=== PATIENT | female | born 1960 | race African-American/Black ===

== ENCOUNTER 2016-05-24 14:59 | Inpatient (IN) | payer MEDICARE, MEDICAID ==
[~2016-05-24] VITALS: Ht 172.7 cm; Wt 119.4 kg
[~2016-05-24 14:59] MED LIST: ALBU18HF2 IH; EZET10TA; INTE44DI SQ; TRIA1CAP6 PO; [UNRECOGNIZED DRUG - CODE] TOP
[2016-05-24] MEDS ORDERED: ACETAMINOPHEN 325MG TABLET PO STA (15:53)
[2016-05-24] MEDS ORDERED: ONDANSETRON HCL 4MG/2ML VIAL IV STA (15:53)
[2016-05-24] MEDS ORDERED: MORPHINE SULFATE 4 MG/ML CPJ (NOT FOR IM USE) IV STA (15:53)
[2016-05-24] MEDS ORDERED: PIPERACILLIN/TAZ 3.375G PREMIX 50 ML IV ONE (16:00)
[2016-05-24] MEDS ORDERED: SODIUM CHLORIDE 0.9% 1000ML BAG (SEPSIS BOLUS) IV ONE (16:00)
[2016-05-24] MEDS ORDERED: VANCOMYCIN 1 G PREMIX 200 ML IV ONE (16:00)
[2016-05-24 16:56] LABS: CLARITY URINE CLOUDY (CLEAR); COLOR URINE DARK YELLOW (YELLOW); GLUCOSE URINE TRACE (NEGATIVE); KETONES URINE TRACE (NEGATIVE); LEUKOCYTE ESTERASE URINE 1+ (NEGATIVE); NITRITE URINE NEGATIVE (NEGATIVE); OCCULT BLOOD URINE NEGATIVE (NEGATIVE); PROTEIN URINE TRACE (NEGATIVE); SPECIFIC GRAVITY URINE 1.022 (1.005-1.030)
[2016-05-24 17:12] LABS: BACTERIA URINE 2+; RBC URINE 0-2 /hpf (0-2); SQUAMOUS EPITHELIAL CELL URINE 1+ /lpf (RARE/1+)
[2016-05-24 17:32] LABS: CHLORIDE 101 mEq/L (98-107)
[2016-05-24 17:33] LABS: HEMATOCRIT. 41.5 % (36.0-48.0); HEMOGLOBIN. 13.5 g/dL (12.0-16.0); MEAN CORPUSCULAR HEMOGLOBIN 31.7 pg (28.0-32.0); MEAN CORPUSCULAR HGB CONC 32.5 g/dL (31.0-37.0); MEAN CORPUSCULAR VOLUME 97.3 fL (81.0-99.0); MEAN PLATELET VOLUME 7.9 fl (7.4-10.4); PLATELET 226 x1000/uL (130-400); RED BLOOD CELL COUNT 4.26 mill/uL (4.2-5.4); RED CELL DISTRIBUTION WIDTH 14.6 % (11.6-14.6); WHITE BLOOD COUNT 17.8 x1000/uL (4.5-11.0)
[2016-05-24 17:35] LABS: INR 1.1; PROTHROMBIN TIME 11.3 sec
[2016-05-24 17:37] LABS: ALBUMIN 3.5 g/dL (3.4-5.0); ANION GAP 18; CALCIUM 8.5 mg/dL (8.5-10.1); CARBON DIOXIDE 27 mEq/L (21-32); INDEX HEMOLYSI 1 (1-3); INDEX ICTERIC 1 (1-4); INDEX LIPEMIC 1 (1-3); UREA NITROGEN BLOOD 13 mg/dL (7-21)
[2016-05-24 17:40] LABS: DIFFERENTIAL COMMENT 1
[2016-05-24 17:42] LABS: ALANINE AMINOTRANSFERASE 50 IU/L (13-61); eGFR 40 mL/min (>60)
[2016-05-24 17:44] LABS: NT PRO B-TYPE NATRIURETIC PEP 383 pg/mL (5-125); TROPONIN I 0.02 ng/mL (0.00-0.04)
[2016-05-24 17:51] LABS: LACTIC ACID 6.4 mmol/L (0.4-2.0)
[2016-05-24 18:07] LABS: PLATELET ESTIMATE NORMAL
[2016-05-24] MEDS ORDERED: PIPERACILLIN/TAZ 3.375G PREMIX 50 ML IV SCH (18:15)
[2016-05-24] MEDS ORDERED: SODIUM CHLORIDE 0.9% 1,000 ML IV SCH (20:33)
[2016-05-24 21:00] VITALS: BP 123/68
[2016-05-24] MEDS: HYDROMORPHONE HCL/PF 2MG/ML CPJ IV PRN (21:35)
[2016-05-24] MEDS: GABAPENTIN 300MG CAPSULE PO SCH (21:36)
[2016-05-24] MEDS: AMITRIPTYLINE 50MG TABLET PO SCH (21:38)
[2016-05-24 22:00] VITALS: BP 111/67
[2016-05-24] MEDS ORDERED: AMITRIPTYLINE 50MG TABLET PO NR (22:00)
[2016-05-25] VITALS (21 sets, daily range): BP systolic 96–152; BP diastolic 43–92
[2016-05-25] MEDS: ACETAMINOPHEN 325MG TABLET PO PRN (00:06)
[2016-05-25] MEDS: PIPERACILLIN/TAZ 3.375G PREMIX 50 ML IV SCH ×4 (00:06→21:36)
[2016-05-25] MEDS ORDERED: DEXTROSE 50% WATER 50ML SYRINGE IV PRN (01:45)
[2016-05-25] MEDS ORDERED: BENAZEPRIL 20MG TABLET PO SCH (01:45)
[2016-05-25] MEDS ORDERED: BACLOFEN 10MG TABLET PO PRN (01:45)
[2016-05-25] MEDS ORDERED: ARMO250T4 PO (02:39)
[2016-05-25] MEDS ORDERED: TRIA1CAP6 PO (02:39)
[2016-05-25] MEDS ORDERED: OMEP20TA80 PO (02:39)
[2016-05-25] MEDS ORDERED: METO-293 PO (02:39)
[2016-05-25] MEDS ORDERED: FENT1PAT4 TD (02:39)
[2016-05-25] MEDS ORDERED: CHOL20004 PO (02:39)
[2016-05-25] MEDS ORDERED: LORA1TAB PO (02:39)
[2016-05-25] MEDS ORDERED: FAMO20TA8 PO (02:39)
[2016-05-25] MEDS ORDERED: HYDR2TAB34 PO (02:39)
[2016-05-25] MEDS ORDERED: DOCU-150 PO (02:39)
[2016-05-25] MEDS ORDERED: PRED5TAB48 PO (02:39)
[2016-05-25] MEDS ORDERED: GABA600T PO (02:39)
[2016-05-25] MEDS ORDERED: LOPE2TAB26 PO (02:39)
[2016-05-25] MEDS ORDERED: BENA20TA3 PO (02:39)
[2016-05-25] MEDS ORDERED: HYDR-519 PO (02:39)
[2016-05-25] MEDS ORDERED: AMIT25TA9 PO (02:39)
[2016-05-25] MEDS ORDERED: INSU3INS6 SUBCUT (02:39)
[2016-05-25] MEDS ORDERED: DONE10TA43 PO (02:39)
[2016-05-25] MEDS ORDERED: OCD MT (02:39)
[2016-05-25] MEDS ORDERED: ASPI-1035 PO (02:39)
[2016-05-25] MEDS ORDERED: BACL20TA PO (02:39)
[2016-05-25] MEDS: HYDROMORPHONE HCL/PF 2MG/ML CPJ IV PRN (05:13)
[2016-05-25] MEDS: ALBUTEROL (0.083%) 2.5MG/3ML NEB HHN PRN (05:23)
[2016-05-25 06:41] LABS: HEMATOCRIT. 37.5 % (36.0-48.0); HEMOGLOBIN. 12.4 g/dL (12.0-16.0); MEAN CORPUSCULAR HEMOGLOBIN 31.4 pg (28.0-32.0); MEAN CORPUSCULAR HGB CONC 33.1 g/dL (31.0-37.0); MEAN CORPUSCULAR VOLUME 94.9 fL (81.0-99.0); PLATELET 258 x1000/uL (130-400); RED BLOOD CELL COUNT 3.96 mill/uL (4.2-5.4); RED CELL DISTRIBUTION WIDTH 14.4 % (11.6-14.6); WHITE BLOOD COUNT 21.6 x1000/uL (4.5-11.0)
[2016-05-25] MEDS: GABAPENTIN 300MG CAPSULE PO SCH ×3 (06:44→21:38)
[2016-05-25] MEDS: OMEPRAZOLE 20MG CAPSULE EXTENDED RELEASE PO SCH (06:44)
[2016-05-25 07:01] LABS: DIFFERENTIAL COMMENT 1
[2016-05-25 07:17] LABS: CHLORIDE 107 mEq/L (98-107); INDEX HEMOLYSI 1 (1-3); INDEX ICTERIC 1 (1-4); INDEX LIPEMIC 1 (1-3)
[2016-05-25 07:25] LABS: ANION GAP 12; CALCIUM 7.9 mg/dL (8.5-10.1); CARBON DIOXIDE 26 mEq/L (21-32); UREA NITROGEN BLOOD 11 mg/dL (7-21); eGFR > 60 mL/min (>60)
[2016-05-25] MEDS: ERGOCALCIFEROL 50000UNITS CAPSULE PO SCH (08:16)
[2016-05-25] MEDS: BLOOD SUGAR DIAGNOSTIC STRIP TEST SCH ×4 (08:16→21:45)
[2016-05-25] MEDS: BENAZEPRIL 20MG TABLET PO SCH (08:16)
[2016-05-25] MEDS: FAMOTIDINE 20MG TABLET PO SCH ×2 (08:19→21:38)
[2016-05-25] MEDS: ASPIRIN 81MG TABLET PO SCH (08:19)
[2016-05-25] MEDS: METOCLOPRAMIDE HCL 10MG/2ML VIAL IV SCH ×2 (08:19→21:45)
[2016-05-25] MEDS: SODIUM CHLORIDE 0.9% 1,000 ML IV SCH ×3 (08:27→21:34)
[2016-05-25] MEDS: INSULIN LISPRO 100 UNITS/ML SUBCUT SCH ×4 (08:41→21:58)
[2016-05-25] MEDS ORDERED: TRIAMTERENE/HYDROCHLOROTHIAZIDE 37.5/25MG CAPSULE PO SCH ×2 (09:00)
[2016-05-25] MEDS ORDERED: ENOXAPARIN 40MG/0.4ML SYR SUBCUT SCH (09:00)
[2016-05-25] MEDS ORDERED: ALBUMIN HUMAN 25GM/500ML (5%) IV NR (11:00)
[2016-05-25 13:44] LABS: PLATELET ESTIMATE NORMAL
[2016-05-25] MEDS ORDERED: VANCOMYCIN 1250MG in DEXTROSE 5% WATER 250ML IV SCH (17:00)
[2016-05-25] MEDS: LORAZEPAM 1MG TABLET PO PRN (17:58)
[2016-05-25] MEDS: HYDROCODONE/ACETAMINOPHEN 10/325MG TABLET PO PRN (17:59)
[2016-05-25] MEDS: ENOXAPARIN 30MG/0.3ML SYR SUBCUT SCH (21:36)
[2016-05-25] MEDS: AMITRIPTYLINE 50MG TABLET PO SCH (21:38)
[2016-05-26] VITALS (16 sets, daily range): BP systolic 105–148; BP diastolic 65–96
[2016-05-26] MEDS: SODIUM CHLORIDE 0.9% 1,000 ML IV SCH (04:31)
[2016-05-26] MEDS: PIPERACILLIN/TAZ 3.375G PREMIX 50 ML IV SCH ×4 (04:31→20:43)
[2016-05-26] MEDS: ACETAMINOPHEN 325MG TABLET PO PRN (04:44)
[2016-05-26] MEDS: GABAPENTIN 300MG CAPSULE PO SCH ×3 (05:34→21:41)
[2016-05-26] MEDS: HYDROCODONE/ACETAMINOPHEN 10/325MG TABLET PO PRN ×3 (05:42→20:45)
[2016-05-26 06:39] LABS: HEMATOCRIT. 34.7 % (36.0-48.0); HEMOGLOBIN. 11.5 g/dL (12.0-16.0); MEAN CORPUSCULAR HEMOGLOBIN 31.3 pg (28.0-32.0); MEAN CORPUSCULAR HGB CONC 33.3 g/dL (31.0-37.0); MEAN PLATELET VOLUME 7.7 fl (7.4-10.4); PLATELET 215 x1000/uL (130-400); RED BLOOD CELL COUNT 3.69 mill/uL (4.2-5.4); RED CELL DISTRIBUTION WIDTH 14.2 % (11.6-14.6); WHITE BLOOD COUNT 15.8 x1000/uL (4.5-11.0)
[2016-05-26 07:11] LABS: DIFFERENTIAL COMMENT 1
[2016-05-26] MEDS: BLOOD SUGAR DIAGNOSTIC STRIP TEST SCH ×4 (07:30→20:54)
[2016-05-26 07:51] LABS: ANION GAP 11; CALCIUM 8.5 mg/dL (8.5-10.1); CARBON DIOXIDE 28 mEq/L (21-32); CHLORIDE 104 mEq/L (98-107); INDEX HEMOLYSI 1 (1-3); INDEX ICTERIC 1 (1-4); INDEX LIPEMIC 1 (1-3); MAGNESIUM 1.7 mg/dL (1.8-2.4); PHOSPHORUS 2.2 mg/dL (2.5-4.9); UREA NITROGEN BLOOD 5 mg/dL (7-21); eGFR > 60 mL/min (>60)
[2016-05-26] MEDS: INSULIN LISPRO 100 UNITS/ML SUBCUT SCH ×4 (08:00→21:44)
[2016-05-26] MEDS ORDERED: POTASSIUM CHLORIDE 20MEQ TABLET SR PO NR (08:15)
[2016-05-26] MEDS: METOCLOPRAMIDE HCL 10MG/2ML VIAL IV SCH ×2 (08:56→20:43)
[2016-05-26] MEDS: FAMOTIDINE 20MG TABLET PO SCH ×2 (08:56→20:44)
[2016-05-26] MEDS: ASPIRIN 81MG TABLET PO SCH (08:56)
[2016-05-26] MEDS: ERGOCALCIFEROL 50000UNITS CAPSULE PO SCH (08:56)
[2016-05-26] MEDS: OMEPRAZOLE 20MG CAPSULE EXTENDED RELEASE PO SCH (08:56)
[2016-05-26] MEDS: BENAZEPRIL 20MG TABLET PO SCH (08:57)
[2016-05-26] MEDS: ENOXAPARIN 30MG/0.3ML SYR SUBCUT SCH ×2 (08:57→20:45)
[2016-05-26] MEDS ORDERED: DIATR MEGLU/DIATRIZOATE SOLN 30ML PO SCH (10:15)
[2016-05-26 10:35] LABS: BG BASE EXCESS 0.8 mmol/L (-2.0-2.0); BG CARBOXYHEMOGLOBIN 1.1 % (0.5-1.5); BG DEOXYHEMOGLOBIN 11.9 % (0.0-5.0); BG HCO3 ACT 26.3 mmol/L (22.0-26.0); BG METHEMOGLOBIN 0.3 % (0.0-1.5); BG OXYGEN SATURATION 87.9 % (92.0-98.5); BG OXYHEMOGLOBIN 86.7 % (94.0-97.0); BG PCO2 45.3 mmHg (35.0-45.0); BG PH 7.381 (7.350-7.450); BG PO2 52.1 mmHg (75.0-100.0); BG SAMPLE SITE LEFT RADIAL; BG TOTAL HEMOGLOBIN 12.2 g/dL (12.0-18.0); BG VENT MODE ROOM AIR
[2016-05-26 11:02] LABS: PLATELET ESTIMATE NORMAL
[2016-05-26] MEDS ORDERED: POTASSIUM-SODIUM PHOSPHATE POWDER PACKET PO NR (11:15)
[2016-05-26] MEDS ORDERED: MAGNESIUM 2 G PREMIX 50 ML IV NR (12:30)
[2016-05-26] MEDS: ONDANSETRON HCL 4MG/2ML VIAL IV PRN ×2 (15:47→20:58)
[2016-05-26] MEDS: HYDROMORPHONE HCL/PF 2MG/ML CPJ IV PRN (15:53)
[2016-05-26] MEDS: VANCOMYCIN 1250MG in DEXTROSE 5% WATER 250ML IV SCH (17:05)
[2016-05-26] MEDS ORDERED: BACITRACIN ZINC 15GM TUBE TOP PRN (18:00)
[2016-05-26] MEDS: AMITRIPTYLINE 50MG TABLET PO SCH (20:44)
[2016-05-26] MEDS: BACITRACIN ZINC 15GM TUBE TOP SCH (21:42)
[2016-05-27] VITALS (13 sets, daily range): BP systolic 128–167; BP diastolic 71–97
[2016-05-27] MEDS: VANCOMYCIN 1250MG in DEXTROSE 5% WATER 250ML IV SCH ×2 (00:55→08:43)
[2016-05-27] MEDS ORDERED: GUAIFENESIN-DM 200MG-20MG/10ML UDC PO PRN (01:15)
[2016-05-27] MEDS: PIPERACILLIN/TAZ 3.375G PREMIX 50 ML IV SCH ×4 (02:42→21:09)
[2016-05-27] MEDS: GABAPENTIN 300MG CAPSULE PO SCH ×3 (05:59→21:09)
[2016-05-27] MEDS: SODIUM CHLORIDE 0.9% 1,000 ML IV SCH (06:01)
[2016-05-27] MEDS: ONDANSETRON HCL 4MG/2ML VIAL IV PRN (06:01)
[2016-05-27] MEDS: HYDROMORPHONE HCL/PF 2MG/ML CPJ IV PRN ×2 (06:01→19:49)
[2016-05-27 06:30] LABS: HEMATOCRIT. 35.2 % (36.0-48.0); HEMOGLOBIN. 11.6 g/dL (12.0-16.0); MEAN CORPUSCULAR HEMOGLOBIN 31.5 pg (28.0-32.0); MEAN CORPUSCULAR HGB CONC 33.1 g/dL (31.0-37.0); MEAN CORPUSCULAR VOLUME 95.3 fL (81.0-99.0); PLATELET 212 x1000/uL (130-400); RED BLOOD CELL COUNT 3.69 mill/uL (4.2-5.4); RED CELL DISTRIBUTION WIDTH 14.1 % (11.6-14.6); WHITE BLOOD COUNT 13.6 x1000/uL (4.5-11.0)
[2016-05-27] MEDS: IPRATROPIUM/ALBUTEROL 0.5-3(2.5)MG/3ML NEB HHN PRN ×3 (06:58→13:48)
[2016-05-27] MEDS: BLOOD SUGAR DIAGNOSTIC STRIP TEST SCH ×4 (07:16→21:12)
[2016-05-27 07:22] LABS: ANION GAP 14; CALCIUM 8.4 mg/dL (8.5-10.1); CARBON DIOXIDE 27 mEq/L (21-32); CHLORIDE 102 mEq/L (98-107); DIFFERENTIAL COMMENT 1; INDEX HEMOLYSI 1 (1-3); INDEX ICTERIC 1 (1-4); INDEX LIPEMIC 1 (1-3); PHOSPHORUS 1.9 mg/dL (2.5-4.9); eGFR > 60 mL/min (>60)
[2016-05-27 07:24] LABS: UREA NITROGEN BLOOD 4 mg/dL (7-21)
[2016-05-27] MEDS: INSULIN LISPRO 100 UNITS/ML SUBCUT SCH ×4 (08:41→21:20)
[2016-05-27] MEDS: ENOXAPARIN 30MG/0.3ML SYR SUBCUT SCH ×2 (08:42→21:10)
[2016-05-27] MEDS: METOCLOPRAMIDE HCL 10MG/2ML VIAL IV SCH ×2 (08:42→21:09)
[2016-05-27] MEDS: BACITRACIN ZINC 15GM TUBE TOP SCH (08:42)
[2016-05-27] MEDS: BENAZEPRIL 20MG TABLET PO SCH (08:43)
[2016-05-27] MEDS: FAMOTIDINE 20MG TABLET PO SCH ×2 (08:43→21:09)
[2016-05-27] MEDS: ERGOCALCIFEROL 50000UNITS CAPSULE PO SCH (08:43)
[2016-05-27] MEDS: ASPIRIN 81MG TABLET PO SCH (08:43)
[2016-05-27] MEDS: OMEPRAZOLE 20MG CAPSULE EXTENDED RELEASE PO SCH (08:59)
[2016-05-27] MEDS ORDERED: POTASSIUM PHOS,M-BASIC-D-BASIC 15 MMOL in DEXT 5% WATER 245 ML IV NR (09:00)
[2016-05-27 09:46] LABS: T3 FREE 1.45 pg/ml (2.18-3.98); T4 FREE 0.91 ng/dL (0.76-1.46); THYROID STIMULATING HORMONE 0.36 uIU/mL (0.36-3.74)
[2016-05-27 09:51] LABS: INDEX HEMOLYSI 2 (1-3)
[2016-05-27 10:21] LABS: VITAMIN B12 SERUM > 2000 pg/mL (211-911)
[2016-05-27 10:23] LABS: BG BASE EXCESS -1.2 mmol/L (-2.0-2.0); BG CARBOXYHEMOGLOBIN 1.2 % (0.5-1.5); BG DEOXYHEMOGLOBIN 16.6 % (0.0-5.0); BG FRACTION INSPIRED OXYGEN 21; BG HCO3 ACT 23.7 mmol/L (22.0-26.0); BG METHEMOGLOBIN 0.3 % (0.0-1.5); BG OXYGEN SATURATION 83.1 % (92.0-98.5); BG OXYHEMOGLOBIN 81.9 % (94.0-97.0); BG PCO2 40.3 mmHg (35.0-45.0); BG PH 7.387 (7.350-7.450); BG PO2 46.5 mmHg (75.0-100.0); BG SAMPLE SITE RIGHT RADIAL; BG TOTAL HEMOGLOBIN 12.9 g/dL (12.0-18.0); BG VENT MODE ROOM AIR
[2016-05-27 11:17] LABS: AMMONIA 30 uMol/L (<32)
[2016-05-27 11:25] LABS: PLATELET ESTIMATE NORMAL
[2016-05-27] MEDS: HYDROCODONE/ACETAMINOPHEN 10/325MG TABLET PO PRN (14:30)
[2016-05-27] MEDS: ALBUTEROL (0.083%) 2.5MG/3ML NEB HHN PRN (20:45)
[2016-05-27] MEDS: AMITRIPTYLINE 50MG TABLET PO SCH (21:09)
[2016-05-28] VITALS (12 sets, daily range): BP systolic 125–165; BP diastolic 77–95
[2016-05-28] MEDS: ALBUTEROL (0.083%) 2.5MG/3ML NEB HHN PRN ×3 (02:14→21:20)
[2016-05-28] MEDS: PIPERACILLIN/TAZ 3.375G PREMIX 50 ML IV SCH ×4 (02:27→21:10)
[2016-05-28] MEDS: HYDROMORPHONE HCL/PF 2MG/ML CPJ IV PRN ×4 (02:47→22:17)
[2016-05-28] MEDS: GABAPENTIN 300MG CAPSULE PO SCH ×3 (05:30→21:14)
[2016-05-28 05:56] LABS: PARTIAL THROMBOPLASTIN TIME 31.4 sec (24.0-34.0); PROTHROMBIN TIME 10.8 sec
[2016-05-28 06:31] LABS: BASOPHILS % 0.7 % (0.0-2.0); DIFFERENTIAL COMMENT 0; EOSINOPHILS % 2.2 % (0.0-5.0); HEMOGLOBIN. 10.8 g/dL (12.0-16.0); LYMPHOCYTES % 8.1 % (20.0-50.0); MEAN CORPUSCULAR HEMOGLOBIN 31.2 pg (28.0-32.0); MEAN CORPUSCULAR HGB CONC 33.6 g/dL (31.0-37.0); MEAN CORPUSCULAR VOLUME 92.8 fL (81.0-99.0); MONOCYTES % 10.3 % (2.0-8.0); NEUTROPHILS % 78.7 % (40.0-76.0); PLATELET 257 x1000/uL (130-400); RED BLOOD CELL COUNT 3.45 mill/uL (4.2-5.4); WHITE BLOOD COUNT 8.7 x1000/uL (4.5-11.0)
[2016-05-28 06:35] LABS: ANION GAP 16; CALCIUM 8.8 mg/dL (8.5-10.1); CARBON DIOXIDE 26 mEq/L (21-32); CHLORIDE 101 mEq/L (98-107); INDEX HEMOLYSI 1 (1-3); INDEX ICTERIC 1 (1-4); INDEX LIPEMIC 1 (1-3); MAGNESIUM 1.7 mg/dL (1.8-2.4); PHOSPHORUS 2.6 mg/dL (2.5-4.9); eGFR > 60 mL/min (>60)
[2016-05-28 06:46] LABS: UREA NITROGEN BLOOD 3 mg/dL (7-21)
[2016-05-28] MEDS: BLOOD SUGAR DIAGNOSTIC STRIP TEST SCH ×4 (07:30→21:00)
[2016-05-28] MEDS: INSULIN LISPRO 100 UNITS/ML SUBCUT SCH ×4 (09:00→21:00)
[2016-05-28] MEDS: FAMOTIDINE 20MG TABLET PO SCH ×2 (09:03→21:14)
[2016-05-28] MEDS: ERGOCALCIFEROL 50000UNITS CAPSULE PO SCH (09:03)
[2016-05-28] MEDS: METOCLOPRAMIDE HCL 10MG/2ML VIAL IV SCH ×2 (09:10→22:15)
[2016-05-28] MEDS: ASPIRIN 81MG TABLET PO SCH (09:10)
[2016-05-28] MEDS: ENOXAPARIN 30MG/0.3ML SYR SUBCUT SCH ×2 (09:11→21:11)
[2016-05-28] MEDS: BENAZEPRIL 20MG TABLET PO SCH (09:11)
[2016-05-28] MEDS: BACITRACIN ZINC 15GM TUBE TOP SCH (09:12)
[2016-05-28] MEDS ORDERED: POTASSIUM CHLORIDE 10MEQ TABLET SR PO NR (09:45)
[2016-05-28] MEDS ORDERED: MAGNESIUM 2 G PREMIX 50 ML IV NR (11:30)
[2016-05-28] MEDS: LORAZEPAM 1MG TABLET PO PRN (13:34)
[2016-05-28] MEDS: IPRATROPIUM/ALBUTEROL 0.5-3(2.5)MG/3ML NEB HHN PRN (13:37)
[2016-05-28] MEDS: ONDANSETRON HCL 4MG/2ML VIAL IV PRN (13:38)
[2016-05-28] MEDS: AMITRIPTYLINE 50MG TABLET PO SCH (21:14)
[2016-05-29] VITALS (11 sets, daily range): BP systolic 116–158; BP diastolic 67–95
[2016-05-29] MEDS: PIPERACILLIN/TAZ 3.375G PREMIX 50 ML IV SCH ×4 (03:10→22:37)
[2016-05-29] MEDS: GABAPENTIN 300MG CAPSULE PO SCH ×3 (05:14→22:30)
[2016-05-29] MEDS: HYDROMORPHONE HCL/PF 2MG/ML CPJ IV PRN ×3 (05:14→22:37)
[2016-05-29] MEDS: ONDANSETRON HCL 4MG/2ML VIAL IV PRN ×2 (05:19→15:40)
[2016-05-29 06:23] LABS: BASOPHILS % 0.3 % (0.0-2.0); EOSINOPHILS % 2.7 % (0.0-5.0); HEMATOCRIT. 31.9 % (36.0-48.0); HEMOGLOBIN. 10.9 g/dL (12.0-16.0); MEAN CORPUSCULAR HEMOGLOBIN 31.8 pg (28.0-32.0); MEAN CORPUSCULAR HGB CONC 34.2 g/dL (31.0-37.0); MEAN CORPUSCULAR VOLUME 92.9 fL (81.0-99.0); MEAN PLATELET VOLUME 7.8 fl (7.4-10.4); MONOCYTES % 10.8 % (2.0-8.0); NEUTROPHILS % 77.2 % (40.0-76.0); PLATELET 262 x1000/uL (130-400); RED BLOOD CELL COUNT 3.43 mill/uL (4.2-5.4); RED CELL DISTRIBUTION WIDTH 14.2 % (11.6-14.6); WHITE BLOOD COUNT 9.6 x1000/uL (4.5-11.0)
[2016-05-29 06:46] LABS: CHLORIDE 99 mEq/L (98-107); INDEX HEMOLYSI 1 (1-3); INDEX ICTERIC 1 (1-4); INDEX LIPEMIC 1 (1-3)
[2016-05-29 06:56] LABS: ANION GAP 15; CALCIUM 8.6 mg/dL (8.5-10.1); CARBON DIOXIDE 29 mEq/L (21-32); MAGNESIUM 1.8 mg/dL (1.8-2.4); PHOSPHORUS 2.5 mg/dL (2.5-4.9); eGFR > 60 mL/min (>60)
[2016-05-29 07:01] LABS: UREA NITROGEN BLOOD 2 mg/dL (7-21)
[2016-05-29] MEDS: BLOOD SUGAR DIAGNOSTIC STRIP TEST SCH ×4 (07:49→21:00)
[2016-05-29] MEDS: INSULIN LISPRO 100 UNITS/ML SUBCUT SCH ×4 (08:08→21:00)
[2016-05-29] MEDS: METOCLOPRAMIDE HCL 10MG/2ML VIAL IV SCH ×2 (08:09→22:30)
[2016-05-29] MEDS: ENOXAPARIN 30MG/0.3ML SYR SUBCUT SCH ×2 (08:09→22:31)
[2016-05-29] MEDS: ERGOCALCIFEROL 50000UNITS CAPSULE PO SCH (08:10)
[2016-05-29] MEDS: BENAZEPRIL 20MG TABLET PO SCH (08:10)
[2016-05-29] MEDS: FAMOTIDINE 20MG TABLET PO SCH ×2 (08:10→22:30)
[2016-05-29] MEDS: ASPIRIN 81MG TABLET PO SCH (08:10)
[2016-05-29] MEDS: BACITRACIN ZINC 15GM TUBE TOP SCH (08:11)
[2016-05-29] MEDS ORDERED: POTASSIUM CHLORIDE 20MEQ TABLET SR PO SCH (09:45)
[2016-05-29] MEDS: HYDROCODONE/ACETAMINOPHEN 10/325MG TABLET PO PRN (15:41)
[2016-05-29] MEDS: GUAIFENESIN 600MG ER TABLET PO SCH (22:30)
[2016-05-29] MEDS: AMITRIPTYLINE 50MG TABLET PO SCH (22:30)
[2016-05-29] MEDS: IPRATROPIUM/ALBUTEROL 0.5-3(2.5)MG/3ML NEB HHN SCH (23:57)
[2016-05-30] VITALS (12 sets, daily range): BP systolic 135–156; BP diastolic 73–89
[2016-05-30] MEDS: PIPERACILLIN/TAZ 3.375G PREMIX 50 ML IV SCH ×3 (02:42→16:09)
[2016-05-30] MEDS: IPRATROPIUM/ALBUTEROL 0.5-3(2.5)MG/3ML NEB HHN SCH ×4 (04:30→17:16)
[2016-05-30] MEDS: GABAPENTIN 300MG CAPSULE PO SCH ×2 (06:16→14:30)
[2016-05-30] MEDS: HYDROMORPHONE HCL/PF 2MG/ML CPJ IV PRN (06:49)
[2016-05-30] MEDS: BLOOD SUGAR DIAGNOSTIC STRIP TEST SCH ×3 (07:30→17:09)
[2016-05-30 07:52] LABS: BASOPHILS % 1.2 % (0.0-2.0); DIFFERENTIAL COMMENT 0; EOSINOPHILS % 2.6 % (0.0-5.0); HEMATOCRIT. 32.9 % (36.0-48.0); LYMPHOCYTES % 9.5 % (20.0-50.0); MEAN CORPUSCULAR HEMOGLOBIN 31.3 pg (28.0-32.0); MEAN CORPUSCULAR HGB CONC 33.4 g/dL (31.0-37.0); MEAN CORPUSCULAR VOLUME 93.8 fL (81.0-99.0); MEAN PLATELET VOLUME 7.6 fl (7.4-10.4); MONOCYTES % 7.8 % (2.0-8.0); NEUTROPHILS % 78.9 % (40.0-76.0); PLATELET 295 x1000/uL (130-400); RED BLOOD CELL COUNT 3.51 mill/uL (4.2-5.4); RED CELL DISTRIBUTION WIDTH 14.2 % (11.6-14.6); WHITE BLOOD COUNT 9.8 x1000/uL (4.5-11.0)
[2016-05-30] MEDS: INSULIN LISPRO 100 UNITS/ML SUBCUT SCH ×3 (08:00→17:09)
[2016-05-30 08:11] LABS: ANION GAP 9; CALCIUM 8.7 mg/dL (8.5-10.1); CARBON DIOXIDE 32 mEq/L (21-32); CHLORIDE 101 mEq/L (98-107); INDEX HEMOLYSI 1 (1-3); INDEX ICTERIC 1 (1-4); INDEX LIPEMIC 1 (1-3); eGFR > 60 mL/min (>60)
[2016-05-30 08:13] LABS: UREA NITROGEN BLOOD 3 mg/dL (7-21)
[2016-05-30 08:37] LABS: BG BASE EXCESS 0.7 mmol/L (-2.0-2.0); BG CARBOXYHEMOGLOBIN 1.4 % (0.5-1.5); BG DEOXYHEMOGLOBIN 4.8 % (0.0-5.0); BG FRACTION INSPIRED OXYGEN 36; BG HCO3 ACT 25.7 mmol/L (22.0-26.0); BG METHEMOGLOBIN 0.3 % (0.0-1.5); BG OXYGEN SATURATION 95.1 % (92.0-98.5); BG OXYHEMOGLOBIN 93.5 % (94.0-97.0); BG PCO2 42.8 mmHg (35.0-45.0); BG PH 7.397 (7.350-7.450); BG PO2 79.1 mmHg (75.0-100.0); BG SAMPLE SITE RIGHT RADIAL; BG TOTAL HEMOGLOBIN 11.8 g/dL (12.0-18.0); BG VENT MODE NASAL CANNULA
[2016-05-30] MEDS: BACITRACIN ZINC 15GM TUBE TOP SCH (09:00)
[2016-05-30] MEDS ORDERED: POTASSIUM CHLORIDE 20 MEQ/PACKET PO NR (09:38)
[2016-05-30] MEDS: HYDROCODONE/ACETAMINOPHEN 10/325MG TABLET PO PRN ×2 (09:42→17:07)
[2016-05-30] MEDS: METOCLOPRAMIDE HCL 10MG/2ML VIAL IV SCH (09:43)
[2016-05-30] MEDS: ASPIRIN 81MG TABLET PO SCH (09:44)
[2016-05-30] MEDS: FAMOTIDINE 20MG TABLET PO SCH (09:44)
[2016-05-30] MEDS: ERGOCALCIFEROL 50000UNITS CAPSULE PO SCH (09:44)
[2016-05-30] MEDS: BENAZEPRIL 20MG TABLET PO SCH (09:44)
[2016-05-30] MEDS: GUAIFENESIN 600MG ER TABLET PO SCH (09:44)
[2016-05-30] MEDS: ENOXAPARIN 30MG/0.3ML SYR SUBCUT SCH (09:45)
[2016-05-30] MEDS ORDERED: AMITRIPTYLINE 50MG TABLET PO SCH (21:00)
== END 2016-05-30 18:20 | DRG 871 ==
LOC: ER 15:00 → 5EST 18:11
PROVIDERS: ADMIT Internal Medicine Nephrology; ATTEND Internal Medicine Nephrology
PROC: 02HV33Z Insertion of Infusion Device into Superior Vena Cava, Percutaneous Approach (ICD-10-PCS; principal; 2016-05-28)
PROC: B5181ZA Fluoroscopy of Superior Vena Cava using Low Osmolar Contrast, Guidance (ICD-10-PCS; 2016-05-28)
DX: A41.9 Sepsis, unspecified organism (principal); J18.9 Pneumonia, unspecified organism; G92 Toxic encephalopathy; J96.91 Respiratory failure, unspecified with hypoxia; N39.0 Urinary tract infection, site not specified; Z68.41 Body mass index [BMI] 40.0-44.9, adult; J44.0 Chronic obstructive pulmonary disease with (acute) lower respiratory infection; N17.9 Acute kidney failure, unspecified; E11.9 Type 2 diabetes mellitus without complications; E78.00 Pure hypercholesterolemia, unspecified; E78.5 Hyperlipidemia, unspecified; E87.6 Hypokalemia; I11.9 Hypertensive heart disease without heart failure; J45.909 Unspecified asthma, uncomplicated; M79.7 Fibromyalgia; D64.9 Anemia, unspecified; E11.42 Type 2 diabetes mellitus with diabetic polyneuropathy; E11.622 Type 2 diabetes mellitus with other skin ulcer; E66.01 Morbid (severe) obesity due to excess calories; E83.39 Other disorders of phosphorus metabolism; E86.0 Dehydration; F41.9 Anxiety disorder, unspecified; G35 Multiple sclerosis; G43.909 Migraine, unspecified, not intractable, without status migrainosus; G47.33 Obstructive sleep apnea (adult) (pediatric); G89.4 Chronic pain syndrome; K76.0 Fatty (change of) liver, not elsewhere classified; L98.419 Non-pressure chronic ulcer of buttock with unspecified severity; M19.90 Unspecified osteoarthritis, unspecified site; Z90.10 Acquired absence of unspecified breast and nipple; Z98.890 Other specified postprocedural states; Z79.82 Long term (current) use of aspirin; Z79.899 Other long term (current) drug therapy; Z98.891 History of uterine scar from previous surgery; Z86.73 Personal history of transient ischemic attack (TIA), and cerebral infarction without residual deficits; Z82.49 Family history of ischemic heart disease and other diseases of the circulatory system
CPT/HCPCS: 36415; 36569; 36600; 51702; 70551; 71010; 71250; 73110; 73521; 73560; 74176; 76937; 77001; 78580; 80048; 80053; 80061; 80202; 81001; 82140; 82375; 82607; 82746; 82805; 82962; 83036; 83605; 83735; 83880; 84100; 84439; 84443; 84481; 84484; 85025; 85610; 85730; 87040; 87070; 87086; 93005; 93306; 93970; 94640; 94664; 96361; 96365; 96367; 96375; 97162; 97167; 97530; 97535; 99291; A6261; C1725; J1170; J1650; J1815; J2270; J2405; J2543; J2765; J3370; J3475; J3490; J7030; J7050; J7060; J7611; J7620; P9041; Q9963

== ENCOUNTER 2016-05-30 18:25 | Inpatient (IN) | payer MEDICARE, MEDICAID ==
[~2016-05-30] VITALS: Ht 172.7 cm; Wt 119.7 kg
[~2016-05-30 18:25] MED LIST changes: +AMIT25TA9 PO; +ARMO250T4 PO; +ASPI-1035 PO; +BACL20TA PO; +BENA20TA3 PO; +CHOL20004 PO; +DOCU-150 PO; +DONE10TA43 PO; +FAMO20TA8 PO; +FENT1PAT4 TD; +GABA600T PO; +HYDR-519 PO; +HYDR2TAB34 PO; +INSU3INS6 SUBCUT; +LOPE2TAB26 PO; +LORA1TAB PO; +METO-293 PO; +OCD MT; +OMEP20TA80 PO; +PRED5TAB48 PO
[2016-05-30] MEDS ORDERED: BACLOFEN 10MG TABLET PO PRN (19:45)
[2016-05-30] MEDS ORDERED: ACETAMINOPHEN 325MG TABLET PO PRN (19:45)
[2016-05-30] MEDS ORDERED: BACITRACIN ZINC 15GM TUBE TOP PRN (19:45)
[2016-05-30] MEDS ORDERED: DEXTROSE 50% WATER 50ML SYRINGE IV PRN (19:45)
[2016-05-30] MEDS ORDERED: IPRATROPIUM/ALBUTEROL 0.5-3(2.5)MG/3ML NEB HHN PRN (19:45)
[2016-05-30 20:00] VITALS: BP 138/78
[2016-05-30] MEDS: METOCLOPRAMIDE HCL 10MG/2ML VIAL IV SCH (21:00)
[2016-05-30] MEDS: INSULIN LISPRO 100 UNITS/ML SUBCUT SCH (21:00)
[2016-05-30] MEDS: BLOOD SUGAR DIAGNOSTIC STRIP TEST SCH (21:00)
[2016-05-30] MEDS: IPRATROPIUM/ALBUTEROL 0.5-3(2.5)MG/3ML NEB HHN SCH ×2 (22:40→23:08)
[2016-05-30] MEDS: GABAPENTIN 300MG CAPSULE PO SCH (22:48)
[2016-05-30] MEDS: HYDROCODONE/ACETAMINOPHEN 10/325MG TABLET PO PRN (22:49)
[2016-05-30] MEDS: GUAIFENESIN 600MG ER TABLET PO SCH (22:50)
[2016-05-30] MEDS: AMITRIPTYLINE 50MG TABLET PO SCH (22:50)
[2016-05-30] MEDS: FAMOTIDINE 20MG TABLET PO SCH (22:50)
[2016-05-30] MEDS: ENOXAPARIN 30MG/0.3ML SYR SUBCUT SCH (22:51)
[2016-05-31] MEDS: PIPERACILLIN/TAZ 3.375G PREMIX 50 ML IV SCH ×4 (00:40→17:22)
[2016-05-31] MEDS: GABAPENTIN 300MG CAPSULE PO SCH ×3 (06:09→22:39)
[2016-05-31] MEDS: BLOOD SUGAR DIAGNOSTIC STRIP TEST SCH ×4 (06:14→21:00)
[2016-05-31] MEDS: INSULIN LISPRO 100 UNITS/ML SUBCUT SCH ×4 (06:14→21:00)
[2016-05-31 06:31] LABS: BASOPHILS % 0.7 % (0.0-2.0); EOSINOPHILS % 2.9 % (0.0-5.0); HEMATOCRIT. 31.7 % (36.0-48.0); HEMOGLOBIN. 10.7 g/dL (12.0-16.0); LYMPHOCYTES % 11.9 % (20.0-50.0); MEAN CORPUSCULAR HEMOGLOBIN 31.2 pg (28.0-32.0); MEAN CORPUSCULAR HGB CONC 33.6 g/dL (31.0-37.0); MEAN CORPUSCULAR VOLUME 92.8 fL (81.0-99.0); MEAN PLATELET VOLUME 7.4 fl (7.4-10.4); MONOCYTES % 10.3 % (2.0-8.0); NEUTROPHILS % 74.2 % (40.0-76.0); PLATELET 328 x1000/uL (130-400); RED BLOOD CELL COUNT 3.42 mill/uL (4.2-5.4); RED CELL DISTRIBUTION WIDTH 14.4 % (11.6-14.6); WHITE BLOOD COUNT 7.3 x1000/uL (4.5-11.0)
[2016-05-31] MEDS: IPRATROPIUM/ALBUTEROL 0.5-3(2.5)MG/3ML NEB HHN SCH ×4 (07:16→21:28)
[2016-05-31 07:46] LABS: CHLORIDE 103 mEq/L (98-107); INDEX HEMOLYSI 1 (1-3); INDEX ICTERIC 1 (1-4); INDEX LIPEMIC 1 (1-3)
[2016-05-31 07:56] LABS: ALANINE AMINOTRANSFERASE 30 IU/L (13-61); ALBUMIN 2.6 g/dL (3.4-5.0); ANION GAP 13; CALCIUM 8.5 mg/dL (8.5-10.1); CARBON DIOXIDE 29 mEq/L (21-32); eGFR > 60 mL/min (>60)
[2016-05-31 07:59] LABS: UREA NITROGEN BLOOD 3 mg/dL (7-21)
[2016-05-31 08:00] VITALS: BP 134/83
[2016-05-31 08:18] LABS: PREALBUMIN 9.2 mg/dL (20.0-40.0)
[2016-05-31] MEDS: FAMOTIDINE 20MG TABLET PO SCH ×2 (08:30→22:39)
[2016-05-31] MEDS: GUAIFENESIN 600MG ER TABLET PO SCH ×2 (08:31→22:39)
[2016-05-31] MEDS: METOCLOPRAMIDE HCL 10MG/2ML VIAL IV SCH ×2 (08:31→21:00)
[2016-05-31] MEDS: ASPIRIN 81MG TABLET PO SCH (08:31)
[2016-05-31] MEDS: BENAZEPRIL 20MG TABLET PO SCH (08:31)
[2016-05-31] MEDS: ENOXAPARIN 30MG/0.3ML SYR SUBCUT SCH ×2 (08:32→22:39)
[2016-05-31] MEDS: BACITRACIN ZINC 15GM TUBE TOP SCH (08:33)
[2016-05-31] MEDS: HYDROCODONE/ACETAMINOPHEN 10/325MG TABLET PO PRN ×2 (08:37→14:54)
[2016-05-31] MEDS ORDERED: DONEPEZIL HCL 5MG TABLET PO SCH (10:45)
[2016-05-31] MEDS ORDERED: POTASSIUM CHLORIDE 20MEQ TABLET SR PO NR (11:30)
[2016-05-31] MEDS: ERGOCALCIFEROL 50000UNITS CAPSULE PO SCH (17:21)
[2016-05-31 20:00] VITALS: BP 137/86
[2016-05-31] MEDS: AMITRIPTYLINE 50MG TABLET PO SCH (22:41)
[2016-06-01] MEDS: PIPERACILLIN/TAZ 3.375G PREMIX 50 ML IV SCH ×2 (00:16→17:10)
[2016-06-01] MEDS: IPRATROPIUM/ALBUTEROL 0.5-3(2.5)MG/3ML NEB HHN SCH ×6 (00:48→22:03)
[2016-06-01] MEDS: HYDROCODONE/ACETAMINOPHEN 10/325MG TABLET PO PRN ×4 (01:11→21:39)
[2016-06-01] MEDS: GABAPENTIN 300MG CAPSULE PO SCH ×3 (05:58→21:37)
[2016-06-01] MEDS: INSULIN LISPRO 100 UNITS/ML SUBCUT SCH ×4 (06:07→21:00)
[2016-06-01] MEDS: BLOOD SUGAR DIAGNOSTIC STRIP TEST SCH ×4 (06:07→21:40)
[2016-06-01 07:59] VITALS: BP 118/80
[2016-06-01] MEDS: METOCLOPRAMIDE HCL 10MG/2ML VIAL IV SCH ×2 (08:04→21:00)
[2016-06-01] MEDS: ARMODAFINIL 250 MG PO SCH (08:04)
[2016-06-01] MEDS: FAMOTIDINE 20MG TABLET PO SCH ×2 (08:05→21:37)
[2016-06-01] MEDS: ENOXAPARIN 30MG/0.3ML SYR SUBCUT SCH ×2 (08:05→21:43)
[2016-06-01] MEDS: PREDNISONE 10MG TABLET PO SCH (08:05)
[2016-06-01] MEDS: GUAIFENESIN 600MG ER TABLET PO SCH ×2 (08:06→21:37)
[2016-06-01] MEDS: BACITRACIN ZINC 15GM TUBE TOP SCH (08:06)
[2016-06-01] MEDS: BENAZEPRIL 20MG TABLET PO SCH (08:06)
[2016-06-01] MEDS: ASPIRIN 81MG TABLET PO SCH (08:06)
[2016-06-01] MEDS ORDERED: DONEPEZIL HCL 5MG TABLET PO SCH (09:00)
[2016-06-01 11:49] LABS: HEMATOCRIT. 35.4 % (36.0-48.0); MEAN CORPUSCULAR HEMOGLOBIN 31.9 pg (28.0-32.0); MEAN CORPUSCULAR HGB CONC 33.9 g/dL (31.0-37.0); MEAN CORPUSCULAR VOLUME 94.2 fL (81.0-99.0); MEAN PLATELET VOLUME 8.1 fl (7.4-10.4); PLATELET 291 x1000/uL (130-400); RED BLOOD CELL COUNT 3.76 mill/uL (4.2-5.4); RED CELL DISTRIBUTION WIDTH 14.4 % (11.6-14.6); WHITE BLOOD COUNT 13.3 x1000/uL (4.5-11.0)
[2016-06-01 11:50] LABS: DIFFERENTIAL COMMENT 1
[2016-06-01 12:15] LABS: ANION GAP 14; CALCIUM 8.9 mg/dL (8.5-10.1); CARBON DIOXIDE 28 mEq/L (21-32); CHLORIDE 102 mEq/L (98-107); INDEX HEMOLYSI 1 (1-3); INDEX ICTERIC 1 (1-4); INDEX LIPEMIC 1 (1-3); eGFR > 60 mL/min (>60)
[2016-06-01 12:16] LABS: MAGNESIUM 1.6 mg/dL (1.8-2.4); PHOSPHORUS 2.7 mg/dL (2.5-4.9)
[2016-06-01 12:38] LABS: UREA NITROGEN BLOOD 3 mg/dL (7-21)
[2016-06-01] MEDS: ONDANSETRON HCL 4MG/2ML VIAL IV PRN (12:59)
[2016-06-01 13:02] LABS: PLATELET ESTIMATE NORMAL
[2016-06-01] MEDS ORDERED: DOCUSATE SODIUM 250MG CAPSULE PO SCH (17:00)
[2016-06-01] MEDS: DOCUSATE SODIUM 250MG CAPSULE PO SCH (17:06)
[2016-06-01] MEDS: GUAIFENESIN-DM 200MG-20MG/10ML UDC PO PRN (17:06)
[2016-06-01 20:00] VITALS: BP 118/83
[2016-06-01] MEDS: AMITRIPTYLINE 50MG TABLET PO SCH (21:37)
[2016-06-01] MEDS: ARICEPT 23 MG PO SCH (21:42)
[2016-06-02] MEDS: IPRATROPIUM/ALBUTEROL 0.5-3(2.5)MG/3ML NEB HHN SCH ×6 (00:04→21:12)
[2016-06-02] MEDS: PIPERACILLIN/TAZ 3.375G PREMIX 50 ML IV SCH ×5 (00:27→23:31)
[2016-06-02] MEDS: GUAIFENESIN-DM 200MG-20MG/10ML UDC PO PRN ×4 (00:27→21:30)
[2016-06-02] MEDS: GABAPENTIN 300MG CAPSULE PO SCH ×4 (06:12→21:21)
[2016-06-02] MEDS: BLOOD SUGAR DIAGNOSTIC STRIP TEST SCH ×4 (06:12→20:57)
[2016-06-02 06:25] LABS: INDEX HEMOLYSI 1 (1-3)
[2016-06-02 06:29] LABS: ANION GAP 15; CALCIUM 8.4 mg/dL (8.5-10.1); CARBON DIOXIDE 26 mEq/L (21-32); CHLORIDE 104 mEq/L (98-107); INDEX HEMOLYSI 1 (1-3); INDEX ICTERIC 1 (1-4); INDEX LIPEMIC 1 (1-3); IRON 50 ug/dL (50-175); LDL CHOLESTEROL 75 mg/dL (5-100); MAGNESIUM 1.6 mg/dL (1.8-2.4); PHOSPHORUS 4.6 mg/dL (2.5-4.9); TRIGLYCERIDE 235 mg/dL (0-150); eGFR > 60 mL/min (>60)
[2016-06-02 06:30] LABS: HEMATOCRIT. 32.1 % (36.0-48.0); HEMOGLOBIN. 10.8 g/dL (12.0-16.0); MEAN CORPUSCULAR HEMOGLOBIN 31.7 pg (28.0-32.0); MEAN CORPUSCULAR HGB CONC 33.7 g/dL (31.0-37.0); MEAN CORPUSCULAR VOLUME 93.9 fL (81.0-99.0); RED BLOOD CELL COUNT 3.42 mill/uL (4.2-5.4); RED CELL DISTRIBUTION WIDTH 14.4 % (11.6-14.6)
[2016-06-02 06:39] LABS: HDL CHOLESTEROL 26 mg/dL (40-59); THYROID STIMULATING HORMONE 0.64 uIU/mL (0.36-3.74); TOTAL IRON BINDING CAPACITY 153 ug/dL (250-450)
[2016-06-02 06:59] LABS: UREA NITROGEN BLOOD 3 mg/dL (7-21)
[2016-06-02 07:26] LABS: DIFFERENTIAL COMMENT 1
[2016-06-02 07:39] LABS: FOLIC ACID (FOLATE) SERUM > 20.00 ng/mL (>5.38); VITAMIN B12 SERUM > 2000 pg/mL (211-911)
[2016-06-02] MEDS: HYDROCODONE/ACETAMINOPHEN 10/325MG TABLET PO PRN ×3 (07:39→21:29)
[2016-06-02 08:00] VITALS: BP 105/63
[2016-06-02] MEDS ORDERED: POTASSIUM CHLORIDE 20MEQ TABLET SR PO SCH (08:30)
[2016-06-02] MEDS: METOCLOPRAMIDE HCL 10MG/2ML VIAL IV SCH ×2 (09:00→21:00)
[2016-06-02] MEDS: INSULIN LISPRO 100 UNITS/ML SUBCUT SCH ×4 (09:00→20:57)
[2016-06-02] MEDS: BENAZEPRIL 20MG TABLET PO SCH (09:00)
[2016-06-02] MEDS: PREDNISONE 10MG TABLET PO SCH (09:31)
[2016-06-02] MEDS: GUAIFENESIN 600MG ER TABLET PO SCH ×3 (09:31→21:21)
[2016-06-02] MEDS: ASPIRIN 81MG TABLET PO SCH (09:31)
[2016-06-02] MEDS: BACITRACIN ZINC 15GM TUBE TOP SCH (09:32)
[2016-06-02] MEDS: FAMOTIDINE 20MG TABLET PO SCH ×3 (09:32→21:21)
[2016-06-02] MEDS: DOCUSATE SODIUM 250MG CAPSULE PO SCH ×2 (09:32→16:27)
[2016-06-02] MEDS: ARMODAFINIL 250 MG PO SCH (09:33)
[2016-06-02] MEDS: ENOXAPARIN 30MG/0.3ML SYR SUBCUT SCH ×2 (09:34→21:07)
[2016-06-02] MEDS ORDERED: MAGNESIUM 2 G PREMIX 50 ML IV SCH (10:00)
[2016-06-02 11:14] LABS: FERRITIN 151 ng/mL (10-291)
[2016-06-02 11:48] LABS: PLATELET ESTIMATE NORMAL
[2016-06-02 11:49] LABS: MEAN PLATELET VOLUME 8.2 fl (7.4-10.4); PLATELET 338 x1000/uL (130-400)
[2016-06-02] MEDS ORDERED: THROAT LOZENGES-BENZOCAINE/MENTH/CETYLPYRD CL LOZENGES MM PRN (17:00)
[2016-06-02 17:40] LABS: CLARITY URINE CLEAR (CLEAR); COLOR URINE YELLOW (YELLOW); GLUCOSE URINE NEGATIVE (NEGATIVE); KETONES URINE NEGATIVE (NEGATIVE); LEUKOCYTE ESTERASE URINE NEGATIVE (NEGATIVE); NITRITE URINE NEGATIVE (NEGATIVE); OCCULT BLOOD URINE NEGATIVE (NEGATIVE); PH URINE 6.5 (4.5-8.0); PROTEIN URINE NEGATIVE (NEGATIVE); SPECIFIC GRAVITY URINE 1.007 (1.005-1.030)
[2016-06-02 17:42] LABS: BACTERIA URINE NONE SEEN; CALCIUM PHOSPHATE CRYSTALS UR NONE SEEN /lpf; RBC URINE 0-2 /hpf (0-2); SQUAMOUS EPITHELIAL CELL URINE 2+ /lpf (RARE/1+); WAXY CASTS URINE NONE SEEN /lpf; WBC URINE NONE SEEN /hpf (0-2); YEAST URINE NONE SEEN
[2016-06-02 20:00] VITALS: BP 138/81
[2016-06-02] MEDS: ARICEPT 23 MG PO SCH ×2 (21:00→21:07)
[2016-06-02] MEDS: AMITRIPTYLINE 50MG TABLET PO SCH ×2 (21:07→21:21)
[2016-06-03] MEDS: PIPERACILLIN/TAZ 3.375G PREMIX 50 ML IV SCH ×4 (05:26→23:08)
[2016-06-03] MEDS: GABAPENTIN 300MG CAPSULE PO SCH ×3 (05:26→21:20)
[2016-06-03 06:02] LABS: BASOPHILS % 0.7 % (0.0-2.0); EOSINOPHILS % 2.7 % (0.0-5.0); HEMATOCRIT. 32.5 % (36.0-48.0); HEMOGLOBIN. 10.8 g/dL (12.0-16.0); MEAN CORPUSCULAR HEMOGLOBIN 31.2 pg (28.0-32.0); MEAN CORPUSCULAR HGB CONC 33.3 g/dL (31.0-37.0); MEAN CORPUSCULAR VOLUME 93.7 fL (81.0-99.0); MEAN PLATELET VOLUME 6.9 fl (7.4-10.4); MONOCYTES % 9.7 % (2.0-8.0); NEUTROPHILS % 68.9 % (40.0-76.0); PLATELET 422 x1000/uL (130-400); RED BLOOD CELL COUNT 3.47 mill/uL (4.2-5.4); RED CELL DISTRIBUTION WIDTH 14.7 % (11.6-14.6); WHITE BLOOD COUNT 7.7 x1000/uL (4.5-11.0)
[2016-06-03] MEDS: BLOOD SUGAR DIAGNOSTIC STRIP TEST SCH ×4 (06:36→21:24)
[2016-06-03 06:50] LABS: ANION GAP 15; CALCIUM 8.8 mg/dL (8.5-10.1); CARBON DIOXIDE 27 mEq/L (21-32); CHLORIDE 106 mEq/L (98-107); INDEX HEMOLYSI 1 (1-3); INDEX ICTERIC 1 (1-4); INDEX LIPEMIC 1 (1-3); eGFR > 60 mL/min (>60)
[2016-06-03 07:07] LABS: UREA NITROGEN BLOOD 3 mg/dL (7-21)
[2016-06-03] MEDS: INSULIN LISPRO 100 UNITS/ML SUBCUT SCH ×4 (07:21→21:00)
[2016-06-03] MEDS: IPRATROPIUM/ALBUTEROL 0.5-3(2.5)MG/3ML NEB HHN SCH ×4 (07:32→16:49)
[2016-06-03 08:00] VITALS: BP 126/72
[2016-06-03] MEDS: HYDROCODONE/ACETAMINOPHEN 10/325MG TABLET PO PRN ×2 (08:00→14:40)
[2016-06-03] MEDS: ENOXAPARIN 30MG/0.3ML SYR SUBCUT SCH ×2 (08:01→21:21)
[2016-06-03] MEDS: PREDNISONE 10MG TABLET PO SCH (08:01)
[2016-06-03] MEDS: DOCUSATE SODIUM 250MG CAPSULE PO SCH ×2 (08:01→16:16)
[2016-06-03] MEDS: GUAIFENESIN 600MG ER TABLET PO SCH ×2 (08:02→21:20)
[2016-06-03] MEDS: ASPIRIN 81MG TABLET PO SCH (08:02)
[2016-06-03] MEDS: FAMOTIDINE 20MG TABLET PO SCH ×2 (08:02→21:27)
[2016-06-03] MEDS: BENAZEPRIL 20MG TABLET PO SCH (08:02)
[2016-06-03] MEDS: REBIF XX SCH (08:03)
[2016-06-03] MEDS: ARMODAFINIL 250 MG PO SCH (08:03)
[2016-06-03] MEDS: BACITRACIN ZINC 15GM TUBE TOP SCH (08:03)
[2016-06-03] MEDS: METOCLOPRAMIDE HCL 10MG/2ML VIAL IV SCH ×2 (08:04→21:00)
[2016-06-03] MEDS: ONDANSETRON HCL 4MG/2ML VIAL IV PRN (08:39)
[2016-06-03] MEDS ORDERED: SODIUM CHLORIDE 0.45% 1,000 ML IV SCH (09:00)
[2016-06-03] MEDS ORDERED: POTASSIUM CHLORIDE 20 MEQ/PACKET PO NR (09:06)
[2016-06-03] MEDS: GUAIFENESIN/CODEINE 100-10MG/5ML UDC PO PRN ×3 (09:38→21:48)
[2016-06-03] MEDS: ALBUTEROL (0.083%) 2.5MG/3ML NEB HHN PRN (19:56)
[2016-06-03 20:00] VITALS: BP 117/70
[2016-06-03] MEDS: AMITRIPTYLINE 50MG TABLET PO SCH (21:20)
[2016-06-03] MEDS: ARICEPT 23 MG PO SCH (21:22)
[2016-06-04] MEDS: GABAPENTIN 300MG CAPSULE PO SCH ×3 (05:39→20:27)
[2016-06-04] MEDS: PIPERACILLIN/TAZ 3.375G PREMIX 50 ML IV SCH ×4 (05:39→23:36)
[2016-06-04] MEDS: BLOOD SUGAR DIAGNOSTIC STRIP TEST SCH ×4 (06:28→20:40)
[2016-06-04] MEDS: INSULIN LISPRO 100 UNITS/ML SUBCUT SCH ×4 (06:29→20:39)
[2016-06-04 08:00] VITALS: BP 114/71
[2016-06-04] MEDS: PREDNISONE 20MG TABLET PO SCH (08:37)
[2016-06-04] MEDS: HYDROCODONE/ACETAMINOPHEN 10/325MG TABLET PO PRN ×2 (08:40→15:21)
[2016-06-04] MEDS: GUAIFENESIN 600MG ER TABLET PO SCH ×2 (08:40→20:28)
[2016-06-04] MEDS: ASPIRIN 81MG TABLET PO SCH (08:40)
[2016-06-04] MEDS: DOCUSATE SODIUM 250MG CAPSULE PO SCH ×2 (08:40→17:05)
[2016-06-04] MEDS: ARMODAFINIL 250 MG PO SCH (08:41)
[2016-06-04] MEDS: FLUTICASONE/VILANTEROL 200-25 BLST.W.DEV ORI SCH (08:41)
[2016-06-04] MEDS: FAMOTIDINE 20MG TABLET PO SCH ×2 (08:41→20:27)
[2016-06-04] MEDS: UMECLIDINIUM BROMIDE 1 INH BLST.W.DEV IH SCH (08:42)
[2016-06-04] MEDS: BACITRACIN ZINC 15GM TUBE TOP SCH (08:43)
[2016-06-04] MEDS: METOCLOPRAMIDE HCL 10MG/2ML VIAL IV SCH ×2 (08:43→20:39)
[2016-06-04] MEDS: ENOXAPARIN 30MG/0.3ML SYR SUBCUT SCH ×2 (08:43→20:29)
[2016-06-04] MEDS: BENAZEPRIL 20MG TABLET PO SCH (08:58)
[2016-06-04] MEDS ORDERED: BENZONATATE 100MG CAPSULE PO PRN (10:00)
[2016-06-04] MEDS: GUAIFENESIN/CODEINE 100-10MG/5ML UDC PO PRN ×3 (10:09→23:37)
[2016-06-04] MEDS: ALBUTEROL (0.083%) 2.5MG/3ML NEB HHN PRN (12:47)
[2016-06-04 15:15] VITALS: BP 140/93
[2016-06-04 20:00] VITALS: BP 126/80
[2016-06-04] MEDS: AMITRIPTYLINE 50MG TABLET PO SCH (20:27)
[2016-06-04] MEDS: ARICEPT 23 MG PO SCH (20:28)
[2016-06-05] MEDS: PIPERACILLIN/TAZ 3.375G PREMIX 50 ML IV SCH ×3 (05:53→17:13)
[2016-06-05] MEDS: GABAPENTIN 300MG CAPSULE PO SCH ×3 (05:54→21:23)
[2016-06-05] MEDS: BLOOD SUGAR DIAGNOSTIC STRIP TEST SCH ×4 (05:58→21:00)
[2016-06-05] MEDS: HYDROCODONE/ACETAMINOPHEN 10/325MG TABLET PO PRN ×3 (06:46→21:26)
[2016-06-05 06:55] LABS: BASOPHILS % 0.8 % (0.0-2.0); EOSINOPHILS % 2.1 % (0.0-5.0); HEMATOCRIT. 34.6 % (36.0-48.0); HEMOGLOBIN. 11.4 g/dL (12.0-16.0); MEAN CORPUSCULAR HEMOGLOBIN 31.2 pg (28.0-32.0); MEAN CORPUSCULAR HGB CONC 32.8 g/dL (31.0-37.0); MEAN PLATELET VOLUME 7.4 fl (7.4-10.4); MONOCYTES % 11.4 % (2.0-8.0); NEUTROPHILS % 61.7 % (40.0-76.0); PLATELET 453 x1000/uL (130-400); RED BLOOD CELL COUNT 3.64 mill/uL (4.2-5.4); RED CELL DISTRIBUTION WIDTH 14.9 % (11.6-14.6); WHITE BLOOD COUNT 6.6 x1000/uL (4.5-11.0)
[2016-06-05 07:19] LABS: ALANINE AMINOTRANSFERASE 38 IU/L (13-61); ALBUMIN 2.9 g/dL (3.4-5.0); ANION GAP 12; CALCIUM 8.7 mg/dL (8.5-10.1); CARBON DIOXIDE 28 mEq/L (21-32); CHLORIDE 107 mEq/L (98-107); INDEX HEMOLYSI 1 (1-3); INDEX ICTERIC 1 (1-4); INDEX LIPEMIC 1 (1-3); MAGNESIUM 1.9 mg/dL (1.8-2.4); PHOSPHORUS 4.2 mg/dL (2.5-4.9); eGFR > 60 mL/min (>60)
[2016-06-05 07:23] LABS: UREA NITROGEN BLOOD 4 mg/dL (7-21)
[2016-06-05 08:03] VITALS: BP 157/90
[2016-06-05] MEDS: GUAIFENESIN 600MG ER TABLET PO SCH ×2 (08:18→21:21)
[2016-06-05] MEDS: BENAZEPRIL 20MG TABLET PO SCH (08:18)
[2016-06-05] MEDS: DOCUSATE SODIUM 250MG CAPSULE PO SCH ×2 (08:18→17:13)
[2016-06-05] MEDS: ENOXAPARIN 30MG/0.3ML SYR SUBCUT SCH ×2 (08:18→21:20)
[2016-06-05] MEDS: ASPIRIN 81MG TABLET PO SCH (08:18)
[2016-06-05] MEDS: UMECLIDINIUM BROMIDE 1 INH BLST.W.DEV IH SCH (08:19)
[2016-06-05] MEDS: BACITRACIN ZINC 15GM TUBE TOP SCH (08:19)
[2016-06-05] MEDS: FLUTICASONE/VILANTEROL 200-25 BLST.W.DEV ORI SCH (08:19)
[2016-06-05] MEDS: ARMODAFINIL 250 MG PO SCH (08:21)
[2016-06-05] MEDS: INSULIN LISPRO 100 UNITS/ML SUBCUT SCH ×4 (08:26→21:00)
[2016-06-05] MEDS: FAMOTIDINE 20MG TABLET PO SCH ×2 (08:26→21:22)
[2016-06-05] MEDS: PREDNISONE 20MG TABLET PO SCH (08:26)
[2016-06-05] MEDS: METOCLOPRAMIDE HCL 10MG/2ML VIAL IV SCH ×2 (08:27→21:26)
[2016-06-05] MEDS ORDERED: POTASSIUM CHLORIDE 20MEQ TABLET SR PO NR (09:00)
[2016-06-05 09:11] LABS: 25-HYDROXY VITAMIN D3 4.9 ng/mL (.)
[2016-06-05] MEDS: REBIF XX SCH (10:25)
[2016-06-05] MEDS: GUAIFENESIN/CODEINE 100-10MG/5ML UDC PO PRN ×2 (14:33→21:20)
[2016-06-05] MEDS: BENZONATATE 100MG CAPSULE PO SCH ×2 (16:08→21:38)
[2016-06-05] MEDS: ALBUTEROL (0.083%) 2.5MG/3ML NEB HHN SCH ×2 (18:35→20:58)
[2016-06-05 20:19] VITALS: BP 129/77
[2016-06-05] MEDS ORDERED: POLYETHYLENE GLYCOL 3350 (17GM) 1 DOSE PACK PO SCH (21:00)
[2016-06-05] MEDS: AMITRIPTYLINE 50MG TABLET PO SCH (21:20)
[2016-06-05] MEDS: ARICEPT 23 MG PO SCH (21:36)
[2016-06-06] MEDS: PIPERACILLIN/TAZ 3.375G PREMIX 50 ML IV SCH ×5 (00:03→23:15)
[2016-06-06 06:31] LABS: EOSINOPHILS % 2.1 % (0.0-5.0); HEMATOCRIT. 33.8 % (36.0-48.0); HEMOGLOBIN. 11.2 g/dL (12.0-16.0); LYMPHOCYTES % 26.1 % (20.0-50.0); MEAN CORPUSCULAR HEMOGLOBIN 31.5 pg (28.0-32.0); MEAN CORPUSCULAR HGB CONC 33.1 g/dL (31.0-37.0); MEAN CORPUSCULAR VOLUME 95.1 fL (81.0-99.0); MEAN PLATELET VOLUME 7.4 fl (7.4-10.4); MONOCYTES % 12.5 % (2.0-8.0); NEUTROPHILS % 58.3 % (40.0-76.0); PLATELET 359 x1000/uL (130-400); RED BLOOD CELL COUNT 3.56 mill/uL (4.2-5.4); RED CELL DISTRIBUTION WIDTH 14.3 % (11.6-14.6); WHITE BLOOD COUNT 5.8 x1000/uL (4.5-11.0)
[2016-06-06] MEDS: BLOOD SUGAR DIAGNOSTIC STRIP TEST SCH ×4 (06:58→21:13)
[2016-06-06] MEDS: BENZONATATE 100MG CAPSULE PO SCH ×3 (06:58→21:51)
[2016-06-06] MEDS: GABAPENTIN 300MG CAPSULE PO SCH ×3 (06:58→21:51)
[2016-06-06 07:05] LABS: ANION GAP 11; CALCIUM 8.8 mg/dL (8.5-10.1); CARBON DIOXIDE 28 mEq/L (21-32); CHLORIDE 108 mEq/L (98-107); INDEX HEMOLYSI 1 (1-3); INDEX ICTERIC 1 (1-4); INDEX LIPEMIC 1 (1-3); UREA NITROGEN BLOOD 5 mg/dL (7-21); eGFR > 60 mL/min (>60)
[2016-06-06] MEDS: HYDROCODONE/ACETAMINOPHEN 10/325MG TABLET PO PRN ×3 (07:07→21:52)
[2016-06-06] MEDS: INSULIN LISPRO 100 UNITS/ML SUBCUT SCH ×4 (07:08→21:00)
[2016-06-06] MEDS: ALBUTEROL (0.083%) 2.5MG/3ML NEB HHN SCH ×4 (07:33→21:09)
[2016-06-06] MEDS ORDERED: POTASSIUM CHLORIDE 20MEQ TABLET SR PO NR (07:45)
[2016-06-06 07:55] VITALS: BP 155/91
[2016-06-06] MEDS: GUAIFENESIN 600MG ER TABLET PO SCH ×2 (08:27→20:55)
[2016-06-06] MEDS: PREDNISONE 20MG TABLET PO SCH (08:28)
[2016-06-06] MEDS: BENAZEPRIL 20MG TABLET PO SCH (08:28)
[2016-06-06] MEDS: FAMOTIDINE 20MG TABLET PO SCH ×2 (08:28→20:56)
[2016-06-06] MEDS: ASPIRIN 81MG TABLET PO SCH (08:28)
[2016-06-06] MEDS: ARMODAFINIL 250 MG PO SCH (08:29)
[2016-06-06] MEDS: ENOXAPARIN 30MG/0.3ML SYR SUBCUT SCH ×2 (08:29→20:57)
[2016-06-06] MEDS: BACITRACIN ZINC 15GM TUBE TOP SCH (08:30)
[2016-06-06] MEDS: FLUTICASONE/VILANTEROL 200-25 BLST.W.DEV ORI SCH (08:30)
[2016-06-06 08:31] LABS: PHOSPHORUS 4.6 mg/dL (2.5-4.9)
[2016-06-06] MEDS: METOCLOPRAMIDE HCL 10MG/2ML VIAL IV SCH ×2 (08:31→20:57)
[2016-06-06] MEDS: UMECLIDINIUM BROMIDE 1 INH BLST.W.DEV IH SCH (08:31)
[2016-06-06 20:00] VITALS: BP 134/81
[2016-06-06] MEDS: ARICEPT 23 MG PO SCH (20:55)
[2016-06-06] MEDS: AMITRIPTYLINE 50MG TABLET PO SCH (20:56)
[2016-06-06] MEDS ORDERED: TRULICITY 1.5 MG/0.5 ML SUBCUT SCH (21:00)
[2016-06-06] MEDS: GUAIFENESIN/CODEINE 100-10MG/5ML UDC PO PRN (21:51)
[2016-06-07] MEDS: PIPERACILLIN/TAZ 3.375G PREMIX 50 ML IV SCH ×4 (05:30→23:23)
[2016-06-07] MEDS: BENZONATATE 100MG CAPSULE PO SCH ×3 (05:30→22:10)
[2016-06-07] MEDS: GABAPENTIN 300MG CAPSULE PO SCH ×3 (05:30→22:10)
[2016-06-07] MEDS: BLOOD SUGAR DIAGNOSTIC STRIP TEST SCH ×4 (06:31→21:00)
[2016-06-07 06:35] LABS: BASOPHILS % 0.9 % (0.0-2.0); HEMATOCRIT. 34.2 % (36.0-48.0); HEMOGLOBIN. 11.2 g/dL (12.0-16.0); LYMPHOCYTES % 30.9 % (20.0-50.0); MEAN CORPUSCULAR HEMOGLOBIN 30.5 pg (28.0-32.0); MEAN CORPUSCULAR HGB CONC 32.8 g/dL (31.0-37.0); MEAN PLATELET VOLUME 7.4 fl (7.4-10.4); MONOCYTES % 12.1 % (2.0-8.0); NEUTROPHILS % 54.1 % (40.0-76.0); PLATELET 461 x1000/uL (130-400); RED BLOOD CELL COUNT 3.67 mill/uL (4.2-5.4); RED CELL DISTRIBUTION WIDTH 14.4 % (11.6-14.6); WHITE BLOOD COUNT 5.4 x1000/uL (4.5-11.0)
[2016-06-07] MEDS: INSULIN LISPRO 100 UNITS/ML SUBCUT SCH ×4 (07:14→22:12)
[2016-06-07 07:23] LABS: ANION GAP 13; CALCIUM 8.6 mg/dL (8.5-10.1); CARBON DIOXIDE 25 mEq/L (21-32); CHLORIDE 108 mEq/L (98-107); INDEX HEMOLYSI 1 (1-3); INDEX ICTERIC 1 (1-4); INDEX LIPEMIC 1 (1-3); PHOSPHORUS 4.1 mg/dL (2.5-4.9); UREA NITROGEN BLOOD 7 mg/dL (7-21); eGFR > 60 mL/min (>60)
[2016-06-07] MEDS ORDERED: POTASSIUM CHLORIDE 20MEQ TABLET SR PO NR (07:36)
[2016-06-07] MEDS: ALBUTEROL (0.083%) 2.5MG/3ML NEB HHN SCH ×4 (07:45→21:07)
[2016-06-07 08:00] VITALS: BP 132/77
[2016-06-07] MEDS ORDERED: LOPERAMIDE HCL 2MG CAPSULE PO PRN (08:15)
[2016-06-07] MEDS: METOCLOPRAMIDE HCL 10MG/2ML VIAL IV SCH ×2 (09:00→21:00)
[2016-06-07] MEDS: GUAIFENESIN 600MG ER TABLET PO SCH ×2 (09:34→22:10)
[2016-06-07] MEDS: BENAZEPRIL 20MG TABLET PO SCH (09:35)
[2016-06-07] MEDS: PREDNISONE 20MG TABLET PO SCH (09:35)
[2016-06-07] MEDS: ERGOCALCIFEROL 50000UNITS CAPSULE PO SCH (09:35)
[2016-06-07] MEDS: FAMOTIDINE 20MG TABLET PO SCH ×2 (09:35→22:10)
[2016-06-07] MEDS: ASPIRIN 81MG TABLET PO SCH (09:36)
[2016-06-07] MEDS: BACITRACIN ZINC 15GM TUBE TOP SCH (09:36)
[2016-06-07] MEDS: ENOXAPARIN 30MG/0.3ML SYR SUBCUT SCH ×2 (09:36→22:11)
[2016-06-07] MEDS: ARMODAFINIL 250 MG PO SCH (09:37)
[2016-06-07] MEDS: UMECLIDINIUM BROMIDE 1 INH BLST.W.DEV IH SCH (09:37)
[2016-06-07] MEDS: FLUTICASONE/VILANTEROL 200-25 BLST.W.DEV ORI SCH (09:37)
[2016-06-07] MEDS: HYDROCODONE/ACETAMINOPHEN 10/325MG TABLET PO PRN ×3 (10:02→23:23)
[2016-06-07] MEDS: LOPERAMIDE HCL 2MG CAPSULE PO PRN (12:11)
[2016-06-07] MEDS: REBIF XX SCH (12:11)
[2016-06-07] MEDS: GUAIFENESIN/CODEINE 100-10MG/5ML UDC PO PRN (13:41)
[2016-06-07 20:00] VITALS: BP 128/79
[2016-06-07] MEDS: AMITRIPTYLINE 50MG TABLET PO SCH (22:10)
[2016-06-07] MEDS: ARICEPT 23 MG PO SCH (22:13)
[2016-06-08] MEDS: GUAIFENESIN/CODEINE 100-10MG/5ML UDC PO PRN ×2 (00:09→23:50)
[2016-06-08] MEDS: BENZONATATE 100MG CAPSULE PO SCH ×3 (05:57→21:45)
[2016-06-08] MEDS: PIPERACILLIN/TAZ 3.375G PREMIX 50 ML IV SCH ×3 (05:57→17:05)
[2016-06-08] MEDS: GABAPENTIN 300MG CAPSULE PO SCH ×3 (05:57→21:45)
[2016-06-08] MEDS: BLOOD SUGAR DIAGNOSTIC STRIP TEST SCH ×4 (06:05→21:51)
[2016-06-08] MEDS: INSULIN LISPRO 100 UNITS/ML SUBCUT SCH ×4 (06:05→21:47)
[2016-06-08] MEDS: HYDROCODONE/ACETAMINOPHEN 10/325MG TABLET PO PRN ×3 (06:48→23:29)
[2016-06-08] MEDS: ALBUTEROL (0.083%) 2.5MG/3ML NEB HHN SCH ×4 (07:43→21:31)
[2016-06-08 08:00] VITALS: BP 129/76
[2016-06-08] MEDS: METOCLOPRAMIDE HCL 10MG/2ML VIAL IV SCH ×2 (09:00→21:00)
[2016-06-08] MEDS: ASPIRIN 81MG TABLET PO SCH (09:02)
[2016-06-08] MEDS: FAMOTIDINE 20MG TABLET PO SCH ×2 (09:02→21:45)
[2016-06-08] MEDS: GUAIFENESIN 600MG ER TABLET PO SCH ×2 (09:02→21:44)
[2016-06-08] MEDS: ENOXAPARIN 30MG/0.3ML SYR SUBCUT SCH ×2 (09:03→21:44)
[2016-06-08] MEDS: BENAZEPRIL 20MG TABLET PO SCH (09:03)
[2016-06-08] MEDS: PREDNISONE 20MG TABLET PO SCH (09:03)
[2016-06-08] MEDS: ARMODAFINIL 250 MG PO SCH (09:04)
[2016-06-08] MEDS: BACITRACIN ZINC 15GM TUBE TOP SCH (09:04)
[2016-06-08] MEDS: UMECLIDINIUM BROMIDE 1 INH BLST.W.DEV IH SCH (09:04)
[2016-06-08] MEDS: FLUTICASONE/VILANTEROL 200-25 BLST.W.DEV ORI SCH (09:04)
[2016-06-08] MEDS: LOPERAMIDE HCL 2MG CAPSULE PO PRN ×2 (12:40→22:37)
[2016-06-08 15:47] LABS: ANION GAP 12; CALCIUM 8.8 mg/dL (8.5-10.1); CARBON DIOXIDE 26 mEq/L (21-32); CHLORIDE 106 mEq/L (98-107); INDEX HEMOLYSI 1 (1-3); INDEX ICTERIC 1 (1-4); INDEX LIPEMIC 1 (1-3); UREA NITROGEN BLOOD 6 mg/dL (7-21); eGFR > 60 mL/min (>60)
[2016-06-08 20:00] VITALS: BP 130/78
[2016-06-08] MEDS: AMITRIPTYLINE 50MG TABLET PO SCH (21:45)
[2016-06-08] MEDS: ARICEPT 23 MG PO SCH (21:46)
[2016-06-09] MEDS: HYDROCODONE/ACETAMINOPHEN 10/325MG TABLET PO PRN (05:38)
[2016-06-09] MEDS: FLUTICASONE/VILANTEROL 200-25 BLST.W.DEV ORI SCH ×2 (06:30→09:01)
[2016-06-09] MEDS: GABAPENTIN 300MG CAPSULE PO SCH (06:33)
[2016-06-09] MEDS: BENZONATATE 100MG CAPSULE PO SCH (06:34)
[2016-06-09] MEDS: BLOOD SUGAR DIAGNOSTIC STRIP TEST SCH ×2 (06:39→11:15)
[2016-06-09] MEDS: ALBUTEROL (0.083%) 2.5MG/3ML NEB HHN SCH (07:24)
[2016-06-09 08:00] VITALS: BP 137/76
[2016-06-09] MEDS: METOCLOPRAMIDE HCL 10MG/2ML VIAL IV SCH (09:00)
[2016-06-09] MEDS: INSULIN LISPRO 100 UNITS/ML SUBCUT SCH ×2 (09:00→13:03)
[2016-06-09] MEDS: GUAIFENESIN 600MG ER TABLET PO SCH (09:00)
[2016-06-09] MEDS: ASPIRIN 81MG TABLET PO SCH (09:00)
[2016-06-09] MEDS: PREDNISONE 20MG TABLET PO SCH (09:01)
[2016-06-09] MEDS: BENAZEPRIL 20MG TABLET PO SCH (09:01)
[2016-06-09] MEDS: FAMOTIDINE 20MG TABLET PO SCH (09:01)
[2016-06-09] MEDS: UMECLIDINIUM BROMIDE 1 INH BLST.W.DEV IH SCH (09:01)
[2016-06-09] MEDS: BACITRACIN ZINC 15GM TUBE TOP SCH (09:02)
[2016-06-09] MEDS: ENOXAPARIN 30MG/0.3ML SYR SUBCUT SCH (09:02)
[2016-06-09] MEDS: ARMODAFINIL 250 MG PO SCH (09:02)
[2016-06-09 12:18] VITALS: BP 128/75
== END 2016-06-09 14:45 | disposition home health service (06) | DRG 58 ==
PROVIDERS: ADMIT Physical Medicine & Rehabilitation Spinal Cord Injury Medicine; ATTEND Internal Medicine Nephrology
DX: G35 Multiple sclerosis (principal); G92 Toxic encephalopathy; A41.9 Sepsis, unspecified organism; J18.9 Pneumonia, unspecified organism; J96.91 Respiratory failure, unspecified with hypoxia; J44.0 Chronic obstructive pulmonary disease with (acute) lower respiratory infection; N39.0 Urinary tract infection, site not specified; N17.9 Acute kidney failure, unspecified; Z68.41 Body mass index [BMI] 40.0-44.9, adult; D64.9 Anemia, unspecified; E11.42 Type 2 diabetes mellitus with diabetic polyneuropathy; E66.01 Morbid (severe) obesity due to excess calories; E78.00 Pure hypercholesterolemia, unspecified; E83.39 Other disorders of phosphorus metabolism; F41.9 Anxiety disorder, unspecified; G31.84 Mild cognitive impairment of uncertain or unknown etiology; G89.4 Chronic pain syndrome; M79.7 Fibromyalgia; K76.0 Fatty (change of) liver, not elsewhere classified; L98.419 Non-pressure chronic ulcer of buttock with unspecified severity; G43.909 Migraine, unspecified, not intractable, without status migrainosus; E78.5 Hyperlipidemia, unspecified; N18.9 Chronic kidney disease, unspecified; I12.9 Hypertensive chronic kidney disease with stage 1 through stage 4 chronic kidney disease, or unspecified chronic kidney disease; E11.22 Type 2 diabetes mellitus with diabetic chronic kidney disease; D63.8 Anemia in other chronic diseases classified elsewhere; E87.6 Hypokalemia; F06.31 Mood disorder due to known physiological condition with depressive features; E11.622 Type 2 diabetes mellitus with other skin ulcer; J45.909 Unspecified asthma, uncomplicated; R20.0 Anesthesia of skin; Z86.73 Personal history of transient ischemic attack (TIA), and cerebral infarction without residual deficits; Z79.52 Long term (current) use of systemic steroids; Z80.1 Family history of malignant neoplasm of trachea, bronchus and lung; Z82.49 Family history of ischemic heart disease and other diseases of the circulatory system; Z91.81 History of falling
CPT/HCPCS: 36415; 71010; 80048; 80053; 80061; 81001; 82306; 82607; 82728; 82746; 82962; 83036; 83540; 83550; 83735; 84100; 84134; 84443; 84630; 85025; 92523; 93970; 94640; 97110; 97112; 97116; 97163; 97166; 97530; 97532; 97535; 97542; A6261; J1650; J1815; J2405; J2543; J2765; J3475; J7040; J7050; J7512; J7611; J7620

== ENCOUNTER 2016-11-09 14:16 | Inpatient (IN) | payer MEDICARE, MEDICAID ==
[~2016-11-09] VITALS: Ht 172.7 cm; Wt 108.9 kg
[~2016-11-09 14:16] MED LIST changes: +ARMO250T2 PO; -ARMO250T4 PO; -ASPI-1035 PO; +ASPI-1159 PO; -EZET10TA; -HYDR2TAB34 PO; +HYDR2TAB4 PO; +OMEP20TA2 PO; -OMEP20TA80 PO; +ZET10
[2016-11-09] MEDS ORDERED: METHYLPREDNISOLONE SOD SUCC 125 MG/2 ML VIAL IV STA (15:05)
[2016-11-09] MEDS ORDERED: ONDANSETRON HCL 4MG/2ML VIAL IV STA (15:05)
[2016-11-09] MEDS ORDERED: MORPHINE SULFATE 4 MG/ML CPJ (NOT FOR IM USE) IV STA (15:05)
[2016-11-09] MEDS ORDERED: LEVOFLOXACIN 750MG PREMIX 150 ML IV ONE (15:15)
[2016-11-09] MEDS ORDERED: IPRATROPIUM/ALBUTEROL 0.5-3(2.5)MG/3ML NEB HHN ONE (15:15)
[2016-11-09 15:43] LABS: BASOPHILS % 0.7 % (0.0-2.0); EOSINOPHILS % 1.5 % (0.0-5.0); HEMATOCRIT. 42.6 % (36.0-48.0); HEMOGLOBIN. 14.4 g/dL (12.0-16.0); LYMPHOCYTES % 16.2 % (20.0-50.0); MEAN CORPUSCULAR HEMOGLOBIN 30.9 pg (28.0-32.0); MEAN CORPUSCULAR VOLUME 91.3 fL (81.0-99.0); MEAN PLATELET VOLUME 7.7 fl (7.4-10.4); MONOCYTES % 10.1 % (2.0-8.0); NEUTROPHILS % 71.5 % (40.0-76.0); PLATELET 308 x1000/uL (130-400); RED BLOOD CELL COUNT 4.67 mill/uL (4.2-5.4); RED CELL DISTRIBUTION WIDTH 15.4 % (11.6-14.6)
[2016-11-09 15:49] LABS: PARTIAL THROMBOPLASTIN TIME 24.7 sec (23.4-31.0); PROTHROMBIN TIME 10.1 sec (9.4-11.6)
[2016-11-09 15:54] LABS: CARBON DIOXIDE 29 mEq/L (21-32); CHLORIDE 105 mEq/L (98-107)
[2016-11-09 15:58] LABS: CREATINE KINASE 89 IU/L (26-192); TROPONIN I < 0.02 ng/mL (0.00-0.04)
[2016-11-09 16:45] LABS: BG BASE EXCESS -0.1 mmol/L (-2.0-2.0); BG CARBOXYHEMOGLOBIN 1.2 % (0.5-1.5); BG DEOXYHEMOGLOBIN 3.6 % (0.0-5.0); BG FRACTION INSPIRED OXYGEN 32; BG HCO3 ACT 25.7 mmol/L (22.0-26.0); BG METHEMOGLOBIN 0.1 % (0.0-1.5); BG OXYGEN SATURATION 96.4 % (92.0-98.5); BG OXYHEMOGLOBIN 95.1 % (94.0-97.0); BG PCO2 46.2 mmHg (35.0-45.0); BG PH 7.363 (7.350-7.450); BG PO2 93.4 mmHg (75.0-100.0); BG SAMPLE SITE RIGHT RADIAL; BG TOTAL HEMOGLOBIN 14.4 g/dL (12.0-18.0); BG VENT MODE NASAL CANNULA
[2016-11-09] MEDS ORDERED: ACETAMINOPHEN 325MG TABLET PO PRN (20:00)
[2016-11-09] MEDS ORDERED: ONDANSETRON HCL 4MG/2ML VIAL IV PRN (20:00)
[2016-11-09] MEDS ORDERED: CLONIDINE 0.1MG TABLET PO PRN (20:00)
[2016-11-09] MEDS ORDERED: MORPHINE SULFATE 4 MG/ML CPJ (NOT FOR IM USE) IV PRN (20:00)
[2016-11-09 23:50] VITALS: BP 149/91
[2016-11-09] MEDS: HYDROMORPHONE HCL/PF 2MG/ML CPJ IV PRN (23:52)
[2016-11-10] VITALS (7 sets, daily range): BP systolic 115–149; BP diastolic 68–91
[2016-11-10] MEDS: METHYLPREDNISOLONE SOD SUCC 125 MG/2 ML VIAL IV SCH ×4 (00:25→21:17)
[2016-11-10] MEDS: IPRATROPIUM/ALBUTEROL 0.5-3(2.5)MG/3ML NEB INH SCH ×4 (00:41→20:44)
[2016-11-10] MEDS ORDERED: DEXTROSE 50% WATER 50ML SYRINGE IV PRN (01:00)
[2016-11-10] MEDS: HYDROMORPHONE HCL/PF 2MG/ML CPJ IV PRN ×5 (04:13→21:37)
[2016-11-10] MEDS: BLOOD SUGAR DIAGNOSTIC STRIP TEST SCH ×4 (05:55→20:27)
[2016-11-10 06:07] LABS: HEMATOCRIT. 40.4 % (36.0-48.0); HEMOGLOBIN. 13.6 g/dL (12.0-16.0); MEAN CORPUSCULAR VOLUME 92.2 fL (81.0-99.0); PLATELET 320 x1000/uL (130-400); RED BLOOD CELL COUNT 4.38 mill/uL (4.2-5.4); RED CELL DISTRIBUTION WIDTH 15.2 % (11.6-14.6)
[2016-11-10] MEDS: INSULIN LISPRO 100 UNITS/ML SUBCUT SCH ×4 (06:35→21:19)
[2016-11-10 06:45] LABS: CARBON DIOXIDE 23 mEq/L (21-32); CHLORIDE 99 mEq/L (98-107); HDL CHOLESTEROL 49 mg/dL (40-59); LDL CHOLESTEROL 93 mg/dL (5-100); TROPONIN I < 0.02 ng/mL (0.00-0.04)
[2016-11-10] MEDS ORDERED: ENOXAPARIN 40MG/0.4ML SYR SUBCUT SCH (09:00)
[2016-11-10 09:44] LABS: BG BASE EXCESS -0.5 mmol/L (-2.0-2.0); BG CARBOXYHEMOGLOBIN 1.1 % (0.5-1.5); BG DEOXYHEMOGLOBIN 6.9 % (0.0-5.0); BG FRACTION INSPIRED OXYGEN 21; BG HCO3 ACT 24.2 mmol/L (22.0-26.0); BG METHEMOGLOBIN 0.1 % (0.0-1.5); BG OXYHEMOGLOBIN 91.9 % (94.0-97.0); BG PCO2 40.1 mmHg (35.0-45.0); BG PH 7.398 (7.350-7.450); BG PO2 69.8 mmHg (75.0-100.0); BG SAMPLE SITE RIGHT RADIAL; BG TOTAL HEMOGLOBIN 14.3 g/dL (12.0-18.0); BG VENT MODE ROOM AIR
[2016-11-10 10:30] LABS: PLATELET ESTIMATE NORMAL
[2016-11-10] MEDS ORDERED: ALBUTEROL 6.7GM HFA INHALER INH SCH (11:15)
[2016-11-10] MEDS: FAMOTIDINE 20MG TABLET PO SCH (12:00)
[2016-11-10] MEDS ORDERED: BENAZEPRIL 20MG TABLET PO SCH (14:30)
[2016-11-10] MEDS: HYDROCODONE/ACETAMINOPHEN 10/325MG TABLET PO PRN (16:08)
[2016-11-10] MEDS: BENAZEPRIL 20MG TABLET PO SCH (16:31)
[2016-11-10] MEDS: DOCUSATE SODIUM 100MG CAPSULE PO SCH (17:00)
[2016-11-10] MEDS ORDERED: GABAPENTIN 1200 MG PO SCH (17:00)
[2016-11-10] MEDS: GABAPENTIN 400MG CAPSULE PO SCH ×2 (17:09→21:16)
[2016-11-10] MEDS: LORAZEPAM 2MG/ML CPJ IV PRN (17:10)
[2016-11-10] MEDS ORDERED: DONEPEZIL HCL 10MG TABLET PO SCH ×2 (21:00)
[2016-11-10] MEDS ORDERED: AMITRIPTYLINE 50MG TABLET PO SCH (21:00)
[2016-11-10] MEDS: AMITRIPTYLINE 50MG TABLET PO SCH (21:16)
[2016-11-10] MEDS: ASPIRIN 81MG EC TABLET PO SCH (21:16)
[2016-11-10] MEDS: BACLOFEN 20MG TABLET PO SCH (21:16)
[2016-11-10] MEDS: ENOXAPARIN 30MG/0.3ML SYR SUBCUT SCH (21:17)
[2016-11-11] VITALS: BP 98/62
[2016-11-11] MEDS: IPRATROPIUM/ALBUTEROL 0.5-3(2.5)MG/3ML NEB INH SCH ×3 (02:10→12:30)
[2016-11-11 04:00] VITALS: BP 111/84
[2016-11-11 06:47] LABS: HEMATOCRIT. 40.2 % (36.0-48.0); HEMOGLOBIN. 13.3 g/dL (12.0-16.0); MEAN CORPUSCULAR HEMOGLOBIN 30.4 pg (28.0-32.0); MEAN CORPUSCULAR VOLUME 91.5 fL (81.0-99.0); MEAN PLATELET VOLUME 8.1 fl (7.4-10.4); PLATELET 327 x1000/uL (130-400); RED BLOOD CELL COUNT 4.39 mill/uL (4.2-5.4); RED CELL DISTRIBUTION WIDTH 15.2 % (11.6-14.6)
[2016-11-11] MEDS: BLOOD SUGAR DIAGNOSTIC STRIP TEST SCH ×4 (06:49→21:40)
[2016-11-11] MEDS: METHYLPREDNISOLONE SOD SUCC 125 MG/2 ML VIAL IV SCH ×2 (06:53→15:11)
[2016-11-11] MEDS: INSULIN LISPRO 100 UNITS/ML SUBCUT SCH ×4 (06:54→21:40)
[2016-11-11] MEDS: HYDROMORPHONE HCL/PF 2MG/ML CPJ IV PRN ×2 (07:07→18:10)
[2016-11-11 07:10] LABS: CARBON DIOXIDE 28 mEq/L (21-32); CHLORIDE 99 mEq/L (98-107)
[2016-11-11 08:00] VITALS: BP 109/56
[2016-11-11] MEDS ORDERED: LIDOCAINE HCL 1% 20ML VIAL (Pyxis) INJ ONE (08:07)
[2016-11-11] MEDS ORDERED: SODIUM BICARBONATE 4% (2.4MEQ) 5ML VIAL IV ONE (08:07)
[2016-11-11] MEDS ORDERED: INSULIN DETEMIR UD 100 UNITS/ML SYR SUBCUT SCH ×2 (10:00→22:00)
[2016-11-11] MEDS ORDERED: GADOBENATE DIMEGLUMINE 529 MG/ML 10ML IV ONE (11:42)
[2016-11-11 12:00] VITALS: BP 118/60
[2016-11-11] MEDS: GABAPENTIN 400MG CAPSULE PO SCH ×3 (12:39→20:25)
[2016-11-11] MEDS: BENAZEPRIL 20MG TABLET PO SCH (12:41)
[2016-11-11] MEDS: ENOXAPARIN 30MG/0.3ML SYR SUBCUT SCH ×2 (12:41→20:26)
[2016-11-11] MEDS: DOCUSATE SODIUM 100MG CAPSULE PO SCH ×2 (12:42→18:08)
[2016-11-11] MEDS: FAMOTIDINE 20MG TABLET PO SCH (12:42)
[2016-11-11] MEDS: HYDROCODONE/ACETAMINOPHEN 10/325MG TABLET PO PRN ×2 (13:06→20:27)
[2016-11-11 13:25] LABS: PLATELET ESTIMATE NORMAL
[2016-11-11 16:00] VITALS: BP 113/63
[2016-11-11 20:00] VITALS: BP 138/84
[2016-11-11] MEDS: AZITHROMYCIN 500 MG TABLET PO SCH (20:24)
[2016-11-11] MEDS: GUAIFENESIN 600MG ER TABLET PO SCH (20:25)
[2016-11-11] MEDS: AMITRIPTYLINE 50MG TABLET PO SCH (20:25)
[2016-11-11] MEDS: ASPIRIN 81MG EC TABLET PO SCH (20:25)
[2016-11-11] MEDS: PREDNISONE 20MG TABLET PO SCH (20:25)
[2016-11-11] MEDS: BACLOFEN 20MG TABLET PO SCH (20:25)
[2016-11-11] MEDS ORDERED: DONEPEZIL HCL 10MG TABLET PO SCH (21:00)
[2016-11-12] VITALS: BP 114/68
[2016-11-12] MEDS: HYDROMORPHONE HCL/PF 2MG/ML CPJ IV PRN ×4 (01:16→20:58)
[2016-11-12 04:00] VITALS: BP 147/85
[2016-11-12] MEDS: BLOOD SUGAR DIAGNOSTIC STRIP TEST SCH ×4 (06:31→20:58)
[2016-11-12] MEDS: INSULIN LISPRO 100 UNITS/ML SUBCUT SCH ×4 (06:37→21:16)
[2016-11-12 06:50] LABS: HEMATOCRIT. 39.3 % (36.0-48.0); MEAN CORPUSCULAR HEMOGLOBIN 30.7 pg (28.0-32.0); MEAN CORPUSCULAR VOLUME 92.6 fL (81.0-99.0); MEAN PLATELET VOLUME 8.1 fl (7.4-10.4); PLATELET 312 x1000/uL (130-400); RED BLOOD CELL COUNT 4.24 mill/uL (4.2-5.4); RED CELL DISTRIBUTION WIDTH 15.3 % (11.6-14.6)
[2016-11-12 07:36] LABS: CHLORIDE 101 mEq/L (98-107)
[2016-11-12 07:54] LABS: CARBON DIOXIDE 27 mEq/L (21-32)
[2016-11-12 08:00] VITALS: BP 182/93
[2016-11-12] MEDS ORDERED: METHYLPREDNISOLONE SOD SUCC 125 MG/2 ML VIAL IV SCH (09:00)
[2016-11-12] MEDS: FLUTICASONE/VILANTEROL 200-25 BLST.W.DEV ORI SCH (09:22)
[2016-11-12] MEDS: UMECLIDINIUM BROMIDE 1 INH BLST.W.DEV IH SCH (09:22)
[2016-11-12] MEDS: ALBUTEROL (0.083%) 2.5MG/3ML NEB HHN PRN ×3 (09:23→20:53)
[2016-11-12] MEDS: DOCUSATE SODIUM 100MG CAPSULE PO SCH ×2 (09:56→18:00)
[2016-11-12] MEDS: GABAPENTIN 400MG CAPSULE PO SCH ×3 (09:57→20:57)
[2016-11-12] MEDS: GUAIFENESIN 600MG ER TABLET PO SCH ×2 (09:57→20:57)
[2016-11-12] MEDS: ENOXAPARIN 30MG/0.3ML SYR SUBCUT SCH ×2 (09:57→20:58)
[2016-11-12] MEDS: AZITHROMYCIN 500 MG TABLET PO SCH (09:57)
[2016-11-12] MEDS: FAMOTIDINE 20MG TABLET PO SCH (09:57)
[2016-11-12] MEDS: PREDNISONE 20MG TABLET PO SCH (09:57)
[2016-11-12] MEDS: BENAZEPRIL 20MG TABLET PO SCH (09:58)
[2016-11-12] MEDS ORDERED: INSULIN DETEMIR UD 100 UNITS/ML SYR SUBCUT SCH (10:00)
[2016-11-12 12:00] VITALS: BP 116/76
[2016-11-12 16:00] VITALS: BP 120/65
[2016-11-12 16:37] LABS: PLATELET ESTIMATE NORMAL
[2016-11-12 20:00] VITALS: BP 137/80
[2016-11-12] MEDS: ASPIRIN 81MG EC TABLET PO SCH (20:56)
[2016-11-12] MEDS: BACLOFEN 20MG TABLET PO SCH (20:57)
[2016-11-12] MEDS: DONEPEZIL 23 MG PO SCH (20:57)
[2016-11-12] MEDS: AMITRIPTYLINE 50MG TABLET PO SCH (20:57)
[2016-11-12] MEDS ORDERED: DONEPEZIL HCL 10MG TABLET PO SCH (21:00)
[2016-11-13] VITALS: BP 124/61
[2016-11-13 04:00] VITALS: BP 140/81
[2016-11-13] MEDS: HYDROMORPHONE HCL/PF 2MG/ML CPJ IV PRN ×4 (04:27→21:58)
[2016-11-13] MEDS: BLOOD SUGAR DIAGNOSTIC STRIP TEST SCH ×4 (06:44→21:49)
[2016-11-13] MEDS: INSULIN LISPRO 100 UNITS/ML SUBCUT SCH ×4 (06:46→21:59)
[2016-11-13 07:26] LABS: CARBON DIOXIDE 29 mEq/L (21-32); CHLORIDE 104 mEq/L (98-107)
[2016-11-13 07:39] VITALS: BP 130/64
[2016-11-13 07:48] LABS: BASOPHILS % 0.2 % (0.0-2.0); EOSINOPHILS % 0.7 % (0.0-5.0); HEMATOCRIT. 35.9 % (36.0-48.0); HEMOGLOBIN. 12.2 g/dL (12.0-16.0); LYMPHOCYTES % 13.7 % (20.0-50.0); MEAN CORPUSCULAR HEMOGLOBIN 31.2 pg (28.0-32.0); MEAN CORPUSCULAR VOLUME 92.1 fL (81.0-99.0); MEAN PLATELET VOLUME 8.4 fl (7.4-10.4); MONOCYTES % 7.9 % (2.0-8.0); NEUTROPHILS % 77.5 % (40.0-76.0); PLATELET 264 x1000/uL (130-400); RED CELL DISTRIBUTION WIDTH 14.9 % (11.6-14.6)
[2016-11-13] MEDS ORDERED: REBIF SUBCUT SCH (09:00)
[2016-11-13] MEDS ORDERED: CALCIUM CARBONATE/VITAMIN D3 500MG TABLET PO SCH (09:00)
[2016-11-13] MEDS: ALBUTEROL (0.083%) 2.5MG/3ML NEB HHN PRN ×2 (09:14→21:04)
[2016-11-13] MEDS: FLUTICASONE/VILANTEROL 200-25 BLST.W.DEV ORI SCH ×2 (09:46→09:58)
[2016-11-13] MEDS: UMECLIDINIUM BROMIDE 1 INH BLST.W.DEV IH SCH ×2 (09:47→09:59)
[2016-11-13] MEDS: GABAPENTIN 400MG CAPSULE PO SCH ×3 (09:50→21:57)
[2016-11-13] MEDS: DOCUSATE SODIUM 100MG CAPSULE PO SCH ×2 (09:50→17:34)
[2016-11-13] MEDS: PREDNISONE 20MG TABLET PO SCH (09:50)
[2016-11-13] MEDS: FAMOTIDINE 20MG TABLET PO SCH (09:50)
[2016-11-13] MEDS: GUAIFENESIN 600MG ER TABLET PO SCH ×2 (09:50→21:41)
[2016-11-13] MEDS: ENOXAPARIN 30MG/0.3ML SYR SUBCUT SCH ×2 (09:51→21:44)
[2016-11-13] MEDS: BENAZEPRIL 20MG TABLET PO SCH (09:51)
[2016-11-13] MEDS: INSULIN DETEMIR UD 100 UNITS/ML SYR SUBCUT SCH (09:56)
[2016-11-13] MEDS ORDERED: AZITHROMYCIN 500 MG in DEXT 5% WATER 250 ML IV SCH (11:00)
[2016-11-13 12:00] VITALS: BP 116/65
[2016-11-13 16:02] VITALS: BP 115/55
[2016-11-13] MEDS ORDERED: LOPERAMIDE HCL 2MG CAPSULE PO PRN (18:45)
[2016-11-13 20:00] VITALS: BP 148/83
[2016-11-13] MEDS: ASPIRIN 81MG EC TABLET PO SCH (21:41)
[2016-11-13] MEDS: DONEPEZIL 23 MG PO SCH (21:42)
[2016-11-13] MEDS: AMITRIPTYLINE 50MG TABLET PO SCH (21:42)
[2016-11-13] MEDS: BACLOFEN 20MG TABLET PO SCH (21:42)
[2016-11-14] VITALS: BP 113/89
[2016-11-14] MEDS: HYDROMORPHONE HCL/PF 2MG/ML CPJ IV PRN ×2 (02:42→08:34)
[2016-11-14] MEDS: LORAZEPAM 2MG/ML CPJ IV PRN (02:42)
[2016-11-14 04:00] VITALS: BP 121/70
[2016-11-14] MEDS: BLOOD SUGAR DIAGNOSTIC STRIP TEST SCH ×2 (06:38→11:53)
[2016-11-14] MEDS ORDERED: INSULIN LISPRO (LOW DOSE) 100 UNITS/ML SUBCUT SCH (06:45)
[2016-11-14] MEDS ORDERED: INSULIN LISPRO 100 UNITS/ML SUBCUT SCH ×2 (06:45)
[2016-11-14 07:01] LABS: BASOPHILS % 0.2 % (0.0-2.0); EOSINOPHILS % 1.9 % (0.0-5.0); HEMATOCRIT. 37.9 % (36.0-48.0); HEMOGLOBIN. 12.7 g/dL (12.0-16.0); LYMPHOCYTES % 17.8 % (20.0-50.0); MEAN CORPUSCULAR HEMOGLOBIN 31.1 pg (28.0-32.0); MEAN CORPUSCULAR VOLUME 92.5 fL (81.0-99.0); MONOCYTES % 9.1 % (2.0-8.0); PLATELET 268 x1000/uL (130-400); RED BLOOD CELL COUNT 4.09 mill/uL (4.2-5.4); RED CELL DISTRIBUTION WIDTH 14.9 % (11.6-14.6)
[2016-11-14 08:02] VITALS: BP 139/68
[2016-11-14 08:31] LABS: CARBON DIOXIDE 30 mEq/L (21-32); CHLORIDE 103 mEq/L (98-107); T4 FREE 0.79 ng/dL (0.76-1.46)
[2016-11-14] MEDS: DOCUSATE SODIUM 100MG CAPSULE PO SCH (08:33)
[2016-11-14] MEDS: FAMOTIDINE 20MG TABLET PO SCH (08:33)
[2016-11-14] MEDS: ENOXAPARIN 30MG/0.3ML SYR SUBCUT SCH (08:33)
[2016-11-14] MEDS: PREDNISONE 20MG TABLET PO SCH (08:33)
[2016-11-14] MEDS: BENAZEPRIL 20MG TABLET PO SCH (08:33)
[2016-11-14] MEDS: GUAIFENESIN 600MG ER TABLET PO SCH (08:33)
[2016-11-14] MEDS: GABAPENTIN 400MG CAPSULE PO SCH (08:34)
[2016-11-14] MEDS: UMECLIDINIUM BROMIDE 1 INH BLST.W.DEV IH SCH (08:38)
[2016-11-14] MEDS: FLUTICASONE/VILANTEROL 200-25 BLST.W.DEV ORI SCH (08:38)
[2016-11-14] MEDS ORDERED: POTASSIUM CHLORIDE 20MEQ TABLET SR PO NR (09:45)
[2016-11-14] MEDS: INSULIN DETEMIR UD 100 UNITS/ML SYR SUBCUT SCH (10:25)
[2016-11-14] MEDS: ALBUTEROL (0.083%) 2.5MG/3ML NEB HHN PRN (10:58)
[2016-11-14 11:20] VITALS: BP 111/69
[2016-11-14 11:54] VITALS: BP 111/63
[2016-11-15 08:21] LABS: FOLICLE STIMULATING HORMONE 34.3 mIU/mL (.); LUTEINIZING HORMONE 11.6 mIU/mL (.); PROLACTIN 17.9 ng/mL (4.8-23.3)
== END 2016-11-14 12:10 | disposition home or self-care (01) | DRG 205 ==
LOC: ER 14:23 → 5WST 19:50 → EDBEDREQ 19:53 → ENRESERV 19:56
PROVIDERS: ADMIT Internal Medicine Nephrology; ATTEND Internal Medicine Nephrology
PROC: 02HV33Z Insertion of Infusion Device into Superior Vena Cava, Percutaneous Approach (ICD-10-PCS; principal; 2016-11-11)
PROC: B5181ZA Fluoroscopy of Superior Vena Cava using Low Osmolar Contrast, Guidance (ICD-10-PCS; 2016-11-11)
DX: M94.0 Chondrocostal junction syndrome [Tietze] (principal); J96.20 Acute and chronic respiratory failure, unspecified whether with hypoxia or hypercapnia; I11.9 Hypertensive heart disease without heart failure; R65.10 Systemic inflammatory response syndrome (SIRS) of non-infectious origin without acute organ dysfunction; I47.1 Supraventricular tachycardia; E11.65 Type 2 diabetes mellitus with hyperglycemia; D63.8 Anemia in other chronic diseases classified elsewhere; I25.10 Atherosclerotic heart disease of native coronary artery without angina pectoris; G35 Multiple sclerosis; J44.9 Chronic obstructive pulmonary disease, unspecified; E78.00 Pure hypercholesterolemia, unspecified; R41.3 Other amnesia; E03.9 Hypothyroidism, unspecified; K57.90 Diverticulosis of intestine, part unspecified, without perforation or abscess without bleeding; E66.9 Obesity, unspecified; E78.5 Hyperlipidemia, unspecified; G43.909 Migraine, unspecified, not intractable, without status migrainosus; I45.81 Long QT syndrome; K76.0 Fatty (change of) liver, not elsewhere classified; M79.7 Fibromyalgia; N63 Unspecified lump in breast; Z79.4 Long term (current) use of insulin; Z79.899 Other long term (current) drug therapy; Z80.1 Family history of malignant neoplasm of trachea, bronchus and lung; Z80.42 Family history of malignant neoplasm of prostate; Z82.49 Family history of ischemic heart disease and other diseases of the circulatory system; Z83.3 Family history of diabetes mellitus; Z85.3 Personal history of malignant neoplasm of breast; Z87.01 Personal history of pneumonia (recurrent); Z87.440 Personal history of urinary (tract) infections; Z79.82 Long term (current) use of aspirin; Z86.73 Personal history of transient ischemic attack (TIA), and cerebral infarction without residual deficits; Z87.891 Personal history of nicotine dependence; Z90.10 Acquired absence of unspecified breast and nipple; Z68.36 Body mass index [BMI] 36.0-36.9, adult; Z98.891 History of uterine scar from previous surgery
CPT/HCPCS: 36415; 36569; 36600; 70553; 71010; 76604; 76937; 77001; 78582; 80048; 80053; 80061; 82375; 82550; 82805; 82962; 83001; 83002; 83036; 83520; 83605; 83690; 83735; 83880; 84146; 84439; 84443; 84481; 84484; 85025; 85610; 85730; 87040; 93005; 93306; 93970; 94003; 94640; 94664; 96365; 96366; 96375; 97110; 97116; 97162; 97166; 97530; 99285; A9558; A9577; C1725; J0456; J1170; J1650; J1815; J1956; J2060; J2270; J2405; J2930; J3490; J7040; J7060; J7512; J7611; J7620

== ENCOUNTER 2016-12-02 13:50 | Inpatient (IN) | payer MEDICARE, MEDICAID ==
[~2016-12-02] VITALS: Ht 172.7 cm; Wt 106.6 kg
[~2016-12-02 13:50] MED LIST changes: -METO-293 PO; -ZET10
[2016-12-02] MEDS ORDERED: ASPIRIN 81MG TABLET PO STA (16:24)
[2016-12-02 16:56] LABS: HEMATOCRIT. 41.7 % (36.0-48.0); HEMOGLOBIN. 14.1 g/dL (12.0-16.0); MEAN CORPUSCULAR HEMOGLOBIN 30.6 pg (28.0-32.0); MEAN CORPUSCULAR VOLUME 90.9 fL (81.0-99.0); MEAN PLATELET VOLUME 7.6 fl (7.4-10.4); PLATELET 288 x1000/uL (130-400); RED BLOOD CELL COUNT 4.59 mill/uL (4.2-5.4); RED CELL DISTRIBUTION WIDTH 15.3 % (11.6-14.6)
[2016-12-02] MEDS: NITROGLYCERIN 0.4MG TABLET SL SL PRN ×3 (17:01→17:37)
[2016-12-02 17:02] LABS: PARTIAL THROMBOPLASTIN TIME 23.4 sec (23.4-31.0); PROTHROMBIN TIME 10.2 sec (9.4-11.6)
[2016-12-02 17:11] LABS: CARBON DIOXIDE 26 mEq/L (21-32); CHLORIDE 98 mEq/L (98-107)
[2016-12-02 17:13] LABS: TROPONIN I < 0.02 ng/mL (0.00-0.04)
[2016-12-02 17:27] LABS: PLATELET ESTIMATE NORMAL
[2016-12-02] MEDS ORDERED: ONDANSETRON HCL 4MG/2ML VIAL IV ONE (20:45)
[2016-12-02 22:40] VITALS: BP 151/94
[2016-12-02] MEDS ORDERED: LORAZEPAM 0.5MG TABLET PO PRN (23:30)
[2016-12-02] MEDS ORDERED: DOCUSATE SODIUM 100MG CAPSULE PO PRN (23:30)
[2016-12-02] MEDS ORDERED: IPRATROPIUM/ALBUTEROL 0.5-3(2.5)MG/3ML NEB INH PRN (23:30)
[2016-12-02] MEDS ORDERED: CLONIDINE 0.1MG TABLET PO PRN (23:30)
[2016-12-02] MEDS ORDERED: NA PHOS,M-B/NA PHOS,DI-BA ENEMA 118ML PR PRN (23:30)
[2016-12-02] MEDS ORDERED: DIPHENHYDRAMINE 50MG/ML VIAL IV PRN (23:30)
[2016-12-02] MEDS ORDERED: ACETAMINOPHEN 325MG TABLET PO PRN (23:30)
[2016-12-02] MEDS ORDERED: DEXTROSE 50% WATER 50ML SYRINGE IV PRN (23:45)
[2016-12-03] VITALS (7 sets, daily range): BP systolic 109–144; BP diastolic 73–88
[2016-12-03] MEDS ORDERED: IPRATROPIUM/ALBUTEROL 0.5-3(2.5)MG/3ML NEB HHN SCH
[2016-12-03] MEDS: ENOXAPARIN 30MG/0.3ML SYR SUBCUT SCH ×3 (00:01→20:49)
[2016-12-03] MEDS ORDERED: HYDROMORPHONE HCL 2MG TABLET PO PRN (00:18)
[2016-12-03] MEDS: GUAIFENESIN 200MG/10ML SUGAR FREE UDC PO PRN ×3 (00:44→16:25)
[2016-12-03] MEDS: INSULIN LISPRO 100 UNITS/ML SUBCUT SCH ×5 (00:45→20:55)
[2016-12-03] MEDS: LORAZEPAM 1MG TABLET PO PRN (00:57)
[2016-12-03] MEDS: BLOOD SUGAR DIAGNOSTIC STRIP TEST SCH ×4 (06:28→20:43)
[2016-12-03] MEDS: OMEPRAZOLE 20MG CAPSULE EXTENDED RELEASE PO SCH (06:37)
[2016-12-03] MEDS ORDERED: PREDNISONE 25 MG PO SCH (09:00)
[2016-12-03] MEDS ORDERED: MEDICATION NOT ON FORMULARY EA (Omeprazole 20 MG) PO SCH (09:00)
[2016-12-03] MEDS ORDERED: TRIAMTERENE/HYDROCHLOROTHIAZIDE 37.5/25MG CAPSULE PO SCH (09:00)
[2016-12-03] MEDS ORDERED: PREDNISONE 10MG TABLET PO SCH (09:00)
[2016-12-03] MEDS ORDERED: GABAPENTIN 1200 MG PO SCH (09:00)
[2016-12-03] MEDS ORDERED: HYDROCODONE/ACETAMINOPHEN 10/325MG TABLET PO SCH (09:00)
[2016-12-03] MEDS: METHYLPREDNISOLONE SOD SUCC 40 MG/ML VIAL IV SCH ×3 (10:42→22:00)
[2016-12-03] MEDS: BENAZEPRIL 20MG TABLET PO SCH (10:43)
[2016-12-03] MEDS: DOCUSATE SODIUM 100MG CAPSULE PO SCH ×2 (10:43→16:25)
[2016-12-03] MEDS: ASPIRIN 81MG EC TABLET PO SCH (10:43)
[2016-12-03] MEDS: GABAPENTIN 400MG CAPSULE PO SCH ×3 (10:43→17:07)
[2016-12-03] MEDS: HYDROCODONE/ACETAMINOPHEN 10/325MG TABLET PO SCH ×2 (10:44→17:08)
[2016-12-03] MEDS: BACLOFEN 20MG TABLET PO SCH ×2 (10:46→16:25)
[2016-12-03] MEDS: AZITHROMYCIN 500 MG TABLET PO SCH (11:24)
[2016-12-03] MEDS: ONDANSETRON HCL 4MG/2ML VIAL IV PRN (11:24)
[2016-12-03] MEDS: AMLODIPINE 5MG TABLET PO SCH (11:24)
[2016-12-03] MEDS ORDERED: NON FORMULARY PATIENT HOME MED EA XX SCH (13:15)
[2016-12-03] MEDS: NUVIGIL 250 MG PO SCH (16:25)
[2016-12-03] MEDS ORDERED: AMITRIPTYLINE 50MG TABLET PO SCH (17:00)
[2016-12-03] MEDS: HYDROMORPHONE HCL/PF 2MG/ML CPJ IV PRN (17:10)
[2016-12-03] MEDS: AMITRIPTYLINE 50MG TABLET PO SCH (20:48)
[2016-12-03] MEDS: ARICEPT 23 MG PO SCH (20:48)
[2016-12-03] MEDS ORDERED: NON FORMULARY PATIENT HOME MED EA PO SCH (21:00)
[2016-12-03] MEDS ORDERED: DONEPEZIL HCL 10MG TABLET PO SCH (21:00)
[2016-12-03] MEDS: INSULIN DETEMIR UD 100 UNITS/ML SYR SUBCUT SCH (22:06)
[2016-12-03] MEDS ORDERED: ALBUTEROL (0.083%) 2.5MG/3ML NEB HHN PRN (22:45)
[2016-12-04] MEDS: LORAZEPAM 1MG TABLET PO PRN (00:07)
[2016-12-04] MEDS: HYDROMORPHONE HCL/PF 2MG/ML CPJ IV PRN ×3 (00:07→15:32)
[2016-12-04 04:30] VITALS: BP 123/66
[2016-12-04] MEDS: BLOOD SUGAR DIAGNOSTIC STRIP TEST SCH ×4 (06:35→21:21)
[2016-12-04] MEDS: OMEPRAZOLE 20MG CAPSULE EXTENDED RELEASE PO SCH (06:43)
[2016-12-04] MEDS: METHYLPREDNISOLONE SOD SUCC 40 MG/ML VIAL IV SCH ×3 (06:43→21:47)
[2016-12-04] MEDS: INSULIN LISPRO 100 UNITS/ML SUBCUT SCH ×4 (06:45→21:47)
[2016-12-04 07:22] LABS: BASOPHILS % 1.1 % (0.0-2.0); HEMATOCRIT. 42.2 % (36.0-48.0); HEMOGLOBIN. 13.8 g/dL (12.0-16.0); MEAN CORPUSCULAR HEMOGLOBIN 30.3 pg (28.0-32.0); MEAN CORPUSCULAR VOLUME 92.6 fL (81.0-99.0); MEAN PLATELET VOLUME 7.7 fl (7.4-10.4); NEUTROPHILS % 83.9 % (40.0-76.0); PLATELET 349 x1000/uL (130-400); RED BLOOD CELL COUNT 4.56 mill/uL (4.2-5.4); RED CELL DISTRIBUTION WIDTH 14.6 % (11.6-14.6)
[2016-12-04 08:00] VITALS: BP 131/74
[2016-12-04 08:30] LABS: CARBON DIOXIDE 26 mEq/L (21-32); CHLORIDE 98 mEq/L (98-107); TROPONIN I < 0.02 ng/mL (0.00-0.04)
[2016-12-04] MEDS: AZITHROMYCIN 500 MG TABLET PO SCH (08:37)
[2016-12-04] MEDS: BENAZEPRIL 20MG TABLET PO SCH (08:37)
[2016-12-04] MEDS: ENOXAPARIN 30MG/0.3ML SYR SUBCUT SCH ×2 (08:37→21:12)
[2016-12-04] MEDS: DOCUSATE SODIUM 100MG CAPSULE PO SCH ×2 (08:37→17:23)
[2016-12-04] MEDS: GABAPENTIN 400MG CAPSULE PO SCH ×3 (08:37→17:23)
[2016-12-04] MEDS: ONDANSETRON HCL 4MG/2ML VIAL IV PRN (08:38)
[2016-12-04] MEDS: ASPIRIN 81MG EC TABLET PO SCH (08:38)
[2016-12-04] MEDS: BACLOFEN 20MG TABLET PO SCH ×2 (08:38→17:24)
[2016-12-04] MEDS: NUVIGIL 250 MG PO SCH (08:38)
[2016-12-04] MEDS: AMLODIPINE 5MG TABLET PO SCH (08:38)
[2016-12-04] MEDS: IPRATROPIUM/ALBUTEROL 0.5-3(2.5)MG/3ML NEB HHN SCH ×4 (08:42→20:47)
[2016-12-04] MEDS ORDERED: REBIF SQ SCH (09:00)
[2016-12-04] MEDS ORDERED: NON FORMULARY PATIENT HOME MED EA XX SCH (09:00)
[2016-12-04 10:19] LABS: BG BASE EXCESS -2.4 mmol/L (-2.0-2.0); BG FRACTION INSPIRED OXYGEN 21; BG METHEMOGLOBIN 0.3 % (0.0-1.5); BG OXYGEN SATURATION 91.9 % (92.0-98.5); BG OXYHEMOGLOBIN 90.7 % (94.0-97.0); BG PCO2 47.9 mmHg (35.0-45.0); BG PH 7.318 (7.350-7.450); BG PO2 67.6 mmHg (75.0-100.0); BG SAMPLE SITE RIGHT RADIAL; BG TOTAL HEMOGLOBIN 13.7 g/dL (12.0-18.0); BG VENT MODE ROOM AIR
[2016-12-04 12:00] VITALS: BP 131/65
[2016-12-04] MEDS: HYDROCODONE/ACETAMINOPHEN 10/325MG TABLET PO PRN ×2 (13:01→21:12)
[2016-12-04 16:00] VITALS: BP 99/55
[2016-12-04 20:00] VITALS: BP 153/87
[2016-12-04] MEDS: ARICEPT 23 MG PO SCH (21:11)
[2016-12-04] MEDS: AMITRIPTYLINE 50MG TABLET PO SCH (21:11)
[2016-12-04] MEDS: INSULIN DETEMIR UD 100 UNITS/ML SYR SUBCUT SCH (21:47)
[2016-12-05] VITALS: BP 121/72
[2016-12-05] MEDS: IPRATROPIUM/ALBUTEROL 0.5-3(2.5)MG/3ML NEB HHN SCH ×4 (00:28→13:43)
[2016-12-05] MEDS: HYDROMORPHONE HCL/PF 2MG/ML CPJ IV PRN ×3 (01:38→14:25)
[2016-12-05 04:00] VITALS: BP 146/78
[2016-12-05] MEDS: METHYLPREDNISOLONE SOD SUCC 40 MG/ML VIAL IV SCH ×2 (06:03→13:13)
[2016-12-05] MEDS: BLOOD SUGAR DIAGNOSTIC STRIP TEST SCH ×2 (06:11→12:24)
[2016-12-05] MEDS: INSULIN LISPRO 100 UNITS/ML SUBCUT SCH ×2 (06:16→13:14)
[2016-12-05 07:10] LABS: HEMATOCRIT. 38.3 % (36.0-48.0); HEMOGLOBIN. 12.7 g/dL (12.0-16.0); MEAN CORPUSCULAR HEMOGLOBIN 30.3 pg (28.0-32.0); MEAN CORPUSCULAR VOLUME 91.4 fL (81.0-99.0); MEAN PLATELET VOLUME 8.5 fl (7.4-10.4); PLATELET 315 x1000/uL (130-400); RED BLOOD CELL COUNT 4.19 mill/uL (4.2-5.4); RED CELL DISTRIBUTION WIDTH 14.8 % (11.6-14.6)
[2016-12-05 08:00] VITALS: BP 128/75
[2016-12-05 08:07] LABS: CARBON DIOXIDE 26 mEq/L (21-32); CHLORIDE 98 mEq/L (98-107); TROPONIN I < 0.02 ng/mL (0.00-0.04)
[2016-12-05] MEDS: BACLOFEN 20MG TABLET PO SCH (08:13)
[2016-12-05] MEDS: BENAZEPRIL 20MG TABLET PO SCH (08:14)
[2016-12-05] MEDS: ENOXAPARIN 30MG/0.3ML SYR SUBCUT SCH (08:14)
[2016-12-05] MEDS: GABAPENTIN 400MG CAPSULE PO SCH ×2 (08:15→13:13)
[2016-12-05] MEDS: ASPIRIN 81MG EC TABLET PO SCH (08:15)
[2016-12-05] MEDS: DOCUSATE SODIUM 100MG CAPSULE PO SCH (08:15)
[2016-12-05] MEDS: AZITHROMYCIN 500 MG TABLET PO SCH (08:15)
[2016-12-05] MEDS: NUVIGIL 250 MG PO SCH (08:16)
[2016-12-05] MEDS: AMLODIPINE 5MG TABLET PO SCH (08:16)
[2016-12-05] MEDS ORDERED: FAMOTIDINE 20MG TABLET PO SCH (09:00)
[2016-12-05] MEDS ORDERED: TRULICITY 0.75 MG/0.5 ML SQ SCH (09:00)
[2016-12-05 10:11] LABS: PLATELET ESTIMATE NORMAL
[2016-12-05 12:00] VITALS: BP 144/75
[2016-12-05] MEDS ORDERED: INSULIN DETEMIR UD 100 UNITS/ML SYR SUBCUT SCH (13:00)
[2016-12-05 14:41] VITALS: BP 144/75
== END 2016-12-05 15:15 | DRG 206 ==
LOC: ER 13:50 → 8WST 16:26 → EDBEDREQ 18:49 → ENRESERV 19:00
PROVIDERS: ADMIT Internal Medicine Nephrology; ATTEND Internal Medicine Nephrology
PROC: 05H333Z Insertion of Infusion Device into Right Innominate Vein, Percutaneous Approach (ICD-10-PCS; principal; 2016-12-04)
PROC: B51M1ZA Fluoroscopy of Right Upper Extremity Veins using Low Osmolar Contrast, Guidance (ICD-10-PCS; 2016-12-04)
PROC: B54MZZA Ultrasonography of Right Upper Extremity Veins, Guidance (ICD-10-PCS; 2016-12-04)
DX: M94.0 Chondrocostal junction syndrome [Tietze] (principal); E11.42 Type 2 diabetes mellitus with diabetic polyneuropathy; J44.1 Chronic obstructive pulmonary disease with (acute) exacerbation; I11.9 Hypertensive heart disease without heart failure; E11.65 Type 2 diabetes mellitus with hyperglycemia; J45.901 Unspecified asthma with (acute) exacerbation; G35 Multiple sclerosis; G31.84 Mild cognitive impairment of uncertain or unknown etiology; E66.9 Obesity, unspecified; G43.909 Migraine, unspecified, not intractable, without status migrainosus; M79.7 Fibromyalgia; D64.9 Anemia, unspecified; D72.829 Elevated white blood cell count, unspecified; E78.00 Pure hypercholesterolemia, unspecified; E78.5 Hyperlipidemia, unspecified; F41.9 Anxiety disorder, unspecified; G89.4 Chronic pain syndrome; Z68.35 Body mass index [BMI] 35.0-35.9, adult; Z79.52 Long term (current) use of systemic steroids; Z79.899 Other long term (current) drug therapy; Z80.1 Family history of malignant neoplasm of trachea, bronchus and lung; Z86.73 Personal history of transient ischemic attack (TIA), and cerebral infarction without residual deficits; Z87.01 Personal history of pneumonia (recurrent); Z87.09 Personal history of other diseases of the respiratory system; Z91.19 Patient's noncompliance with other medical treatment and regimen; Z79.4 Long term (current) use of insulin; Z90.10 Acquired absence of unspecified breast and nipple; Z72.89 Other problems related to lifestyle
CPT/HCPCS: 36415; 36569; 36600; 70450; 71010; 71250; 76937; 77001; 78582; 80048; 80053; 82375; 82805; 82962; 83690; 83880; 84484; 85025; 85610; 85730; 87040; 93005; 93970; 94640; 96374; 97162; 97167; 97530; 99285; A9558; C1725; J1170; J1650; J1815; J2405; J2920; J7620

== ENCOUNTER 2016-12-05 15:15 | Inpatient (IN) | payer MEDICARE, MEDICAID ==
[~2016-12-05] VITALS: Ht 172.7 cm; Wt 106.6 kg
[2016-12-05 15:30] VITALS: BP 141/74
[2016-12-05 17:10] VITALS: BP 141/74
[2016-12-05] MEDS ORDERED: CLONIDINE 0.1MG TABLET PO PRN (17:15)
[2016-12-05] MEDS ORDERED: DIPHENHYDRAMINE 50MG/ML VIAL IV PRN (17:15)
[2016-12-05] MEDS ORDERED: GUAIFENESIN 200MG/10ML SUGAR FREE UDC PO PRN (17:15)
[2016-12-05] MEDS ORDERED: NA PHOS,M-B/NA PHOS,DI-BA ENEMA 118ML PR PRN (17:15)
[2016-12-05] MEDS ORDERED: ACETAMINOPHEN 325MG TABLET PO PRN (17:15)
[2016-12-05] MEDS ORDERED: LORAZEPAM 0.5MG TABLET PO PRN (17:15)
[2016-12-05] MEDS ORDERED: DOCUSATE SODIUM 100MG CAPSULE PO PRN (17:15)
[2016-12-05] MEDS ORDERED: DEXTROSE 50% WATER 50ML SYRINGE IV PRN (17:45)
[2016-12-05] MEDS ORDERED: NON FORMULARY PATIENT HOME MED EA XX SCH ×3 (17:45)
[2016-12-05] MEDS: DOCUSATE SODIUM 100MG CAPSULE PO SCH (17:50)
[2016-12-05] MEDS: HYDROCODONE/ACETAMINOPHEN 10/325MG TABLET PO PRN (17:51)
[2016-12-05] MEDS: BACLOFEN 20MG TABLET PO SCH (18:12)
[2016-12-05] MEDS: GABAPENTIN 400MG CAPSULE PO SCH (18:12)
[2016-12-05 20:00] VITALS: BP 133/70
[2016-12-05] MEDS ORDERED: IPRATROPIUM/ALBUTEROL 0.5-3(2.5)MG/3ML NEB HHN SCH (20:00)
[2016-12-05] MEDS: METHYLPREDNISOLONE SOD SUCC 40 MG/ML VIAL IV SCH (21:34)
[2016-12-05] MEDS: AMITRIPTYLINE 50MG TABLET PO SCH (21:35)
[2016-12-05] MEDS: FAMOTIDINE 20MG TABLET PO SCH (21:35)
[2016-12-05] MEDS: BLOOD SUGAR DIAGNOSTIC STRIP TEST SCH (21:36)
[2016-12-05] MEDS: ENOXAPARIN 30MG/0.3ML SYR SUBCUT SCH (21:36)
[2016-12-05] MEDS: ARICEPT 23 MG PO SCH (21:37)
[2016-12-05] MEDS: INSULIN LISPRO 100 UNITS/ML SUBCUT SCH (21:49)
[2016-12-05] MEDS: INSULIN DETEMIR UD 100 UNITS/ML SYR SUBCUT SCH (21:50)
[2016-12-05] MEDS: IPRATROPIUM/ALBUTEROL 0.5-3(2.5)MG/3ML NEB HHN SCH ×2 (22:25→23:35)
[2016-12-05] MEDS: HYDROMORPHONE HCL/PF 2MG/ML CPJ IV PRN (23:16)
[2016-12-05] MEDS: LORAZEPAM 1MG TABLET PO PRN (23:16)
[2016-12-06] MEDS: IPRATROPIUM/ALBUTEROL 0.5-3(2.5)MG/3ML NEB HHN SCH ×6 (04:30→23:37)
[2016-12-06] MEDS: METHYLPREDNISOLONE SOD SUCC 40 MG/ML VIAL IV SCH ×3 (06:10→21:58)
[2016-12-06] MEDS: HYDROMORPHONE HCL/PF 2MG/ML CPJ IV PRN ×2 (06:12→12:41)
[2016-12-06] MEDS: INSULIN LISPRO 100 UNITS/ML SUBCUT SCH ×4 (06:28→21:00)
[2016-12-06] MEDS: BLOOD SUGAR DIAGNOSTIC STRIP TEST SCH ×4 (06:29→21:58)
[2016-12-06 06:52] LABS: BASOPHILS % 0.4 % (0.0-2.0); HEMATOCRIT. 37.5 % (36.0-48.0); HEMOGLOBIN. 12.7 g/dL (12.0-16.0); LYMPHOCYTES % 8.7 % (20.0-50.0); MEAN CORPUSCULAR HEMOGLOBIN 30.8 pg (28.0-32.0); MEAN CORPUSCULAR VOLUME 91.2 fL (81.0-99.0); MEAN PLATELET VOLUME 7.7 fl (7.4-10.4); MONOCYTES % 5.6 % (2.0-8.0); NEUTROPHILS % 85.3 % (40.0-76.0); PLATELET 270 x1000/uL (130-400); RED BLOOD CELL COUNT 4.11 mill/uL (4.2-5.4); RED CELL DISTRIBUTION WIDTH 14.8 % (11.6-14.6)
[2016-12-06 07:15] LABS: CARBON DIOXIDE 29 mEq/L (21-32); CHLORIDE 99 mEq/L (98-107); PREALBUMIN 30.2 mg/dL (20.0-40.0)
[2016-12-06 08:00] VITALS: BP 155/89
[2016-12-06] MEDS ORDERED: AZITHROMYCIN 500 MG TABLET PO SCH (09:00)
[2016-12-06] MEDS ORDERED: AMLODIPINE 5MG TABLET PO SCH (09:00)
[2016-12-06] MEDS: DOCUSATE SODIUM 100MG CAPSULE PO SCH ×2 (09:35→16:35)
[2016-12-06] MEDS: GABAPENTIN 400MG CAPSULE PO SCH ×3 (09:36→16:36)
[2016-12-06] MEDS: FAMOTIDINE 20MG TABLET PO SCH ×2 (09:36→21:58)
[2016-12-06] MEDS: ASPIRIN 81MG TABLET PO SCH (09:36)
[2016-12-06] MEDS: BACLOFEN 20MG TABLET PO SCH ×2 (09:36→16:35)
[2016-12-06] MEDS: BENAZEPRIL 20MG TABLET PO SCH (09:36)
[2016-12-06] MEDS: NUVIGIL 250 MG PO SCH (09:37)
[2016-12-06] MEDS: REBIF SUBCUT SCH (09:37)
[2016-12-06] MEDS: ENOXAPARIN 30MG/0.3ML SYR SUBCUT SCH ×2 (09:38→21:55)
[2016-12-06] MEDS: INSULIN DETEMIR UD 100 UNITS/ML SYR SUBCUT SCH ×2 (09:48→21:53)
[2016-12-06] MEDS: HYDROCODONE/ACETAMINOPHEN 10/325MG TABLET PO PRN (17:29)
[2016-12-06 20:00] VITALS: BP 120/70
[2016-12-06] MEDS: AMLODIPINE 5MG TABLET PO SCH (21:00)
[2016-12-06] MEDS ORDERED: INSULIN LISPRO 100 UNITS/ML SUBCUT NR (21:00)
[2016-12-06] MEDS: ARICEPT 23 MG PO SCH (21:57)
[2016-12-06] MEDS: AMITRIPTYLINE 50MG TABLET PO SCH (21:58)
[2016-12-06 22:03] LABS: CLARITY URINE CLEAR (CLEAR); COLOR URINE YELLOW (YELLOW); GLUCOSE URINE 3+ (NEGATIVE); KETONES URINE NEGATIVE (NEGATIVE); LEUKOCYTE ESTERASE URINE NEGATIVE (NEGATIVE); NITRITE URINE NEGATIVE (NEGATIVE); OCCULT BLOOD URINE NEGATIVE (NEGATIVE); PROTEIN URINE NEGATIVE (NEGATIVE); SPECIFIC GRAVITY URINE 1.027 (1.005-1.030); UROBILINOGEN URINE 0.2 E.U./dL (0.2-1.0)
[2016-12-06] MEDS: LORAZEPAM 1MG TABLET PO PRN (22:36)
[2016-12-07] MEDS: HYDROMORPHONE HCL/PF 2MG/ML CPJ IV PRN ×4 (00:12→23:58)
[2016-12-07] MEDS: BLOOD SUGAR DIAGNOSTIC STRIP TEST SCH ×4 (06:55→21:53)
[2016-12-07] MEDS: INSULIN LISPRO 100 UNITS/ML SUBCUT SCH ×4 (07:03→21:00)
[2016-12-07 08:00] VITALS: BP 159/90
[2016-12-07] MEDS: GABAPENTIN 400MG CAPSULE PO SCH ×3 (08:34→17:40)
[2016-12-07] MEDS: DOCUSATE SODIUM 100MG CAPSULE PO SCH ×2 (08:35→17:40)
[2016-12-07] MEDS: PREDNISONE 20MG TABLET PO SCH (08:36)
[2016-12-07] MEDS: BACLOFEN 20MG TABLET PO SCH ×2 (08:36→17:41)
[2016-12-07] MEDS: BENAZEPRIL 20MG TABLET PO SCH (08:37)
[2016-12-07] MEDS: AMLODIPINE 5MG TABLET PO SCH ×2 (08:37→21:50)
[2016-12-07] MEDS: ASPIRIN 81MG TABLET PO SCH (08:37)
[2016-12-07] MEDS: FAMOTIDINE 20MG TABLET PO SCH ×2 (08:37→21:49)
[2016-12-07] MEDS: ENOXAPARIN 30MG/0.3ML SYR SUBCUT SCH ×2 (08:39→21:51)
[2016-12-07] MEDS: NUVIGIL 250 MG PO SCH (11:18)
[2016-12-07] MEDS: UMECLIDINIUM BROMIDE 1 INH BLST.W.DEV IH SCH (11:19)
[2016-12-07] MEDS: FLUTICASONE/VILANTEROL 200-25 BLST.W.DEV ORI SCH (11:20)
[2016-12-07] MEDS: INSULIN DETEMIR UD 100 UNITS/ML SYR SUBCUT SCH ×2 (11:22→22:13)
[2016-12-07] MEDS: HYDROCODONE/ACETAMINOPHEN 10/325MG TABLET PO PRN (11:32)
[2016-12-07] MEDS ORDERED: HYDROMORPHONE HCL/PF 2MG/ML CPJ SUBCUT PRN (12:06)
[2016-12-07] MEDS: ALBUTEROL (0.083%) 2.5MG/3ML NEB HHN PRN ×3 (12:40→20:08)
[2016-12-07 12:51] LABS: HEMOGLOBIN. 12.9 g/dL (12.0-16.0); MEAN CORPUSCULAR HEMOGLOBIN 30.8 pg (28.0-32.0); MEAN CORPUSCULAR VOLUME 90.8 fL (81.0-99.0); MEAN PLATELET VOLUME 7.8 fl (7.4-10.4); PLATELET 281 x1000/uL (130-400); RED BLOOD CELL COUNT 4.19 mill/uL (4.2-5.4); RED CELL DISTRIBUTION WIDTH 15.2 % (11.6-14.6)
[2016-12-07 13:26] LABS: CARBON DIOXIDE 28 mEq/L (21-32); CHLORIDE 101 mEq/L (98-107); FERRITIN 42 ng/mL (10-291); HDL CHOLESTEROL 58 mg/dL (40-59); LDL CHOLESTEROL 147 mg/dL (5-100); TOTAL IRON BINDING CAPACITY 297 ug/dL (250-450)
[2016-12-07 13:58] LABS: PLATELET ESTIMATE NORMAL
[2016-12-07 14:06] LABS: VITAMIN B12 SERUM > 2000.0 pg/mL (211-911)
[2016-12-07 20:00] VITALS: BP 143/77
[2016-12-07] MEDS: AMITRIPTYLINE 50MG TABLET PO SCH (21:49)
[2016-12-07] MEDS: ARICEPT 23 MG PO SCH (21:49)
[2016-12-07] MEDS: INSULIN LISPRO 100 UNITS/ML SUBCUT NR (21:53)
[2016-12-08] MEDS: ALBUTEROL (0.083%) 2.5MG/3ML NEB HHN PRN ×5 (00:08→22:48)
[2016-12-08] MEDS: BLOOD SUGAR DIAGNOSTIC STRIP TEST SCH ×4 (06:02→21:24)
[2016-12-08] MEDS: INSULIN LISPRO 100 UNITS/ML SUBCUT SCH ×4 (06:40→21:29)
[2016-12-08] MEDS: HYDROMORPHONE HCL/PF 2MG/ML CPJ IV PRN ×2 (06:55→18:55)
[2016-12-08 07:50] VITALS: BP 170/94
[2016-12-08] MEDS: FLUTICASONE/VILANTEROL 200-25 BLST.W.DEV ORI SCH (08:32)
[2016-12-08] MEDS: UMECLIDINIUM BROMIDE 1 INH BLST.W.DEV IH SCH (08:32)
[2016-12-08] MEDS: DOCUSATE SODIUM 100MG CAPSULE PO SCH ×2 (08:33→16:36)
[2016-12-08] MEDS: NUVIGIL 250 MG PO SCH (08:33)
[2016-12-08] MEDS: PREDNISONE 20MG TABLET PO SCH (08:33)
[2016-12-08] MEDS: BENAZEPRIL 20MG TABLET PO SCH (08:34)
[2016-12-08] MEDS: BACLOFEN 20MG TABLET PO SCH ×2 (08:34→16:36)
[2016-12-08] MEDS: ASPIRIN 81MG TABLET PO SCH (08:34)
[2016-12-08] MEDS: GABAPENTIN 400MG CAPSULE PO SCH ×3 (08:34→16:36)
[2016-12-08] MEDS: AMLODIPINE 5MG TABLET PO SCH ×2 (08:34→21:22)
[2016-12-08] MEDS: FAMOTIDINE 20MG TABLET PO SCH ×2 (08:34→21:22)
[2016-12-08] MEDS: ENOXAPARIN 30MG/0.3ML SYR SUBCUT SCH ×2 (08:35→21:23)
[2016-12-08 10:39] VITALS: BP 140/74
[2016-12-08] MEDS: INSULIN DETEMIR UD 100 UNITS/ML SYR SUBCUT SCH ×2 (10:56→21:30)
[2016-12-08] MEDS ORDERED: NYSTATIN 100,000 UNITS/ML 5ML UDC SSW SCH ×2 (12:00)
[2016-12-08] MEDS: FERROUS SULFATE 325MG TABLET PO SCH ×2 (12:32→16:36)
[2016-12-08] MEDS: NYSTATIN 100,000 UNITS/ML 5ML UDC SSW SCH ×3 (12:32→23:15)
[2016-12-08 12:45] VITALS: BP 147/74
[2016-12-08] MEDS: HYDROCODONE/ACETAMINOPHEN 10/325MG TABLET PO PRN (12:59)
[2016-12-08] MEDS: ONDANSETRON HCL 4MG/2ML VIAL IV PRN (17:19)
[2016-12-08 20:00] VITALS: BP 136/81
[2016-12-08] MEDS ORDERED: MAGNESIUM/ALUMINUM HYDROXIDE/SIMETHICONE 30ML UDC PO PRN (20:15)
[2016-12-08] MEDS: AMITRIPTYLINE 50MG TABLET PO SCH (21:22)
[2016-12-08] MEDS: ARICEPT 23 MG PO SCH (21:23)
[2016-12-08] MEDS: LORAZEPAM 1MG TABLET PO PRN (23:15)
[2016-12-09] MEDS: HYDROMORPHONE HCL/PF 2MG/ML CPJ IV PRN ×3 (03:29→21:39)
[2016-12-09] MEDS: BLOOD SUGAR DIAGNOSTIC STRIP TEST SCH ×4 (06:51→21:40)
[2016-12-09] MEDS: NYSTATIN 100,000 UNITS/ML 5ML UDC SSW SCH ×4 (06:51→23:46)
[2016-12-09] MEDS: INSULIN LISPRO 100 UNITS/ML SUBCUT SCH ×3 (06:55→17:57)
[2016-12-09 07:52] VITALS: BP 114/65
[2016-12-09 08:07] LABS: T4 FREE 0.66 ng/dL (0.76-1.46)
[2016-12-09] MEDS: ONDANSETRON HCL 4MG/2ML VIAL IV PRN (09:16)
[2016-12-09] MEDS: ENOXAPARIN 30MG/0.3ML SYR SUBCUT SCH ×2 (10:21→21:37)
[2016-12-09] MEDS: ASPIRIN 81MG TABLET PO SCH (10:22)
[2016-12-09] MEDS: FERROUS SULFATE 325MG TABLET PO SCH ×3 (10:23→17:45)
[2016-12-09] MEDS: DOCUSATE SODIUM 100MG CAPSULE PO SCH ×2 (10:23→17:45)
[2016-12-09] MEDS: BACLOFEN 20MG TABLET PO SCH ×2 (10:24→17:45)
[2016-12-09] MEDS: PREDNISONE 20MG TABLET PO SCH (10:24)
[2016-12-09] MEDS: GABAPENTIN 400MG CAPSULE PO SCH ×3 (10:25→17:44)
[2016-12-09] MEDS: FAMOTIDINE 20MG TABLET PO SCH ×2 (10:25→21:36)
[2016-12-09] MEDS: REBIF SUBCUT SCH (10:26)
[2016-12-09] MEDS: NUVIGIL 250 MG PO SCH (10:28)
[2016-12-09] MEDS: FLUTICASONE/VILANTEROL 200-25 BLST.W.DEV ORI SCH (10:31)
[2016-12-09] MEDS: UMECLIDINIUM BROMIDE 1 INH BLST.W.DEV IH SCH (10:32)
[2016-12-09] MEDS: BENAZEPRIL 20MG TABLET PO SCH (12:05)
[2016-12-09] MEDS: AMLODIPINE 5MG TABLET PO SCH ×2 (12:05→21:36)
[2016-12-09] MEDS: INSULIN DETEMIR UD 100 UNITS/ML SYR SUBCUT SCH ×2 (12:14→21:57)
[2016-12-09] MEDS: INSULIN LISPRO (LOW DOSE) 100 UNITS/ML SUBCUT SCH ×2 (12:26→18:01)
[2016-12-09] MEDS ORDERED: INSULIN LISPRO 100 UNITS/ML SUBCUT SCH (13:00)
[2016-12-09] MEDS: HYDROCODONE/ACETAMINOPHEN 10/325MG TABLET PO PRN (14:37)
[2016-12-09] MEDS: ALBUTEROL (0.083%) 2.5MG/3ML NEB HHN PRN ×3 (15:28→23:51)
[2016-12-09 19:00] VITALS: BP 136/79
[2016-12-09] MEDS: AMITRIPTYLINE 50MG TABLET PO SCH (21:35)
[2016-12-09] MEDS: ATORVASTATIN CALCIUM 10MG TABLET PO SCH (21:35)
[2016-12-09] MEDS: ARICEPT 23 MG PO SCH (21:36)
[2016-12-09] MEDS: INSULIN LISPRO 100 UNITS/ML SUBCUT NR (21:56)
[2016-12-10 03:02] VITALS: BP 129/70
[2016-12-10] MEDS: NYSTATIN 100,000 UNITS/ML 5ML UDC SSW SCH ×3 (05:23→17:51)
[2016-12-10] MEDS: HYDROMORPHONE HCL/PF 2MG/ML CPJ IV PRN ×3 (05:31→21:01)
[2016-12-10] MEDS: BLOOD SUGAR DIAGNOSTIC STRIP TEST SCH ×4 (06:24→20:58)
[2016-12-10] MEDS: INSULIN LISPRO (LOW DOSE) 100 UNITS/ML SUBCUT SCH ×3 (06:38→17:56)
[2016-12-10] MEDS: INSULIN LISPRO 100 UNITS/ML SUBCUT SCH ×3 (06:38→18:00)
[2016-12-10 06:48] LABS: EOSINOPHILS % 1.5 % (0.0-5.0); HEMATOCRIT. 36.5 % (36.0-48.0); HEMOGLOBIN. 12.3 g/dL (12.0-16.0); LYMPHOCYTES % 14.6 % (20.0-50.0); MEAN CORPUSCULAR HEMOGLOBIN 31.2 pg (28.0-32.0); MEAN CORPUSCULAR VOLUME 92.5 fL (81.0-99.0); MEAN PLATELET VOLUME 9.1 fl (7.4-10.4); MONOCYTES % 8.7 % (2.0-8.0); NEUTROPHILS % 74.4 % (40.0-76.0); PLATELET 147 x1000/uL (130-400); RED BLOOD CELL COUNT 3.94 mill/uL (4.2-5.4); RED CELL DISTRIBUTION WIDTH 14.7 % (11.6-14.6)
[2016-12-10 06:49] LABS: BASOPHILS % 0.8 % (0.0-2.0)
[2016-12-10 07:35] LABS: CARBON DIOXIDE 29 mEq/L (21-32); CHLORIDE 101 mEq/L (98-107); PHOSPHORUS 3.1 mg/dL (2.5-4.9); T4 FREE 0.62 ng/dL (0.76-1.46)
[2016-12-10 07:51] VITALS: BP 141/84
[2016-12-10] MEDS ORDERED: POTASSIUM CHLORIDE 20MEQ TABLET SR PO SCH (08:45)
[2016-12-10] MEDS: GABAPENTIN 400MG CAPSULE PO SCH ×3 (09:31→17:51)
[2016-12-10] MEDS: FERROUS SULFATE 325MG TABLET PO SCH ×3 (09:32→17:51)
[2016-12-10] MEDS: DOCUSATE SODIUM 100MG CAPSULE PO SCH ×2 (09:32→17:51)
[2016-12-10] MEDS: ENOXAPARIN 30MG/0.3ML SYR SUBCUT SCH ×2 (09:32→20:58)
[2016-12-10] MEDS: ASPIRIN 81MG TABLET PO SCH (09:32)
[2016-12-10] MEDS: PREDNISONE 20MG TABLET PO SCH (09:32)
[2016-12-10] MEDS: FAMOTIDINE 20MG TABLET PO SCH ×2 (09:32→20:55)
[2016-12-10] MEDS: AMLODIPINE 5MG TABLET PO SCH ×2 (09:33→20:55)
[2016-12-10] MEDS: BACLOFEN 20MG TABLET PO SCH ×2 (09:33→17:51)
[2016-12-10] MEDS: BENAZEPRIL 20MG TABLET PO SCH (09:33)
[2016-12-10] MEDS: FLUTICASONE/VILANTEROL 200-25 BLST.W.DEV ORI SCH (09:34)
[2016-12-10] MEDS: UMECLIDINIUM BROMIDE 1 INH BLST.W.DEV IH SCH (09:35)
[2016-12-10] MEDS: ONDANSETRON HCL 4MG/2ML VIAL IV PRN (09:57)
[2016-12-10] MEDS: NUVIGIL 250 MG PO SCH (09:57)
[2016-12-10] MEDS: HYDROCODONE/ACETAMINOPHEN 10/325MG TABLET PO PRN (09:58)
[2016-12-10] MEDS ORDERED: INSULIN DETEMIR UD 100 UNITS/ML SYR SUBCUT SCH ×2 (10:00→22:00)
[2016-12-10] MEDS: EZETIMIBE 10MG TABLET PO SCH (12:57)
[2016-12-10] MEDS ORDERED: INSULIN LISPRO 100 UNITS/ML SUBCUT SCH (17:15)
[2016-12-10] MEDS: ALBUTEROL (0.083%) 2.5MG/3ML NEB HHN PRN (19:50)
[2016-12-10 20:00] VITALS: BP 123/71
[2016-12-10] MEDS: ATORVASTATIN CALCIUM 10MG TABLET PO SCH (20:55)
[2016-12-10] MEDS: ARICEPT 23 MG PO SCH (20:55)
[2016-12-10] MEDS: INSULIN DETEMIR UD 100 UNITS/ML SYR SUBCUT SCH (21:21)
[2016-12-10] MEDS: AMITRIPTYLINE 50MG TABLET PO SCH (22:03)
[2016-12-11] MEDS: HYDROMORPHONE HCL/PF 2MG/ML CPJ IV PRN ×4 (03:06→23:16)
[2016-12-11] MEDS: INSULIN LISPRO 100 UNITS/ML SUBCUT SCH ×3 (07:09→18:13)
[2016-12-11] MEDS: NYSTATIN 100,000 UNITS/ML 5ML UDC SSW SCH ×5 (07:10→23:15)
[2016-12-11] MEDS: LEVOTHYROXINE SODIUM 25MCG TABLET PO SCH (07:10)
[2016-12-11] MEDS: INSULIN LISPRO (LOW DOSE) 100 UNITS/ML SUBCUT SCH ×3 (07:10→18:14)
[2016-12-11] MEDS: BLOOD SUGAR DIAGNOSTIC STRIP TEST SCH ×4 (07:10→21:02)
[2016-12-11 07:49] VITALS: BP 123/80
[2016-12-11] MEDS: UMECLIDINIUM BROMIDE 1 INH BLST.W.DEV IH SCH (08:48)
[2016-12-11] MEDS: FLUTICASONE/VILANTEROL 200-25 BLST.W.DEV ORI SCH (08:49)
[2016-12-11] MEDS: GABAPENTIN 400MG CAPSULE PO SCH ×3 (08:49→16:23)
[2016-12-11] MEDS: FERROUS SULFATE 325MG TABLET PO SCH ×3 (08:50→16:24)
[2016-12-11] MEDS: BENAZEPRIL 20MG TABLET PO SCH (08:50)
[2016-12-11] MEDS: BACLOFEN 20MG TABLET PO SCH ×2 (08:50→16:23)
[2016-12-11] MEDS: DOCUSATE SODIUM 100MG CAPSULE PO SCH ×2 (08:50→16:23)
[2016-12-11] MEDS: PREDNISONE 20MG TABLET PO SCH (08:51)
[2016-12-11] MEDS: FAMOTIDINE 20MG TABLET PO SCH ×2 (08:51→20:55)
[2016-12-11] MEDS: AMLODIPINE 5MG TABLET PO SCH ×2 (08:52→20:55)
[2016-12-11] MEDS: EZETIMIBE 10MG TABLET PO SCH (08:52)
[2016-12-11] MEDS: ASPIRIN 81MG TABLET PO SCH (08:52)
[2016-12-11] MEDS: ENOXAPARIN 30MG/0.3ML SYR SUBCUT SCH ×2 (08:53→20:56)
[2016-12-11] MEDS: REBIF SUBCUT SCH (08:54)
[2016-12-11] MEDS: NUVIGIL 250 MG PO SCH (10:38)
[2016-12-11] MEDS: INSULIN DETEMIR UD 100 UNITS/ML SYR SUBCUT SCH ×2 (10:42→21:17)
[2016-12-11 20:00] VITALS: BP 146/84
[2016-12-11] MEDS: AMITRIPTYLINE 50MG TABLET PO SCH (20:55)
[2016-12-11] MEDS: ATORVASTATIN CALCIUM 10MG TABLET PO SCH (20:55)
[2016-12-11] MEDS: ARICEPT 23 MG PO SCH (20:56)
[2016-12-12 05:51] VITALS: BP 140/83
[2016-12-12] MEDS: HYDROMORPHONE HCL/PF 2MG/ML CPJ IV PRN ×3 (05:57→22:09)
[2016-12-12] MEDS: LEVOTHYROXINE SODIUM 25MCG TABLET PO SCH (06:30)
[2016-12-12] MEDS: NYSTATIN 100,000 UNITS/ML 5ML UDC SSW SCH ×3 (06:30→17:39)
[2016-12-12] MEDS: BLOOD SUGAR DIAGNOSTIC STRIP TEST SCH ×4 (06:34→21:39)
[2016-12-12] MEDS: INSULIN LISPRO 100 UNITS/ML SUBCUT SCH ×3 (06:53→17:39)
[2016-12-12] MEDS: INSULIN LISPRO (LOW DOSE) 100 UNITS/ML SUBCUT SCH ×3 (06:54→17:40)
[2016-12-12] MEDS: ALBUTEROL (0.083%) 2.5MG/3ML NEB HHN PRN ×2 (07:21→16:53)
[2016-12-12 07:39] VITALS: BP 139/81
[2016-12-12] MEDS ORDERED: TRULICITY SUBCUT SCH (09:00)
[2016-12-12] MEDS: ASPIRIN 81MG TABLET PO SCH (10:23)
[2016-12-12] MEDS: AMLODIPINE 5MG TABLET PO SCH ×2 (10:23→21:40)
[2016-12-12] MEDS: FAMOTIDINE 20MG TABLET PO SCH ×2 (10:23→21:39)
[2016-12-12] MEDS: BACLOFEN 20MG TABLET PO SCH ×2 (10:23→17:38)
[2016-12-12] MEDS: DOCUSATE SODIUM 100MG CAPSULE PO SCH ×2 (10:23→17:38)
[2016-12-12] MEDS: BENAZEPRIL 20MG TABLET PO SCH (10:23)
[2016-12-12] MEDS: EZETIMIBE 10MG TABLET PO SCH (10:24)
[2016-12-12] MEDS: PREDNISONE 20MG TABLET PO SCH (10:24)
[2016-12-12] MEDS: FERROUS SULFATE 325MG TABLET PO SCH ×3 (10:24→17:38)
[2016-12-12] MEDS: GABAPENTIN 400MG CAPSULE PO SCH ×3 (10:24→17:38)
[2016-12-12] MEDS: ENOXAPARIN 30MG/0.3ML SYR SUBCUT SCH ×2 (10:24→21:41)
[2016-12-12] MEDS: UMECLIDINIUM BROMIDE 1 INH BLST.W.DEV IH SCH (10:25)
[2016-12-12] MEDS: FLUTICASONE/VILANTEROL 200-25 BLST.W.DEV ORI SCH (10:25)
[2016-12-12] MEDS: NUVIGIL 250 MG PO SCH (10:26)
[2016-12-12] MEDS: INSULIN DETEMIR UD 100 UNITS/ML SYR SUBCUT SCH ×2 (10:37→21:46)
[2016-12-12 12:35] VITALS: BP 133/77
[2016-12-12] MEDS ORDERED: HYDROCODONE/ACETAMINOPHEN 5/325MG TABLET PO PRN (14:45)
[2016-12-12 16:32] VITALS: BP 147/78
[2016-12-12] MEDS: HYDROCODONE/ACETAMINOPHEN 10/325MG TABLET PO PRN (17:43)
[2016-12-12] MEDS: LORAZEPAM 1MG TABLET PO PRN (19:51)
[2016-12-12 20:00] VITALS: BP 139/86
[2016-12-12] MEDS: ATORVASTATIN CALCIUM 10MG TABLET PO SCH (21:39)
[2016-12-12] MEDS: AMITRIPTYLINE 50MG TABLET PO SCH (21:39)
[2016-12-12] MEDS: ARICEPT 23 MG PO SCH (21:40)
[2016-12-13] MEDS: NYSTATIN 100,000 UNITS/ML 5ML UDC SSW SCH ×5 (00:08→18:14)
[2016-12-13] MEDS: BLOOD SUGAR DIAGNOSTIC STRIP TEST SCH ×4 (05:42→21:04)
[2016-12-13] MEDS: HYDROMORPHONE HCL/PF 2MG/ML CPJ IV PRN ×3 (05:43→21:06)
[2016-12-13] MEDS: LEVOTHYROXINE SODIUM 25MCG TABLET PO SCH (06:13)
[2016-12-13 07:49] VITALS: BP 129/82
[2016-12-13] MEDS: NUVIGIL 250 MG PO SCH (09:00)
[2016-12-13] MEDS: AMLODIPINE 5MG TABLET PO SCH ×2 (09:00→21:03)
[2016-12-13] MEDS: REBIF SUBCUT SCH (09:00)
[2016-12-13] MEDS: UMECLIDINIUM BROMIDE 1 INH BLST.W.DEV IH SCH (09:00)
[2016-12-13] MEDS: FERROUS SULFATE 325MG TABLET PO SCH ×3 (10:28→18:16)
[2016-12-13] MEDS: ASPIRIN 81MG TABLET PO SCH (10:28)
[2016-12-13] MEDS: FAMOTIDINE 20MG TABLET PO SCH ×2 (10:28→21:02)
[2016-12-13] MEDS: EZETIMIBE 10MG TABLET PO SCH (10:28)
[2016-12-13] MEDS: PREDNISONE 20MG TABLET PO SCH (10:29)
[2016-12-13] MEDS: BENAZEPRIL 20MG TABLET PO SCH (10:30)
[2016-12-13] MEDS: GABAPENTIN 400MG CAPSULE PO SCH ×3 (10:31→18:15)
[2016-12-13] MEDS: DOCUSATE SODIUM 100MG CAPSULE PO SCH ×2 (10:31→18:15)
[2016-12-13] MEDS: BACLOFEN 20MG TABLET PO SCH ×2 (10:31→18:15)
[2016-12-13] MEDS: ENOXAPARIN 30MG/0.3ML SYR SUBCUT SCH ×2 (10:33→21:05)
[2016-12-13] MEDS: FLUTICASONE/VILANTEROL 200-25 BLST.W.DEV ORI SCH (10:41)
[2016-12-13] MEDS: INSULIN LISPRO 100 UNITS/ML SUBCUT SCH ×3 (10:53→17:00)
[2016-12-13] MEDS: INSULIN LISPRO (LOW DOSE) 100 UNITS/ML SUBCUT SCH ×3 (10:56→17:00)
[2016-12-13] MEDS: INSULIN DETEMIR UD 100 UNITS/ML SYR SUBCUT SCH ×2 (10:57→21:40)
[2016-12-13] MEDS: HYDROCODONE/ACETAMINOPHEN 10/325MG TABLET PO PRN ×2 (10:59→18:18)
[2016-12-13] MEDS: ONDANSETRON 4MG ODT PO PRN (11:01)
[2016-12-13] MEDS: ONDANSETRON HCL 4MG/2ML VIAL IV PRN (13:28)
[2016-12-13 19:49] VITALS: BP 137/86
[2016-12-13] MEDS: ALBUTEROL (0.083%) 2.5MG/3ML NEB HHN PRN (20:46)
[2016-12-13] MEDS: ATORVASTATIN CALCIUM 10MG TABLET PO SCH (21:02)
[2016-12-13] MEDS: AMITRIPTYLINE 50MG TABLET PO SCH (21:02)
[2016-12-13] MEDS: ARICEPT 23 MG PO SCH (21:03)
[2016-12-14] MEDS: NYSTATIN 100,000 UNITS/ML 5ML UDC SSW SCH ×6 (01:16→23:39)
[2016-12-14] MEDS: HYDROCODONE/ACETAMINOPHEN 10/325MG TABLET PO PRN ×2 (01:17→18:22)
[2016-12-14] MEDS: HYDROMORPHONE HCL/PF 2MG/ML CPJ IV PRN ×3 (04:15→22:30)
[2016-12-14] MEDS: BLOOD SUGAR DIAGNOSTIC STRIP TEST SCH ×4 (06:33→21:19)
[2016-12-14] MEDS: LEVOTHYROXINE SODIUM 25MCG TABLET PO SCH (06:33)
[2016-12-14 06:49] LABS: BASOPHILS % 0.6 % (0.0-2.0); EOSINOPHILS % 0.7 % (0.0-5.0); HEMATOCRIT. 36.4 % (36.0-48.0); HEMOGLOBIN. 12.5 g/dL (12.0-16.0); LYMPHOCYTES % 14.1 % (20.0-50.0); MEAN CORPUSCULAR HEMOGLOBIN 31.6 pg (28.0-32.0); MEAN PLATELET VOLUME 7.8 fl (7.4-10.4); NEUTROPHILS % 74.6 % (40.0-76.0); PLATELET 198 x1000/uL (130-400); RED BLOOD CELL COUNT 3.95 mill/uL (4.2-5.4); RED CELL DISTRIBUTION WIDTH 14.8 % (11.6-14.6)
[2016-12-14 07:09] LABS: CARBON DIOXIDE 33 mEq/L (21-32); CHLORIDE 102 mEq/L (98-107)
[2016-12-14] MEDS: ALBUTEROL (0.083%) 2.5MG/3ML NEB HHN PRN ×3 (07:19→21:25)
[2016-12-14 08:00] VITALS: BP 116/71
[2016-12-14] MEDS: FLUTICASONE/VILANTEROL 200-25 BLST.W.DEV ORI SCH (08:48)
[2016-12-14] MEDS: UMECLIDINIUM BROMIDE 1 INH BLST.W.DEV IH SCH (08:48)
[2016-12-14] MEDS: GABAPENTIN 400MG CAPSULE PO SCH ×3 (08:49→17:29)
[2016-12-14] MEDS: ENOXAPARIN 30MG/0.3ML SYR SUBCUT SCH ×2 (08:49→21:18)
[2016-12-14] MEDS: PREDNISONE 20MG TABLET PO SCH (08:50)
[2016-12-14] MEDS: NUVIGIL 250 MG PO SCH (08:50)
[2016-12-14] MEDS: EZETIMIBE 10MG TABLET PO SCH (08:50)
[2016-12-14] MEDS: AMLODIPINE 5MG TABLET PO SCH ×2 (08:51→21:18)
[2016-12-14] MEDS: FERROUS SULFATE 325MG TABLET PO SCH ×3 (08:51→17:30)
[2016-12-14] MEDS: FAMOTIDINE 20MG TABLET PO SCH ×2 (08:51→21:18)
[2016-12-14] MEDS: BENAZEPRIL 20MG TABLET PO SCH (08:51)
[2016-12-14] MEDS: ASPIRIN 81MG TABLET PO SCH (08:51)
[2016-12-14] MEDS: BACLOFEN 20MG TABLET PO SCH ×2 (08:51→17:30)
[2016-12-14] MEDS: DOCUSATE SODIUM 100MG CAPSULE PO SCH ×2 (08:52→17:30)
[2016-12-14] MEDS: INSULIN LISPRO 100 UNITS/ML SUBCUT SCH ×3 (09:25→17:36)
[2016-12-14] MEDS: INSULIN LISPRO (LOW DOSE) 100 UNITS/ML SUBCUT SCH ×3 (09:26→17:35)
[2016-12-14] MEDS: INSULIN DETEMIR UD 100 UNITS/ML SYR SUBCUT SCH ×2 (11:08→21:36)
[2016-12-14] MEDS: ONDANSETRON 4MG ODT PO PRN (12:22)
[2016-12-14 13:10] VITALS: BP 138/76
[2016-12-14 20:00] VITALS: BP 119/72
[2016-12-14] MEDS: LORAZEPAM 1MG TABLET PO PRN (20:04)
[2016-12-14] MEDS: AMITRIPTYLINE 50MG TABLET PO SCH (21:17)
[2016-12-14] MEDS: ATORVASTATIN CALCIUM 10MG TABLET PO SCH (21:17)
[2016-12-14] MEDS: ARICEPT 23 MG PO SCH (21:18)
[2016-12-15] MEDS: NYSTATIN 100,000 UNITS/ML 5ML UDC SSW SCH ×4 (06:00→23:00)
[2016-12-15] MEDS: BLOOD SUGAR DIAGNOSTIC STRIP TEST SCH ×4 (06:36→21:00)
[2016-12-15] MEDS: LEVOTHYROXINE SODIUM 25MCG TABLET PO SCH (06:36)
[2016-12-15] MEDS: INSULIN LISPRO 100 UNITS/ML SUBCUT SCH ×3 (06:54→17:40)
[2016-12-15] MEDS: INSULIN LISPRO (LOW DOSE) 100 UNITS/ML SUBCUT SCH ×3 (06:55→17:39)
[2016-12-15 08:00] VITALS: BP 132/86
[2016-12-15] MEDS: UMECLIDINIUM BROMIDE 1 INH BLST.W.DEV IH SCH (09:03)
[2016-12-15] MEDS: FLUTICASONE/VILANTEROL 200-25 BLST.W.DEV ORI SCH (09:04)
[2016-12-15] MEDS: EZETIMIBE 10MG TABLET PO SCH (09:05)
[2016-12-15] MEDS: PREDNISONE 20MG TABLET PO SCH (09:06)
[2016-12-15] MEDS: ASPIRIN 81MG TABLET PO SCH (09:06)
[2016-12-15] MEDS: GABAPENTIN 400MG CAPSULE PO SCH ×3 (09:06→16:18)
[2016-12-15] MEDS: DOCUSATE SODIUM 100MG CAPSULE PO SCH ×2 (09:06→16:18)
[2016-12-15] MEDS: FERROUS SULFATE 325MG TABLET PO SCH ×3 (09:06→16:18)
[2016-12-15] MEDS: BENAZEPRIL 20MG TABLET PO SCH (09:06)
[2016-12-15] MEDS: FAMOTIDINE 20MG TABLET PO SCH ×2 (09:06→20:24)
[2016-12-15] MEDS: BACLOFEN 20MG TABLET PO SCH ×2 (09:07→16:18)
[2016-12-15] MEDS: ENOXAPARIN 30MG/0.3ML SYR SUBCUT SCH ×2 (09:07→20:24)
[2016-12-15] MEDS: NUVIGIL 250 MG PO SCH (09:07)
[2016-12-15] MEDS: AMLODIPINE 5MG TABLET PO SCH ×2 (09:07→20:25)
[2016-12-15] MEDS: HYDROMORPHONE HCL/PF 2MG/ML CPJ IV PRN ×3 (09:08→22:52)
[2016-12-15] MEDS: INSULIN DETEMIR UD 100 UNITS/ML SYR SUBCUT SCH ×2 (10:06→22:11)
[2016-12-15] MEDS: CLOTRIMAZOLE 1% CREAM 30GM TOP SCH ×2 (10:12→20:26)
[2016-12-15] MEDS: ONDANSETRON HCL 4MG/2ML VIAL IV PRN (10:12)
[2016-12-15] MEDS: HYDROCODONE/ACETAMINOPHEN 10/325MG TABLET PO PRN (13:36)
[2016-12-15] MEDS: ONDANSETRON 4MG ODT PO PRN (16:31)
[2016-12-15 20:00] VITALS: BP 110/74
[2016-12-15] MEDS: ATORVASTATIN CALCIUM 10MG TABLET PO SCH (20:24)
[2016-12-15] MEDS: AMITRIPTYLINE 50MG TABLET PO SCH (20:24)
[2016-12-15] MEDS: ARICEPT 23 MG PO SCH (20:25)
[2016-12-15] MEDS: LORAZEPAM 1MG TABLET PO PRN (20:25)
[2016-12-15] MEDS: ALBUTEROL (0.083%) 2.5MG/3ML NEB HHN PRN (20:43)
[2016-12-16] MEDS: HYDROMORPHONE HCL/PF 2MG/ML CPJ IV PRN ×3 (05:49→23:43)
[2016-12-16] MEDS: NYSTATIN 100,000 UNITS/ML 5ML UDC SSW SCH ×4 (06:36→23:48)
[2016-12-16] MEDS: BLOOD SUGAR DIAGNOSTIC STRIP TEST SCH ×4 (06:36→21:04)
[2016-12-16] MEDS: LEVOTHYROXINE SODIUM 25MCG TABLET PO SCH (06:36)
[2016-12-16] MEDS: INSULIN LISPRO 100 UNITS/ML SUBCUT SCH ×3 (06:48→16:57)
[2016-12-16] MEDS: INSULIN LISPRO (LOW DOSE) 100 UNITS/ML SUBCUT SCH ×3 (06:49→16:56)
[2016-12-16 07:00] VITALS: BP 137/84
[2016-12-16 07:21] LABS: HEMATOCRIT. 34.9 % (36.0-48.0); HEMOGLOBIN. 11.8 g/dL (12.0-16.0); MEAN CORPUSCULAR HEMOGLOBIN 31.5 pg (28.0-32.0); MEAN CORPUSCULAR VOLUME 93.5 fL (81.0-99.0); MEAN PLATELET VOLUME 7.6 fl (7.4-10.4); PLATELET 220 x1000/uL (130-400); RED BLOOD CELL COUNT 3.73 mill/uL (4.2-5.4); RED CELL DISTRIBUTION WIDTH 14.9 % (11.6-14.6)
[2016-12-16 07:39] LABS: CARBON DIOXIDE 31 mEq/L (21-32); CHLORIDE 104 mEq/L (98-107)
[2016-12-16] MEDS: ALBUTEROL (0.083%) 2.5MG/3ML NEB HHN PRN ×3 (07:54→21:12)
[2016-12-16] MEDS: INSULIN DETEMIR UD 100 UNITS/ML SYR SUBCUT SCH ×2 (09:48→21:13)
[2016-12-16] MEDS: UMECLIDINIUM BROMIDE 1 INH BLST.W.DEV IH SCH (09:50)
[2016-12-16] MEDS: CLOTRIMAZOLE 1% CREAM 30GM TOP SCH ×2 (09:51→21:05)
[2016-12-16] MEDS: FLUTICASONE/VILANTEROL 200-25 BLST.W.DEV ORI SCH (09:51)
[2016-12-16] MEDS: ENOXAPARIN 30MG/0.3ML SYR SUBCUT SCH ×2 (09:51→21:01)
[2016-12-16] MEDS: NUVIGIL 250 MG PO SCH (09:52)
[2016-12-16] MEDS: EZETIMIBE 10MG TABLET PO SCH (09:52)
[2016-12-16] MEDS: REBIF SUBCUT SCH (09:52)
[2016-12-16] MEDS: FERROUS SULFATE 325MG TABLET PO SCH ×3 (09:52→16:40)
[2016-12-16] MEDS: ASPIRIN 81MG TABLET PO SCH (09:53)
[2016-12-16] MEDS: GABAPENTIN 400MG CAPSULE PO SCH ×3 (09:53→16:50)
[2016-12-16] MEDS: DOCUSATE SODIUM 100MG CAPSULE PO SCH ×2 (09:53→16:40)
[2016-12-16] MEDS: BENAZEPRIL 20MG TABLET PO SCH (09:53)
[2016-12-16] MEDS: BACLOFEN 20MG TABLET PO SCH ×2 (09:53→16:40)
[2016-12-16] MEDS: PREDNISONE 20MG TABLET PO SCH (09:53)
[2016-12-16] MEDS: AMLODIPINE 5MG TABLET PO SCH ×2 (09:54→21:04)
[2016-12-16] MEDS: FAMOTIDINE 20MG TABLET PO SCH ×2 (09:54→21:04)
[2016-12-16] MEDS: HYDROCODONE/ACETAMINOPHEN 10/325MG TABLET PO PRN ×2 (10:53→21:03)
[2016-12-16 11:52] LABS: PLATELET ESTIMATE NORMAL
[2016-12-16] MEDS: ONDANSETRON HCL 4MG/2ML VIAL IV PRN (17:08)
[2016-12-16 19:00] VITALS: BP 156/88
[2016-12-16] MEDS ORDERED: MAGNESIUM HYDROXIDE 400MG/5ML 30ML UDC PO PRN (19:30)
[2016-12-16] MEDS: ATORVASTATIN CALCIUM 10MG TABLET PO SCH (21:04)
[2016-12-16] MEDS: AMITRIPTYLINE 50MG TABLET PO SCH (21:04)
[2016-12-16] MEDS: ARICEPT 23 MG PO SCH (21:05)
[2016-12-17] MEDS: BLOOD SUGAR DIAGNOSTIC STRIP TEST SCH ×5 (03:42→21:00)
[2016-12-17] MEDS: NYSTATIN 100,000 UNITS/ML 5ML UDC SSW SCH ×4 (05:43→23:10)
[2016-12-17] MEDS: LEVOTHYROXINE SODIUM 25MCG TABLET PO SCH (05:44)
[2016-12-17] MEDS: ONDANSETRON 4MG ODT PO PRN (06:25)
[2016-12-17] MEDS: HYDROMORPHONE HCL/PF 2MG/ML CPJ IV PRN ×3 (06:26→19:27)
[2016-12-17] MEDS: ALBUTEROL (0.083%) 2.5MG/3ML NEB HHN PRN ×2 (07:48→15:39)
[2016-12-17 08:00] VITALS: BP 141/79
[2016-12-17] MEDS: FERROUS SULFATE 325MG TABLET PO SCH ×4 (08:07→17:14)
[2016-12-17] MEDS: DOCUSATE SODIUM 100MG CAPSULE PO SCH ×2 (08:07→17:14)
[2016-12-17] MEDS: ASPIRIN 81MG TABLET PO SCH (08:07)
[2016-12-17] MEDS: EZETIMIBE 10MG TABLET PO SCH (08:08)
[2016-12-17] MEDS: BACLOFEN 20MG TABLET PO SCH ×2 (08:08→17:14)
[2016-12-17] MEDS: FAMOTIDINE 20MG TABLET PO SCH ×2 (08:08→22:02)
[2016-12-17] MEDS: BENAZEPRIL 20MG TABLET PO SCH (08:08)
[2016-12-17] MEDS: PREDNISONE 10MG TABLET PO SCH (08:09)
[2016-12-17] MEDS: GABAPENTIN 400MG CAPSULE PO SCH ×3 (08:10→17:13)
[2016-12-17] MEDS: AMLODIPINE 5MG TABLET PO SCH ×2 (08:10→22:02)
[2016-12-17] MEDS: INSULIN LISPRO 100 UNITS/ML SUBCUT SCH ×3 (08:13→18:09)
[2016-12-17] MEDS: INSULIN LISPRO (LOW DOSE) 100 UNITS/ML SUBCUT SCH ×3 (08:13→18:10)
[2016-12-17] MEDS: ENOXAPARIN 30MG/0.3ML SYR SUBCUT SCH ×2 (08:14→22:00)
[2016-12-17] MEDS: CLOTRIMAZOLE 1% CREAM 30GM TOP SCH ×2 (08:14→22:06)
[2016-12-17] MEDS ORDERED: LACTULOSE 20G/30ML UDC PO NR (09:15)
[2016-12-17] MEDS ORDERED: BISACODYL 10MG SUPP PR NR (09:15)
[2016-12-17] MEDS: NUVIGIL 250 MG PO SCH (09:29)
[2016-12-17] MEDS: UMECLIDINIUM BROMIDE 1 INH BLST.W.DEV IH SCH (09:29)
[2016-12-17] MEDS: FLUTICASONE/VILANTEROL 200-25 BLST.W.DEV ORI SCH (09:29)
[2016-12-17] MEDS: INSULIN DETEMIR UD 100 UNITS/ML SYR SUBCUT SCH ×2 (09:33→23:05)
[2016-12-17 20:00] VITALS: BP 122/72
[2016-12-17] MEDS: AMITRIPTYLINE 50MG TABLET PO SCH (22:01)
[2016-12-17] MEDS: ATORVASTATIN CALCIUM 10MG TABLET PO SCH (22:01)
[2016-12-17] MEDS: ARICEPT 23 MG PO SCH (22:03)
[2016-12-17] MEDS: LORAZEPAM 1MG TABLET PO PRN (22:12)
[2016-12-18] MEDS: HYDROMORPHONE HCL/PF 2MG/ML CPJ IV PRN ×2 (02:05→08:16)
[2016-12-18] MEDS: BLOOD SUGAR DIAGNOSTIC STRIP TEST SCH ×3 (03:02→11:15)
[2016-12-18] MEDS: NYSTATIN 100,000 UNITS/ML 5ML UDC SSW SCH ×2 (05:58→13:23)
[2016-12-18] MEDS: LEVOTHYROXINE SODIUM 25MCG TABLET PO SCH (05:58)
[2016-12-18 07:04] LABS: BASOPHILS % 0.6 % (0.0-2.0); EOSINOPHILS % 1.2 % (0.0-5.0); HEMATOCRIT. 34.2 % (36.0-48.0); HEMOGLOBIN. 11.3 g/dL (12.0-16.0); LYMPHOCYTES % 16.1 % (20.0-50.0); MEAN CORPUSCULAR VOLUME 94.1 fL (81.0-99.0); MEAN PLATELET VOLUME 7.8 fl (7.4-10.4); MONOCYTES % 6.6 % (2.0-8.0); NEUTROPHILS % 75.5 % (40.0-76.0); PLATELET 206 x1000/uL (130-400); RED BLOOD CELL COUNT 3.64 mill/uL (4.2-5.4); RED CELL DISTRIBUTION WIDTH 15.3 % (11.6-14.6)
[2016-12-18 07:23] LABS: CARBON DIOXIDE 31 mEq/L (21-32); CHLORIDE 103 mEq/L (98-107)
[2016-12-18 08:00] VITALS: BP 145/82
[2016-12-18] MEDS: GABAPENTIN 400MG CAPSULE PO SCH ×2 (08:11→12:43)
[2016-12-18] MEDS: BENAZEPRIL 20MG TABLET PO SCH (08:11)
[2016-12-18] MEDS: BACLOFEN 20MG TABLET PO SCH (08:12)
[2016-12-18] MEDS: EZETIMIBE 10MG TABLET PO SCH (08:12)
[2016-12-18] MEDS: DOCUSATE SODIUM 100MG CAPSULE PO SCH (08:12)
[2016-12-18] MEDS: PREDNISONE 10MG TABLET PO SCH (08:13)
[2016-12-18] MEDS: FERROUS SULFATE 325MG TABLET PO SCH ×3 (08:13→12:38)
[2016-12-18] MEDS: FAMOTIDINE 20MG TABLET PO SCH (08:13)
[2016-12-18] MEDS: ASPIRIN 81MG TABLET PO SCH (08:14)
[2016-12-18] MEDS: AMLODIPINE 5MG TABLET PO SCH (08:14)
[2016-12-18] MEDS: ENOXAPARIN 30MG/0.3ML SYR SUBCUT SCH (08:15)
[2016-12-18] MEDS: FLUTICASONE/VILANTEROL 200-25 BLST.W.DEV ORI SCH (08:15)
[2016-12-18] MEDS: INSULIN LISPRO 100 UNITS/ML SUBCUT SCH ×2 (08:29→12:46)
[2016-12-18] MEDS: INSULIN LISPRO (LOW DOSE) 100 UNITS/ML SUBCUT SCH ×2 (08:30→12:47)
[2016-12-18] MEDS: CLOTRIMAZOLE 1% CREAM 30GM TOP SCH (09:00)
[2016-12-18] MEDS: NUVIGIL 250 MG PO SCH (10:47)
[2016-12-18] MEDS: REBIF SUBCUT SCH (10:48)
[2016-12-18] MEDS: UMECLIDINIUM BROMIDE 1 INH BLST.W.DEV IH SCH (10:48)
[2016-12-18] MEDS: INSULIN DETEMIR UD 100 UNITS/ML SYR SUBCUT SCH (10:55)
[2016-12-18 12:57] VITALS: BP 145/82
== END 2016-12-18 14:00 | disposition home health service (06) | DRG 59 ==
PROVIDERS: ADMIT Physical Medicine & Rehabilitation Spinal Cord Injury Medicine; ATTEND Internal Medicine Nephrology
PROC: 0HBRXZZ Excision of Toe Nail, External Approach (ICD-10-PCS; principal; 2016-12-13)
PROC: 0HBRXZZ Excision of Toe Nail, External Approach (ICD-10-PCS; 2016-12-13)
PROC: 0HBRXZZ Excision of Toe Nail, External Approach (ICD-10-PCS; 2016-12-13)
PROC: 0HBRXZZ Excision of Toe Nail, External Approach (ICD-10-PCS; 2016-12-13)
PROC: 0HBRXZZ Excision of Toe Nail, External Approach (ICD-10-PCS; 2016-12-13)
PROC: 0HBRXZZ Excision of Toe Nail, External Approach (ICD-10-PCS; 2016-12-13)
PROC: 0HBRXZZ Excision of Toe Nail, External Approach (ICD-10-PCS; 2016-12-13)
PROC: 0HBRXZZ Excision of Toe Nail, External Approach (ICD-10-PCS; 2016-12-13)
PROC: 0HBRXZZ Excision of Toe Nail, External Approach (ICD-10-PCS; 2016-12-13)
PROC: 0HBRXZZ Excision of Toe Nail, External Approach (ICD-10-PCS; 2016-12-13)
DX: G35 Multiple sclerosis (principal); J44.1 Chronic obstructive pulmonary disease with (acute) exacerbation; B37.0 Candidal stomatitis; E11.42 Type 2 diabetes mellitus with diabetic polyneuropathy; E11.65 Type 2 diabetes mellitus with hyperglycemia; E66.01 Morbid (severe) obesity due to excess calories; J45.901 Unspecified asthma with (acute) exacerbation; I11.9 Hypertensive heart disease without heart failure; M79.7 Fibromyalgia; R29.6 Repeated falls; R07.89 Other chest pain; G31.84 Mild cognitive impairment of uncertain or unknown etiology; E78.5 Hyperlipidemia, unspecified; E78.00 Pure hypercholesterolemia, unspecified; R26.89 Other abnormalities of gait and mobility; E61.1 Iron deficiency; G43.909 Migraine, unspecified, not intractable, without status migrainosus; D72.829 Elevated white blood cell count, unspecified; D64.9 Anemia, unspecified; G89.4 Chronic pain syndrome; T38.0X5A Adverse effect of glucocorticoids and synthetic analogues, initial encounter; L60.3 Nail dystrophy; L60.0 Ingrowing nail; K76.0 Fatty (change of) liver, not elsewhere classified; F06.31 Mood disorder due to known physiological condition with depressive features; E78.1 Pure hyperglyceridemia; E03.9 Hypothyroidism, unspecified; B35.1 Tinea unguium; K57.90 Diverticulosis of intestine, part unspecified, without perforation or abscess without bleeding; E55.9 Vitamin D deficiency, unspecified; Z79.52 Long term (current) use of systemic steroids; Z87.01 Personal history of pneumonia (recurrent); Z86.73 Personal history of transient ischemic attack (TIA), and cerebral infarction without residual deficits; Z91.19 Patient's noncompliance with other medical treatment and regimen; Z79.899 Other long term (current) drug therapy; Z83.3 Family history of diabetes mellitus; Z82.49 Family history of ischemic heart disease and other diseases of the circulatory system; Z80.42 Family history of malignant neoplasm of prostate; Z80.1 Family history of malignant neoplasm of trachea, bronchus and lung; Z79.4 Long term (current) use of insulin; Z68.35 Body mass index [BMI] 35.0-35.9, adult
CPT/HCPCS: 36415; 80048; 80053; 80061; 81001; 82306; 82607; 82728; 82746; 82962; 83036; 83540; 83550; 83735; 84100; 84134; 84439; 84443; 84481; 84630; 85025; 87086; 92523; 92610; 93970; 94640; 97110; 97116; 97163; 97166; 97530; 97532; 97535; 97542; A6261; J1170; J1650; J1815; J2405; J2920; J7512; J7611; J7620; Q0162

== ENCOUNTER 2016-12-22 12:59 | Inpatient (IN) | payer MEDICARE, MEDICAID ==
[~2016-12-22] VITALS: Ht 172.7 cm; Wt 108.9 kg
[~2016-12-22 12:59] MED LIST changes: -CHOL20004 PO; -FENT1PAT4 TD; -HYDR2TAB4 PO; -INSU3INS6 SUBCUT; -LOPE2TAB26 PO; -OMEP20TA2 PO; -TRIA1CAP6 PO; -[UNRECOGNIZED DRUG - CODE] TOP
[2016-12-22] MEDS ORDERED: SODIUM CHLORIDE 0.9% 1,000 ML IV ONE (13:32)
[2016-12-22] MEDS ORDERED: ONDANSETRON HCL 4MG/2ML VIAL IV STA (13:32)
[2016-12-22] MEDS ORDERED: KETOROLAC 30MG/ML VIAL IV STA (13:32)
[2016-12-22] MEDS ORDERED: MINERAL OIL 30ML BOTTLE PO ONE (13:45)
[2016-12-22] MEDS ORDERED: LACTULOSE 20G/30ML UDC PO ONE (13:45)
[2016-12-22] MEDS ORDERED: SODIUM POLYSTYRENE SULFONATE 15 G/60 ML BOT PO ONE (13:45)
[2016-12-22] MEDS ORDERED: MAGNESIUM CITRATE 300ML SOLUTION PO ONE (13:45)
[2016-12-22 14:03] LABS: BASOPHILS % 1.1 % (0.0-2.0); EOSINOPHILS % 1.9 % (0.0-5.0); HEMATOCRIT. 44.5 % (36.0-48.0); HEMOGLOBIN. 15.1 g/dL (12.0-16.0); LYMPHOCYTES % 19.5 % (20.0-50.0); MEAN CORPUSCULAR HEMOGLOBIN 31.1 pg (28.0-32.0); MEAN CORPUSCULAR VOLUME 91.5 fL (81.0-99.0); MEAN PLATELET VOLUME 7.4 fl (7.4-10.4); MONOCYTES % 7.2 % (2.0-8.0); NEUTROPHILS % 70.3 % (40.0-76.0); PLATELET 272 x1000/uL (130-400); RED BLOOD CELL COUNT 4.87 mill/uL (4.2-5.4); RED CELL DISTRIBUTION WIDTH 15.9 % (11.6-14.6)
[2016-12-22 14:08] LABS: CHLORIDE 100 mEq/L (98-107)
[2016-12-22 14:13] LABS: CARBON DIOXIDE 29 mEq/L (21-32)
[2016-12-22] MEDS ORDERED: ONDANSETRON HCL 4MG/2ML VIAL IV ONE (15:45)
[2016-12-22 16:02] LABS: PROTHROMBIN TIME 10.6 sec (9.4-11.6)
[2016-12-22] MEDS ORDERED: SODIUM CHLORIDE 0.9% 1,000 ML IV SCH (17:29)
[2016-12-22] MEDS ORDERED: IBUPROFEN 600MG TABLET PO ONE (17:45)
[2016-12-22 20:00] VITALS: BP 147/87
[2016-12-22] MEDS ORDERED: LORAZEPAM 1MG TABLET PO PRN (22:30)
[2016-12-22] MEDS ORDERED: LACTULOSE 20G/30ML UDC PO PRN (22:30)
[2016-12-22] MEDS ORDERED: ACETAMINOPHEN 650MG/20.3ML UDC PO PRN (22:30)
[2016-12-22] MEDS ORDERED: DEXTROSE 50% WATER 50ML SYRINGE IV PRN (22:30)
[2016-12-22 23:20] VITALS: BP 138/94
[2016-12-22] MEDS: HYDROCODONE/ACETAMINOPHEN 10/325MG TABLET PO PRN (23:49)
[2016-12-23] VITALS: BP 147/87
[2016-12-23 04:00] VITALS: BP 140/89
[2016-12-23 07:01] LABS: HEMATOCRIT 41.5 % (36.0-48.0); HEMOGLOBIN 14.2 g/dL (12.0-16.0); MEAN CORPUSCULAR HEMOGLOBIN 31.5 pg (28.0-32.0); MEAN CORPUSCULAR VOLUME 91.9 fL (81.0-99.0); PLATELET 263 x1000/uL (130-400); RED BLOOD CELL COUNT 4.52 mill/uL (4.2-5.4); RED CELL DISTRIBUTION WIDTH 15.7 % (11.6-14.6)
[2016-12-23 07:15] LABS: CARBON DIOXIDE 32 mEq/L (21-32); CHLORIDE 101 mEq/L (98-107)
[2016-12-23] MEDS: BLOOD SUGAR DIAGNOSTIC STRIP TEST SCH ×4 (07:32→20:39)
[2016-12-23] MEDS: INSULIN LISPRO 100 UNITS/ML SUBCUT SCH ×4 (07:50→21:25)
[2016-12-23 08:00] VITALS: BP 139/81
[2016-12-23] MEDS ORDERED: ARMODAFINIL 250 MG PO SCH (09:00)
[2016-12-23] MEDS ORDERED: NA PHOS,M-B/NA PHOS,DI-BA ENEMA 118ML PR ONE (09:00)
[2016-12-23] MEDS ORDERED: GABAPENTIN 1200 MG PO SCH (09:00)
[2016-12-23] MEDS: CALCIUM CARBONATE/VITAMIN D3 500MG TABLET PO SCH (09:07)
[2016-12-23] MEDS: DOCUSATE SODIUM 100MG CAPSULE PO SCH ×2 (09:07→16:32)
[2016-12-23] MEDS: BENAZEPRIL 20MG TABLET PO SCH (09:08)
[2016-12-23] MEDS: ONDANSETRON HCL 4MG/2ML VIAL IV PRN ×3 (09:08→22:17)
[2016-12-23] MEDS: ASPIRIN 81MG EC TABLET PO SCH (09:09)
[2016-12-23] MEDS: GABAPENTIN 400MG CAPSULE PO SCH ×3 (09:09→16:31)
[2016-12-23] MEDS: HYDROCODONE/ACETAMINOPHEN 10/325MG TABLET PO PRN ×3 (09:10→23:17)
[2016-12-23] MEDS: FAMOTIDINE 20MG TABLET PO SCH (09:12)
[2016-12-23] MEDS ORDERED: BISACODYL 5MG TABLET PO SCH (09:45)
[2016-12-23] MEDS ORDERED: INFLUENZA VIRUS VACCINE 0.5ML SYR IM ONE (10:00)
[2016-12-23] MEDS: BACLOFEN 20MG TABLET PO SCH ×2 (10:07→16:30)
[2016-12-23] MEDS: PREDNISONE 10MG TABLET PO SCH (10:07)
[2016-12-23 12:00] VITALS: BP 132/75
[2016-12-23] MEDS: LACTULOSE 20G/30ML UDC PO SCH ×2 (13:27→21:19)
[2016-12-23] MEDS: INTERFERON BETA SQ SCH (13:29)
[2016-12-23] MEDS: ALBUMIN SQ SCH (13:29)
[2016-12-23] MEDS: [UNRECOGNIZED DRUG - OTHER] SQ SCH (13:29)
[2016-12-23 16:00] VITALS: BP 140/83
[2016-12-23] MEDS: AMITRIPTYLINE 50MG TABLET PO SCH (16:23)
[2016-12-23] MEDS ORDERED: SORBITOL 70% SOLN 30ML PO NR ×2 (16:45→20:00)
[2016-12-23] MEDS: SENNOSIDES/DOCUSATE SOD 8.6/50MG TABLET PO SCH (17:02)
[2016-12-23 20:00] VITALS: BP 123/80
[2016-12-23] MEDS ORDERED: DONEPEZIL HCL 10MG TABLET PO SCH (21:00)
[2016-12-24] VITALS: BP 113/76
[2016-12-24 04:00] VITALS: BP 123/67
[2016-12-24] MEDS ORDERED: SORBITOL 70% SOLN 30ML PO NR (06:00)
[2016-12-24] MEDS: LACTULOSE 20G/30ML UDC PO SCH ×3 (06:13→21:26)
[2016-12-24 06:14] LABS: BASOPHILS % 0.6 % (0.0-2.0); EOSINOPHILS % 1.8 % (0.0-5.0); HEMOGLOBIN. 13.3 g/dL (12.0-16.0); LYMPHOCYTES % 18.3 % (20.0-50.0); MEAN CORPUSCULAR HEMOGLOBIN 30.5 pg (28.0-32.0); MEAN CORPUSCULAR VOLUME 91.8 fL (81.0-99.0); MEAN PLATELET VOLUME 7.6 fl (7.4-10.4); MONOCYTES % 11.2 % (2.0-8.0); NEUTROPHILS % 68.1 % (40.0-76.0); PLATELET 257 x1000/uL (130-400); RED BLOOD CELL COUNT 4.35 mill/uL (4.2-5.4); RED CELL DISTRIBUTION WIDTH 15.5 % (11.6-14.6)
[2016-12-24] MEDS: BLOOD SUGAR DIAGNOSTIC STRIP TEST SCH ×3 (06:22→21:25)
[2016-12-24] MEDS: ONDANSETRON HCL 4MG/2ML VIAL IV PRN (06:27)
[2016-12-24] MEDS: HYDROCODONE/ACETAMINOPHEN 10/325MG TABLET PO PRN ×2 (06:28→21:23)
[2016-12-24 06:31] LABS: CARBON DIOXIDE 29 mEq/L (21-32); CHLORIDE 102 mEq/L (98-107)
[2016-12-24] MEDS: INSULIN LISPRO 100 UNITS/ML SUBCUT SCH ×4 (07:03→21:16)
[2016-12-24 08:00] VITALS: BP 120/80
[2016-12-24] MEDS: SENNOSIDES/DOCUSATE SOD 8.6/50MG TABLET PO SCH ×2 (09:00→17:00)
[2016-12-24] MEDS: DOCUSATE SODIUM 100MG CAPSULE PO SCH ×2 (09:00→17:00)
[2016-12-24] MEDS: CALCIUM CARBONATE/VITAMIN D3 500MG TABLET PO SCH (09:00)
[2016-12-24] MEDS ORDERED: POTASSIUM CHLORIDE 20MEQ TABLET SR PO SCH (11:00)
[2016-12-24] MEDS: FAMOTIDINE 20MG TABLET PO SCH (11:02)
[2016-12-24] MEDS: PREDNISONE 10MG TABLET PO SCH (11:04)
[2016-12-24] MEDS: BENAZEPRIL 20MG TABLET PO SCH (11:05)
[2016-12-24] MEDS: ASPIRIN 81MG EC TABLET PO SCH (11:05)
[2016-12-24] MEDS: BACLOFEN 20MG TABLET PO SCH ×2 (11:06→19:10)
[2016-12-24] MEDS: HYDROMORPHONE HCL/PF 2MG/ML CPJ IV PRN ×2 (11:19→18:26)
[2016-12-24 12:00] VITALS: BP 113/97
[2016-12-24] MEDS ORDERED: SIMETHICONE 80MG TABLET CHEW PO SCH (13:00)
[2016-12-24] MEDS: GABAPENTIN 400MG CAPSULE PO SCH ×3 (13:00→19:06)
[2016-12-24 13:41] LABS: INR 1.1; PARTIAL THROMBOPLASTIN TIME 24.5 sec (23.4-31.0)
[2016-12-24 16:00] VITALS: BP 140/72
[2016-12-24] MEDS: AMITRIPTYLINE 50MG TABLET PO SCH (19:08)
[2016-12-24 20:00] VITALS: BP 126/79
[2016-12-25] VITALS: BP 121/71
[2016-12-25 04:00] VITALS: BP 128/77
[2016-12-25] MEDS: LACTULOSE 20G/30ML UDC PO SCH ×3 (05:59→21:00)
[2016-12-25] MEDS: BLOOD SUGAR DIAGNOSTIC STRIP TEST SCH ×4 (06:50→20:44)
[2016-12-25] MEDS: INSULIN LISPRO 100 UNITS/ML SUBCUT SCH ×4 (07:50→20:58)
[2016-12-25 08:00] VITALS: BP 140/91
[2016-12-25] MEDS: DOCUSATE SODIUM 100MG CAPSULE PO SCH ×2 (08:08→16:27)
[2016-12-25] MEDS: SENNOSIDES/DOCUSATE SOD 8.6/50MG TABLET PO SCH ×2 (08:08→16:28)
[2016-12-25 08:22] LABS: BASOPHILS % 0.7 % (0.0-2.0); EOSINOPHILS % 3.3 % (0.0-5.0); HEMATOCRIT. 38.5 % (36.0-48.0); HEMOGLOBIN. 12.8 g/dL (12.0-16.0); LYMPHOCYTES % 25.9 % (20.0-50.0); MEAN CORPUSCULAR HEMOGLOBIN 30.7 pg (28.0-32.0); MEAN CORPUSCULAR VOLUME 92.7 fL (81.0-99.0); MEAN PLATELET VOLUME 7.4 fl (7.4-10.4); MONOCYTES % 11.3 % (2.0-8.0); NEUTROPHILS % 58.8 % (40.0-76.0); PLATELET 238 x1000/uL (130-400); RED BLOOD CELL COUNT 4.15 mill/uL (4.2-5.4); RED CELL DISTRIBUTION WIDTH 15.3 % (11.6-14.6)
[2016-12-25] MEDS ORDERED: LIDOCAINE HCL 1% 20ML VIAL (Pyxis) INJ ONE (08:38)
[2016-12-25] MEDS ORDERED: SODIUM BICARBONATE 4% (2.4MEQ) 5ML VIAL IV ONE (08:38)
[2016-12-25 08:51] LABS: CARBON DIOXIDE 29 mEq/L (21-32); CHLORIDE 105 mEq/L (98-107); PHOSPHORUS 4.3 mg/dL (2.5-4.9)
[2016-12-25] MEDS: ASPIRIN 81MG EC TABLET PO SCH (09:00)
[2016-12-25] MEDS: ALBUMIN SQ SCH ×2 (09:00→11:10)
[2016-12-25] MEDS: INTERFERON BETA SQ SCH ×2 (09:00→11:10)
[2016-12-25] MEDS: [UNRECOGNIZED DRUG - OTHER] SQ SCH ×2 (09:00→11:10)
[2016-12-25] MEDS: FAMOTIDINE 20MG TABLET PO SCH (09:46)
[2016-12-25] MEDS: CALCIUM CARBONATE/VITAMIN D3 500MG TABLET PO SCH (09:46)
[2016-12-25] MEDS: PREDNISONE 10MG TABLET PO SCH (09:46)
[2016-12-25] MEDS: GABAPENTIN 400MG CAPSULE PO SCH ×3 (09:47→16:27)
[2016-12-25] MEDS: BENAZEPRIL 20MG TABLET PO SCH (09:47)
[2016-12-25] MEDS: BACLOFEN 20MG TABLET PO SCH ×2 (09:47→16:27)
[2016-12-25] MEDS: HYDROMORPHONE HCL/PF 2MG/ML CPJ IV PRN (09:49)
[2016-12-25] MEDS: SIMETHICONE 80MG TABLET CHEW PO PRN ×2 (10:15→16:59)
[2016-12-25 12:00] VITALS: BP 128/85
[2016-12-25 16:00] VITALS: BP 110/63
[2016-12-25] MEDS: HYDROCODONE/ACETAMINOPHEN 10/325MG TABLET PO PRN (16:07)
[2016-12-25] MEDS: AMITRIPTYLINE 50MG TABLET PO SCH (16:59)
[2016-12-25 20:00] VITALS: BP 132/76
[2016-12-25] MEDS ORDERED: DONEPEZIL 23 MG TABLET PO SCH (21:00)
[2016-12-26] VITALS: BP 149/76
[2016-12-26] MEDS: HYDROMORPHONE HCL/PF 2MG/ML CPJ IV PRN (00:30)
[2016-12-26 04:00] VITALS: BP 125/65
[2016-12-26] MEDS: LACTULOSE 20G/30ML UDC PO SCH ×2 (06:00→13:43)
[2016-12-26] MEDS: BLOOD SUGAR DIAGNOSTIC STRIP TEST SCH ×2 (06:24→11:42)
[2016-12-26] MEDS: HYDROCODONE/ACETAMINOPHEN 10/325MG TABLET PO PRN (06:31)
[2016-12-26] MEDS: INSULIN LISPRO 100 UNITS/ML SUBCUT SCH ×2 (07:49→12:50)
[2016-12-26 08:00] VITALS: BP 137/80
[2016-12-26] MEDS: DOCUSATE SODIUM 100MG CAPSULE PO SCH (08:58)
[2016-12-26] MEDS: ASPIRIN 81MG EC TABLET PO SCH (08:58)
[2016-12-26] MEDS: BACLOFEN 20MG TABLET PO SCH (08:59)
[2016-12-26] MEDS: BENAZEPRIL 20MG TABLET PO SCH (09:00)
[2016-12-26] MEDS: CALCIUM CARBONATE/VITAMIN D3 500MG TABLET PO SCH (09:00)
[2016-12-26] MEDS: GABAPENTIN 400MG CAPSULE PO SCH ×2 (09:00→13:00)
[2016-12-26] MEDS: FAMOTIDINE 20MG TABLET PO SCH (09:00)
[2016-12-26] MEDS: PREDNISONE 10MG TABLET PO SCH (09:01)
[2016-12-26] MEDS: SENNOSIDES/DOCUSATE SOD 8.6/50MG TABLET PO SCH (09:02)
[2016-12-26] MEDS: SIMETHICONE 80MG TABLET CHEW PO PRN (09:56)
[2016-12-26] MEDS ORDERED: DOCUSATE SODIUM 250MG CAPSULE PO SCH (10:30)
[2016-12-26 12:00] VITALS: BP 154/84
[2016-12-26 13:06] VITALS: BP 154/84
== END 2016-12-26 13:53 | disposition home or self-care (01) | DRG 392 ==
LOC: ER 14:14 → 6EST 17:30 → ENRESERV 17:54
PROVIDERS: ADMIT Internal Medicine Nephrology; ATTEND Internal Medicine Nephrology
DX: K59.03 Drug induced constipation (principal); G35 Multiple sclerosis; K76.0 Fatty (change of) liver, not elsewhere classified; M79.7 Fibromyalgia; E10.9 Type 1 diabetes mellitus without complications; E66.9 Obesity, unspecified; G89.4 Chronic pain syndrome; I10 Essential (primary) hypertension; T40.2X5A Adverse effect of other opioids, initial encounter; J40 Bronchitis, not specified as acute or chronic; K57.30 Diverticulosis of large intestine without perforation or abscess without bleeding; Z79.4 Long term (current) use of insulin; Z80.0 Family history of malignant neoplasm of digestive organs; Z79.82 Long term (current) use of aspirin; Z79.899 Other long term (current) drug therapy; Y92.89 Other specified places as the place of occurrence of the external cause; Z68.36 Body mass index [BMI] 36.0-36.9, adult
CPT/HCPCS: 36415; 74000; 74176; 80048; 80053; 80076; 82962; 83690; 83735; 84100; 85025; 85027; 85610; 85730; 93005; 96374; 96375; 96376; 99285; C1893; J1170; J1815; J1885; J2405; J3490; J7030; J7512

== ENCOUNTER → 2017-02-14 | Outpatient (CLI) | payer MEDICARE, MEDICAID | END | disposition home or self-care (01) | LOC: MRI 09:23 | PROVIDERS: ATTEND Internal Medicine Nephrology | DX: M46.94 Unspecified inflammatory spondylopathy, thoracic region (principal); M48.04 Spinal stenosis, thoracic region | CPT/HCPCS: 72146 ==

== ENCOUNTER → 2017-07-30 | Outpatient (CLI) | payer MEDICARE, MEDICAID | END | disposition home or self-care (01) | LOC: MAMMO 09:57 | PROVIDERS: ATTEND Internal Medicine Nephrology | DX: N64.4 Mastodynia (principal) | CPT/HCPCS: 77066 ==

== ENCOUNTER → 2017-08-15 | Outpatient (CLI) | payer MEDICARE, MEDICAID | END | disposition home or self-care (01) | LOC: CT 12:51 | PROVIDERS: ATTEND Internal Medicine Nephrology | DX: K57.90 Diverticulosis of intestine, part unspecified, without perforation or abscess without bleeding (principal); R16.0 Hepatomegaly, not elsewhere classified; J44.9 Chronic obstructive pulmonary disease, unspecified | CPT/HCPCS: 74176 ==

== ENCOUNTER 2018-01-08 16:50 | Inpatient (IN) | payer MEDICARE, MEDICAID ==
[~2018-01-08] VITALS: Ht 172.7 cm; Wt 99.8 kg
[~2018-01-08 16:50] MED LIST changes: +BENA20TA10 PO; -BENA20TA3 PO; -DOCU-150 PO; +DOCU250C14 GT; +LEVO25TA2 PO; -OCD MT; +TRIA1TAB94 PO
[2018-01-08] MEDS ORDERED: DIPHENOXYLATE/ATROPINE 2.5/0.025MG TABLET PO PRN (17:45)
[2018-01-08] MEDS ORDERED: CLONIDINE 0.1MG TABLET PO PRN (17:45)
[2018-01-08] MEDS ORDERED: DEXTROSE 50% WATER 50ML SYRINGE IV PRN (17:45)
[2018-01-08] MEDS ORDERED: BISACODYL 10MG SUPP PR PRN (17:45)
[2018-01-08] MEDS ORDERED: ACETAMINOPHEN 325MG TABLET PO PRN (17:45)
[2018-01-08] MEDS ORDERED: LACTULOSE 20G/30ML UDC PO PRN (17:45)
[2018-01-08 18:16] VITALS: BP 121/69
[2018-01-08] MEDS: DOCUSATE SODIUM 250MG CAPSULE PO SCH (18:18)
[2018-01-08 20:00] VITALS: BP 166/91
[2018-01-08] MEDS: POLYETHYLENE GLYCOL 3350 (17GM) 1 DOSE PACK PO SCH (20:32)
[2018-01-08] MEDS: AMOXICILLIN 500 MG CAPSULE PO SCH (20:33)
[2018-01-08] MEDS: GABAPENTIN 400MG CAPSULE PO SCH (20:34)
[2018-01-08] MEDS: BACLOFEN 20MG TABLET PO SCH (20:34)
[2018-01-08] MEDS: FAMOTIDINE 20MG TABLET PO SCH (20:34)
[2018-01-08] MEDS: AMLODIPINE 2.5MG TABLET PO SCH (20:35)
[2018-01-08] MEDS: AMITRIPTYLINE 50MG TABLET PO SCH (20:36)
[2018-01-08] MEDS: HYDROMORPHONE HCL/PF 2MG/ML CPJ IV PRN (20:37)
[2018-01-08] MEDS: BLOOD SUGAR DIAGNOSTIC STRIP TEST SCH (21:01)
[2018-01-08] MEDS: INSULIN LISPRO 100 UNITS/ML SUBCUT SCH (21:08)
[2018-01-08] MEDS: ENOXAPARIN 30MG/0.3ML SYR SUBCUT SCH (21:45)
[2018-01-08] MEDS: IPRATROPIUM/ALBUTEROL 0.5-3(2.5)MG/3ML NEB HHN SCH (21:46)
[2018-01-09] MEDS: HYDROMORPHONE HCL/PF 2MG/ML CPJ IV PRN ×5 (01:16→21:41)
[2018-01-09] MEDS: IPRATROPIUM/ALBUTEROL 0.5-3(2.5)MG/3ML NEB HHN SCH ×3 (03:00→21:18)
[2018-01-09] MEDS: GABAPENTIN 400MG CAPSULE PO SCH ×3 (06:27→21:39)
[2018-01-09] MEDS: BACLOFEN 20MG TABLET PO SCH ×3 (06:27→21:39)
[2018-01-09] MEDS: AMOXICILLIN 500 MG CAPSULE PO SCH ×3 (06:27→21:39)
[2018-01-09] MEDS: NEOMY SULF/BACITRAC ZN/POLY OINT 28GM TOP SCH ×3 (06:34→21:55)
[2018-01-09] MEDS: BLOOD SUGAR DIAGNOSTIC STRIP TEST SCH ×4 (06:35→21:41)
[2018-01-09 08:00] VITALS: BP 149/89
[2018-01-09] MEDS: BENAZEPRIL 10MG TABLET PO SCH (08:20)
[2018-01-09] MEDS: DOCUSATE SODIUM 100MG CAPSULE PO PRN ×2 (08:20→17:35)
[2018-01-09] MEDS: FAMOTIDINE 20MG TABLET PO SCH ×2 (08:20→21:39)
[2018-01-09] MEDS: CALCIUM CARBONATE 1250MG TABLET (500MG ELEMENTAL CALCIUM) PO SCH (08:21)
[2018-01-09] MEDS: PREDNISONE 20MG TABLET PO SCH (08:21)
[2018-01-09] MEDS: DONEPEZIL HCL 10MG TABLET PO SCH (08:21)
[2018-01-09] MEDS: AMLODIPINE 2.5MG TABLET PO SCH ×2 (08:21→21:40)
[2018-01-09] MEDS: ENOXAPARIN 30MG/0.3ML SYR SUBCUT SCH ×2 (08:22→21:38)
[2018-01-09] MEDS: DOCUSATE SODIUM 250MG CAPSULE PO SCH ×2 (08:31→17:43)
[2018-01-09] MEDS: INSULIN LISPRO 100 UNITS/ML SUBCUT SCH ×4 (08:34→21:56)
[2018-01-09] MEDS: REBIF SUBCUT SCH (17:00)
[2018-01-09] MEDS: TERBINAFINE HCL 1% CREAM 30GM TOP SCH (17:43)
[2018-01-09 17:52] LABS: HEMATOCRIT. 39.4 % (36.0-48.0); MEAN CORPUSCULAR HEMOGLOBIN 31.1 pg (28.0-32.0); MEAN CORPUSCULAR VOLUME 94.2 fL (81.0-99.0); MEAN PLATELET VOLUME 7.7 fl (7.4-10.4); PLATELET 288 x1000/uL (130-400); RED BLOOD CELL COUNT 4.19 mill/uL (4.2-5.4); RED CELL DISTRIBUTION WIDTH 15.7 % (11.6-14.6)
[2018-01-09 17:55] LABS: CHLORIDE 101 mEq/L (98-107)
[2018-01-09 20:00] VITALS: BP 157/77
[2018-01-09 21:04] LABS: PLATELET ESTIMATE NORMAL
[2018-01-09] MEDS: AMITRIPTYLINE 50MG TABLET PO SCH (21:39)
[2018-01-09] MEDS: POLYETHYLENE GLYCOL 3350 (17GM) 1 DOSE PACK PO SCH (21:39)
[2018-01-09 23:40] LABS: CLARITY URINE CLEAR (CLEAR); COLOR URINE YELLOW (YELLOW); KETONES URINE NEGATIVE (NEGATIVE); LEUKOCYTE ESTERASE URINE TRACE (NEGATIVE); NITRITE URINE NEGATIVE (NEGATIVE); OCCULT BLOOD URINE NEGATIVE (NEGATIVE); PROTEIN URINE NEGATIVE (NEGATIVE); SPECIFIC GRAVITY URINE 1.014 (1.005-1.030); UROBILINOGEN URINE 0.2 E.U./dL (0.2-1.0)
[2018-01-10] MEDS: IPRATROPIUM/ALBUTEROL 0.5-3(2.5)MG/3ML NEB HHN SCH ×4 (03:05→21:04)
[2018-01-10] MEDS: AMOXICILLIN 500 MG CAPSULE PO SCH ×3 (06:14→21:06)
[2018-01-10] MEDS: BLOOD SUGAR DIAGNOSTIC STRIP TEST SCH ×4 (06:15→20:55)
[2018-01-10] MEDS: GABAPENTIN 400MG CAPSULE PO SCH ×3 (06:15→21:07)
[2018-01-10] MEDS: BACLOFEN 20MG TABLET PO SCH ×3 (06:15→21:07)
[2018-01-10] MEDS: HYDROMORPHONE HCL/PF 2MG/ML CPJ IV PRN ×4 (06:28→20:43)
[2018-01-10 07:00] LABS: BASOPHILS % 0.3 % (0.0-2.0); EOSINOPHILS % 1.9 % (0.0-5.0); HEMATOCRIT. 36.7 % (36.0-48.0); HEMOGLOBIN. 12.6 g/dL (12.0-16.0); LYMPHOCYTES % 11.7 % (20.0-50.0); MEAN CORPUSCULAR HEMOGLOBIN 31.7 pg (28.0-32.0); MEAN CORPUSCULAR VOLUME 92.2 fL (81.0-99.0); MEAN PLATELET VOLUME 7.7 fl (7.4-10.4); MONOCYTES % 7.6 % (2.0-8.0); NEUTROPHILS % 78.5 % (40.0-76.0); PLATELET 255 x1000/uL (130-400); RED BLOOD CELL COUNT 3.98 mill/uL (4.2-5.4); RED CELL DISTRIBUTION WIDTH 16.1 % (11.6-14.6)
[2018-01-10 07:09] LABS: CHLORIDE 103 mEq/L (98-107)
[2018-01-10 07:25] LABS: CREATINE KINASE 63 IU/L (26-192); PHOSPHORUS 3.6 mg/dL (2.5-4.9); TOTAL IRON BINDING CAPACITY 300 ug/dL (250-450)
[2018-01-10 07:49] LABS: FOLIC ACID (FOLATE) SERUM >20 ng/mL ng/mL (>5.38); VITAMIN B12 SERUM >2000 pg/mL pg/mL (211-911)
[2018-01-10 08:00] VITALS: BP 149/89
[2018-01-10] MEDS: DONEPEZIL HCL 10MG TABLET PO SCH (08:44)
[2018-01-10] MEDS: DOCUSATE SODIUM 250MG CAPSULE PO SCH ×2 (08:44→17:00)
[2018-01-10] MEDS: BENAZEPRIL 10MG TABLET PO SCH (08:45)
[2018-01-10] MEDS: AMLODIPINE 5MG TABLET PO SCH ×2 (08:46→20:52)
[2018-01-10] MEDS: CALCIUM CARBONATE 1250MG TABLET (500MG ELEMENTAL CALCIUM) PO SCH (08:47)
[2018-01-10] MEDS: PREDNISONE 20MG TABLET PO SCH (08:47)
[2018-01-10] MEDS: FAMOTIDINE 20MG TABLET PO SCH ×2 (08:47→20:53)
[2018-01-10] MEDS: ENOXAPARIN 30MG/0.3ML SYR SUBCUT SCH ×2 (08:48→20:53)
[2018-01-10] MEDS: HYDROCODONE/ACETAMINOPHEN 10/325MG TABLET PO PRN ×2 (08:50→23:07)
[2018-01-10] MEDS: NEOMY SULF/BACITRAC ZN/POLY OINT 28GM TOP SCH ×2 (09:00→20:53)
[2018-01-10] MEDS: INSULIN LISPRO 100 UNITS/ML SUBCUT SCH ×4 (09:00→21:18)
[2018-01-10] MEDS: TERBINAFINE HCL 1% CREAM 30GM TOP SCH (09:00)
[2018-01-10 10:18] LABS: FERRITIN 27 ng/mL (10-291)
[2018-01-10 20:00] VITALS: BP 141/80
[2018-01-10] MEDS: AMITRIPTYLINE 50MG TABLET PO SCH (20:52)
[2018-01-10] MEDS: POLYETHYLENE GLYCOL 3350 (17GM) 1 DOSE PACK PO SCH (20:52)
[2018-01-11] MEDS: LIDOCAINE HCL 4% CREAM 76GM TUBE TP PRN ×3 (00:05→21:52)
[2018-01-11] MEDS: IPRATROPIUM/ALBUTEROL 0.5-3(2.5)MG/3ML NEB HHN SCH ×4 (01:47→21:16)
[2018-01-11] MEDS: HYDROMORPHONE HCL/PF 2MG/ML CPJ IV PRN ×4 (05:42→20:33)
[2018-01-11] MEDS: AMOXICILLIN 500 MG CAPSULE PO SCH ×3 (05:48→21:29)
[2018-01-11] MEDS: BACLOFEN 20MG TABLET PO SCH ×3 (05:48→21:30)
[2018-01-11] MEDS: BLOOD SUGAR DIAGNOSTIC STRIP TEST SCH ×4 (05:49→21:19)
[2018-01-11] MEDS: GABAPENTIN 400MG CAPSULE PO SCH ×3 (05:49→21:30)
[2018-01-11 06:43] VITALS: BP 114/79
[2018-01-11] MEDS: INSULIN LISPRO 100 UNITS/ML SUBCUT SCH ×4 (06:48→19:03)
[2018-01-11 08:00] VITALS: BP 124/62
[2018-01-11] MEDS: AMLODIPINE 5MG TABLET PO SCH ×2 (08:53→21:36)
[2018-01-11] MEDS: CALCIUM CARBONATE 1250MG TABLET (500MG ELEMENTAL CALCIUM) PO SCH (08:53)
[2018-01-11] MEDS: DOCUSATE SODIUM 250MG CAPSULE PO SCH ×2 (08:53→17:32)
[2018-01-11] MEDS: ENOXAPARIN 30MG/0.3ML SYR SUBCUT SCH ×2 (08:53→21:31)
[2018-01-11] MEDS: BENAZEPRIL 10MG TABLET PO SCH (08:53)
[2018-01-11] MEDS: PREDNISONE 20MG TABLET PO SCH (08:54)
[2018-01-11] MEDS: DONEPEZIL HCL 10MG TABLET PO SCH (08:54)
[2018-01-11] MEDS: FAMOTIDINE 20MG TABLET PO SCH ×2 (08:54→21:30)
[2018-01-11] MEDS: NEOMY SULF/BACITRAC ZN/POLY OINT 28GM TOP SCH ×2 (08:56→21:30)
[2018-01-11] MEDS: TERBINAFINE HCL 1% CREAM 30GM TOP SCH (08:56)
[2018-01-11] MEDS: HYDROCODONE/ACETAMINOPHEN 10/325MG TABLET PO PRN (09:07)
[2018-01-11] MEDS ORDERED: LORAZEPAM 2MG/ML CPJ IV PRN (10:15)
[2018-01-11] MEDS: HYDROCODONE/ACETAMINOPHEN 5/325MG TABLET PO SCH ×2 (13:30→17:32)
[2018-01-11] MEDS: LEVOTHYROXINE SODIUM 25MCG TABLET PO SCH (19:02)
[2018-01-11 20:00] VITALS: BP 139/77
[2018-01-11] MEDS: INSULIN GLARGINE UD 100 UNITS/ML SYR SUBCUT SCH (21:29)
[2018-01-11] MEDS: AMITRIPTYLINE 50MG TABLET PO SCH (21:30)
[2018-01-11] MEDS: POLYETHYLENE GLYCOL 3350 (17GM) 1 DOSE PACK PO SCH (21:32)
[2018-01-12] MEDS: HYDROMORPHONE HCL/PF 2MG/ML CPJ IV PRN ×3 (01:21→10:44)
[2018-01-12] MEDS: AMOXICILLIN 500 MG CAPSULE PO SCH ×3 (06:18→21:31)
[2018-01-12] MEDS: LEVOTHYROXINE SODIUM 25MCG TABLET PO SCH (06:18)
[2018-01-12] MEDS: GABAPENTIN 400MG CAPSULE PO SCH ×3 (06:18→21:28)
[2018-01-12] MEDS: BACLOFEN 20MG TABLET PO SCH ×3 (06:18→21:28)
[2018-01-12] MEDS: BLOOD SUGAR DIAGNOSTIC STRIP TEST SCH ×4 (06:18→21:31)
[2018-01-12] MEDS: INSULIN LISPRO 100 UNITS/ML SUBCUT SCH ×6 (06:38→18:15)
[2018-01-12] MEDS: IPRATROPIUM/ALBUTEROL 0.5-3(2.5)MG/3ML NEB HHN SCH ×2 (07:29→20:55)
[2018-01-12 08:00] VITALS: BP 122/71
[2018-01-12] MEDS: CALCIUM CARBONATE 1250MG TABLET (500MG ELEMENTAL CALCIUM) PO SCH (09:13)
[2018-01-12] MEDS: DOCUSATE SODIUM 100MG CAPSULE PO PRN (09:13)
[2018-01-12] MEDS: DONEPEZIL HCL 10MG TABLET PO SCH (09:13)
[2018-01-12] MEDS: PREDNISONE 20MG TABLET PO SCH (09:13)
[2018-01-12] MEDS: HYDROCODONE/ACETAMINOPHEN 5/325MG TABLET PO SCH ×3 (09:15→18:17)
[2018-01-12] MEDS: AMLODIPINE 5MG TABLET PO SCH ×2 (09:16→21:48)
[2018-01-12] MEDS: FAMOTIDINE 20MG TABLET PO SCH ×2 (09:16→21:33)
[2018-01-12] MEDS: BENAZEPRIL 10MG TABLET PO SCH (09:17)
[2018-01-12] MEDS: ENOXAPARIN 30MG/0.3ML SYR SUBCUT SCH ×2 (09:17→21:32)
[2018-01-12] MEDS: NEOMY SULF/BACITRAC ZN/POLY OINT 28GM TOP SCH ×2 (09:19→21:32)
[2018-01-12] MEDS: TERBINAFINE HCL 1% CREAM 30GM TOP SCH (09:19)
[2018-01-12] MEDS: ONDANSETRON HCL 4MG/2ML INJ IV PRN ×2 (10:37→21:49)
[2018-01-12] MEDS: DOCUSATE SODIUM 250MG CAPSULE PO SCH ×2 (10:37→18:15)
[2018-01-12] MEDS: REBIF SUBCUT SCH (13:53)
[2018-01-12] MEDS: HYDROMORPHONE HCL/PF 2MG/ML CPJ SUBCUT PRN ×2 (16:19→20:28)
[2018-01-12 20:00] VITALS: BP 120/74
[2018-01-12 20:56] LABS: BASOPHILS % 0.5 % (0.0-2.0); EOSINOPHILS % 0.6 % (0.0-5.0); HEMATOCRIT. 42.4 % (36.0-48.0); HEMOGLOBIN. 13.8 g/dL (12.0-16.0); LYMPHOCYTES % 7.7 % (20.0-50.0); MEAN CORPUSCULAR HEMOGLOBIN 30.3 pg (28.0-32.0); MEAN CORPUSCULAR VOLUME 93.3 fL (81.0-99.0); MEAN PLATELET VOLUME 7.8 fl (7.4-10.4); MONOCYTES % 5.4 % (2.0-8.0); NEUTROPHILS % 85.8 % (40.0-76.0); PLATELET 206 x1000/uL (130-400); RED BLOOD CELL COUNT 4.54 mill/uL (4.2-5.4); RED CELL DISTRIBUTION WIDTH 15.7 % (11.6-14.6)
[2018-01-12 21:13] LABS: CHLORIDE 102 mEq/L (98-107)
[2018-01-12 21:20] LABS: HDL CHOLESTEROL 53 mg/dL (40-59); LDL CHOLESTEROL 260 mg/dL (5-100)
[2018-01-12] MEDS: POLYETHYLENE GLYCOL 3350 (17GM) 1 DOSE PACK PO SCH (21:27)
[2018-01-12] MEDS: AMITRIPTYLINE 50MG TABLET PO SCH (21:29)
[2018-01-12] MEDS: INSULIN GLARGINE UD 100 UNITS/ML SYR SUBCUT SCH (22:22)
[2018-01-13] MEDS: LIDOCAINE HCL 4% CREAM 76GM TUBE TP PRN ×2 (00:25→17:33)
[2018-01-13] MEDS: HYDROMORPHONE HCL/PF 2MG/ML CPJ SUBCUT PRN ×4 (00:37→20:30)
[2018-01-13] MEDS: IPRATROPIUM/ALBUTEROL 0.5-3(2.5)MG/3ML NEB HHN SCH ×4 (02:04→21:20)
[2018-01-13] MEDS: GABAPENTIN 400MG CAPSULE PO SCH ×3 (06:08→22:15)
[2018-01-13] MEDS: AMOXICILLIN 500 MG CAPSULE PO SCH ×3 (06:08→22:16)
[2018-01-13] MEDS: LEVOTHYROXINE SODIUM 25MCG TABLET PO SCH (06:08)
[2018-01-13] MEDS: BACLOFEN 20MG TABLET PO SCH ×3 (06:09→22:17)
[2018-01-13] MEDS: INSULIN LISPRO 100 UNITS/ML SUBCUT SCH ×6 (06:18→17:39)
[2018-01-13] MEDS: BLOOD SUGAR DIAGNOSTIC STRIP TEST SCH ×4 (06:19→21:00)
[2018-01-13 07:49] VITALS: BP 121/74
[2018-01-13] MEDS: HYDROCODONE/ACETAMINOPHEN 5/325MG TABLET PO SCH ×3 (09:20→17:09)
[2018-01-13] MEDS: AMLODIPINE 5MG TABLET PO SCH ×2 (09:26→22:17)
[2018-01-13] MEDS: CALCIUM CARBONATE 1250MG TABLET (500MG ELEMENTAL CALCIUM) PO SCH (09:27)
[2018-01-13] MEDS: BENAZEPRIL 10MG TABLET PO SCH (09:27)
[2018-01-13] MEDS: DONEPEZIL HCL 10MG TABLET PO SCH (09:27)
[2018-01-13] MEDS: FAMOTIDINE 20MG TABLET PO SCH ×2 (09:27→22:15)
[2018-01-13] MEDS: PREDNISONE 20MG TABLET PO SCH (09:28)
[2018-01-13] MEDS: ENOXAPARIN 30MG/0.3ML SYR SUBCUT SCH ×2 (09:28→22:27)
[2018-01-13] MEDS ORDERED: DIPHENOXYLATE/ATROPINE 2.5/0.025MG TABLET PO PRN (09:45)
[2018-01-13] MEDS: DOCUSATE SODIUM 250MG CAPSULE PO SCH ×2 (09:52→17:10)
[2018-01-13] MEDS: NEOMY SULF/BACITRAC ZN/POLY OINT 28GM TOP SCH ×2 (12:17→22:26)
[2018-01-13] MEDS: TERBINAFINE HCL 1% CREAM 30GM TOP SCH (12:19)
[2018-01-13] MEDS: EZETIMIBE 10MG TABLET PO SCH (12:57)
[2018-01-13 20:00] VITALS: BP 125/82
[2018-01-13] MEDS: POLYETHYLENE GLYCOL 3350 (17GM) 1 DOSE PACK PO SCH (21:00)
[2018-01-13] MEDS: AMITRIPTYLINE 50MG TABLET PO SCH (22:16)
[2018-01-13] MEDS: LORAZEPAM 2MG/ML CPJ IV PRN (22:20)
[2018-01-13] MEDS: INSULIN GLARGINE UD 100 UNITS/ML SYR SUBCUT SCH (22:38)
[2018-01-14] MEDS: HYDROMORPHONE HCL/PF 2MG/ML CPJ SUBCUT PRN ×5 (01:00→20:26)
[2018-01-14] MEDS: LIDOCAINE HCL 4% CREAM 76GM TUBE TP PRN ×2 (01:03→20:33)
[2018-01-14] MEDS: IPRATROPIUM/ALBUTEROL 0.5-3(2.5)MG/3ML NEB HHN SCH ×4 (02:00→21:42)
[2018-01-14] MEDS: BACLOFEN 20MG TABLET PO SCH ×3 (05:28→22:30)
[2018-01-14] MEDS: GABAPENTIN 400MG CAPSULE PO SCH ×3 (05:28→22:28)
[2018-01-14] MEDS: BLOOD SUGAR DIAGNOSTIC STRIP TEST SCH ×4 (06:30→21:00)
[2018-01-14] MEDS: INSULIN LISPRO 100 UNITS/ML SUBCUT SCH ×6 (07:00→17:53)
[2018-01-14 08:00] VITALS: BP 143/80
[2018-01-14] MEDS: LEVOTHYROXINE SODIUM 25MCG TABLET PO SCH (08:13)
[2018-01-14] MEDS: EZETIMIBE 10MG TABLET PO SCH (08:14)
[2018-01-14] MEDS: DOCUSATE SODIUM 100MG CAPSULE PO PRN (08:14)
[2018-01-14] MEDS: DONEPEZIL HCL 10MG TABLET PO SCH (08:14)
[2018-01-14] MEDS: PREDNISONE 20MG TABLET PO SCH (08:14)
[2018-01-14] MEDS: FAMOTIDINE 20MG TABLET PO SCH ×2 (08:14→22:29)
[2018-01-14] MEDS: CALCIUM CARBONATE 1250MG TABLET (500MG ELEMENTAL CALCIUM) PO SCH (08:14)
[2018-01-14] MEDS: ENOXAPARIN 30MG/0.3ML SYR SUBCUT SCH ×2 (08:15→22:26)
[2018-01-14] MEDS: AMLODIPINE 5MG TABLET PO SCH ×2 (08:15→22:29)
[2018-01-14] MEDS: BENAZEPRIL 10MG TABLET PO SCH (08:15)
[2018-01-14] MEDS: HYDROCODONE/ACETAMINOPHEN 5/325MG TABLET PO SCH ×4 (08:17→22:27)
[2018-01-14] MEDS: DOCUSATE SODIUM 250MG CAPSULE PO SCH ×2 (09:00→17:00)
[2018-01-14] MEDS: TERBINAFINE HCL 1% CREAM 30GM TOP SCH (11:00)
[2018-01-14] MEDS: NEOMY SULF/BACITRAC ZN/POLY OINT 28GM TOP SCH ×2 (11:00→22:30)
[2018-01-14] MEDS: REBIF SUBCUT SCH (13:36)
[2018-01-14 20:00] VITALS: BP 142/72
[2018-01-14] MEDS: POLYETHYLENE GLYCOL 3350 (17GM) 1 DOSE PACK PO SCH (21:00)
[2018-01-14] MEDS: AMITRIPTYLINE 50MG TABLET PO SCH (22:28)
[2018-01-14] MEDS: INSULIN GLARGINE UD 100 UNITS/ML SYR SUBCUT SCH (22:35)
[2018-01-14] MEDS: LORAZEPAM 2MG/ML CPJ IV PRN (23:44)
[2018-01-15] MEDS: HYDROMORPHONE HCL/PF 2MG/ML CPJ SUBCUT PRN ×4 (01:50→20:44)
[2018-01-15] MEDS ORDERED: LORAZEPAM 2MG/ML CPJ IV PRN (02:17)
[2018-01-15] MEDS ORDERED: DIPHENOXYLATE/ATROPINE 2.5/0.025MG TABLET PO PRN (02:17)
[2018-01-15] MEDS: IPRATROPIUM/ALBUTEROL 0.5-3(2.5)MG/3ML NEB HHN SCH ×3 (03:55→22:05)
[2018-01-15] MEDS: BLOOD SUGAR DIAGNOSTIC STRIP TEST SCH ×4 (06:30→21:52)
[2018-01-15] MEDS: INSULIN LISPRO 100 UNITS/ML SUBCUT SCH ×6 (07:00→17:16)
[2018-01-15] MEDS: BACLOFEN 20MG TABLET PO SCH ×3 (08:12→20:46)
[2018-01-15] MEDS: GABAPENTIN 400MG CAPSULE PO SCH ×3 (08:13→20:45)
[2018-01-15] MEDS: LEVOTHYROXINE SODIUM 25MCG TABLET PO SCH (08:13)
[2018-01-15 08:27] VITALS: BP 152/85
[2018-01-15] MEDS: HYDROCODONE/ACETAMINOPHEN 5/325MG TABLET PO SCH ×4 (08:57→21:52)
[2018-01-15] MEDS: PREDNISONE 20MG TABLET PO SCH (08:58)
[2018-01-15] MEDS: FAMOTIDINE 20MG TABLET PO SCH ×2 (08:58→20:46)
[2018-01-15] MEDS: EZETIMIBE 10MG TABLET PO SCH (08:58)
[2018-01-15] MEDS: ENOXAPARIN 30MG/0.3ML SYR SUBCUT SCH ×2 (08:58→20:44)
[2018-01-15] MEDS: DONEPEZIL HCL 10MG TABLET PO SCH (08:58)
[2018-01-15] MEDS: AMLODIPINE 5MG TABLET PO SCH ×2 (08:59→20:45)
[2018-01-15] MEDS: CALCIUM CARBONATE 1250MG TABLET (500MG ELEMENTAL CALCIUM) PO SCH (08:59)
[2018-01-15] MEDS: DOCUSATE SODIUM 100MG CAPSULE PO PRN (08:59)
[2018-01-15] MEDS: BENAZEPRIL 10MG TABLET PO SCH (08:59)
[2018-01-15] MEDS: DOCUSATE SODIUM 250MG CAPSULE PO SCH ×2 (09:00→17:21)
[2018-01-15] MEDS: TERBINAFINE HCL 1% CREAM 30GM TOP SCH (09:04)
[2018-01-15] MEDS: NEOMY SULF/BACITRAC ZN/POLY OINT 28GM TOP SCH ×2 (09:04→21:51)
[2018-01-15 20:00] VITALS: BP 129/79
[2018-01-15] MEDS: AMITRIPTYLINE 50MG TABLET PO SCH (20:45)
[2018-01-15] MEDS: POLYETHYLENE GLYCOL 3350 (17GM) 1 DOSE PACK PO SCH (20:53)
[2018-01-15] MEDS: INSULIN GLARGINE UD 100 UNITS/ML SYR SUBCUT SCH (21:59)
[2018-01-16 08:00] VITALS: BP 154/88
[2018-01-16] MEDS: DOCUSATE SODIUM 100MG CAPSULE PO PRN (08:06)
[2018-01-16] MEDS: CALCIUM CARBONATE 1250MG TABLET (500MG ELEMENTAL CALCIUM) PO SCH (08:07)
[2018-01-16] MEDS: PREDNISONE 20MG TABLET PO SCH (08:07)
[2018-01-16] MEDS: GABAPENTIN 400MG CAPSULE PO SCH ×3 (08:08→21:28)
[2018-01-16] MEDS: EZETIMIBE 10MG TABLET PO SCH (08:09)
[2018-01-16] MEDS: LEVOTHYROXINE SODIUM 25MCG TABLET PO SCH (08:09)
[2018-01-16] MEDS: BACLOFEN 20MG TABLET PO SCH ×3 (08:10→21:28)
[2018-01-16] MEDS: AMLODIPINE 5MG TABLET PO SCH ×2 (08:11→21:28)
[2018-01-16] MEDS: BENAZEPRIL 10MG TABLET PO SCH (08:11)
[2018-01-16] MEDS: FAMOTIDINE 20MG TABLET PO SCH ×2 (08:12→21:28)
[2018-01-16] MEDS: DONEPEZIL HCL 10MG TABLET PO SCH (08:12)
[2018-01-16] MEDS: ENOXAPARIN 30MG/0.3ML SYR SUBCUT SCH ×2 (08:14→21:26)
[2018-01-16] MEDS: NEOMY SULF/BACITRAC ZN/POLY OINT 28GM TOP SCH ×2 (08:15→21:42)
[2018-01-16] MEDS: TERBINAFINE HCL 1% CREAM 30GM TOP SCH (08:17)
[2018-01-16] MEDS: DOCUSATE SODIUM 250MG CAPSULE PO SCH ×2 (08:18→16:59)
[2018-01-16] MEDS: INSULIN LISPRO 100 UNITS/ML SUBCUT SCH ×6 (08:21→18:05)
[2018-01-16] MEDS: BLOOD SUGAR DIAGNOSTIC STRIP TEST SCH ×4 (08:21→21:29)
[2018-01-16] MEDS: HYDROMORPHONE HCL/PF 2MG/ML CPJ SUBCUT PRN ×2 (08:24→12:49)
[2018-01-16] MEDS: REBIF SUBCUT SCH (11:10)
[2018-01-16] MEDS: HYDROCODONE/ACETAMINOPHEN 5/325MG TABLET PO SCH ×2 (11:10→14:26)
[2018-01-16] MEDS ORDERED: HYDROMORPHONE HCL/PF 2MG/ML CPJ SUBCUT PRN (11:45)
[2018-01-16] MEDS: IPRATROPIUM/ALBUTEROL 0.5-3(2.5)MG/3ML NEB HHN SCH ×2 (15:45→20:48)
[2018-01-16] MEDS ORDERED: LORAZEPAM 2MG/ML CPJ IV PRN (16:30)
[2018-01-16] MEDS: HYDROCODONE/ACETAMINOPHEN 10/325MG TABLET PO SCH (17:00)
[2018-01-16] MEDS: HYDROMORPHONE HCL/PF 2MG/ML CPJ IV PRN ×2 (17:01→21:31)
[2018-01-16 20:00] VITALS: BP 141/75
[2018-01-16] MEDS: POLYETHYLENE GLYCOL 3350 (17GM) 1 DOSE PACK PO SCH (21:00)
[2018-01-16] MEDS: LIDOCAINE HCL 4% CREAM 76GM TUBE TP PRN (21:15)
[2018-01-16] MEDS: AMITRIPTYLINE 50MG TABLET PO SCH (21:28)
[2018-01-16] MEDS: INSULIN GLARGINE UD 100 UNITS/ML SYR SUBCUT SCH (21:40)
[2018-01-17] MEDS: IPRATROPIUM/ALBUTEROL 0.5-3(2.5)MG/3ML NEB HHN SCH ×4 (01:15→19:56)
[2018-01-17] MEDS: HYDROMORPHONE HCL/PF 2MG/ML CPJ IV PRN ×5 (01:33→19:44)
[2018-01-17] MEDS: BACLOFEN 20MG TABLET PO SCH ×3 (06:14→21:16)
[2018-01-17] MEDS: GABAPENTIN 400MG CAPSULE PO SCH ×3 (06:14→21:16)
[2018-01-17] MEDS: LEVOTHYROXINE SODIUM 25MCG TABLET PO SCH (06:14)
[2018-01-17] MEDS: BLOOD SUGAR DIAGNOSTIC STRIP TEST SCH ×4 (06:23→20:22)
[2018-01-17 06:49] LABS: CHLORIDE 100 mEq/L (98-107)
[2018-01-17 07:00] LABS: BASOPHILS % 0.6 % (0.0-2.0); EOSINOPHILS % 2.4 % (0.0-5.0); HEMATOCRIT. 37.3 % (36.0-48.0); HEMOGLOBIN. 12.6 g/dL (12.0-16.0); LYMPHOCYTES % 19.7 % (20.0-50.0); MEAN CORPUSCULAR HEMOGLOBIN 31.1 pg (28.0-32.0); MEAN CORPUSCULAR VOLUME 92.4 fL (81.0-99.0); MEAN PLATELET VOLUME 8.1 fl (7.4-10.4); MONOCYTES % 9.4 % (2.0-8.0); NEUTROPHILS % 67.9 % (40.0-76.0); PLATELET 239 x1000/uL (130-400); RED BLOOD CELL COUNT 4.04 mill/uL (4.2-5.4); RED CELL DISTRIBUTION WIDTH 15.3 % (11.6-14.6)
[2018-01-17] MEDS: INSULIN LISPRO 100 UNITS/ML SUBCUT SCH ×6 (07:00→17:20)
[2018-01-17 08:00] VITALS: BP 148/72
[2018-01-17] MEDS: EZETIMIBE 10MG TABLET PO SCH (08:50)
[2018-01-17] MEDS: DOCUSATE SODIUM 250MG CAPSULE PO SCH ×2 (08:50→17:27)
[2018-01-17] MEDS: PREDNISONE 20MG TABLET PO SCH (08:50)
[2018-01-17] MEDS: CALCIUM CARBONATE 1250MG TABLET (500MG ELEMENTAL CALCIUM) PO SCH (08:51)
[2018-01-17] MEDS: BENAZEPRIL 10MG TABLET PO SCH (08:51)
[2018-01-17] MEDS: AMLODIPINE 5MG TABLET PO SCH ×2 (08:52→20:22)
[2018-01-17] MEDS: DONEPEZIL HCL 10MG TABLET PO SCH (08:52)
[2018-01-17] MEDS: ENOXAPARIN 30MG/0.3ML SYR SUBCUT SCH ×2 (08:52→20:22)
[2018-01-17] MEDS: FAMOTIDINE 20MG TABLET PO SCH ×2 (08:52→20:22)
[2018-01-17] MEDS: HYDROCODONE/ACETAMINOPHEN 10/325MG TABLET PO SCH ×3 (08:54→17:35)
[2018-01-17] MEDS: LIDOCAINE HCL 4% CREAM 76GM TUBE TP PRN ×2 (09:01→22:02)
[2018-01-17] MEDS: NEOMY SULF/BACITRAC ZN/POLY OINT 28GM TOP SCH ×2 (09:03→20:22)
[2018-01-17] MEDS: TERBINAFINE HCL 1% CREAM 30GM TOP SCH (09:08)
[2018-01-17 20:00] VITALS: BP 143/76
[2018-01-17] MEDS: AMITRIPTYLINE 50MG TABLET PO SCH (20:21)
[2018-01-17] MEDS: POLYETHYLENE GLYCOL 3350 (17GM) 1 DOSE PACK PO SCH (20:21)
[2018-01-17] MEDS: INSULIN GLARGINE UD 100 UNITS/ML SYR SUBCUT SCH (22:01)
[2018-01-18] MEDS: IPRATROPIUM/ALBUTEROL 0.5-3(2.5)MG/3ML NEB HHN SCH ×3 (02:20→15:24)
[2018-01-18] MEDS: BLOOD SUGAR DIAGNOSTIC STRIP TEST SCH ×2 (06:30→11:49)
[2018-01-18] MEDS: INSULIN LISPRO 100 UNITS/ML SUBCUT SCH ×4 (07:00→13:15)
[2018-01-18 07:33] VITALS: BP 141/79
[2018-01-18] MEDS: GABAPENTIN 400MG CAPSULE PO SCH ×2 (08:13→13:32)
[2018-01-18] MEDS: DOCUSATE SODIUM 250MG CAPSULE PO SCH (08:14)
[2018-01-18] MEDS: PREDNISONE 20MG TABLET PO SCH (08:14)
[2018-01-18] MEDS: BENAZEPRIL 10MG TABLET PO SCH (08:14)
[2018-01-18] MEDS: CALCIUM CARBONATE 1250MG TABLET (500MG ELEMENTAL CALCIUM) PO SCH (08:14)
[2018-01-18] MEDS: EZETIMIBE 10MG TABLET PO SCH (08:16)
[2018-01-18] MEDS: LEVOTHYROXINE SODIUM 25MCG TABLET PO SCH (08:16)
[2018-01-18] MEDS: AMLODIPINE 5MG TABLET PO SCH (08:16)
[2018-01-18] MEDS: HYDROCODONE/ACETAMINOPHEN 10/325MG TABLET PO SCH ×2 (08:16→13:00)
[2018-01-18] MEDS: ENOXAPARIN 30MG/0.3ML SYR SUBCUT SCH (08:17)
[2018-01-18] MEDS: BACLOFEN 20MG TABLET PO SCH ×2 (08:21→13:32)
[2018-01-18] MEDS: FAMOTIDINE 20MG TABLET PO SCH (08:21)
[2018-01-18 08:37] VITALS: BP 171/98
[2018-01-18] MEDS: NEOMY SULF/BACITRAC ZN/POLY OINT 28GM TOP SCH (08:53)
[2018-01-18] MEDS: LIDOCAINE HCL 4% CREAM 76GM TUBE TP PRN (08:53)
[2018-01-18] MEDS: DONEPEZIL HCL 10MG TABLET PO SCH (08:54)
[2018-01-18] MEDS: TERBINAFINE HCL 1% CREAM 30GM TOP SCH (08:54)
[2018-01-18] MEDS: HYDROMORPHONE HCL/PF 2MG/ML CPJ IV PRN ×2 (10:39→14:40)
[2018-01-18 14:40] VITALS: BP 136/79
[2018-01-18 17:06] LABS: 25-HYDROXY VITAMIN D3 11 ng/mL (.)
== END 2018-01-18 16:17 | disposition home health service (06) | DRG 58 ==
PROVIDERS: ADMIT Physical Medicine & Rehabilitation Spinal Cord Injury Medicine; ATTEND Internal Medicine Nephrology
DX: G35 Multiple sclerosis (principal); G82.50 Quadriplegia, unspecified; N39.0 Urinary tract infection, site not specified; J98.11 Atelectasis; G89.4 Chronic pain syndrome; R53.81 Other malaise; E11.42 Type 2 diabetes mellitus with diabetic polyneuropathy; E78.00 Pure hypercholesterolemia, unspecified; G31.84 Mild cognitive impairment of uncertain or unknown etiology; M79.7 Fibromyalgia; Z60.2 Problems related to living alone; E03.9 Hypothyroidism, unspecified; E66.9 Obesity, unspecified; E11.65 Type 2 diabetes mellitus with hyperglycemia; E78.1 Pure hyperglyceridemia; E78.5 Hyperlipidemia, unspecified; R20.2 Paresthesia of skin; R26.9 Unspecified abnormalities of gait and mobility; R20.0 Anesthesia of skin; I11.9 Hypertensive heart disease without heart failure; F41.9 Anxiety disorder, unspecified; M62.838 Other muscle spasm; F06.31 Mood disorder due to known physiological condition with depressive features; I27.20 Pulmonary hypertension, unspecified; J44.9 Chronic obstructive pulmonary disease, unspecified; K57.90 Diverticulosis of intestine, part unspecified, without perforation or abscess without bleeding; K76.0 Fatty (change of) liver, not elsewhere classified; M47.814 Spondylosis without myelopathy or radiculopathy, thoracic region; M48.061 Spinal stenosis, lumbar region without neurogenic claudication; N63.10 Unspecified lump in the right breast, unspecified quadrant; Z80.0 Family history of malignant neoplasm of digestive organs; Z80.1 Family history of malignant neoplasm of trachea, bronchus and lung; Z82.49 Family history of ischemic heart disease and other diseases of the circulatory system; Z83.3 Family history of diabetes mellitus; Z79.890 Hormone replacement therapy; Z68.33 Body mass index [BMI] 33.0-33.9, adult; Z80.42 Family history of malignant neoplasm of prostate
CPT/HCPCS: 36415; 80048; 80061; 82306; 82550; 82607; 82728; 82746; 82962; 83036; 83540; 83550; 83735; 84100; 84134; 84439; 84443; 84630; 84681; 92523; 92610; 93970; 94640; 94660; 97110; 97112; 97116; 97163; 97530; 97535; A6261; G0515; J1170; J1650; J1815; J2060; J2405; J7512; J7620

== ENCOUNTER 2018-06-17 12:08 | Inpatient (IN) | payer MEDICARE, MEDICAID ==
[~2018-06-17] VITALS: Ht 172.7 cm; Wt 112.9 kg
[2018-06-17] MEDS ORDERED: ONDANSETRON HCL 4MG/2ML INJ IV STA (12:53)
[2018-06-17] MEDS ORDERED: MORPHINE SULFATE 4 MG/ML CPJ (NOT FOR IM USE) IV STA (12:53)
[2018-06-17] MEDS ORDERED: KETOROLAC 30MG/ML VIAL IV STA (12:53)
[2018-06-17] MEDS ORDERED: SODIUM CHLORIDE 0.9% 1,000 ML IV ONE ×2 (12:53→14:23)
[2018-06-17 13:26] LABS: HEMATOCRIT. 46.7 % (36.0-48.0); HEMOGLOBIN. 15.8 g/dL (12.0-16.0); MEAN CORPUSCULAR HEMOGLOBIN 30.9 pg (28.0-32.0); MEAN CORPUSCULAR VOLUME 91.5 fL (81.0-99.0); MEAN PLATELET VOLUME 7.6 fl (7.4-10.4); PLATELET 342 x1000/uL (130-400)
[2018-06-17 13:31] LABS: CHLORIDE 95 mEq/L (98-107)
[2018-06-17 13:34] LABS: PARTIAL THROMBOPLASTIN TIME 25.7 sec (23.4-31.0); PROTHROMBIN TIME 10.4 sec (9.6-11.0)
[2018-06-17 13:37] LABS: ETHANOL BLOOD < 10 mg/dL
[2018-06-17 13:41] LABS: PLATELET ESTIMATE NORMAL
[2018-06-17 13:44] LABS: CREATINE KINASE MB FRACTION 20.3 ng/mL (0.5-3.6)
[2018-06-17 14:06] LABS: CREATINE KINASE 5333 IU/L (26-192)
[2018-06-17] MEDS ORDERED: PIPERACILLIN/TAZ 3.375G PREMIX 50 ML IV ONE (14:30)
[2018-06-17] MEDS ORDERED: VANCOMYCIN 1 G PREMIX 200 ML IV SCH (14:30)
[2018-06-17] MEDS ORDERED: SODIUM CHLORIDE 0.45% 1,000 ML IV ONE (15:45)
[2018-06-17] MEDS ORDERED: AMLODIPINE 5MG TABLET PO NR (16:00)
[2018-06-17 17:56] LABS: CLARITY URINE CLOUDY (CLEAR); COLOR URINE YELLOW (YELLOW); KETONES URINE NEGATIVE (NEGATIVE); LEUKOCYTE ESTERASE URINE NEGATIVE (NEGATIVE); NITRITE URINE NEGATIVE (NEGATIVE); OCCULT BLOOD URINE 1+ (NEGATIVE); PROTEIN URINE NEGATIVE (NEGATIVE); UROBILINOGEN URINE 0.2 E.U./dL (0.2-1.0)
[2018-06-17 18:19] LABS: *AMPHETAMINES SCREEN URINE NEGATIVE (NEGATIVE); *BARBITURATES SCREEN URINE NEGATIVE (NEGATIVE); *BENZODIAZEPINES SCREEN URINE NEGATIVE (NEGATIVE); *COCAINE SCREEN URINE NEGATIVE (NEGATIVE)
[2018-06-17 18:20] LABS: METHADONE URINE SCREEN NEGATIVE (NEGATIVE); OPIATES URINE SCREEN PRESUMTIVE POSITIVE (NEGATIVE); PHENCYCLIDINE URINE SCREEN NEGATIVE (NEGATIVE)
[2018-06-17 18:21] LABS: CANNABINOID URINE SCREEN NEGATIVE (NEGATIVE)
[2018-06-17] MEDS ORDERED: SODIUM CHLORIDE 0.45% 1,000 ML IV SCH (20:11)
[2018-06-17] MEDS ORDERED: ACETAMINOPHEN 325MG TABLET PO PRN (20:15)
[2018-06-17] MEDS ORDERED: CLONIDINE 0.1MG TABLET PO PRN (20:15)
[2018-06-17] MEDS ORDERED: HYDROMORPHONE HCL/PF 2MG/ML CPJ IV PRN (20:15)
[2018-06-17 23:17] VITALS: BP 143/83
[2018-06-17 23:46] VITALS: BP 156/90
[2018-06-17] MEDS: HYDROMORPHONE HCL/PF 2MG/ML CPJ IV PRN (23:56)
[2018-06-18] VITALS (11 sets, daily range): BP systolic 95–160; BP diastolic 52–89
[2018-06-18] MEDS ORDERED: DEXTROSE 50% WATER 50ML SYRINGE IV PRN (01:15)
[2018-06-18] MEDS: PIPERACILLIN/TAZ 3.375G PREMIX 50 ML IV SCH ×4 (02:44→22:47)
[2018-06-18] MEDS ORDERED: VANCOMYCIN 1 G PREMIX 200 ML IV SCH ×2 (03:00→16:00)
[2018-06-18] MEDS: GABAPENTIN 300MG CAPSULE PO SCH ×3 (05:44→22:47)
[2018-06-18] MEDS: HYDROMORPHONE HCL/PF 2MG/ML CPJ IV PRN ×3 (05:47→15:13)
[2018-06-18] MEDS: BLOOD SUGAR DIAGNOSTIC STRIP TEST SCH ×4 (06:08→21:37)
[2018-06-18 06:45] LABS: BASOPHILS % 0.5 % (0.0-2.0); EOSINOPHILS % 0.8 % (0.0-5.0); HEMATOCRIT. 39.8 % (36.0-48.0); HEMOGLOBIN. 13.3 g/dL (12.0-16.0); LYMPHOCYTES % 10.1 % (20.0-50.0); MEAN CORPUSCULAR HEMOGLOBIN 30.4 pg (28.0-32.0); MEAN CORPUSCULAR VOLUME 90.8 fL (81.0-99.0); MEAN PLATELET VOLUME 7.7 fl (7.4-10.4); MONOCYTES % 6.4 % (2.0-8.0); NEUTROPHILS % 82.2 % (40.0-76.0); PLATELET 307 x1000/uL (130-400); RED BLOOD CELL COUNT 4.38 mill/uL (4.2-5.4); RED CELL DISTRIBUTION WIDTH 15.1 % (11.6-14.6)
[2018-06-18 06:58] LABS: CHLORIDE 101 mEq/L (98-107)
[2018-06-18 07:16] LABS: HDL CHOLESTEROL 51 mg/dL (40-59)
[2018-06-18] MEDS: INSULIN LISPRO 100 UNITS/ML SUBCUT SCH ×4 (07:20→22:08)
[2018-06-18 07:27] LABS: LDL CHOLESTEROL 310 mg/dL (5-100)
[2018-06-18 08:20] LABS: CREATINE KINASE 3893 IU/L (26-192)
[2018-06-18] MEDS: ONDANSETRON HCL 4MG/2ML INJ IV PRN ×2 (08:34→16:02)
[2018-06-18] MEDS: BACLOFEN 20MG TABLET PO SCH ×2 (08:48→17:02)
[2018-06-18] MEDS: ENOXAPARIN 30MG/0.3ML SYR SUBCUT SCH ×2 (08:48→22:08)
[2018-06-18] MEDS: LISINOPRIL 40MG TABLET PO SCH (08:49)
[2018-06-18] MEDS: IPRATROPIUM/ALBUTEROL 0.5-3(2.5)MG/3ML NEB INH SCH ×3 (09:00→20:44)
[2018-06-18] MEDS: DONEPEZIL HCL 10MG TABLET PO SCH (11:25)
[2018-06-18] MEDS: LEVOTHYROXINE SODIUM 25MCG TABLET PO SCH (11:25)
[2018-06-18] MEDS: CARBAMAZEPINE 200MG TABLET PO SCH ×3 (11:25→22:47)
[2018-06-18] MEDS: AMLODIPINE 5MG TABLET PO SCH (11:25)
[2018-06-18] MEDS: PREDNISONE 10MG TABLET PO SCH (11:26)
[2018-06-18] MEDS: INSULIN GLARGINE UD 100 UNITS/ML SYR SUBCUT SCH ×2 (12:04→22:46)
[2018-06-18] MEDS: SODIUM CHLORIDE 0.45% 1,000 ML IV SCH (14:59)
[2018-06-18] MEDS ORDERED: VANCOMYCIN 750 MG PREMIX 150 ML IV SCH (15:00)
[2018-06-18] MEDS ORDERED: AMITRIPTYLINE 50MG TABLET PO SCH (21:00)
[2018-06-18] MEDS ORDERED: ATORVASTATIN CALCIUM 10MG TABLET PO SCH (21:00)
[2018-06-19] VITALS (11 sets, daily range): BP systolic 93–142; BP diastolic 57–83
[2018-06-19] MEDS: HYDROMORPHONE HCL/PF 2MG/ML CPJ IV PRN ×3 (00:06→13:26)
[2018-06-19] MEDS: SODIUM CHLORIDE 0.45% 1,000 ML IV SCH (00:16)
[2018-06-19] MEDS: PIPERACILLIN/TAZ 3.375G PREMIX 50 ML IV SCH ×2 (04:19→10:25)
[2018-06-19] MEDS: LEVOTHYROXINE SODIUM 25MCG TABLET PO SCH (05:55)
[2018-06-19] MEDS: GABAPENTIN 300MG CAPSULE PO SCH ×2 (05:55→13:08)
[2018-06-19] MEDS: CARBAMAZEPINE 200MG TABLET PO SCH ×2 (05:55→13:07)
[2018-06-19] MEDS: BLOOD SUGAR DIAGNOSTIC STRIP TEST SCH ×3 (06:50→16:43)
[2018-06-19 07:17] LABS: BASOPHILS % 0.3 % (0.0-2.0); EOSINOPHILS % 1.3 % (0.0-5.0); HEMOGLOBIN. 12.7 g/dL (12.0-16.0); LYMPHOCYTES % 10.6 % (20.0-50.0); MEAN CORPUSCULAR HEMOGLOBIN 30.9 pg (28.0-32.0); MEAN PLATELET VOLUME 7.4 fl (7.4-10.4); MONOCYTES % 8.5 % (2.0-8.0); NEUTROPHILS % 79.3 % (40.0-76.0); PLATELET 296 x1000/uL (130-400); RED BLOOD CELL COUNT 4.13 mill/uL (4.2-5.4); RED CELL DISTRIBUTION WIDTH 14.4 % (11.6-14.6)
[2018-06-19] MEDS: IPRATROPIUM/ALBUTEROL 0.5-3(2.5)MG/3ML NEB INH SCH ×2 (07:24)
[2018-06-19 07:41] LABS: CHLORIDE 101 mEq/L (98-107)
[2018-06-19 08:06] LABS: CREATINE KINASE 2013 IU/L (26-192)
[2018-06-19] MEDS: PREDNISONE 10MG TABLET PO SCH (08:32)
[2018-06-19] MEDS: DONEPEZIL HCL 10MG TABLET PO SCH (08:32)
[2018-06-19] MEDS: BACLOFEN 20MG TABLET PO SCH ×2 (08:32→16:49)
[2018-06-19] MEDS: INSULIN LISPRO 100 UNITS/ML SUBCUT SCH ×3 (08:32→16:49)
[2018-06-19] MEDS: ENOXAPARIN 30MG/0.3ML SYR SUBCUT SCH (08:32)
[2018-06-19] MEDS: AMLODIPINE 5MG TABLET PO SCH (08:33)
[2018-06-19] MEDS: LISINOPRIL 40MG TABLET PO SCH (08:33)
[2018-06-19] MEDS ORDERED: AMLODIPINE 5MG TABLET PO SCH (09:00)
[2018-06-19] MEDS ORDERED: LISINOPRIL 10MG TABLET PO SCH (09:00)
[2018-06-19] MEDS: INSULIN GLARGINE UD 100 UNITS/ML SYR SUBCUT SCH (11:10)
[2018-06-19] MEDS ORDERED: DOCUSATE SODIUM 100MG CAPSULE PO SCH (17:00)
[2018-06-19] MEDS ORDERED: ATORVASTATIN CALCIUM 10MG TABLET PO SCH (21:00)
[2018-06-20] MEDS ORDERED: CARB200T PO (04:35)
== END 2018-06-19 10:50 | DRG 871 ==
LOC: ER 12:08 → 3WST 14:25 → EDBEDREQ 14:38 → EDBEDREQSVC 14:38 → ENRESERV 20:44
PROVIDERS: ADMIT Internal Medicine Nephrology; ATTEND Internal Medicine Nephrology
PROC: 02HV33Z Insertion of Infusion Device into Superior Vena Cava, Percutaneous Approach (ICD-10-PCS; principal; 2018-06-18)
PROC: B5181ZA Fluoroscopy of Superior Vena Cava using Low Osmolar Contrast, Guidance (ICD-10-PCS; 2018-06-18)
PROC: B548ZZA Ultrasonography of Superior Vena Cava, Guidance (ICD-10-PCS; 2018-06-18)
DX: A41.9 Sepsis, unspecified organism (principal); G82.50 Quadriplegia, unspecified; N39.0 Urinary tract infection, site not specified; M62.82 Rhabdomyolysis; E87.2 Acidosis; G93.40 Encephalopathy, unspecified; E87.1 Hypo-osmolality and hyponatremia; G35 Multiple sclerosis; M79.7 Fibromyalgia; F32.9 Major depressive disorder, single episode, unspecified; E78.5 Hyperlipidemia, unspecified; M21.331 Wrist drop, right wrist; E11.42 Type 2 diabetes mellitus with diabetic polyneuropathy; E03.9 Hypothyroidism, unspecified; E11.65 Type 2 diabetes mellitus with hyperglycemia; E66.9 Obesity, unspecified; E78.00 Pure hypercholesterolemia, unspecified; E78.1 Pure hyperglyceridemia; G90.8 Other disorders of autonomic nervous system; E86.0 Dehydration; G89.4 Chronic pain syndrome; I10 Essential (primary) hypertension; I25.10 Atherosclerotic heart disease of native coronary artery without angina pectoris; J32.0 Chronic maxillary sinusitis; J44.9 Chronic obstructive pulmonary disease, unspecified; K76.0 Fatty (change of) liver, not elsewhere classified; M48.061 Spinal stenosis, lumbar region without neurogenic claudication; F41.9 Anxiety disorder, unspecified; N63.10 Unspecified lump in the right breast, unspecified quadrant; W18.39XA Other fall on same level, initial encounter; Y93.89 Activity, other specified; Y92.89 Other specified places as the place of occurrence of the external cause; Y99.8 Other external cause status; Z79.4 Long term (current) use of insulin; Z79.891 Long term (current) use of opiate analgesic; Z79.899 Other long term (current) drug therapy; Z80.0 Family history of malignant neoplasm of digestive organs; Z80.1 Family history of malignant neoplasm of trachea, bronchus and lung; Z80.42 Family history of malignant neoplasm of prostate; Z82.49 Family history of ischemic heart disease and other diseases of the circulatory system; Z83.3 Family history of diabetes mellitus; Z86.73 Personal history of transient ischemic attack (TIA), and cerebral infarction without residual deficits; Z98.891 History of uterine scar from previous surgery
CPT/HCPCS: 36415; 36569; 36573; 70544; 70553; 71045; 72192; 73030; 80048; 80061; 80305; 80320; 82550; 82553; 82962; 83605; 83880; 84443; 84484; 85651; 87106; 93005; 93306; 93880; 94640; 96365; 96366; 96375; 97162; 97166; 97530; 97760; 99285; C1725; J1170; J1650; J1815; J1885; J2270; J2405; J2543; J3370; J7030; J7040; J7050; J7512; J7620; A4315; G0480

== ENCOUNTER 2018-06-19 19:55 | Inpatient (IN) | payer MEDICARE, MEDICAID ==
[~2018-06-19] VITALS: Ht 172.7 cm; Wt 112.9 kg
[2018-06-19 20:00] VITALS: BP 101/69
[2018-06-19] MEDS ORDERED: DEXTROSE 50% WATER 50ML SYRINGE IV PRN (22:00)
[2018-06-19] MEDS ORDERED: ACETAMINOPHEN 325MG TABLET PO PRN (22:00)
[2018-06-19] MEDS ORDERED: CLONIDINE 0.1MG TABLET PO PRN (22:00)
[2018-06-19] MEDS ORDERED: INSULIN GLARGINE UD 100 UNITS/ML SYR SUBCUT SCH (22:00)
[2018-06-19] MEDS ORDERED: ONDANSETRON HCL 4MG/2ML INJ IV PRN (22:00)
[2018-06-19] MEDS: GABAPENTIN 300MG CAPSULE PO SCH (23:21)
[2018-06-19] MEDS: CARBAMAZEPINE 200MG TABLET PO SCH (23:50)
[2018-06-19] MEDS: AMITRIPTYLINE 50MG TABLET PO SCH (23:51)
[2018-06-19] MEDS: PIPERACILLIN/TAZ 3.375G PREMIX 50 ML IV SCH (23:52)
[2018-06-19] MEDS: SODIUM CHLORIDE 0.45% 1,000 ML IV SCH (23:53)
[2018-06-20] MEDS ORDERED: INSULIN LISPRO 100 UNITS/ML SUBCUT NR (00:45)
[2018-06-20] MEDS: INSULIN GLARGINE UD 100 UNITS/ML SYR SUBCUT SCH ×3 (00:54→22:00)
[2018-06-20 02:02] VITALS: BP 101/69
[2018-06-20] MEDS ORDERED: CARB200T PO (04:35)
[2018-06-20] MEDS: LEVOTHYROXINE SODIUM 25MCG TABLET PO SCH (06:41)
[2018-06-20] MEDS: GABAPENTIN 300MG CAPSULE PO SCH ×3 (06:43→21:45)
[2018-06-20] MEDS: BLOOD SUGAR DIAGNOSTIC STRIP TEST SCH ×4 (06:43→21:00)
[2018-06-20] MEDS: PIPERACILLIN/TAZ 3.375G PREMIX 50 ML IV SCH (06:43)
[2018-06-20] MEDS: CARBAMAZEPINE 200MG TABLET PO SCH ×3 (06:43→21:46)
[2018-06-20] MEDS: INSULIN LISPRO 100 UNITS/ML SUBCUT SCH ×4 (06:58→21:59)
[2018-06-20 07:25] LABS: BASOPHILS % 0.5 % (0.0-2.0); EOSINOPHILS % 1.7 % (0.0-5.0); HEMATOCRIT. 36.9 % (36.0-48.0); HEMOGLOBIN. 12.6 g/dL (12.0-16.0); LYMPHOCYTES % 17.5 % (20.0-50.0); MEAN CORPUSCULAR HEMOGLOBIN 31.4 pg (28.0-32.0); MEAN CORPUSCULAR VOLUME 91.7 fL (81.0-99.0); MEAN PLATELET VOLUME 7.3 fl (7.4-10.4); MONOCYTES % 9.9 % (2.0-8.0); NEUTROPHILS % 70.4 % (40.0-76.0); PLATELET 273 x1000/uL (130-400); RED BLOOD CELL COUNT 4.03 mill/uL (4.2-5.4); RED CELL DISTRIBUTION WIDTH 14.7 % (11.6-14.6)
[2018-06-20] MEDS: IPRATROPIUM/ALBUTEROL 0.5-3(2.5)MG/3ML NEB HHN SCH ×4 (07:32→21:23)
[2018-06-20 07:44] LABS: CHLORIDE 106 mEq/L (98-107)
[2018-06-20 08:53] VITALS: BP 131/64
[2018-06-20] MEDS ORDERED: INSULIN LISPRO 100 UNITS/ML SUBCUT SCH ×2 (09:00)
[2018-06-20] MEDS ORDERED: PANTOPRAZOLE 40MG DR TABLET PO SCH (10:00)
[2018-06-20] MEDS: PREDNISONE 10MG TABLET PO SCH (10:12)
[2018-06-20] MEDS: AMLODIPINE 2.5MG TABLET PO SCH (10:12)
[2018-06-20] MEDS: DONEPEZIL HCL 10MG TABLET PO SCH (10:12)
[2018-06-20] MEDS: BACLOFEN 20MG TABLET PO SCH ×2 (10:13→17:59)
[2018-06-20] MEDS: HYDROMORPHONE HCL/PF 2MG/ML CPJ IV PRN ×2 (10:13→18:00)
[2018-06-20] MEDS: SODIUM CHLORIDE 0.45% 1,000 ML IV SCH ×2 (10:13→23:50)
[2018-06-20] MEDS: LISINOPRIL 10MG TABLET PO SCH (10:13)
[2018-06-20] MEDS: ENOXAPARIN 30MG/0.3ML SYR SUBCUT SCH ×2 (10:16→21:46)
[2018-06-20] MEDS: DOCUSATE SODIUM 100MG CAPSULE PO SCH ×2 (10:40→17:59)
[2018-06-20 20:00] VITALS: BP 133/71
[2018-06-20] MEDS ORDERED: AMITRIPTYLINE 50MG TABLET PO SCH (21:00)
[2018-06-20] MEDS: AMITRIPTYLINE 50MG TABLET PO SCH (21:46)
[2018-06-20] MEDS: ATORVASTATIN CALCIUM 10MG TABLET PO SCH (21:46)
[2018-06-20] MEDS: POLYETHYLENE GLYCOL 3350 (17GM) 1 DOSE PACK PO SCH (21:46)
[2018-06-21] MEDS: GABAPENTIN 300MG CAPSULE PO SCH ×2 (06:00→14:00)
[2018-06-21] MEDS: CARBAMAZEPINE 200MG TABLET PO SCH ×2 (06:00→14:00)
[2018-06-21] MEDS: BLOOD SUGAR DIAGNOSTIC STRIP TEST SCH ×4 (06:30→21:00)
[2018-06-21] MEDS: LEVOTHYROXINE SODIUM 25MCG TABLET PO SCH (07:00)
[2018-06-21] MEDS: IPRATROPIUM/ALBUTEROL 0.5-3(2.5)MG/3ML NEB HHN SCH ×4 (07:22→20:00)
[2018-06-21 08:00] VITALS: BP 186/99
[2018-06-21] MEDS: FLUCONAZOLE 100MG TABLET PO SCH (09:01)
[2018-06-21] MEDS: PREDNISONE 10MG TABLET PO SCH (09:01)
[2018-06-21] MEDS: DONEPEZIL HCL 10MG TABLET PO SCH (09:02)
[2018-06-21] MEDS: AMLODIPINE 2.5MG TABLET PO SCH (09:02)
[2018-06-21] MEDS: BACLOFEN 20MG TABLET PO SCH ×2 (09:02→17:37)
[2018-06-21] MEDS: LISINOPRIL 10MG TABLET PO SCH (09:02)
[2018-06-21] MEDS: HYDROMORPHONE HCL/PF 2MG/ML CPJ IV PRN ×2 (09:03→17:40)
[2018-06-21] MEDS: DOCUSATE SODIUM 100MG CAPSULE PO SCH ×2 (09:03→17:37)
[2018-06-21] MEDS: INSULIN GLARGINE UD 100 UNITS/ML SYR SUBCUT SCH ×2 (09:42→22:21)
[2018-06-21] MEDS ORDERED: BISACODYL 5MG TABLET PO PRN (10:30)
[2018-06-21] MEDS ORDERED: BISACODYL 10MG SUPP PR PRN (10:30)
[2018-06-21] MEDS: ENOXAPARIN 30MG/0.3ML SYR SUBCUT SCH ×2 (10:49→22:38)
[2018-06-21] MEDS: HYDROCODONE/ACETAMINOPHEN 10/325MG TABLET PO PRN ×2 (12:41→22:24)
[2018-06-21] MEDS: INSULIN LISPRO 100 UNITS/ML SUBCUT SCH ×4 (12:50→22:16)
[2018-06-21 16:09] LABS: CLARITY URINE CLOUDY (CLEAR); COLOR URINE YELLOW (YELLOW); KETONES URINE NEGATIVE (NEGATIVE); LEUKOCYTE ESTERASE URINE 2+ (NEGATIVE); NITRITE URINE NEGATIVE (NEGATIVE); OCCULT BLOOD URINE 2+ (NEGATIVE); PH URINE 5.5 (4.5-8.0); PROTEIN URINE NEGATIVE (NEGATIVE)
[2018-06-21 20:00] VITALS: BP 173/97
[2018-06-21] MEDS: POLYETHYLENE GLYCOL 3350 (17GM) 1 DOSE PACK PO SCH (21:00)
[2018-06-21] MEDS: AMLODIPINE 5MG TABLET PO SCH (22:25)
[2018-06-21] MEDS: ATORVASTATIN CALCIUM 10MG TABLET PO SCH (22:26)
[2018-06-21] MEDS: AMITRIPTYLINE 50MG TABLET PO SCH (22:38)
[2018-06-22] MEDS: CARBAMAZEPINE 200MG TABLET PO SCH ×4 (00:09→21:28)
[2018-06-22] MEDS: GABAPENTIN 300MG CAPSULE PO SCH ×4 (00:09→21:28)
[2018-06-22] MEDS: IPRATROPIUM/ALBUTEROL 0.5-3(2.5)MG/3ML NEB HHN SCH ×4 (02:00→20:59)
[2018-06-22] MEDS: LEVOTHYROXINE SODIUM 25MCG TABLET PO SCH (06:20)
[2018-06-22] MEDS: BLOOD SUGAR DIAGNOSTIC STRIP TEST SCH ×4 (06:21→21:41)
[2018-06-22] MEDS: INSULIN LISPRO 100 UNITS/ML SUBCUT SCH ×4 (06:40→21:57)
[2018-06-22] MEDS: HYDROMORPHONE HCL/PF 2MG/ML CPJ IV PRN ×3 (06:53→23:44)
[2018-06-22 07:16] LABS: BASOPHILS % 0.5 % (0.0-2.0); EOSINOPHILS % 2.1 % (0.0-5.0); HEMATOCRIT. 37.2 % (36.0-48.0); HEMOGLOBIN. 12.4 g/dL (12.0-16.0); LYMPHOCYTES % 18.8 % (20.0-50.0); MEAN CORPUSCULAR HEMOGLOBIN 30.7 pg (28.0-32.0); MEAN PLATELET VOLUME 7.5 fl (7.4-10.4); MONOCYTES % 8.4 % (2.0-8.0); NEUTROPHILS % 70.2 % (40.0-76.0); PLATELET 273 x1000/uL (130-400); RED BLOOD CELL COUNT 4.05 mill/uL (4.2-5.4); RED CELL DISTRIBUTION WIDTH 14.4 % (11.6-14.6)
[2018-06-22 07:50] LABS: FOLIC ACID (FOLATE) SERUM 10.9 ng/mL (>5.38)
[2018-06-22] MEDS: SODIUM CHLORIDE 0.45% 1,000 ML IV SCH ×3 (07:52→21:41)
[2018-06-22 08:00] VITALS: BP 172/104
[2018-06-22 08:42] LABS: CHLORIDE 108 mEq/L (98-107)
[2018-06-22 08:48] LABS: PHOSPHORUS 3.7 mg/dL (2.5-4.9); TOTAL IRON BINDING CAPACITY 256 ug/dL (250-450)
[2018-06-22] MEDS: FLUCONAZOLE 100MG TABLET PO SCH (09:26)
[2018-06-22] MEDS: LISINOPRIL 10MG TABLET PO SCH (09:26)
[2018-06-22] MEDS: FAMOTIDINE 20MG TABLET PO SCH ×2 (09:26→21:27)
[2018-06-22] MEDS: BACLOFEN 20MG TABLET PO SCH ×2 (09:27→17:42)
[2018-06-22] MEDS: DOCUSATE SODIUM 100MG CAPSULE PO SCH ×2 (09:27→17:42)
[2018-06-22] MEDS: PREDNISONE 10MG TABLET PO SCH (09:27)
[2018-06-22] MEDS: AMLODIPINE 5MG TABLET PO SCH ×2 (09:27→21:27)
[2018-06-22] MEDS: DONEPEZIL HCL 10MG TABLET PO SCH (09:27)
[2018-06-22] MEDS: ENOXAPARIN 30MG/0.3ML SYR SUBCUT SCH ×2 (09:28→21:33)
[2018-06-22] MEDS ORDERED: LIDOCAINE HCL 1% 20ML VIAL (Pyxis) INJ INFIL NR (10:30)
[2018-06-22] MEDS ORDERED: ETHYL CHLORIDE CAN TOP NR (10:30)
[2018-06-22] MEDS ORDERED: TRIAMCINOLONE ACETONIDE 40MG/ML 1ML VIAL IM NR (10:30)
[2018-06-22] MEDS ORDERED: BUPIVACAINE HCL/PF 0.25% (2.5MG/ML) 10ML INFIL NR (10:30)
[2018-06-22] MEDS: HYDROCODONE/ACETAMINOPHEN 10/325MG TABLET PO PRN (10:39)
[2018-06-22] MEDS: INSULIN GLARGINE UD 100 UNITS/ML SYR SUBCUT SCH ×2 (10:41→21:55)
[2018-06-22] MEDS: FERROUS SULFATE 325MG TABLET PO SCH (17:42)
[2018-06-22 20:00] VITALS: BP 158/68
[2018-06-22] MEDS: AMITRIPTYLINE 50MG TABLET PO SCH (21:26)
[2018-06-22] MEDS: ATORVASTATIN CALCIUM 10MG TABLET PO SCH (21:26)
[2018-06-22] MEDS: POLYETHYLENE GLYCOL 3350 (17GM) 1 DOSE PACK PO SCH (21:32)
[2018-06-23 06:39] LABS: EOSINOPHILS % 1.9 % (0.0-5.0); HEMATOCRIT. 34.8 % (36.0-48.0); HEMOGLOBIN. 11.8 g/dL (12.0-16.0); LYMPHOCYTES % 18.7 % (20.0-50.0); MEAN CORPUSCULAR HEMOGLOBIN 31.3 pg (28.0-32.0); MEAN CORPUSCULAR VOLUME 92.1 fL (81.0-99.0); MEAN PLATELET VOLUME 7.5 fl (7.4-10.4); MONOCYTES % 7.7 % (2.0-8.0); NEUTROPHILS % 70.7 % (40.0-76.0); PLATELET 249 x1000/uL (130-400); RED BLOOD CELL COUNT 3.78 mill/uL (4.2-5.4); RED CELL DISTRIBUTION WIDTH 14.2 % (11.6-14.6)
[2018-06-23] MEDS: CARBAMAZEPINE 200MG TABLET PO SCH ×3 (06:44→21:59)
[2018-06-23] MEDS: GABAPENTIN 300MG CAPSULE PO SCH ×3 (06:44→21:59)
[2018-06-23] MEDS: LEVOTHYROXINE SODIUM 25MCG TABLET PO SCH (06:44)
[2018-06-23] MEDS: BLOOD SUGAR DIAGNOSTIC STRIP TEST SCH ×4 (06:52→21:00)
[2018-06-23 06:59] LABS: CHLORIDE 107 mEq/L (98-107)
[2018-06-23] MEDS: INSULIN LISPRO 100 UNITS/ML SUBCUT SCH ×3 (07:03→16:58)
[2018-06-23 07:16] LABS: CREATINE KINASE 184 IU/L (26-192)
[2018-06-23] MEDS: HYDROMORPHONE HCL/PF 2MG/ML CPJ IV PRN ×2 (07:45→21:44)
[2018-06-23] MEDS: SODIUM CHLORIDE 0.45% 1,000 ML IV SCH (07:48)
[2018-06-23 08:00] VITALS: BP 139/72
[2018-06-23] MEDS: FERROUS SULFATE 325MG TABLET PO SCH ×3 (08:41→16:55)
[2018-06-23] MEDS: PREDNISONE 10MG TABLET PO SCH (08:42)
[2018-06-23] MEDS: DONEPEZIL HCL 10MG TABLET PO SCH (08:42)
[2018-06-23] MEDS: AMLODIPINE 5MG TABLET PO SCH ×2 (08:42→22:19)
[2018-06-23] MEDS: BACLOFEN 20MG TABLET PO SCH ×2 (08:42→16:54)
[2018-06-23] MEDS: FAMOTIDINE 20MG TABLET PO SCH ×2 (08:42→22:00)
[2018-06-23] MEDS: LISINOPRIL 10MG TABLET PO SCH (08:43)
[2018-06-23] MEDS: ENOXAPARIN 30MG/0.3ML SYR SUBCUT SCH ×2 (08:43→21:59)
[2018-06-23] MEDS: FLUCONAZOLE 100MG TABLET PO SCH (08:43)
[2018-06-23] MEDS: DOCUSATE SODIUM 100MG CAPSULE PO SCH ×2 (08:43→16:54)
[2018-06-23] MEDS: LIDOCAINE 5% PATCH TOP SCH ×2 (09:01→12:10)
[2018-06-23] MEDS: INSULIN GLARGINE UD 100 UNITS/ML SYR SUBCUT SCH ×2 (09:33→22:05)
[2018-06-23] MEDS: IPRATROPIUM/ALBUTEROL 0.5-3(2.5)MG/3ML NEB HHN SCH ×2 (15:50→20:57)
[2018-06-23] MEDS: INSULIN LISPRO (LOW DOSE) 100 UNITS/ML SUBCUT SCH ×2 (17:00→22:06)
[2018-06-23] MEDS ORDERED: INSULIN LISPRO 100 UNITS/ML SUBCUT SCH (17:00)
[2018-06-23 20:00] VITALS: BP 122/73
[2018-06-23] MEDS: POLYETHYLENE GLYCOL 3350 (17GM) 1 DOSE PACK PO SCH (21:00)
[2018-06-23] MEDS: ATORVASTATIN CALCIUM 10MG TABLET PO SCH (22:00)
[2018-06-23] MEDS: AMITRIPTYLINE 50MG TABLET PO SCH (22:19)
[2018-06-24] MEDS ORDERED: DEXTROSE 50% WATER 50ML SYRINGE IV PRN (06:15)
[2018-06-24] MEDS ORDERED: BLOOD SUGAR DIAGNOSTIC STRIP TEST SCH (06:30)
[2018-06-24] MEDS: CARBAMAZEPINE 200MG TABLET PO SCH ×3 (06:37→21:33)
[2018-06-24] MEDS: GABAPENTIN 300MG CAPSULE PO SCH ×3 (06:37→21:34)
[2018-06-24] MEDS: HYDROMORPHONE HCL/PF 2MG/ML CPJ IV PRN ×3 (06:43→21:32)
[2018-06-24 06:44] LABS: BASOPHILS % 0.6 % (0.0-2.0); EOSINOPHILS % 1.1 % (0.0-5.0); HEMATOCRIT. 35.6 % (36.0-48.0); LYMPHOCYTES % 14.3 % (20.0-50.0); MEAN CORPUSCULAR HEMOGLOBIN 31.1 pg (28.0-32.0); MEAN PLATELET VOLUME 7.5 fl (7.4-10.4); MONOCYTES % 7.5 % (2.0-8.0); NEUTROPHILS % 76.5 % (40.0-76.0); PLATELET 264 x1000/uL (130-400); RED BLOOD CELL COUNT 3.87 mill/uL (4.2-5.4); RED CELL DISTRIBUTION WIDTH 14.4 % (11.6-14.6)
[2018-06-24] MEDS: BLOOD SUGAR DIAGNOSTIC STRIP TEST SCH ×4 (06:44→21:34)
[2018-06-24] MEDS ORDERED: LEVOTHYROXINE SODIUM 25MCG TABLET PO SCH (07:00)
[2018-06-24] MEDS ORDERED: INSULIN LISPRO (PRANDIAL)100 UNITS/ML SUBCUT SCH (07:00)
[2018-06-24] MEDS ORDERED: INSULIN LISPRO 100 UNITS/ML SUBCUT SCH (07:00)
[2018-06-24] MEDS: INSULIN LISPRO (LOW DOSE) 100 UNITS/ML SUBCUT SCH ×3 (07:04→17:15)
[2018-06-24] MEDS: INSULIN LISPRO 100 UNITS/ML SUBCUT SCH ×3 (07:05→17:14)
[2018-06-24 07:11] LABS: CHLORIDE 107 mEq/L (98-107)
[2018-06-24 07:31] LABS: T4 FREE 0.75 ng/dL (0.76-1.46)
[2018-06-24] MEDS: IPRATROPIUM/ALBUTEROL 0.5-3(2.5)MG/3ML NEB HHN SCH ×3 (08:06→21:49)
[2018-06-24] MEDS: AMLODIPINE 5MG TABLET PO SCH ×2 (08:06→21:34)
[2018-06-24] MEDS: DONEPEZIL HCL 10MG TABLET PO SCH (08:07)
[2018-06-24] MEDS: PREDNISONE 10MG TABLET PO SCH (08:07)
[2018-06-24] MEDS: FAMOTIDINE 20MG TABLET PO SCH ×2 (08:08→21:34)
[2018-06-24] MEDS: BACLOFEN 20MG TABLET PO SCH ×2 (08:08→17:15)
[2018-06-24] MEDS: FERROUS SULFATE 325MG TABLET PO SCH ×3 (08:08→17:15)
[2018-06-24] MEDS: FLUCONAZOLE 100MG TABLET PO SCH (08:09)
[2018-06-24] MEDS: LISINOPRIL 10MG TABLET PO SCH (08:09)
[2018-06-24] MEDS: LIDOCAINE 5% PATCH TOP SCH (08:10)
[2018-06-24] MEDS: ENOXAPARIN 30MG/0.3ML SYR SUBCUT SCH ×2 (08:12→21:33)
[2018-06-24] MEDS: DOCUSATE SODIUM 100MG CAPSULE PO SCH ×2 (08:12→17:15)
[2018-06-24 08:56] VITALS: BP 170/94
[2018-06-24] MEDS ORDERED: INSULIN LISPRO (HIGH DOSE) 100 UNITS/ML SUBCUT SCH (09:00)
[2018-06-24] MEDS ORDERED: INSULIN LISPRO (MEDIUM DOSE) 100 UNITS/ML SUBCUT SCH (09:00)
[2018-06-24] MEDS ORDERED: LIDOCAINE 5% PATCH TOP SCH (09:00)
[2018-06-24] MEDS ORDERED: INSULIN REGULAR HUMAN (HIGH DOSE) 100 UNITS/ML 3ML VIAL SUBCUT SCH (09:00)
[2018-06-24] MEDS ORDERED: INSULIN REGULAR HUMAN (LOW DOSE) 100 UNITS/ML 3ML VIAL SUBCUT SCH (09:00)
[2018-06-24] MEDS ORDERED: INSULIN REGULAR HUMAN (CUSTOM DOSE) 100 UNITS/ML 3ML VIAL SUBCUT SCH (09:00)
[2018-06-24] MEDS ORDERED: INSULIN LISPRO (CUSTOM DOSE) 100 UNITS/ML SUBCUT SCH (09:00)
[2018-06-24] MEDS ORDERED: INSULIN REGULAR HUMAN (MEDIUM DOSE) 100 UNITS/ML 3ML VIAL SUBCUT SCH (09:00)
[2018-06-24] MEDS: HYDROCODONE/ACETAMINOPHEN 10/325MG TABLET PO PRN (10:56)
[2018-06-24] MEDS: INSULIN GLARGINE UD 100 UNITS/ML SYR SUBCUT SCH ×2 (11:10→21:35)
[2018-06-24 20:00] VITALS: BP 129/77
[2018-06-24] MEDS: AMITRIPTYLINE 50MG TABLET PO SCH (21:33)
[2018-06-24] MEDS: POLYETHYLENE GLYCOL 3350 (17GM) 1 DOSE PACK PO SCH (21:33)
[2018-06-24] MEDS: ATORVASTATIN CALCIUM 10MG TABLET PO SCH (21:34)
[2018-06-24] MEDS ORDERED: INSULIN GLARGINE UD 100 UNITS/ML SYR SUBCUT SCH (22:00)
[2018-06-25] MEDS: IPRATROPIUM/ALBUTEROL 0.5-3(2.5)MG/3ML NEB HHN SCH ×4 (03:00→22:18)
[2018-06-25] MEDS: BLOOD SUGAR DIAGNOSTIC STRIP TEST SCH ×4 (06:30→21:00)
[2018-06-25] MEDS: HYDROMORPHONE HCL/PF 2MG/ML CPJ IV PRN ×3 (07:51→21:32)
[2018-06-25] MEDS: LEVOTHYROXINE SODIUM 25MCG TABLET PO SCH (07:51)
[2018-06-25] MEDS: CARBAMAZEPINE 200MG TABLET PO SCH ×3 (07:51→21:01)
[2018-06-25 08:00] VITALS: BP 141/72
[2018-06-25] MEDS: LIDOCAINE 5% PATCH TOP SCH (08:15)
[2018-06-25] MEDS: ENOXAPARIN 30MG/0.3ML SYR SUBCUT SCH ×2 (08:15→21:01)
[2018-06-25] MEDS: DOCUSATE SODIUM 100MG CAPSULE PO SCH ×2 (08:16→16:55)
[2018-06-25] MEDS: LISINOPRIL 10MG TABLET PO SCH (08:16)
[2018-06-25] MEDS: FAMOTIDINE 20MG TABLET PO SCH ×2 (08:16→21:00)
[2018-06-25] MEDS: FERROUS SULFATE 325MG TABLET PO SCH ×3 (08:16→16:53)
[2018-06-25] MEDS: DONEPEZIL HCL 10MG TABLET PO SCH (08:16)
[2018-06-25] MEDS: GABAPENTIN 300MG CAPSULE PO SCH ×3 (08:16→21:01)
[2018-06-25] MEDS: AMLODIPINE 5MG TABLET PO SCH ×2 (08:17→21:00)
[2018-06-25] MEDS: FLUCONAZOLE 100MG TABLET PO SCH (08:17)
[2018-06-25] MEDS: BACLOFEN 20MG TABLET PO SCH ×2 (08:17→16:53)
[2018-06-25] MEDS: PREDNISONE 10MG TABLET PO SCH (08:18)
[2018-06-25] MEDS: INSULIN LISPRO 100 UNITS/ML SUBCUT SCH ×3 (09:42→17:46)
[2018-06-25] MEDS: INSULIN LISPRO (LOW DOSE) 100 UNITS/ML SUBCUT SCH ×3 (09:42→17:46)
[2018-06-25] MEDS: INSULIN GLARGINE UD 100 UNITS/ML SYR SUBCUT SCH ×3 (11:39→22:30)
[2018-06-25 20:00] VITALS: BP 124/65
[2018-06-25] MEDS: POLYETHYLENE GLYCOL 3350 (17GM) 1 DOSE PACK PO SCH (21:00)
[2018-06-25] MEDS: AMITRIPTYLINE 50MG TABLET PO SCH (21:00)
[2018-06-25] MEDS: ATORVASTATIN CALCIUM 10MG TABLET PO SCH (21:00)
[2018-06-26] MEDS: IPRATROPIUM/ALBUTEROL 0.5-3(2.5)MG/3ML NEB HHN SCH ×4 (03:00→20:04)
[2018-06-26 04:11] LABS: 25-HYDROXY VITAMIN D3 4.2 ng/mL (.)
[2018-06-26] MEDS: GABAPENTIN 300MG CAPSULE PO SCH ×3 (06:41→22:18)
[2018-06-26] MEDS: CARBAMAZEPINE 200MG TABLET PO SCH ×3 (06:41→22:24)
[2018-06-26] MEDS: LEVOTHYROXINE SODIUM 25MCG TABLET PO SCH (06:41)
[2018-06-26] MEDS: BLOOD SUGAR DIAGNOSTIC STRIP TEST SCH ×4 (06:41→21:00)
[2018-06-26] MEDS: INSULIN LISPRO (LOW DOSE) 100 UNITS/ML SUBCUT SCH ×3 (06:57→17:24)
[2018-06-26] MEDS: HYDROMORPHONE HCL/PF 2MG/ML CPJ IV PRN ×3 (06:57→22:32)
[2018-06-26] MEDS: INSULIN LISPRO 100 UNITS/ML SUBCUT SCH ×3 (06:58→17:25)
[2018-06-26 08:00] VITALS: BP 150/82
[2018-06-26] MEDS: FERROUS SULFATE 325MG TABLET PO SCH ×3 (09:26→16:52)
[2018-06-26] MEDS: DOCUSATE SODIUM 100MG CAPSULE PO SCH ×2 (09:26→16:52)
[2018-06-26] MEDS: FLUCONAZOLE 100MG TABLET PO SCH (09:26)
[2018-06-26] MEDS: AMLODIPINE 5MG TABLET PO SCH ×2 (09:27→22:24)
[2018-06-26] MEDS: LISINOPRIL 10MG TABLET PO SCH ×2 (09:27→22:24)
[2018-06-26] MEDS: DONEPEZIL HCL 10MG TABLET PO SCH (09:27)
[2018-06-26] MEDS: PREDNISONE 10MG TABLET PO SCH (09:27)
[2018-06-26] MEDS: FAMOTIDINE 20MG TABLET PO SCH ×2 (09:27→22:18)
[2018-06-26] MEDS: BACLOFEN 20MG TABLET PO SCH ×2 (09:27→16:52)
[2018-06-26] MEDS: LIDOCAINE 5% PATCH TOP SCH (09:28)
[2018-06-26] MEDS: ENOXAPARIN 30MG/0.3ML SYR SUBCUT SCH ×2 (09:28→22:31)
[2018-06-26] MEDS: ERGOCALCIFEROL 50000UNITS CAPSULE PO SCH (12:42)
[2018-06-26 14:15] VITALS: BP 120/70
[2018-06-26 20:00] VITALS: BP 155/83
[2018-06-26] MEDS: POLYETHYLENE GLYCOL 3350 (17GM) 1 DOSE PACK PO SCH (21:00)
[2018-06-26 21:51] VITALS: BP 114/77
[2018-06-26] MEDS: ATORVASTATIN CALCIUM 10MG TABLET PO SCH (22:16)
[2018-06-26] MEDS: AMITRIPTYLINE 50MG TABLET PO SCH (22:16)
[2018-06-26] MEDS: INSULIN GLARGINE UD 100 UNITS/ML SYR SUBCUT SCH (22:30)
[2018-06-26] MEDS ORDERED: INSULIN GLARGINE UD 100 UNITS/ML SYR SUBCUT SCH ×2 (23:45)
[2018-06-27] MEDS: IPRATROPIUM/ALBUTEROL 0.5-3(2.5)MG/3ML NEB HHN SCH ×4 (02:40→20:56)
[2018-06-27] MEDS: HYDROCODONE/ACETAMINOPHEN 10/325MG TABLET PO PRN (03:01)
[2018-06-27] MEDS: CARBAMAZEPINE 200MG TABLET PO SCH ×3 (06:37→21:32)
[2018-06-27] MEDS: GABAPENTIN 300MG CAPSULE PO SCH ×3 (06:37→21:33)
[2018-06-27] MEDS: LEVOTHYROXINE SODIUM 25MCG TABLET PO SCH (06:37)
[2018-06-27] MEDS: BLOOD SUGAR DIAGNOSTIC STRIP TEST SCH ×4 (06:38→20:54)
[2018-06-27] MEDS: INSULIN LISPRO 100 UNITS/ML SUBCUT SCH ×3 (06:57→16:58)
[2018-06-27] MEDS: INSULIN LISPRO (LOW DOSE) 100 UNITS/ML SUBCUT SCH ×3 (06:57→16:58)
[2018-06-27 08:00] VITALS: BP 149/78
[2018-06-27] MEDS: HYDROMORPHONE HCL/PF 2MG/ML CPJ IV PRN ×2 (08:34→21:31)
[2018-06-27] MEDS: FAMOTIDINE 20MG TABLET PO SCH ×2 (08:35→21:33)
[2018-06-27] MEDS: LISINOPRIL 10MG TABLET PO SCH ×3 (08:35→23:06)
[2018-06-27] MEDS: AMLODIPINE 5MG TABLET PO SCH ×3 (08:35→23:06)
[2018-06-27] MEDS: BACLOFEN 20MG TABLET PO SCH ×2 (08:35→16:54)
[2018-06-27] MEDS: FERROUS SULFATE 325MG TABLET PO SCH ×3 (08:35→16:54)
[2018-06-27] MEDS: DOCUSATE SODIUM 100MG CAPSULE PO SCH ×2 (08:35→16:54)
[2018-06-27] MEDS: DONEPEZIL HCL 10MG TABLET PO SCH (08:35)
[2018-06-27] MEDS: FLUCONAZOLE 100MG TABLET PO SCH (08:36)
[2018-06-27] MEDS: LINAGLIPTIN 5MG TABLET PO SCH (08:36)
[2018-06-27] MEDS: PREDNISONE 10MG TABLET PO SCH (08:36)
[2018-06-27] MEDS: LIDOCAINE 5% PATCH TOP SCH (08:37)
[2018-06-27] MEDS: ENOXAPARIN 30MG/0.3ML SYR SUBCUT SCH ×2 (08:37→21:31)
[2018-06-27 08:44] LABS: BASOPHILS % 0.9 % (0.0-2.0); EOSINOPHILS % 1.1 % (0.0-5.0); HEMATOCRIT. 38.9 % (36.0-48.0); HEMOGLOBIN. 12.9 g/dL (12.0-16.0); LYMPHOCYTES % 16.7 % (20.0-50.0); MEAN CORPUSCULAR HEMOGLOBIN 30.8 pg (28.0-32.0); MEAN CORPUSCULAR VOLUME 92.9 fL (81.0-99.0); MONOCYTES % 8.3 % (2.0-8.0); RED BLOOD CELL COUNT 4.18 mill/uL (4.2-5.4); RED CELL DISTRIBUTION WIDTH 14.9 % (11.6-14.6)
[2018-06-27 08:52] LABS: CHLORIDE 104 mEq/L (98-107)
[2018-06-27 09:34] LABS: PLATELET 209 x1000/uL (130-400)
[2018-06-27 20:00] VITALS: BP 116/83
[2018-06-27] MEDS: POLYETHYLENE GLYCOL 3350 (17GM) 1 DOSE PACK PO SCH (21:00)
[2018-06-27] MEDS: AMITRIPTYLINE 50MG TABLET PO SCH (21:32)
[2018-06-27] MEDS: ATORVASTATIN CALCIUM 10MG TABLET PO SCH (21:32)
[2018-06-27] MEDS ORDERED: INSULIN GLARGINE UD 100 UNITS/ML SYR SUBCUT SCH (22:00)
[2018-06-28] MEDS: HYDROCODONE/ACETAMINOPHEN 10/325MG TABLET PO PRN ×2 (01:44→13:32)
[2018-06-28] MEDS: GABAPENTIN 300MG CAPSULE PO SCH ×3 (06:24→21:16)
[2018-06-28] MEDS: CARBAMAZEPINE 200MG TABLET PO SCH ×3 (06:25→21:17)
[2018-06-28] MEDS: LEVOTHYROXINE SODIUM 25MCG TABLET PO SCH (06:25)
[2018-06-28] MEDS: BLOOD SUGAR DIAGNOSTIC STRIP TEST SCH ×4 (06:36→21:28)
[2018-06-28 07:39] VITALS: BP 127/69
[2018-06-28] MEDS: DOCUSATE SODIUM 100MG CAPSULE PO SCH ×2 (08:06→16:33)
[2018-06-28] MEDS: FERROUS SULFATE 325MG TABLET PO SCH ×3 (08:06→16:33)
[2018-06-28] MEDS: DONEPEZIL HCL 10MG TABLET PO SCH (08:06)
[2018-06-28] MEDS: FLUCONAZOLE 100MG TABLET PO SCH (08:07)
[2018-06-28] MEDS: BACLOFEN 20MG TABLET PO SCH ×2 (08:07→16:33)
[2018-06-28] MEDS: AMLODIPINE 5MG TABLET PO SCH ×2 (08:07→21:17)
[2018-06-28] MEDS: PREDNISONE 10MG TABLET PO SCH (08:08)
[2018-06-28] MEDS: LISINOPRIL 10MG TABLET PO SCH ×2 (08:08→21:16)
[2018-06-28] MEDS: LINAGLIPTIN 5MG TABLET PO SCH (08:08)
[2018-06-28] MEDS: FAMOTIDINE 20MG TABLET PO SCH ×2 (08:08→21:17)
[2018-06-28] MEDS: LIDOCAINE 5% PATCH TOP SCH (08:09)
[2018-06-28] MEDS: ENOXAPARIN 30MG/0.3ML SYR SUBCUT SCH ×2 (08:09→21:16)
[2018-06-28] MEDS: INSULIN LISPRO (LOW DOSE) 100 UNITS/ML SUBCUT SCH ×3 (08:12→16:36)
[2018-06-28] MEDS: INSULIN LISPRO 100 UNITS/ML SUBCUT SCH ×3 (08:13→16:37)
[2018-06-28] MEDS ORDERED: LIDOCAINE 5% PATCH TOP SCH (12:30)
[2018-06-28] MEDS: IPRATROPIUM/ALBUTEROL 0.5-3(2.5)MG/3ML NEB HHN SCH ×2 (13:29→18:00)
[2018-06-28 20:00] VITALS: BP 148/78
[2018-06-28] MEDS: POLYETHYLENE GLYCOL 3350 (17GM) 1 DOSE PACK PO SCH (21:00)
[2018-06-28] MEDS: AMITRIPTYLINE 50MG TABLET PO SCH (21:17)
[2018-06-28] MEDS: ATORVASTATIN CALCIUM 10MG TABLET PO SCH (21:17)
[2018-06-28] MEDS: INSULIN GLARGINE UD 100 UNITS/ML SYR SUBCUT SCH (21:31)
[2018-06-28] MEDS: HYDROMORPHONE HCL/PF 2MG/ML CPJ IV PRN (23:23)
[2018-06-29] MEDS: LEVOTHYROXINE SODIUM 25MCG TABLET PO SCH (06:36)
[2018-06-29] MEDS: GABAPENTIN 300MG CAPSULE PO SCH ×3 (06:36→21:35)
[2018-06-29] MEDS: CARBAMAZEPINE 200MG TABLET PO SCH ×3 (06:36→21:35)
[2018-06-29] MEDS: BLOOD SUGAR DIAGNOSTIC STRIP TEST SCH ×4 (06:41→21:37)
[2018-06-29] MEDS: INSULIN LISPRO 100 UNITS/ML SUBCUT SCH ×3 (07:37→16:25)
[2018-06-29] MEDS: INSULIN LISPRO (LOW DOSE) 100 UNITS/ML SUBCUT SCH ×3 (07:38→16:25)
[2018-06-29 08:00] VITALS: BP 136/75
[2018-06-29] MEDS: PREDNISONE 10MG TABLET PO SCH (08:31)
[2018-06-29] MEDS: AMLODIPINE 5MG TABLET PO SCH ×2 (08:31→21:35)
[2018-06-29] MEDS: BACLOFEN 20MG TABLET PO SCH ×2 (08:32→16:24)
[2018-06-29] MEDS: FERROUS SULFATE 325MG TABLET PO SCH ×3 (08:32→16:24)
[2018-06-29] MEDS: FAMOTIDINE 20MG TABLET PO SCH ×2 (08:32→21:35)
[2018-06-29] MEDS: DOCUSATE SODIUM 100MG CAPSULE PO SCH ×2 (08:32→16:24)
[2018-06-29] MEDS: FLUCONAZOLE 100MG TABLET PO SCH (08:32)
[2018-06-29] MEDS: DONEPEZIL HCL 10MG TABLET PO SCH (08:32)
[2018-06-29] MEDS: LISINOPRIL 10MG TABLET PO SCH ×2 (08:33→21:00)
[2018-06-29] MEDS: LINAGLIPTIN 5MG TABLET PO SCH (08:33)
[2018-06-29] MEDS: HYDROCODONE/ACETAMINOPHEN 10/325MG TABLET PO PRN ×2 (08:34→15:29)
[2018-06-29] MEDS: ENOXAPARIN 30MG/0.3ML SYR SUBCUT SCH ×2 (08:35→21:36)
[2018-06-29] MEDS: IPRATROPIUM/ALBUTEROL 0.5-3(2.5)MG/3ML NEB HHN SCH ×3 (09:08→20:50)
[2018-06-29] MEDS: ONDANSETRON HCL 4MG/2ML INJ IV PRN ×3 (10:37→18:13)
[2018-06-29] MEDS: LIDOCAINE HCL 4% CREAM 76GM TUBE TP SCH ×2 (10:38→17:00)
[2018-06-29 11:03] LABS: HEMATOCRIT. 38.7 % (36.0-48.0); MEAN CORPUSCULAR HEMOGLOBIN 31.4 pg (28.0-32.0); MEAN CORPUSCULAR VOLUME 93.4 fL (81.0-99.0); MEAN PLATELET VOLUME 7.2 fl (7.4-10.4); PLATELET 279 x1000/uL (130-400); RED BLOOD CELL COUNT 4.15 mill/uL (4.2-5.4); RED CELL DISTRIBUTION WIDTH 14.9 % (11.6-14.6)
[2018-06-29 11:10] LABS: CHLORIDE 113 mEq/L (98-107)
[2018-06-29 11:14] LABS: PHOSPHORUS 2.5 mg/dL (2.5-4.9)
[2018-06-29 11:35] LABS: PLATELET ESTIMATE NORMAL
[2018-06-29] MEDS ORDERED: POTASSIUM CHLORIDE 20MEQ TABLET SR PO NR (12:00)
[2018-06-29] MEDS: HYDROMORPHONE HCL/PF 2MG/ML CPJ IV PRN (18:13)
[2018-06-29] MEDS ORDERED: MAGNESIUM 2 G PREMIX 50 ML IV NR (18:30)
[2018-06-29 20:00] VITALS: BP 137/77
[2018-06-29] MEDS: POLYETHYLENE GLYCOL 3350 (17GM) 1 DOSE PACK PO SCH ×2 (21:00→23:59)
[2018-06-29] MEDS: AMITRIPTYLINE 50MG TABLET PO SCH (21:35)
[2018-06-29] MEDS: ATORVASTATIN CALCIUM 10MG TABLET PO SCH (21:41)
[2018-06-29] MEDS: INSULIN GLARGINE UD 100 UNITS/ML SYR SUBCUT SCH (21:50)
[2018-06-30] MEDS: IPRATROPIUM/ALBUTEROL 0.5-3(2.5)MG/3ML NEB HHN SCH ×4 (00:30→20:05)
[2018-06-30] MEDS: CARBAMAZEPINE 200MG TABLET PO SCH ×3 (06:23→21:43)
[2018-06-30] MEDS: LEVOTHYROXINE SODIUM 25MCG TABLET PO SCH (06:23)
[2018-06-30] MEDS: GABAPENTIN 300MG CAPSULE PO SCH ×3 (06:23→21:43)
[2018-06-30] MEDS: HYDROCODONE/ACETAMINOPHEN 10/325MG TABLET PO PRN (06:27)
[2018-06-30] MEDS: BLOOD SUGAR DIAGNOSTIC STRIP TEST SCH ×4 (06:32→21:54)
[2018-06-30 06:47] LABS: BASOPHILS % 0.8 % (0.0-2.0); EOSINOPHILS % 1.4 % (0.0-5.0); HEMATOCRIT. 38.3 % (36.0-48.0); HEMOGLOBIN. 12.9 g/dL (12.0-16.0); LYMPHOCYTES % 16.5 % (20.0-50.0); MEAN CORPUSCULAR HEMOGLOBIN 31.5 pg (28.0-32.0); MEAN CORPUSCULAR VOLUME 93.5 fL (81.0-99.0); MEAN PLATELET VOLUME 7.4 fl (7.4-10.4); MONOCYTES % 7.4 % (2.0-8.0); NEUTROPHILS % 73.9 % (40.0-76.0); PLATELET 267 x1000/uL (130-400)
[2018-06-30] MEDS: INSULIN LISPRO (LOW DOSE) 100 UNITS/ML SUBCUT SCH ×3 (07:00→17:08)
[2018-06-30 07:19] LABS: HEPATITIS B SURFACE ANTIGEN NEGATIVE
[2018-06-30 07:22] LABS: CHLORIDE 105 mEq/L (98-107)
[2018-06-30 07:48] LABS: HEPATITIS A AB IGM NEGATIVE (NEGATIVE)
[2018-06-30 08:00] VITALS: BP 132/77
[2018-06-30] MEDS: DONEPEZIL HCL 10MG TABLET PO SCH (08:09)
[2018-06-30] MEDS: LISINOPRIL 10MG TABLET PO SCH ×2 (08:09→21:00)
[2018-06-30] MEDS: LINAGLIPTIN 5MG TABLET PO SCH (08:09)
[2018-06-30] MEDS: FERROUS SULFATE 325MG TABLET PO SCH ×3 (08:09→16:49)
[2018-06-30] MEDS: DOCUSATE SODIUM 100MG CAPSULE PO SCH ×2 (08:09→16:49)
[2018-06-30] MEDS: AMLODIPINE 5MG TABLET PO SCH ×2 (08:09→21:43)
[2018-06-30] MEDS: PREDNISONE 10MG TABLET PO SCH (08:10)
[2018-06-30] MEDS: FAMOTIDINE 20MG TABLET PO SCH ×2 (08:10→21:43)
[2018-06-30] MEDS: BACLOFEN 20MG TABLET PO SCH ×2 (08:10→16:49)
[2018-06-30] MEDS: ENOXAPARIN 30MG/0.3ML SYR SUBCUT SCH ×2 (08:10→21:53)
[2018-06-30] MEDS: FLUCONAZOLE 100MG TABLET PO SCH (08:10)
[2018-06-30] MEDS: LIDOCAINE HCL 4% CREAM 76GM TUBE TP SCH (08:11)
[2018-06-30] MEDS: INSULIN LISPRO 100 UNITS/ML SUBCUT SCH ×3 (08:17→17:08)
[2018-06-30] MEDS: HYDROMORPHONE HCL/PF 2MG/ML CPJ IV PRN ×2 (08:28)
[2018-06-30] MEDS: LIDOCAINE 5% PATCH TOP SCH (15:28)
[2018-06-30 20:00] VITALS: BP 129/88
[2018-06-30] MEDS: AMITRIPTYLINE 50MG TABLET PO SCH (21:42)
[2018-06-30] MEDS: ATORVASTATIN CALCIUM 10MG TABLET PO SCH (21:43)
[2018-06-30] MEDS: INSULIN GLARGINE UD 100 UNITS/ML SYR SUBCUT SCH (21:53)
[2018-06-30] MEDS: HYDROMORPHONE HCL/PF 2MG/ML CPJ IM PRN (23:41)
[2018-07-01] MEDS: HYDROCODONE/ACETAMINOPHEN 10/325MG TABLET PO PRN (03:50)
[2018-07-01] MEDS: BLOOD SUGAR DIAGNOSTIC STRIP TEST SCH ×4 (06:12→21:00)
[2018-07-01] MEDS: CARBAMAZEPINE 200MG TABLET PO SCH ×3 (06:15→22:05)
[2018-07-01] MEDS: LEVOTHYROXINE SODIUM 25MCG TABLET PO SCH (06:15)
[2018-07-01] MEDS: GABAPENTIN 300MG CAPSULE PO SCH ×3 (06:15→22:22)
[2018-07-01 06:22] LABS: BASOPHILS % 0.8 % (0.0-2.0); EOSINOPHILS % 1.3 % (0.0-5.0); HEMATOCRIT. 39.1 % (36.0-48.0); HEMOGLOBIN. 13.1 g/dL (12.0-16.0); LYMPHOCYTES % 15.1 % (20.0-50.0); MEAN CORPUSCULAR HEMOGLOBIN 31.4 pg (28.0-32.0); MEAN CORPUSCULAR VOLUME 93.6 fL (81.0-99.0); MEAN PLATELET VOLUME 7.7 fl (7.4-10.4); MONOCYTES % 7.1 % (2.0-8.0); NEUTROPHILS % 75.7 % (40.0-76.0); PLATELET 315 x1000/uL (130-400); RED BLOOD CELL COUNT 4.17 mill/uL (4.2-5.4); RED CELL DISTRIBUTION WIDTH 14.7 % (11.6-14.6)
[2018-07-01 06:43] LABS: CHLORIDE 103 mEq/L (98-107)
[2018-07-01] MEDS: IPRATROPIUM/ALBUTEROL 0.5-3(2.5)MG/3ML NEB HHN SCH ×3 (07:48→21:20)
[2018-07-01] MEDS: ASPIRIN 81MG EC TABLET PO SCH (08:15)
[2018-07-01] MEDS: FAMOTIDINE 20MG TABLET PO SCH ×2 (08:15→22:05)
[2018-07-01] MEDS: DONEPEZIL HCL 10MG TABLET PO SCH (08:16)
[2018-07-01] MEDS: DOCUSATE SODIUM 100MG CAPSULE PO SCH ×2 (08:17→16:41)
[2018-07-01] MEDS: LISINOPRIL 10MG TABLET PO SCH ×2 (08:17→21:00)
[2018-07-01] MEDS: PREDNISONE 10MG TABLET PO SCH (08:17)
[2018-07-01] MEDS: FERROUS SULFATE 325MG TABLET PO SCH ×3 (08:17→16:40)
[2018-07-01] MEDS: BACLOFEN 20MG TABLET PO SCH ×2 (08:17→16:41)
[2018-07-01] MEDS: LINAGLIPTIN 5MG TABLET PO SCH (08:17)
[2018-07-01] MEDS: ENOXAPARIN 30MG/0.3ML SYR SUBCUT SCH ×2 (08:18→22:07)
[2018-07-01] MEDS: LIDOCAINE 5% PATCH TOP SCH (08:18)
[2018-07-01] MEDS: AMLODIPINE 5MG TABLET PO SCH ×2 (08:19→21:00)
[2018-07-01] MEDS: INSULIN LISPRO (LOW DOSE) 100 UNITS/ML SUBCUT SCH ×3 (08:30→17:48)
[2018-07-01] MEDS: INSULIN LISPRO 100 UNITS/ML SUBCUT SCH ×3 (08:30→17:48)
[2018-07-01 08:56] VITALS: BP 150/90
[2018-07-01 20:00] VITALS: BP 133/79
[2018-07-01] MEDS: POLYETHYLENE GLYCOL 3350 (17GM) 1 DOSE PACK PO SCH (21:00)
[2018-07-01] MEDS: ONDANSETRON HCL 4MG/2ML INJ IV PRN (22:01)
[2018-07-01] MEDS: ATORVASTATIN CALCIUM 10MG TABLET PO SCH (22:05)
[2018-07-01] MEDS: AMITRIPTYLINE 50MG TABLET PO SCH (22:05)
[2018-07-01] MEDS: HYDROMORPHONE HCL/PF 2MG/ML CPJ IM PRN (22:09)
[2018-07-01] MEDS: INSULIN GLARGINE UD 100 UNITS/ML SYR SUBCUT SCH (23:38)
[2018-07-02] MEDS ORDERED: HYDROCODONE/ACETAMINOPHEN 10/325MG TABLET PO PRN (00:15)
[2018-07-02] MEDS: IPRATROPIUM/ALBUTEROL 0.5-3(2.5)MG/3ML NEB HHN SCH ×3 (01:20→21:45)
[2018-07-02] MEDS: LEVOTHYROXINE SODIUM 25MCG TABLET PO SCH (06:04)
[2018-07-02] MEDS: CARBAMAZEPINE 200MG TABLET PO SCH ×3 (06:04→21:29)
[2018-07-02] MEDS: GABAPENTIN 300MG CAPSULE PO SCH ×3 (06:04→21:29)
[2018-07-02] MEDS: BLOOD SUGAR DIAGNOSTIC STRIP TEST SCH ×4 (06:19→21:21)
[2018-07-02 08:45] VITALS: BP 128/65
[2018-07-02] MEDS: FERROUS SULFATE 325MG TABLET PO SCH ×3 (08:49→17:55)
[2018-07-02] MEDS: FAMOTIDINE 20MG TABLET PO SCH ×2 (08:49→20:49)
[2018-07-02] MEDS: DOCUSATE SODIUM 100MG CAPSULE PO SCH ×2 (08:49→17:55)
[2018-07-02] MEDS: BACLOFEN 20MG TABLET PO SCH ×2 (08:49→17:55)
[2018-07-02] MEDS: ASPIRIN 81MG EC TABLET PO SCH (08:49)
[2018-07-02] MEDS: PREDNISONE 10MG TABLET PO SCH (08:49)
[2018-07-02] MEDS: LINAGLIPTIN 5MG TABLET PO SCH (08:50)
[2018-07-02] MEDS: DONEPEZIL HCL 10MG TABLET PO SCH (08:50)
[2018-07-02] MEDS: AMLODIPINE 5MG TABLET PO SCH ×2 (08:50→20:49)
[2018-07-02] MEDS: ENOXAPARIN 30MG/0.3ML SYR SUBCUT SCH ×2 (08:51→20:49)
[2018-07-02] MEDS: LIDOCAINE 5% PATCH TOP SCH (08:52)
[2018-07-02] MEDS: LISINOPRIL 10MG TABLET PO SCH ×2 (09:00→20:54)
[2018-07-02] MEDS: INSULIN LISPRO 100 UNITS/ML SUBCUT SCH ×3 (09:07→18:01)
[2018-07-02] MEDS: INSULIN LISPRO (LOW DOSE) 100 UNITS/ML SUBCUT SCH ×3 (09:07→18:01)
[2018-07-02] MEDS: HYDROCODONE/ACETAMINOPHEN 10/325MG TABLET PO PRN (14:00)
[2018-07-02 20:00] VITALS: BP 134/77
[2018-07-02] MEDS: AMITRIPTYLINE 50MG TABLET PO SCH (20:49)
[2018-07-02] MEDS: ATORVASTATIN CALCIUM 10MG TABLET PO SCH (20:50)
[2018-07-02] MEDS: POLYETHYLENE GLYCOL 3350 (17GM) 1 DOSE PACK PO SCH (20:50)
[2018-07-02] MEDS: INSULIN GLARGINE UD 100 UNITS/ML SYR SUBCUT SCH (21:32)
[2018-07-02] MEDS: HYDROMORPHONE HCL/PF 2MG/ML CPJ IM PRN (22:30)
[2018-07-03] MEDS: HYDROCODONE/ACETAMINOPHEN 10/325MG TABLET PO PRN (00:13)
[2018-07-03] MEDS: IPRATROPIUM/ALBUTEROL 0.5-3(2.5)MG/3ML NEB HHN SCH ×3 (02:22→21:05)
[2018-07-03] MEDS: BLOOD SUGAR DIAGNOSTIC STRIP TEST SCH ×4 (06:44→21:00)
[2018-07-03] MEDS: CARBAMAZEPINE 200MG TABLET PO SCH ×3 (06:45→22:26)
[2018-07-03] MEDS: LEVOTHYROXINE SODIUM 25MCG TABLET PO SCH (06:45)
[2018-07-03] MEDS: GABAPENTIN 300MG CAPSULE PO SCH ×3 (06:45→22:28)
[2018-07-03 08:00] VITALS: BP 118/67
[2018-07-03] MEDS: INSULIN LISPRO (LOW DOSE) 100 UNITS/ML SUBCUT SCH ×3 (08:05→18:03)
[2018-07-03] MEDS: INSULIN LISPRO 100 UNITS/ML SUBCUT SCH ×3 (08:05→18:03)
[2018-07-03] MEDS: LISINOPRIL 10MG TABLET PO SCH ×2 (09:00→21:53)
[2018-07-03] MEDS: LINAGLIPTIN 5MG TABLET PO SCH (10:56)
[2018-07-03] MEDS: DONEPEZIL HCL 10MG TABLET PO SCH (10:56)
[2018-07-03] MEDS: DOCUSATE SODIUM 100MG CAPSULE PO SCH ×2 (10:56→17:55)
[2018-07-03] MEDS: BACLOFEN 20MG TABLET PO SCH ×2 (10:57→17:55)
[2018-07-03] MEDS: PREDNISONE 10MG TABLET PO SCH (10:57)
[2018-07-03] MEDS: FERROUS SULFATE 325MG TABLET PO SCH ×3 (10:57→17:55)
[2018-07-03] MEDS: AMLODIPINE 5MG TABLET PO SCH ×2 (10:57→21:52)
[2018-07-03] MEDS: FAMOTIDINE 20MG TABLET PO SCH ×2 (10:58→21:51)
[2018-07-03] MEDS: ENOXAPARIN 30MG/0.3ML SYR SUBCUT SCH ×2 (10:58→21:55)
[2018-07-03] MEDS: ASPIRIN 81MG EC TABLET PO SCH (10:58)
[2018-07-03] MEDS: ERGOCALCIFEROL 50000UNITS CAPSULE PO SCH (12:45)
[2018-07-03] MEDS: LIDOCAINE 5% PATCH TOP SCH (15:13)
[2018-07-03 20:00] VITALS: BP 130/81
[2018-07-03] MEDS: POLYETHYLENE GLYCOL 3350 (17GM) 1 DOSE PACK PO SCH (21:00)
[2018-07-03] MEDS: ATORVASTATIN CALCIUM 10MG TABLET PO SCH (21:53)
[2018-07-03] MEDS: AMITRIPTYLINE 50MG TABLET PO SCH (21:54)
[2018-07-03] MEDS: INSULIN GLARGINE UD 100 UNITS/ML SYR SUBCUT SCH (22:11)
[2018-07-03] MEDS: HYDROMORPHONE HCL/PF 2MG/ML CPJ IM PRN (22:32)
[2018-07-04] MEDS: HYDROCODONE/ACETAMINOPHEN 10/325MG TABLET PO PRN ×3 (00:15→14:50)
[2018-07-04] MEDS: IPRATROPIUM/ALBUTEROL 0.5-3(2.5)MG/3ML NEB HHN SCH ×4 (02:05→18:00)
[2018-07-04] MEDS: BLOOD SUGAR DIAGNOSTIC STRIP TEST SCH ×4 (06:30→21:00)
[2018-07-04] MEDS: LEVOTHYROXINE SODIUM 25MCG TABLET PO SCH (06:44)
[2018-07-04] MEDS: CARBAMAZEPINE 200MG TABLET PO SCH ×3 (06:44→23:05)
[2018-07-04] MEDS: GABAPENTIN 300MG CAPSULE PO SCH ×3 (06:45→23:06)
[2018-07-04] MEDS: INSULIN LISPRO (LOW DOSE) 100 UNITS/ML SUBCUT SCH ×3 (07:00→16:55)
[2018-07-04 08:20] VITALS: BP 133/67
[2018-07-04] MEDS: PREDNISONE 10MG TABLET PO SCH (08:49)
[2018-07-04] MEDS: ASPIRIN 81MG EC TABLET PO SCH (08:49)
[2018-07-04] MEDS: LISINOPRIL 10MG TABLET PO SCH ×2 (08:49→21:49)
[2018-07-04] MEDS: LINAGLIPTIN 5MG TABLET PO SCH (08:49)
[2018-07-04] MEDS: FAMOTIDINE 20MG TABLET PO SCH ×2 (08:50→23:05)
[2018-07-04] MEDS: BACLOFEN 20MG TABLET PO SCH ×2 (08:50→16:48)
[2018-07-04] MEDS: DOCUSATE SODIUM 100MG CAPSULE PO SCH ×2 (08:50→16:48)
[2018-07-04] MEDS: AMLODIPINE 5MG TABLET PO SCH ×2 (08:50→21:49)
[2018-07-04] MEDS: FERROUS SULFATE 325MG TABLET PO SCH ×3 (08:50→16:48)
[2018-07-04] MEDS: DONEPEZIL HCL 10MG TABLET PO SCH (08:50)
[2018-07-04] MEDS: LIDOCAINE 5% PATCH TOP SCH (08:52)
[2018-07-04] MEDS: INSULIN LISPRO 100 UNITS/ML SUBCUT SCH ×3 (09:19→16:54)
[2018-07-04] MEDS: ENOXAPARIN 30MG/0.3ML SYR SUBCUT SCH ×2 (09:20→23:07)
[2018-07-04] MEDS: HYDROMORPHONE HCL/PF 2MG/ML CPJ IM PRN (17:28)
[2018-07-04 20:00] VITALS: BP 120/72
[2018-07-04] MEDS: POLYETHYLENE GLYCOL 3350 (17GM) 1 DOSE PACK PO SCH (21:00)
[2018-07-04] MEDS: ATORVASTATIN CALCIUM 10MG TABLET PO SCH (21:00)
[2018-07-04] MEDS: AMITRIPTYLINE 50MG TABLET PO SCH (23:05)
[2018-07-04] MEDS: INSULIN GLARGINE UD 100 UNITS/ML SYR SUBCUT SCH (23:11)
[2018-07-05] MEDS: HYDROMORPHONE HCL/PF 2MG/ML CPJ IM PRN ×2 (00:19→07:01)
[2018-07-05] MEDS: HYDROCODONE/ACETAMINOPHEN 10/325MG TABLET PO PRN ×2 (03:10→09:29)
[2018-07-05] MEDS: CARBAMAZEPINE 200MG TABLET PO SCH (06:51)
[2018-07-05] MEDS: GABAPENTIN 300MG CAPSULE PO SCH (06:51)
[2018-07-05] MEDS: LEVOTHYROXINE SODIUM 25MCG TABLET PO SCH (06:51)
[2018-07-05] MEDS: INSULIN LISPRO 100 UNITS/ML SUBCUT SCH (07:00)
[2018-07-05] MEDS: INSULIN LISPRO (LOW DOSE) 100 UNITS/ML SUBCUT SCH (07:00)
[2018-07-05] MEDS: BLOOD SUGAR DIAGNOSTIC STRIP TEST SCH ×2 (07:24→11:15)
[2018-07-05 08:38] VITALS: BP 112/61
[2018-07-05] MEDS: ASPIRIN 81MG EC TABLET PO SCH (09:22)
[2018-07-05] MEDS: FAMOTIDINE 20MG TABLET PO SCH (09:22)
[2018-07-05] MEDS: ENOXAPARIN 30MG/0.3ML SYR SUBCUT SCH (09:22)
[2018-07-05] MEDS: BACLOFEN 20MG TABLET PO SCH (09:22)
[2018-07-05] MEDS: DOCUSATE SODIUM 100MG CAPSULE PO SCH (09:22)
[2018-07-05] MEDS: DONEPEZIL HCL 10MG TABLET PO SCH (09:22)
[2018-07-05] MEDS: PREDNISONE 10MG TABLET PO SCH (09:22)
[2018-07-05] MEDS: LINAGLIPTIN 5MG TABLET PO SCH (09:22)
[2018-07-05] MEDS: AMLODIPINE 5MG TABLET PO SCH (09:23)
[2018-07-05] MEDS: LISINOPRIL 10MG TABLET PO SCH (09:23)
[2018-07-05] MEDS: FERROUS SULFATE 325MG TABLET PO SCH (09:23)
[2018-07-05] MEDS: LIDOCAINE 5% PATCH TOP SCH (09:24)
[2018-07-05 10:27] VITALS: BP 112/61
[2018-07-05] MEDS: IPRATROPIUM/ALBUTEROL 0.5-3(2.5)MG/3ML NEB HHN SCH ×2 (10:59)
== END 2018-07-05 12:30 | disposition home health service (06) | DRG 52 ==
PROVIDERS: ADMIT Physical Medicine & Rehabilitation Spinal Cord Injury Medicine; ATTEND Internal Medicine Nephrology
PROC: 4A10X4Z Monitoring of Central Nervous Electrical Activity, External Approach (ICD-10-PCS; principal; 2018-06-18)
DX: G82.50 Quadriplegia, unspecified (principal); A41.9 Sepsis, unspecified organism; M62.82 Rhabdomyolysis; B37.49 Other urogenital candidiasis; E87.2 Acidosis; W18.39XA Other fall on same level, initial encounter; G89.4 Chronic pain syndrome; E03.9 Hypothyroidism, unspecified; E78.5 Hyperlipidemia, unspecified; E11.42 Type 2 diabetes mellitus with diabetic polyneuropathy; I10 Essential (primary) hypertension; J32.0 Chronic maxillary sinusitis; M21.331 Wrist drop, right wrist; E78.00 Pure hypercholesterolemia, unspecified; M79.7 Fibromyalgia; F32.9 Major depressive disorder, single episode, unspecified; G90.8 Other disorders of autonomic nervous system; G35 Multiple sclerosis; F41.9 Anxiety disorder, unspecified; D64.9 Anemia, unspecified; E11.65 Type 2 diabetes mellitus with hyperglycemia; E55.9 Vitamin D deficiency, unspecified; E66.9 Obesity, unspecified; E86.0 Dehydration; E87.6 Hypokalemia; K76.0 Fatty (change of) liver, not elsewhere classified; M47.812 Spondylosis without myelopathy or radiculopathy, cervical region; M48.061 Spinal stenosis, lumbar region without neurogenic claudication; M75.122 Complete rotator cuff tear or rupture of left shoulder, not specified as traumatic; N63.10 Unspecified lump in the right breast, unspecified quadrant; F06.31 Mood disorder due to known physiological condition with depressive features; M25.78 Osteophyte, vertebrae; Y93.89 Activity, other specified; Z79.4 Long term (current) use of insulin; Y92.89 Other specified places as the place of occurrence of the external cause; Y99.8 Other external cause status; Z79.890 Hormone replacement therapy; Z68.37 Body mass index [BMI] 37.0-37.9, adult
CPT/HCPCS: 36415; 72141; 73110; 73130; 73221; 73502; 73562; 80048; 82306; 82550; 82607; 82728; 82746; 82962; 83540; 83550; 83735; 84100; 84134; 84439; 84443; 86705; 86709; 86803; 87340; 93970; 93971; 94640; 97110; 97116; 97162; 97167; 97530; 97535; 97760; A6261; J1170; J1650; J1815; J2405; J2543; J3301; J3475; J3490; J7040; J7512; J7620; 97763-GO

== ENCOUNTER 2019-02-16 21:01 | Inpatient (IN) | payer MEDICARE, MEDICAID, OTHER ==
[~2019-02-16] VITALS: Ht 172.7 cm; Wt 99.8 kg
[~2019-02-16 21:01] MED LIST changes: -ARMO250T2 PO; -ASPI-1159 PO; -BENA20TA10 PO; +CARB200T PO; -DOCU250C14 GT; -INTE44DI SQ; -LORA1TAB PO; -TRIA1TAB94 PO
[2019-02-16] MEDS ORDERED: SODIUM CHLORIDE 0.9% 1,000 ML IV ONE (21:23)
[2019-02-16] MEDS ORDERED: ONDANSETRON HCL 4MG/2ML INJ IV STA (21:23)
[2019-02-16] MEDS ORDERED: METHYLPREDNISOLONE SOD SUCC 125 MG/2 ML VIAL IV ONE (23:00)
[2019-02-16] MEDS ORDERED: KETOROLAC 30MG/ML VIAL IV ONE (23:00)
[2019-02-16 23:05] LABS: BASOPHILS % 0.4 % (0.0-2.0); EOSINOPHILS % 2.2 % (0.0-5.0); HEMATOCRIT. 40.8 % (36.0-48.0); HEMOGLOBIN. 13.9 g/dL (12.0-16.0); MEAN CORPUSCULAR HEMOGLOBIN 31.6 pg (28.0-32.0); MEAN CORPUSCULAR VOLUME 93.1 fL (81.0-99.0); MEAN PLATELET VOLUME 7.9 fl (7.4-10.4); MONOCYTES % 5.4 % (2.0-8.0); PLATELET 300 x1000/uL (130-400); RED BLOOD CELL COUNT 4.39 mill/uL (4.2-5.4); RED CELL DISTRIBUTION WIDTH 13.9 % (11.6-14.6)
[2019-02-16 23:13] LABS: CHLORIDE 107 mEq/L (98-107)
[2019-02-16 23:17] LABS: ETHANOL BLOOD < 10 mg/dL
[2019-02-17 00:06] LABS: CLARITY URINE CLOUDY (CLEAR); COLOR URINE YELLOW (YELLOW); KETONES URINE 1+ (NEGATIVE); LEUKOCYTE ESTERASE URINE 2+ (NEGATIVE); NITRITE URINE POSITIVE (NEGATIVE); OCCULT BLOOD URINE NEGATIVE (NEGATIVE); PROTEIN URINE NEGATIVE (NEGATIVE); SPECIFIC GRAVITY URINE 1.012 (1.005-1.030); UROBILINOGEN URINE 0.2 E.U./dL (0.2-1.0)
[2019-02-17 00:16] LABS: *AMPHETAMINES SCREEN URINE NEGATIVE (NEGATIVE); *BARBITURATES SCREEN URINE NEGATIVE (NEGATIVE); *BENZODIAZEPINES SCREEN URINE NEGATIVE (NEGATIVE); *COCAINE SCREEN URINE NEGATIVE (NEGATIVE); METHADONE URINE SCREEN NEGATIVE (NEGATIVE); OPIATES URINE SCREEN NEGATIVE (NEGATIVE)
[2019-02-17 00:17] LABS: CANNABINOID URINE SCREEN PRESUMTIVE POSITIVE (NEGATIVE); PHENCYCLIDINE URINE SCREEN NEGATIVE (NEGATIVE)
[2019-02-17] MEDS ORDERED: CEFTRIAXONE 1 G PREMIX 50 ML IV NR (00:30)
[2019-02-17] MEDS ORDERED: CLONIDINE 0.1MG TABLET PO PRN (00:45)
[2019-02-17] MEDS ORDERED: GUAIFENESIN 200MG/10ML SUGAR FREE UDC PO PRN (00:45)
[2019-02-17] MEDS ORDERED: ACETAMINOPHEN 325MG TABLET PO PRN (00:45)
[2019-02-17] MEDS ORDERED: NA PHOS,M-B/NA PHOS,DI-BA ENEMA 118ML PR PRN (00:45)
[2019-02-17] MEDS ORDERED: DOCUSATE SODIUM 100MG CAPSULE PO PRN (00:45)
[2019-02-17] MEDS ORDERED: DIPHENHYDRAMINE 50MG/ML VIAL IV PRN (00:45)
[2019-02-17] MEDS ORDERED: LEVOFLOXACIN 500MG PREMIX 100 ML IV SCH (00:45)
[2019-02-17] MEDS: ONDANSETRON HCL 4MG/2ML INJ IV PRN ×3 (01:03→19:03)
[2019-02-17] MEDS: HYDROMORPHONE HCL/PF 2MG/ML CPJ IV PRN ×4 (02:17→17:33)
[2019-02-17 03:10] VITALS: BP 134/77
[2019-02-17] MEDS: DEXT 5%/0.45% NACL 1000ML 1,000 ML IV SCH (04:08)
[2019-02-17] MEDS ORDERED: DEXTROSE 50% WATER 50ML SYRINGE IV PRN (04:45)
[2019-02-17] MEDS: LEVOFLOXACIN 500MG PREMIX 100 ML IV SCH (06:17)
[2019-02-17 08:00] VITALS: BP 128/73
[2019-02-17] MEDS: BLOOD SUGAR DIAGNOSTIC STRIP TEST SCH ×4 (08:11→21:00)
[2019-02-17] MEDS: INSULIN LISPRO 100 UNITS/ML SUBCUT SCH ×4 (10:05→21:00)
[2019-02-17] MEDS ORDERED: HYDROCODONE/ACETAMINOPHEN 10/325MG TABLET PO PRN (11:15)
[2019-02-17 12:00] VITALS: BP 126/78
[2019-02-17] MEDS: GABAPENTIN 400MG CAPSULE PO SCH ×2 (13:53→22:28)
[2019-02-17] MEDS: BACLOFEN 10MG TABLET PO SCH ×2 (13:53→22:29)
[2019-02-17] MEDS: CARBAMAZEPINE 200MG TABLET PO SCH ×2 (13:54→22:29)
[2019-02-17] MEDS: DONEPEZIL HCL 10MG TABLET PO SCH (13:54)
[2019-02-17] MEDS: FAMOTIDINE 20MG TABLET PO SCH ×2 (13:54→22:29)
[2019-02-17 16:00] VITALS: BP 109/64
[2019-02-17] MEDS: PREDNISONE 20MG TABLET PO SCH (17:32)
[2019-02-17 20:00] VITALS: BP 178/58
[2019-02-17] MEDS ORDERED: AMITRIPTYLINE 50MG TABLET PO SCH (21:00)
[2019-02-17] MEDS: AMITRIPTYLINE 25MG TABLET PO SCH ×2 (22:37→22:52)
[2019-02-18] VITALS (8 sets, daily range): BP systolic 118–149; BP diastolic 64–93
[2019-02-18] MEDS: GABAPENTIN 400MG CAPSULE PO SCH ×4 (06:31→22:07)
[2019-02-18] MEDS: LEVOTHYROXINE SODIUM 25MCG TABLET PO SCH (06:31)
[2019-02-18] MEDS: CARBAMAZEPINE 200MG TABLET PO SCH ×3 (06:31→22:02)
[2019-02-18 06:38] LABS: BASOPHILS % 0.5 % (0.0-2.0); HEMOGLOBIN. 12.3 g/dL (12.0-16.0); LYMPHOCYTES % 12.5 % (20.0-50.0); MEAN CORPUSCULAR HEMOGLOBIN 31.9 pg (28.0-32.0); MEAN CORPUSCULAR VOLUME 93.7 fL (81.0-99.0); MEAN PLATELET VOLUME 7.8 fl (7.4-10.4); MONOCYTES % 6.7 % (2.0-8.0); NEUTROPHILS % 78.3 % (40.0-76.0); PLATELET 269 x1000/uL (130-400); RED BLOOD CELL COUNT 3.84 mill/uL (4.2-5.4); RED CELL DISTRIBUTION WIDTH 13.9 % (11.6-14.6)
[2019-02-18 06:59] LABS: CHLORIDE 107 mEq/L (98-107)
[2019-02-18] MEDS: BLOOD SUGAR DIAGNOSTIC STRIP TEST SCH ×4 (07:38→21:50)
[2019-02-18] MEDS: INSULIN LISPRO 100 UNITS/ML SUBCUT SCH ×4 (07:50→21:30)
[2019-02-18] MEDS: FAMOTIDINE 20MG TABLET PO SCH ×2 (08:28→20:46)
[2019-02-18] MEDS: LEVOFLOXACIN 500MG PREMIX 100 ML IV SCH (08:28)
[2019-02-18] MEDS: BACLOFEN 10MG TABLET PO SCH ×2 (08:28→20:47)
[2019-02-18] MEDS: PREDNISONE 20MG TABLET PO SCH ×2 (08:28→17:49)
[2019-02-18] MEDS: DONEPEZIL HCL 10MG TABLET PO SCH (08:28)
[2019-02-18] MEDS ORDERED: LIDOCAINE HCL 1% 20ML VIAL (Pyxis) INJ ONE (13:17)
[2019-02-18 13:30] LABS: PARTIAL THROMBOPLASTIN TIME 26.9 sec (23.4-31.0); PROTHROMBIN TIME 10.3 sec (9.6-11.0)
[2019-02-18] MEDS: HYDROMORPHONE HCL/PF 2MG/ML CPJ IV PRN ×2 (19:06→23:52)
[2019-02-18] MEDS: DEXT 5%/0.45% NACL 1000ML 1,000 ML IV SCH (23:51)
[2019-02-19] VITALS: BP 118/58
[2019-02-19] MEDS: AMITRIPTYLINE 25MG TABLET PO SCH (00:29)
[2019-02-19 04:00] VITALS: BP 116/54
[2019-02-19] MEDS: CARBAMAZEPINE 200MG TABLET PO SCH ×2 (06:21→13:02)
[2019-02-19] MEDS: GABAPENTIN 400MG CAPSULE PO SCH ×2 (06:22→13:01)
[2019-02-19] MEDS: LEVOTHYROXINE SODIUM 25MCG TABLET PO SCH (06:22)
[2019-02-19] MEDS: BLOOD SUGAR DIAGNOSTIC STRIP TEST SCH ×3 (07:34→17:20)
[2019-02-19 08:00] VITALS: BP 120/74
[2019-02-19 08:11] LABS: BASOPHILS % 0.5 % (0.0-2.0); EOSINOPHILS % 2.2 % (0.0-5.0); HEMATOCRIT. 35.2 % (36.0-48.0); HEMOGLOBIN. 11.8 g/dL (12.0-16.0); LYMPHOCYTES % 17.8 % (20.0-50.0); MEAN CORPUSCULAR HEMOGLOBIN 31.5 pg (28.0-32.0); MEAN CORPUSCULAR VOLUME 93.7 fL (81.0-99.0); MONOCYTES % 7.5 % (2.0-8.0); PLATELET 256 x1000/uL (130-400); RED BLOOD CELL COUNT 3.75 mill/uL (4.2-5.4); RED CELL DISTRIBUTION WIDTH 13.6 % (11.6-14.6)
[2019-02-19 08:12] LABS: CHLORIDE 107 mEq/L (98-107)
[2019-02-19] MEDS: DONEPEZIL HCL 10MG TABLET PO SCH (08:13)
[2019-02-19] MEDS: BACLOFEN 10MG TABLET PO SCH (08:13)
[2019-02-19] MEDS: FAMOTIDINE 20MG TABLET PO SCH (08:14)
[2019-02-19] MEDS: PREDNISONE 20MG TABLET PO SCH ×2 (08:14→17:50)
[2019-02-19] MEDS: LEVOFLOXACIN 500MG PREMIX 100 ML IV SCH (08:15)
[2019-02-19] MEDS: HYDROMORPHONE HCL/PF 2MG/ML CPJ IV PRN ×2 (08:17→13:04)
[2019-02-19] MEDS: INSULIN LISPRO 100 UNITS/ML SUBCUT SCH ×3 (08:29→17:50)
[2019-02-19] MEDS ORDERED: GADOBENATE DIMEGLUMINE 529 MG/ML 10ML IV ONE (11:04)
[2019-02-19 12:00] VITALS: BP 127/64
[2019-02-19 15:52] VITALS: BP 160/85
[2019-02-19 16:00] VITALS: BP 160/85
[2019-08-10] MEDS ORDERED: GABA-533 MT (02:25)
== END 2019-02-19 18:19 | disposition home or self-care (01) | DRG 690 ==
LOC: ER 21:01 → 6EST 23:53 → EDBEDREQSVC 02-17 00:01 → ENRESERV 02-17 02:17
PROVIDERS: ADMIT Internal Medicine Nephrology; ATTEND Internal Medicine Nephrology
PROC: 05HY33Z Insertion of Infusion Device into Upper Vein, Percutaneous Approach (ICD-10-PCS; principal; 2019-02-18)
PROC: B54MZZZ Ultrasonography of Right Upper Extremity Veins (ICD-10-PCS; 2019-02-18)
DX: N39.0 Urinary tract infection, site not specified (principal); I67.82 Cerebral ischemia; R27.0 Ataxia, unspecified; G35 Multiple sclerosis; F12.90 Cannabis use, unspecified, uncomplicated; I10 Essential (primary) hypertension; E11.42 Type 2 diabetes mellitus with diabetic polyneuropathy; E03.9 Hypothyroidism, unspecified; B96.1 Klebsiella pneumoniae [K. pneumoniae] as the cause of diseases classified elsewhere; E78.00 Pure hypercholesterolemia, unspecified; F32.9 Major depressive disorder, single episode, unspecified; G31.84 Mild cognitive impairment of uncertain or unknown etiology; M79.7 Fibromyalgia; Z86.73 Personal history of transient ischemic attack (TIA), and cerebral infarction without residual deficits; Z79.890 Hormone replacement therapy; Z79.899 Other long term (current) drug therapy; Z91.19 Patient's noncompliance with other medical treatment and regimen
CPT/HCPCS: 36415; 70553; 71045; 72156; 76937; 80048; 80053; 80305; 80320; 81003; 82962; 83605; 83880; 84439; 84443; 84484; 85025; 87077; 87186; 93005; 93970; 96361; 96374; 96375; 97162; 99285; A6261; A9577; C1725; J0696; J1170; J1815; J1885; J1956; J2405; J2930; J3490; J7030; J7512; G0480

== ENCOUNTER 2019-08-11 16:25 | Inpatient (IN) | payer MEDICARE, MEDICAID ==
[~2019-08-11] VITALS: Ht 172.7 cm; Wt 85.7 kg
[~2019-08-11 16:25] MED LIST changes: -FAMO20TA8 PO; +GABA-533 MT; -GABA600T PO; -PRED5TAB48 PO
[2019-08-11] MEDS ORDERED: ACETAMINOPHEN 325MG TABLET PO PRN (18:15)
[2019-08-11] MEDS ORDERED: DEXTROSE 50% WATER 50ML SYRINGE IV PRN (18:15)
[2019-08-11 18:19] VITALS: BP 162/88
[2019-08-11 20:00] VITALS: BP 154/89
[2019-08-11] MEDS: HYDROMORPHONE HCL/PF 2MG/ML CPJ IV PRN (20:20)
[2019-08-11] MEDS: ATORVASTATIN CALCIUM 40MG TABLET PO SCH (20:25)
[2019-08-11] MEDS: FAMOTIDINE 20MG TABLET PO SCH (20:25)
[2019-08-11] MEDS: AMLODIPINE 2.5MG TABLET PO SCH (20:26)
[2019-08-11] MEDS: DONEPEZIL HCL 10MG TABLET PO SCH (20:27)
[2019-08-11] MEDS: GUAIFENESIN 600MG ER TABLET PO SCH (20:27)
[2019-08-11] MEDS: AMITRIPTYLINE 25MG TABLET PO SCH (20:29)
[2019-08-11] MEDS: BLOOD SUGAR DIAGNOSTIC STRIP TEST SCH (20:36)
[2019-08-11] MEDS: INSULIN LISPRO 100 UNITS/ML SUBCUT SCH (20:37)
[2019-08-11] MEDS: CARBAMAZEPINE 100MG TABLET CHEW PO SCH (22:18)
[2019-08-11] MEDS: GABAPENTIN 400MG CAPSULE PO SCH (22:18)
[2019-08-11] MEDS: SODIUM CHLORIDE 0.45% 1,000 ML IV SCH (23:31)
[2019-08-12] MEDS: OXYCODONE HCL/ACETAMINOPHEN 5/325MG TABLET PO PRN (01:25)
[2019-08-12] MEDS: CLONIDINE 0.1MG TABLET PO PRN (02:43)
[2019-08-12] MEDS: HYDROMORPHONE HCL/PF 2MG/ML CPJ IV PRN ×6 (04:08→20:30)
[2019-08-12] MEDS: BLOOD SUGAR DIAGNOSTIC STRIP TEST SCH ×4 (06:04→20:20)
[2019-08-12] MEDS: LEVOTHYROXINE SODIUM 25MCG TABLET PO SCH (06:04)
[2019-08-12] MEDS: GABAPENTIN 400MG CAPSULE PO SCH ×3 (06:04→21:09)
[2019-08-12] MEDS: CARBAMAZEPINE 100MG TABLET CHEW PO SCH ×3 (06:04→21:09)
[2019-08-12] MEDS: INSULIN LISPRO 100 UNITS/ML SUBCUT SCH ×4 (06:06→20:20)
[2019-08-12] MEDS: CEFTRIAXONE 1 G PREMIX 50 ML IV SCH (06:37)
[2019-08-12 07:25] LABS: BASOPHILS % 0.8 % (0.0-2.0); EOSINOPHILS % 8.2 % (0.0-5.0); HEMATOCRIT. 34.5 % (36.0-48.0); HEMOGLOBIN. 12.2 g/dL (12.0-16.0); LYMPHOCYTES % 21.8 % (20.0-50.0); MEAN CORPUSCULAR HEMOGLOBIN 31.9 pg (28.0-32.0); MEAN CORPUSCULAR VOLUME 90.8 fL (81.0-99.0); MONOCYTES % 8.6 % (2.0-8.0); NEUTROPHILS % 60.6 % (40.0-76.0); RED BLOOD CELL COUNT 3.81 mill/uL (4.2-5.4); RED CELL DISTRIBUTION WIDTH 13.1 % (11.6-14.6)
[2019-08-12 07:42] LABS: CHLORIDE 107 mEq/L (98-107)
[2019-08-12] MEDS: ALBUTEROL (0.083%) 2.5MG/3ML NEB HHN SCH (07:43)
[2019-08-12 08:01] VITALS: BP 176/101
[2019-08-12] MEDS: ASPIRIN 81MG EC TABLET PO SCH (08:43)
[2019-08-12] MEDS: BACLOFEN 10MG TABLET PO SCH ×2 (08:43→16:26)
[2019-08-12] MEDS: GUAIFENESIN 600MG ER TABLET PO SCH ×2 (08:43→20:25)
[2019-08-12] MEDS: LIDOCAINE 5% PATCH TOP SCH ×2 (08:44→14:46)
[2019-08-12] MEDS: AMLODIPINE 2.5MG TABLET PO SCH ×2 (08:44→20:31)
[2019-08-12] MEDS: ENOXAPARIN 40MG/0.4ML SYR SUBCUT SCH (08:44)
[2019-08-12 08:57] LABS: PLATELET ESTIMATE NORMAL
[2019-08-12 08:58] LABS: MEAN PLATELET VOLUME 7.4 fl (7.4-10.4); PLATELET 194 x1000/uL (130-400)
[2019-08-12] MEDS: ONDANSETRON HCL 4MG/2ML INJ IV PRN ×2 (09:21→20:30)
[2019-08-12] MEDS: INSULIN GLARGINE UD 100 UNITS/ML SYR SUBCUT SCH (10:00)
[2019-08-12] MEDS: FLUTICASONE/VILANTEROL 200-25 BLST.W.DEV ORI SCH (10:00)
[2019-08-12] MEDS ORDERED: BISACODYL 10MG SUPP PR PRN (10:15)
[2019-08-12] MEDS: LACTULOSE 20G/30ML UDC PO NR ×2 (13:51→13:54)
[2019-08-12] MEDS: SODIUM CHLORIDE 0.45% 1,000 ML IV SCH (13:51)
[2019-08-12 14:36] VITALS: BP 127/77
[2019-08-12] MEDS: MONTELUKAST SODIUM 10MG TABLET PO SCH (16:26)
[2019-08-12 20:00] VITALS: BP 127/76
[2019-08-12] MEDS: FAMOTIDINE 20MG TABLET PO SCH (20:24)
[2019-08-12] MEDS: ATORVASTATIN CALCIUM 40MG TABLET PO SCH (20:25)
[2019-08-12] MEDS: AMITRIPTYLINE 25MG TABLET PO SCH (20:27)
[2019-08-12] MEDS: DONEPEZIL HCL 10MG TABLET PO SCH (20:30)
[2019-08-12] MEDS: LORAZEPAM 2MG/ML CPJ IV PRN (21:17)
[2019-08-13] MEDS: HYDROMORPHONE HCL/PF 2MG/ML CPJ IV PRN ×3 (02:40→20:31)
[2019-08-13] MEDS: LEVOTHYROXINE SODIUM 25MCG TABLET PO SCH (05:58)
[2019-08-13] MEDS: GABAPENTIN 400MG CAPSULE PO SCH ×3 (05:58→21:51)
[2019-08-13] MEDS: CARBAMAZEPINE 100MG TABLET CHEW PO SCH ×3 (05:58→21:50)
[2019-08-13] MEDS: SODIUM CHLORIDE 0.45% 1,000 ML IV SCH ×2 (05:58→14:36)
[2019-08-13] MEDS: BLOOD SUGAR DIAGNOSTIC STRIP TEST SCH ×4 (05:59→21:52)
[2019-08-13] MEDS: OXYCODONE HCL/ACETAMINOPHEN 5/325MG TABLET PO PRN (06:50)
[2019-08-13] MEDS: CEFTRIAXONE 1 G PREMIX 50 ML IV SCH (06:50)
[2019-08-13 08:00] VITALS: BP 112/71
[2019-08-13 08:21] LABS: FOLIC ACID (FOLATE) SERUM 3.7 ng/mL (>5.38)
[2019-08-13] MEDS: ALBUTEROL (0.083%) 2.5MG/3ML NEB HHN SCH ×3 (08:27→21:28)
[2019-08-13] MEDS: INSULIN LISPRO 100 UNITS/ML SUBCUT SCH ×4 (09:00→21:00)
[2019-08-13] MEDS: AMLODIPINE 2.5MG TABLET PO SCH ×3 (09:00→21:51)
[2019-08-13] MEDS: ASPIRIN 81MG EC TABLET PO SCH (09:21)
[2019-08-13] MEDS: BACLOFEN 10MG TABLET PO SCH ×2 (09:21→16:40)
[2019-08-13] MEDS: GUAIFENESIN 600MG ER TABLET PO SCH ×2 (09:21→21:51)
[2019-08-13] MEDS: FLUTICASONE/VILANTEROL 200-25 BLST.W.DEV ORI SCH (09:21)
[2019-08-13] MEDS: POLYETHYLENE GLYCOL 3350 (17GM) 1 DOSE PACK PO SCH (09:22)
[2019-08-13] MEDS: LIDOCAINE 5% PATCH TOP SCH ×2 (09:23)
[2019-08-13] MEDS: INSULIN GLARGINE UD 100 UNITS/ML SYR SUBCUT SCH (09:24)
[2019-08-13] MEDS: ENOXAPARIN 40MG/0.4ML SYR SUBCUT SCH (09:50)
[2019-08-13] MEDS: FOLIC ACID 1MG TABLET PO SCH (14:36)
[2019-08-13] MEDS: MONTELUKAST SODIUM 10MG TABLET PO SCH (16:40)
[2019-08-13 20:00] VITALS: BP 172/87
[2019-08-13] MEDS: DONEPEZIL HCL 10MG TABLET PO SCH (21:50)
[2019-08-13] MEDS: ATORVASTATIN CALCIUM 40MG TABLET PO SCH (21:51)
[2019-08-13] MEDS: FAMOTIDINE 20MG TABLET PO SCH (21:51)
[2019-08-13] MEDS: LORAZEPAM 2MG/ML CPJ IV PRN (22:54)
[2019-08-13] MEDS: AMITRIPTYLINE 25MG TABLET PO SCH (22:55)
[2019-08-14] MEDS: SODIUM CHLORIDE 0.45% 1,000 ML IV SCH ×2 (00:31→17:17)
[2019-08-14] MEDS: ONDANSETRON HCL 4MG/2ML INJ IV PRN (02:26)
[2019-08-14] MEDS: HYDROMORPHONE HCL/PF 2MG/ML CPJ IV PRN ×3 (02:31→18:36)
[2019-08-14] MEDS: CARBAMAZEPINE 100MG TABLET CHEW PO SCH ×3 (06:17→21:55)
[2019-08-14] MEDS: LEVOTHYROXINE SODIUM 25MCG TABLET PO SCH (06:18)
[2019-08-14] MEDS: GABAPENTIN 400MG CAPSULE PO SCH ×3 (06:18→21:55)
[2019-08-14] MEDS: BLOOD SUGAR DIAGNOSTIC STRIP TEST SCH ×4 (06:18→21:56)
[2019-08-14] MEDS: INSULIN LISPRO 100 UNITS/ML SUBCUT SCH ×4 (06:18→22:00)
[2019-08-14] MEDS: CEFTRIAXONE 1 G PREMIX 50 ML IV SCH (06:18)
[2019-08-14 08:24] VITALS: BP 146/73
[2019-08-14] MEDS: ASPIRIN 81MG EC TABLET PO SCH (09:39)
[2019-08-14] MEDS: FOLIC ACID 1MG TABLET PO SCH (09:39)
[2019-08-14] MEDS: AMLODIPINE 2.5MG TABLET PO SCH ×2 (09:39→21:54)
[2019-08-14] MEDS: GUAIFENESIN 600MG ER TABLET PO SCH ×2 (09:39→21:54)
[2019-08-14] MEDS: BACLOFEN 10MG TABLET PO SCH ×2 (09:40→17:17)
[2019-08-14] MEDS: ENOXAPARIN 40MG/0.4ML SYR SUBCUT SCH (09:40)
[2019-08-14] MEDS: LIDOCAINE 5% PATCH TOP SCH ×2 (09:40→09:41)
[2019-08-14] MEDS: POLYETHYLENE GLYCOL 3350 (17GM) 1 DOSE PACK PO SCH (09:40)
[2019-08-14] MEDS: FLUTICASONE/VILANTEROL 200-25 BLST.W.DEV ORI SCH (09:42)
[2019-08-14] MEDS: INSULIN GLARGINE UD 100 UNITS/ML SYR SUBCUT SCH (10:00)
[2019-08-14] MEDS: ALBUTEROL (0.083%) 2.5MG/3ML NEB HHN SCH ×2 (12:35→16:00)
[2019-08-14] MEDS: LACTULOSE 20G/30ML UDC PO SCH ×4 (13:32→23:23)
[2019-08-14] MEDS: MONTELUKAST SODIUM 10MG TABLET PO SCH (17:17)
[2019-08-14 20:00] VITALS: BP 135/82
[2019-08-14] MEDS: FAMOTIDINE 20MG TABLET PO SCH (21:54)
[2019-08-14] MEDS: DONEPEZIL HCL 10MG TABLET PO SCH (21:54)
[2019-08-14] MEDS: AMITRIPTYLINE 25MG TABLET PO SCH (21:55)
[2019-08-14] MEDS: OXYCODONE HCL/ACETAMINOPHEN 5/325MG TABLET PO PRN (22:08)
[2019-08-14] MEDS: ATORVASTATIN CALCIUM 40MG TABLET PO SCH (22:23)
[2019-08-15 00:25] LABS: CLARITY URINE CLEAR (CLEAR); COLOR URINE YELLOW (YELLOW); KETONES URINE NEGATIVE (NEGATIVE); LEUKOCYTE ESTERASE URINE 1+ (NEGATIVE); NITRITE URINE NEGATIVE (NEGATIVE); OCCULT BLOOD URINE NEGATIVE (NEGATIVE); PH URINE 5.5 (4.5-8.0); PROTEIN URINE NEGATIVE (NEGATIVE); SPECIFIC GRAVITY URINE 1.014 (1.005-1.030); UROBILINOGEN URINE 0.2 E.U./dL (0.2-1.0)
[2019-08-15] MEDS: HYDROMORPHONE HCL/PF 2MG/ML CPJ IV PRN ×4 (01:05→21:40)
[2019-08-15] MEDS: LEVOTHYROXINE SODIUM 25MCG TABLET PO SCH (06:45)
[2019-08-15] MEDS: GABAPENTIN 400MG CAPSULE PO SCH ×3 (06:45→20:17)
[2019-08-15] MEDS: CARBAMAZEPINE 100MG TABLET CHEW PO SCH ×3 (06:45→20:18)
[2019-08-15] MEDS: BLOOD SUGAR DIAGNOSTIC STRIP TEST SCH ×4 (06:51→21:01)
[2019-08-15] MEDS: CEFTRIAXONE 1 G PREMIX 50 ML IV SCH (06:51)
[2019-08-15] MEDS: INSULIN LISPRO 100 UNITS/ML SUBCUT SCH ×4 (06:57→21:00)
[2019-08-15 07:11] LABS: BASOPHILS % 0.6 % (0.0-2.0); EOSINOPHILS % 7.3 % (0.0-5.0); HEMOGLOBIN. 11.5 g/dL (12.0-16.0); MEAN CORPUSCULAR HEMOGLOBIN 31.7 pg (28.0-32.0); MEAN CORPUSCULAR VOLUME 91.3 fL (81.0-99.0); MEAN PLATELET VOLUME 7.2 fl (7.4-10.4); MONOCYTES % 7.2 % (2.0-8.0); NEUTROPHILS % 63.9 % (40.0-76.0); PLATELET 267 x1000/uL (130-400); RED BLOOD CELL COUNT 3.62 mill/uL (4.2-5.4); RED CELL DISTRIBUTION WIDTH 13.4 % (11.6-14.6)
[2019-08-15 07:20] LABS: CHLORIDE 109 mEq/L (98-107)
[2019-08-15 08:02] VITALS: BP 151/83
[2019-08-15] MEDS: BACLOFEN 10MG TABLET PO SCH ×2 (08:57→17:36)
[2019-08-15] MEDS: GUAIFENESIN 600MG ER TABLET PO SCH ×2 (08:57→20:19)
[2019-08-15] MEDS: ENOXAPARIN 40MG/0.4ML SYR SUBCUT SCH (08:58)
[2019-08-15] MEDS: FOLIC ACID 1MG TABLET PO SCH (08:58)
[2019-08-15] MEDS: POLYETHYLENE GLYCOL 3350 (17GM) 1 DOSE PACK PO SCH (08:58)
[2019-08-15] MEDS: AMLODIPINE 2.5MG TABLET PO SCH ×2 (08:58→20:20)
[2019-08-15] MEDS: ASPIRIN 81MG EC TABLET PO SCH (08:58)
[2019-08-15] MEDS: LIDOCAINE 5% PATCH TOP SCH ×2 (08:58→08:59)
[2019-08-15] MEDS: FLUTICASONE/VILANTEROL 200-25 BLST.W.DEV ORI SCH (08:59)
[2019-08-15] MEDS: ALBUTEROL (0.083%) 2.5MG/3ML NEB HHN SCH ×2 (09:50→17:18)
[2019-08-15] MEDS: INSULIN GLARGINE UD 100 UNITS/ML SYR SUBCUT SCH (10:00)
[2019-08-15] MEDS ORDERED: NA PHOS,M-B/NA PHOS,DI-BA ENEMA 118ML PR PRN (11:45)
[2019-08-15] MEDS: MONTELUKAST SODIUM 10MG TABLET PO SCH (17:36)
[2019-08-15] MEDS: SODIUM CHLORIDE 0.45% 1,000 ML IV SCH ×2 (19:50→21:34)
[2019-08-15 20:00] VITALS: BP 160/78
[2019-08-15] MEDS: DONEPEZIL HCL 10MG TABLET PO SCH (20:18)
[2019-08-15] MEDS: AMITRIPTYLINE 25MG TABLET PO SCH (20:19)
[2019-08-15] MEDS: ATORVASTATIN CALCIUM 40MG TABLET PO SCH (20:19)
[2019-08-15] MEDS: FAMOTIDINE 20MG TABLET PO SCH (20:20)
[2019-08-16] MEDS: ONDANSETRON HCL 4MG/2ML INJ IV PRN ×2 (00:28→12:16)
[2019-08-16 04:30] VITALS: BP 135/69
[2019-08-16] MEDS: HYDROMORPHONE HCL/PF 2MG/ML CPJ IV PRN ×4 (04:31→22:45)
[2019-08-16] MEDS: GABAPENTIN 400MG CAPSULE PO SCH ×3 (05:40→21:16)
[2019-08-16] MEDS: CARBAMAZEPINE 100MG TABLET CHEW PO SCH ×3 (05:40→21:16)
[2019-08-16] MEDS: BLOOD SUGAR DIAGNOSTIC STRIP TEST SCH ×4 (05:41→20:47)
[2019-08-16] MEDS: LEVOTHYROXINE SODIUM 25MCG TABLET PO SCH (05:41)
[2019-08-16] MEDS: CEFTRIAXONE 1 G PREMIX 50 ML IV SCH (06:02)
[2019-08-16] MEDS: INSULIN LISPRO 100 UNITS/ML SUBCUT SCH ×4 (06:39→20:47)
[2019-08-16 08:11] VITALS: BP 163/90
[2019-08-16] MEDS: BISACODYL 10MG SUPP PR SCH (09:00)
[2019-08-16] MEDS: BACLOFEN 10MG TABLET PO SCH ×2 (09:27→16:33)
[2019-08-16] MEDS: AMLODIPINE 2.5MG TABLET PO SCH ×2 (09:28→20:46)
[2019-08-16] MEDS: FOLIC ACID 1MG TABLET PO SCH (09:28)
[2019-08-16] MEDS: ASPIRIN 81MG EC TABLET PO SCH (09:29)
[2019-08-16] MEDS: POLYETHYLENE GLYCOL 3350 (17GM) 1 DOSE PACK PO SCH (09:29)
[2019-08-16] MEDS: ENOXAPARIN 40MG/0.4ML SYR SUBCUT SCH (09:30)
[2019-08-16] MEDS: LIDOCAINE 5% PATCH TOP SCH ×2 (09:34→09:36)
[2019-08-16] MEDS: INSULIN GLARGINE UD 100 UNITS/ML SYR SUBCUT SCH (09:38)
[2019-08-16] MEDS: GUAIFENESIN 600MG ER TABLET PO SCH ×2 (09:43→20:42)
[2019-08-16] MEDS: FLUTICASONE/VILANTEROL 200-25 BLST.W.DEV ORI SCH (09:46)
[2019-08-16] MEDS: ALBUTEROL (0.083%) 2.5MG/3ML NEB HHN SCH ×2 (12:23→16:44)
[2019-08-16] MEDS: SODIUM CHLORIDE 0.45% 1,000 ML IV SCH (12:55)
[2019-08-16] MEDS: MONTELUKAST SODIUM 10MG TABLET PO SCH (16:33)
[2019-08-16 20:00] VITALS: BP 193/91
[2019-08-16] MEDS: FAMOTIDINE 20MG TABLET PO SCH (20:40)
[2019-08-16] MEDS: ATORVASTATIN CALCIUM 40MG TABLET PO SCH (20:40)
[2019-08-16] MEDS: AMITRIPTYLINE 25MG TABLET PO SCH (20:41)
[2019-08-16] MEDS: DONEPEZIL HCL 10MG TABLET PO SCH (20:41)
[2019-08-17] MEDS: HYDROMORPHONE HCL/PF 2MG/ML CPJ IV PRN ×3 (04:51→18:57)
[2019-08-17] MEDS: SODIUM CHLORIDE 0.45% 1,000 ML IV SCH ×2 (04:52→11:28)
[2019-08-17] MEDS: GABAPENTIN 400MG CAPSULE PO SCH ×3 (06:00→22:42)
[2019-08-17] MEDS: CARBAMAZEPINE 100MG TABLET CHEW PO SCH ×3 (06:01→22:41)
[2019-08-17] MEDS: LEVOTHYROXINE SODIUM 25MCG TABLET PO SCH (06:01)
[2019-08-17] MEDS: CEFTRIAXONE 1 G PREMIX 50 ML IV SCH (06:01)
[2019-08-17] MEDS: INSULIN LISPRO 100 UNITS/ML SUBCUT SCH ×4 (06:04→21:00)
[2019-08-17] MEDS: BLOOD SUGAR DIAGNOSTIC STRIP TEST SCH ×4 (06:04→21:00)
[2019-08-17 06:26] LABS: BASOPHILS % 0.5 % (0.0-2.0); EOSINOPHILS % 8.2 % (0.0-5.0); HEMATOCRIT. 32.5 % (36.0-48.0); HEMOGLOBIN. 11.4 g/dL (12.0-16.0); LYMPHOCYTES % 15.4 % (20.0-50.0); MEAN CORPUSCULAR HEMOGLOBIN 31.7 pg (28.0-32.0); MEAN CORPUSCULAR VOLUME 90.9 fL (81.0-99.0); MEAN PLATELET VOLUME 7.4 fl (7.4-10.4); MONOCYTES % 9.8 % (2.0-8.0); NEUTROPHILS % 66.1 % (40.0-76.0); PLATELET 295 x1000/uL (130-400); RED BLOOD CELL COUNT 3.58 mill/uL (4.2-5.4); RED CELL DISTRIBUTION WIDTH 13.2 % (11.6-14.6)
[2019-08-17 06:42] LABS: CHLORIDE 109 mEq/L (98-107)
[2019-08-17] MEDS: ALBUTEROL (0.083%) 2.5MG/3ML NEB HHN SCH ×2 (07:31→22:18)
[2019-08-17 08:00] VITALS: BP 125/69
[2019-08-17] MEDS ORDERED: OXYCODONE HCL/ACETAMINOPHEN 5/325MG TABLET PO PRN (08:45)
[2019-08-17] MEDS: BISACODYL 10MG SUPP PR SCH (09:00)
[2019-08-17] MEDS: POLYETHYLENE GLYCOL 3350 (17GM) 1 DOSE PACK PO SCH (09:00)
[2019-08-17] MEDS: AMLODIPINE 2.5MG TABLET PO SCH ×2 (09:34→22:41)
[2019-08-17] MEDS: FLUTICASONE/VILANTEROL 200-25 BLST.W.DEV ORI SCH (09:34)
[2019-08-17] MEDS: GUAIFENESIN 600MG ER TABLET PO SCH ×2 (09:34→22:41)
[2019-08-17] MEDS: LIDOCAINE 5% PATCH TOP SCH ×2 (09:35→09:36)
[2019-08-17] MEDS: ASPIRIN 81MG EC TABLET PO SCH (09:35)
[2019-08-17] MEDS: ENOXAPARIN 40MG/0.4ML SYR SUBCUT SCH (09:35)
[2019-08-17] MEDS: FOLIC ACID 1MG TABLET PO SCH (09:35)
[2019-08-17] MEDS: BACLOFEN 10MG TABLET PO SCH ×2 (09:35→17:43)
[2019-08-17] MEDS: INSULIN GLARGINE UD 100 UNITS/ML SYR SUBCUT SCH (09:36)
[2019-08-17] MEDS: ONDANSETRON HCL 4MG/2ML INJ IV PRN (10:05)
[2019-08-17] MEDS: PHENYLEPHRINE HCL 0.5% 15ML NASAL SPRAY BOTHNSTRLS SCH ×2 (12:32→23:08)
[2019-08-17] MEDS: FLUTICASONE PROPIONATE 50MCG/SPRAY BOTTLE BOTHNSTRLS SCH (12:32)
[2019-08-17] MEDS: SODIUM CHLORIDE 45ML SPRAY NS SCH ×3 (12:33→23:07)
[2019-08-17] MEDS ORDERED: BUPIVACAINE HCL/PF 0.25% (2.5MG/ML) 10ML INFIL SCH (13:00)
[2019-08-17] MEDS ORDERED: TRIAMCINOLONE ACETONIDE 40MG/ML 1ML VIAL IM SCH (13:00)
[2019-08-17] MEDS ORDERED: LIDOCAINE HCL/EPINEPHRINE 1%-EPI 1:100,000 20 ML VIAL INFIL SCH (13:00)
[2019-08-17] MEDS: MONTELUKAST SODIUM 10MG TABLET PO SCH (17:42)
[2019-08-17] MEDS: ERGOCALCIFEROL 50000UNITS CAPSULE PO SCH (17:43)
[2019-08-17 20:00] VITALS: BP 159/89
[2019-08-17] MEDS: AMITRIPTYLINE 25MG TABLET PO SCH (22:40)
[2019-08-17] MEDS: DONEPEZIL HCL 10MG TABLET PO SCH (22:41)
[2019-08-17] MEDS: FAMOTIDINE 20MG TABLET PO SCH (22:41)
[2019-08-17] MEDS: ATORVASTATIN CALCIUM 40MG TABLET PO SCH (22:42)
[2019-08-18] MEDS: HYDROMORPHONE HCL/PF 2MG/ML CPJ IV PRN ×4 (01:31→19:22)
[2019-08-18] MEDS: SODIUM CHLORIDE 0.45% 1,000 ML IV SCH ×2 (01:51→14:16)
[2019-08-18] MEDS: CARBAMAZEPINE 100MG TABLET CHEW PO SCH ×3 (05:30→23:02)
[2019-08-18] MEDS: GABAPENTIN 400MG CAPSULE PO SCH ×3 (05:30→21:47)
[2019-08-18] MEDS: PHENYLEPHRINE HCL 0.5% 15ML NASAL SPRAY BOTHNSTRLS SCH ×3 (05:31→20:19)
[2019-08-18] MEDS: BLOOD SUGAR DIAGNOSTIC STRIP TEST SCH ×4 (06:52→21:48)
[2019-08-18] MEDS: LEVOTHYROXINE SODIUM 25MCG TABLET PO SCH (06:53)
[2019-08-18 07:45] VITALS: BP 172/90
[2019-08-18] MEDS: AMLODIPINE 2.5MG TABLET PO SCH ×2 (08:49→21:52)
[2019-08-18] MEDS: POLYETHYLENE GLYCOL 3350 (17GM) 1 DOSE PACK PO SCH (08:49)
[2019-08-18] MEDS: FOLIC ACID 1MG TABLET PO SCH (08:49)
[2019-08-18] MEDS: BACLOFEN 10MG TABLET PO SCH ×2 (08:50→17:12)
[2019-08-18] MEDS: GUAIFENESIN 600MG ER TABLET PO SCH ×2 (08:50→21:46)
[2019-08-18] MEDS: ASPIRIN 81MG EC TABLET PO SCH (08:50)
[2019-08-18] MEDS: FLUTICASONE/VILANTEROL 200-25 BLST.W.DEV ORI SCH (08:50)
[2019-08-18] MEDS: ENOXAPARIN 40MG/0.4ML SYR SUBCUT SCH (08:51)
[2019-08-18] MEDS: SODIUM CHLORIDE 45ML SPRAY NS SCH ×4 (08:52→21:45)
[2019-08-18] MEDS: FLUTICASONE PROPIONATE 50MCG/SPRAY BOTTLE BOTHNSTRLS SCH (08:52)
[2019-08-18] MEDS: BISACODYL 10MG SUPP PR SCH (08:53)
[2019-08-18] MEDS: INSULIN LISPRO 100 UNITS/ML SUBCUT SCH ×4 (08:53→21:00)
[2019-08-18] MEDS: ALBUTEROL (0.083%) 2.5MG/3ML NEB HHN SCH ×2 (09:20→14:53)
[2019-08-18] MEDS: INSULIN GLARGINE UD 100 UNITS/ML SYR SUBCUT SCH (10:00)
[2019-08-18] MEDS: OXYCODONE HCL/ACETAMINOPHEN 5/325MG TABLET PO SCH ×2 (12:13→17:45)
[2019-08-18] MEDS: LACTULOSE 20G/30ML UDC PO SCH ×2 (16:24→21:00)
[2019-08-18] MEDS: MONTELUKAST SODIUM 10MG TABLET PO SCH (17:12)
[2019-08-18] MEDS ORDERED: ETHYL CHLORIDE CAN TOP NR (17:13)
[2019-08-18] MEDS: LIDOCAINE 5% PATCH TOP SCH ×2 (17:45)
[2019-08-18 20:00] VITALS: BP 177/94
[2019-08-18] MEDS: AMITRIPTYLINE 25MG TABLET PO SCH (21:45)
[2019-08-18] MEDS: FAMOTIDINE 20MG TABLET PO SCH (21:46)
[2019-08-18] MEDS: ATORVASTATIN CALCIUM 40MG TABLET PO SCH (21:46)
[2019-08-18] MEDS: DONEPEZIL HCL 10MG TABLET PO SCH (21:47)
[2019-08-19] MEDS: OXYCODONE HCL/ACETAMINOPHEN 5/325MG TABLET PO SCH ×4 (00:27→17:37)
[2019-08-19] MEDS: HYDROMORPHONE HCL/PF 2MG/ML CPJ IV PRN ×3 (02:06→21:31)
[2019-08-19] MEDS: PHENYLEPHRINE HCL 0.5% 15ML NASAL SPRAY BOTHNSTRLS SCH ×3 (04:00→20:30)
[2019-08-19] MEDS: SODIUM CHLORIDE 0.45% 1,000 ML IV SCH ×2 (04:06→16:53)
[2019-08-19] MEDS: CARBAMAZEPINE 100MG TABLET CHEW PO SCH ×3 (06:36→21:29)
[2019-08-19] MEDS: GABAPENTIN 400MG CAPSULE PO SCH ×3 (06:36→21:29)
[2019-08-19] MEDS: LEVOTHYROXINE SODIUM 25MCG TABLET PO SCH (06:37)
[2019-08-19] MEDS: BLOOD SUGAR DIAGNOSTIC STRIP TEST SCH ×4 (06:43→21:29)
[2019-08-19 08:00] VITALS: BP 176/92
[2019-08-19] MEDS: LIDOCAINE 5% PATCH TOP SCH ×2 (09:00→09:22)
[2019-08-19] MEDS: POLYETHYLENE GLYCOL 3350 (17GM) 1 DOSE PACK PO SCH (09:00)
[2019-08-19] MEDS: LACTULOSE 20G/30ML UDC PO SCH (09:00)
[2019-08-19] MEDS: BISACODYL 10MG SUPP PR SCH (09:00)
[2019-08-19] MEDS: INSULIN LISPRO 100 UNITS/ML SUBCUT SCH ×3 (09:00→16:52)
[2019-08-19] MEDS: ALBUTEROL (0.083%) 2.5MG/3ML NEB HHN SCH ×4 (09:16→21:53)
[2019-08-19] MEDS: GUAIFENESIN 600MG ER TABLET PO SCH ×2 (09:20→20:29)
[2019-08-19] MEDS: AMLODIPINE 2.5MG TABLET PO SCH ×2 (09:22→20:29)
[2019-08-19] MEDS: ASPIRIN 81MG EC TABLET PO SCH (09:22)
[2019-08-19] MEDS: BACLOFEN 10MG TABLET PO SCH ×2 (09:22→16:18)
[2019-08-19] MEDS: FOLIC ACID 1MG TABLET PO SCH (09:22)
[2019-08-19] MEDS: SODIUM CHLORIDE 45ML SPRAY NS SCH ×4 (09:23→21:31)
[2019-08-19] MEDS: ENOXAPARIN 40MG/0.4ML SYR SUBCUT SCH (09:23)
[2019-08-19] MEDS: FLUTICASONE PROPIONATE 50MCG/SPRAY BOTTLE BOTHNSTRLS SCH (09:24)
[2019-08-19] MEDS: INSULIN GLARGINE UD 100 UNITS/ML SYR SUBCUT SCH (09:34)
[2019-08-19] MEDS: ONDANSETRON HCL 4MG/2ML INJ IV PRN (16:18)
[2019-08-19] MEDS: MONTELUKAST SODIUM 10MG TABLET PO SCH (16:20)
[2019-08-19 20:00] VITALS: BP 149/75
[2019-08-19] MEDS: FAMOTIDINE 20MG TABLET PO SCH (20:29)
[2019-08-19] MEDS: DONEPEZIL HCL 10MG TABLET PO SCH (20:29)
[2019-08-19] MEDS: ATORVASTATIN CALCIUM 40MG TABLET PO SCH (20:29)
[2019-08-19] MEDS: AMITRIPTYLINE 25MG TABLET PO SCH (20:29)
[2019-08-20] MEDS: OXYCODONE HCL/ACETAMINOPHEN 5/325MG TABLET PO SCH ×4 (00:30→18:33)
[2019-08-20] MEDS: HYDROMORPHONE HCL/PF 2MG/ML CPJ IV PRN ×3 (03:33→21:23)
[2019-08-20] MEDS: PHENYLEPHRINE HCL 0.5% 15ML NASAL SPRAY BOTHNSTRLS SCH ×2 (03:40→12:34)
[2019-08-20] MEDS: ONDANSETRON HCL 4MG/2ML INJ IV PRN (04:42)
[2019-08-20] MEDS: SODIUM CHLORIDE 0.45% 1,000 ML IV SCH ×2 (06:30→20:30)
[2019-08-20] MEDS: GABAPENTIN 400MG CAPSULE PO SCH ×3 (06:34→21:21)
[2019-08-20] MEDS: CARBAMAZEPINE 100MG TABLET CHEW PO SCH ×3 (06:35→21:19)
[2019-08-20] MEDS: LEVOTHYROXINE SODIUM 25MCG TABLET PO SCH (06:35)
[2019-08-20] MEDS: BLOOD SUGAR DIAGNOSTIC STRIP TEST SCH ×4 (06:44→21:22)
[2019-08-20] MEDS: INSULIN LISPRO (LOW DOSE) 100 UNITS/ML SUBCUT SCH ×3 (06:45→17:00)
[2019-08-20] MEDS ORDERED: INSULIN LISPRO 100 UNITS/ML SUBCUT SCH (07:00)
[2019-08-20 08:00] VITALS: BP 199/81
[2019-08-20] MEDS: BISACODYL 10MG SUPP PR SCH (09:00)
[2019-08-20] MEDS: FLUTICASONE PROPIONATE 50MCG/SPRAY BOTTLE BOTHNSTRLS SCH (09:08)
[2019-08-20] MEDS: SODIUM CHLORIDE 45ML SPRAY NS SCH ×4 (09:08→21:26)
[2019-08-20] MEDS: ASPIRIN 81MG EC TABLET PO SCH (09:09)
[2019-08-20] MEDS: AMLODIPINE 2.5MG TABLET PO SCH ×2 (09:09→21:25)
[2019-08-20] MEDS: GUAIFENESIN 600MG ER TABLET PO SCH ×2 (09:09→21:21)
[2019-08-20] MEDS: FOLIC ACID 1MG TABLET PO SCH (09:09)
[2019-08-20] MEDS: BACLOFEN 10MG TABLET PO SCH ×2 (09:09→18:14)
[2019-08-20] MEDS: ENOXAPARIN 40MG/0.4ML SYR SUBCUT SCH (09:09)
[2019-08-20] MEDS: LIDOCAINE 5% PATCH TOP SCH (09:10)
[2019-08-20] MEDS: POLYETHYLENE GLYCOL 3350 (17GM) 1 DOSE PACK PO SCH (09:10)
[2019-08-20] MEDS: FLUTICASONE/VILANTEROL 200-25 BLST.W.DEV ORI SCH (09:20)
[2019-08-20] MEDS ORDERED: LORAZEPAM 2MG/ML CPJ IV SCH (10:00)
[2019-08-20] MEDS: MONTELUKAST SODIUM 10MG TABLET PO SCH (18:14)
[2019-08-20 20:00] VITALS: BP 180/110
[2019-08-20] MEDS: AMITRIPTYLINE 25MG TABLET PO SCH (21:20)
[2019-08-20] MEDS: ATORVASTATIN CALCIUM 40MG TABLET PO SCH (21:21)
[2019-08-20] MEDS: DONEPEZIL HCL 10MG TABLET PO SCH (21:22)
[2019-08-20] MEDS: FAMOTIDINE 20MG TABLET PO SCH (21:22)
[2019-08-21] MEDS: OXYCODONE HCL/ACETAMINOPHEN 5/325MG TABLET PO SCH ×4 (00:10→17:42)
[2019-08-21] MEDS: CLONIDINE 0.1MG TABLET PO PRN (01:07)
[2019-08-21] MEDS: HYDROMORPHONE HCL/PF 2MG/ML CPJ IV PRN ×4 (03:23→21:36)
[2019-08-21] MEDS: GABAPENTIN 400MG CAPSULE PO SCH ×3 (06:14→21:37)
[2019-08-21] MEDS: CARBAMAZEPINE 100MG TABLET CHEW PO SCH ×3 (06:14→21:37)
[2019-08-21] MEDS: LEVOTHYROXINE SODIUM 25MCG TABLET PO SCH (06:14)
[2019-08-21] MEDS: BLOOD SUGAR DIAGNOSTIC STRIP TEST SCH ×4 (06:15→21:50)
[2019-08-21] MEDS: INSULIN LISPRO (LOW DOSE) 100 UNITS/ML SUBCUT SCH ×3 (07:00→17:00)
[2019-08-21 08:00] VITALS: BP 132/69
[2019-08-21] MEDS: BISACODYL 10MG SUPP PR SCH (09:00)
[2019-08-21] MEDS: SODIUM CHLORIDE 0.45% 1,000 ML IV SCH ×2 (09:10→21:41)
[2019-08-21] MEDS: SODIUM CHLORIDE 45ML SPRAY NS SCH ×4 (09:33→21:37)
[2019-08-21] MEDS: LIDOCAINE 5% PATCH TOP SCH (09:33)
[2019-08-21] MEDS: FLUTICASONE/VILANTEROL 200-25 BLST.W.DEV ORI SCH (09:34)
[2019-08-21] MEDS: POLYETHYLENE GLYCOL 3350 (17GM) 1 DOSE PACK PO SCH (09:35)
[2019-08-21] MEDS: ASPIRIN 81MG EC TABLET PO SCH (09:36)
[2019-08-21] MEDS: BACLOFEN 10MG TABLET PO SCH ×2 (09:36→17:37)
[2019-08-21] MEDS: AMLODIPINE 2.5MG TABLET PO SCH ×2 (09:36→20:38)
[2019-08-21] MEDS: FOLIC ACID 1MG TABLET PO SCH (09:36)
[2019-08-21] MEDS: GUAIFENESIN 600MG ER TABLET PO SCH ×2 (09:36→20:36)
[2019-08-21] MEDS: ENOXAPARIN 40MG/0.4ML SYR SUBCUT SCH (09:36)
[2019-08-21] MEDS: ALBUTEROL (0.083%) 2.5MG/3ML NEB HHN SCH ×2 (10:07→17:06)
[2019-08-21] MEDS ORDERED: HYDROMORPHONE HCL/PF 2MG/ML CPJ SUBCUT PRN (10:38)
[2019-08-21] MEDS: MONTELUKAST SODIUM 10MG TABLET PO SCH (17:37)
[2019-08-21] MEDS: ONDANSETRON HCL 4MG/2ML INJ IV PRN (17:46)
[2019-08-21 20:00] VITALS: BP 162/94
[2019-08-21] MEDS: DONEPEZIL HCL 10MG TABLET PO SCH (20:34)
[2019-08-21] MEDS: AMITRIPTYLINE 25MG TABLET PO SCH (20:35)
[2019-08-21] MEDS: ATORVASTATIN CALCIUM 40MG TABLET PO SCH (20:35)
[2019-08-21] MEDS: FAMOTIDINE 20MG TABLET PO SCH (20:36)
[2019-08-21 21:36] VITALS: BP 153/81
[2019-08-22] MEDS: OXYCODONE HCL/ACETAMINOPHEN 5/325MG TABLET PO SCH ×3 (00:04→13:04)
[2019-08-22] MEDS: HYDROMORPHONE HCL/PF 2MG/ML CPJ IV PRN ×4 (04:53→23:18)
[2019-08-22] MEDS: CLONIDINE 0.1MG TABLET PO PRN (04:55)
[2019-08-22] MEDS: LEVOTHYROXINE SODIUM 25MCG TABLET PO SCH (06:37)
[2019-08-22] MEDS: CARBAMAZEPINE 100MG TABLET CHEW PO SCH ×3 (06:37→21:46)
[2019-08-22] MEDS: GABAPENTIN 400MG CAPSULE PO SCH ×3 (06:37→21:45)
[2019-08-22 06:42] LABS: BASOPHILS % 0.3 % (0.0-2.0); EOSINOPHILS % 5.4 % (0.0-5.0); HEMATOCRIT. 31.8 % (36.0-48.0); HEMOGLOBIN. 11.1 g/dL (12.0-16.0); LYMPHOCYTES % 20.6 % (20.0-50.0); MEAN CORPUSCULAR HEMOGLOBIN 31.8 pg (28.0-32.0); MEAN CORPUSCULAR VOLUME 90.7 fL (81.0-99.0); MEAN PLATELET VOLUME 7.2 fl (7.4-10.4); MONOCYTES % 10.3 % (2.0-8.0); NEUTROPHILS % 63.4 % (40.0-76.0); PLATELET 321 x1000/uL (130-400); RED BLOOD CELL COUNT 3.51 mill/uL (4.2-5.4); RED CELL DISTRIBUTION WIDTH 13.3 % (11.6-14.6)
[2019-08-22] MEDS: INSULIN LISPRO (LOW DOSE) 100 UNITS/ML SUBCUT SCH ×3 (06:43→16:37)
[2019-08-22] MEDS: BLOOD SUGAR DIAGNOSTIC STRIP TEST SCH ×4 (06:43→21:47)
[2019-08-22 06:49] LABS: CHLORIDE 108 mEq/L (98-107)
[2019-08-22 08:00] VITALS: BP 134/69
[2019-08-22] MEDS ORDERED: BISACODYL 10MG SUPP PR SCH (09:00)
[2019-08-22] MEDS: ALBUTEROL (0.083%) 2.5MG/3ML NEB HHN SCH ×2 (09:12→16:47)
[2019-08-22] MEDS: LIDOCAINE 5% PATCH TOP SCH (09:29)
[2019-08-22] MEDS: FLUTICASONE/VILANTEROL 200-25 BLST.W.DEV ORI SCH (09:33)
[2019-08-22] MEDS: SODIUM CHLORIDE 45ML SPRAY NS SCH ×4 (09:33→22:00)
[2019-08-22] MEDS: FOLIC ACID 1MG TABLET PO SCH (09:44)
[2019-08-22] MEDS: BACLOFEN 10MG TABLET PO SCH ×2 (09:45→16:19)
[2019-08-22] MEDS: AMLODIPINE 2.5MG TABLET PO SCH ×2 (09:45→21:59)
[2019-08-22] MEDS: GUAIFENESIN 600MG ER TABLET PO SCH ×2 (09:45→21:45)
[2019-08-22] MEDS: ENOXAPARIN 40MG/0.4ML SYR SUBCUT SCH (09:45)
[2019-08-22] MEDS: ASPIRIN 81MG EC TABLET PO SCH (09:46)
[2019-08-22] MEDS: MONTELUKAST SODIUM 10MG TABLET PO SCH (16:25)
[2019-08-22] MEDS: BISACODYL 10MG SUPP PR SCH (17:07)
[2019-08-22 20:00] VITALS: BP 166/94
[2019-08-22] MEDS: AMITRIPTYLINE 25MG TABLET PO SCH (21:44)
[2019-08-22] MEDS: ATORVASTATIN CALCIUM 40MG TABLET PO SCH (21:45)
[2019-08-22] MEDS: FAMOTIDINE 20MG TABLET PO SCH (21:45)
[2019-08-22] MEDS: DONEPEZIL HCL 10MG TABLET PO SCH (21:46)
[2019-08-23] MEDS: ONDANSETRON HCL 4MG/2ML INJ IV PRN ×3 (00:09→13:14)
[2019-08-23] MEDS: OXYCODONE HCL/ACETAMINOPHEN 5/325MG TABLET PO PRN ×3 (03:29→15:34)
[2019-08-23] MEDS: HYDROMORPHONE HCL/PF 2MG/ML CPJ IV PRN ×3 (06:00→17:53)
[2019-08-23] MEDS: LEVOTHYROXINE SODIUM 25MCG TABLET PO SCH (06:01)
[2019-08-23] MEDS: CARBAMAZEPINE 100MG TABLET CHEW PO SCH ×3 (06:01→21:04)
[2019-08-23] MEDS: GABAPENTIN 400MG CAPSULE PO SCH ×3 (06:01→21:04)
[2019-08-23] MEDS: INSULIN LISPRO (LOW DOSE) 100 UNITS/ML SUBCUT SCH ×3 (07:00→17:00)
[2019-08-23] MEDS: BLOOD SUGAR DIAGNOSTIC STRIP TEST SCH ×4 (07:07→21:04)
[2019-08-23 08:00] VITALS: BP 175/84
[2019-08-23] MEDS: BISACODYL 10MG SUPP PR SCH (09:00)
[2019-08-23] MEDS: ENOXAPARIN 40MG/0.4ML SYR SUBCUT SCH (09:14)
[2019-08-23] MEDS: LIDOCAINE 5% PATCH TOP SCH (09:15)
[2019-08-23] MEDS: AMLODIPINE 2.5MG TABLET PO SCH ×2 (09:16→20:50)
[2019-08-23] MEDS: BACLOFEN 10MG TABLET PO SCH ×2 (09:16→17:23)
[2019-08-23] MEDS: FOLIC ACID 1MG TABLET PO SCH (09:17)
[2019-08-23] MEDS: GUAIFENESIN 600MG ER TABLET PO SCH ×2 (09:17→20:49)
[2019-08-23] MEDS: SODIUM CHLORIDE 45ML SPRAY NS SCH ×4 (09:17→21:04)
[2019-08-23] MEDS: ASPIRIN 81MG EC TABLET PO SCH (09:17)
[2019-08-23] MEDS: FLUTICASONE/VILANTEROL 200-25 BLST.W.DEV ORI SCH (09:18)
[2019-08-23] MEDS: ALBUTEROL (0.083%) 2.5MG/3ML NEB HHN SCH ×2 (09:32→16:36)
[2019-08-23] MEDS: MONTELUKAST SODIUM 10MG TABLET PO SCH (17:23)
[2019-08-23 20:00] VITALS: BP 135/75
[2019-08-23] MEDS: AMITRIPTYLINE 25MG TABLET PO SCH (20:49)
[2019-08-23] MEDS: ATORVASTATIN CALCIUM 40MG TABLET PO SCH (20:50)
[2019-08-23] MEDS: DONEPEZIL HCL 10MG TABLET PO SCH (20:50)
[2019-08-23] MEDS: FAMOTIDINE 20MG TABLET PO SCH (20:50)
[2019-08-23] MEDS: MORPHINE SULFATE 15MG TABLET SR PO SCH (20:51)
[2019-08-24] MEDS: HYDROMORPHONE HCL/PF 2MG/ML CPJ IV PRN ×3 (00:20→12:01)
[2019-08-24] MEDS: OXYCODONE HCL/ACETAMINOPHEN 5/325MG TABLET PO PRN ×3 (04:06→22:12)
[2019-08-24] MEDS: CARBAMAZEPINE 100MG TABLET CHEW PO SCH ×3 (05:56→21:26)
[2019-08-24] MEDS: GABAPENTIN 400MG CAPSULE PO SCH ×3 (05:57→21:26)
[2019-08-24] MEDS: BLOOD SUGAR DIAGNOSTIC STRIP TEST SCH ×4 (05:57→21:26)
[2019-08-24] MEDS: INSULIN LISPRO (LOW DOSE) 100 UNITS/ML SUBCUT SCH ×3 (05:57→16:31)
[2019-08-24] MEDS: LEVOTHYROXINE SODIUM 25MCG TABLET PO SCH (06:01)
[2019-08-24 08:08] VITALS: BP 129/63
[2019-08-24] MEDS: FLUTICASONE/VILANTEROL 200-25 BLST.W.DEV ORI SCH (08:55)
[2019-08-24] MEDS: SODIUM CHLORIDE 45ML SPRAY NS SCH ×4 (08:55→21:37)
[2019-08-24] MEDS: ERGOCALCIFEROL 50000UNITS CAPSULE PO SCH (08:56)
[2019-08-24] MEDS: FOLIC ACID 1MG TABLET PO SCH ×2 (08:56→16:24)
[2019-08-24] MEDS: AMLODIPINE 2.5MG TABLET PO SCH ×2 (08:56→21:24)
[2019-08-24] MEDS: ENOXAPARIN 40MG/0.4ML SYR SUBCUT SCH (08:56)
[2019-08-24] MEDS: ASPIRIN 81MG EC TABLET PO SCH (08:56)
[2019-08-24] MEDS: BACLOFEN 10MG TABLET PO SCH ×2 (08:56→16:23)
[2019-08-24] MEDS: GUAIFENESIN 600MG ER TABLET PO SCH ×2 (08:56→21:26)
[2019-08-24] MEDS: LIDOCAINE 5% PATCH TOP SCH (08:56)
[2019-08-24] MEDS: MORPHINE SULFATE 15MG TABLET SR PO SCH ×2 (08:57→21:00)
[2019-08-24] MEDS: BISACODYL 10MG SUPP PR SCH ×3 (09:00→21:29)
[2019-08-24] MEDS: ALBUTEROL (0.083%) 2.5MG/3ML NEB HHN SCH ×2 (09:53→16:08)
[2019-08-24] MEDS: ONDANSETRON HCL 4MG/2ML INJ IV PRN (12:51)
[2019-08-24] MEDS: MONTELUKAST SODIUM 10MG TABLET PO SCH (16:24)
[2019-08-24 20:00] VITALS: BP 160/77
[2019-08-24] MEDS: DONEPEZIL HCL 10MG TABLET PO SCH (21:24)
[2019-08-24] MEDS: FAMOTIDINE 20MG TABLET PO SCH (21:24)
[2019-08-24] MEDS: AMITRIPTYLINE 25MG TABLET PO SCH (21:24)
[2019-08-24] MEDS: ATORVASTATIN CALCIUM 40MG TABLET PO SCH (21:26)
[2019-08-25] MEDS: OXYCODONE HCL/ACETAMINOPHEN 5/325MG TABLET PO PRN ×4 (03:53→21:40)
[2019-08-25] MEDS: LEVOTHYROXINE SODIUM 25MCG TABLET PO SCH (06:09)
[2019-08-25] MEDS: GABAPENTIN 400MG CAPSULE PO SCH ×3 (06:09→21:24)
[2019-08-25] MEDS: CARBAMAZEPINE 100MG TABLET CHEW PO SCH ×3 (06:09→21:24)
[2019-08-25] MEDS: INSULIN LISPRO (LOW DOSE) 100 UNITS/ML SUBCUT SCH ×3 (06:27→17:00)
[2019-08-25] MEDS: BLOOD SUGAR DIAGNOSTIC STRIP TEST SCH ×4 (06:27→21:36)
[2019-08-25 08:09] VITALS: BP 180/99
[2019-08-25] MEDS: LIDOCAINE 5% PATCH TOP SCH (08:19)
[2019-08-25] MEDS: FLUTICASONE/VILANTEROL 200-25 BLST.W.DEV ORI SCH (08:20)
[2019-08-25] MEDS: SODIUM CHLORIDE 45ML SPRAY NS SCH ×4 (08:20→21:26)
[2019-08-25] MEDS: ENOXAPARIN 40MG/0.4ML SYR SUBCUT SCH (08:21)
[2019-08-25] MEDS: FOLIC ACID 1MG TABLET PO SCH (08:31)
[2019-08-25] MEDS: BACLOFEN 10MG TABLET PO SCH ×2 (08:31→16:02)
[2019-08-25] MEDS: AMLODIPINE 2.5MG TABLET PO SCH ×2 (08:31→21:24)
[2019-08-25] MEDS: GUAIFENESIN 600MG ER TABLET PO SCH ×2 (08:32→21:25)
[2019-08-25] MEDS: MORPHINE SULFATE 15MG TABLET SR PO SCH ×2 (08:44→21:00)
[2019-08-25] MEDS: ALBUTEROL (0.083%) 2.5MG/3ML NEB HHN SCH ×2 (09:00→13:49)
[2019-08-25] MEDS: ASPIRIN 81MG EC TABLET PO SCH (09:31)
[2019-08-25] MEDS: CLONIDINE 0.1MG TABLET PO PRN (11:18)
[2019-08-25] MEDS: MONTELUKAST SODIUM 10MG TABLET PO SCH (16:02)
[2019-08-25] MEDS: BISACODYL 10MG SUPP PR SCH ×2 (18:23→21:27)
[2019-08-25 20:00] VITALS: BP 153/87
[2019-08-25] MEDS: FAMOTIDINE 20MG TABLET PO SCH (21:22)
[2019-08-25] MEDS: DONEPEZIL HCL 10MG TABLET PO SCH (21:23)
[2019-08-25] MEDS: ATORVASTATIN CALCIUM 40MG TABLET PO SCH (21:24)
[2019-08-25] MEDS: AMITRIPTYLINE 25MG TABLET PO SCH (21:26)
[2019-08-26] MEDS: HYDROMORPHONE HCL/PF 2MG/ML CPJ IV PRN ×2 (00:35→08:02)
[2019-08-26] MEDS: CARBAMAZEPINE 100MG TABLET CHEW PO SCH (06:00)
[2019-08-26] MEDS: GABAPENTIN 400MG CAPSULE PO SCH (06:00)
[2019-08-26] MEDS: BLOOD SUGAR DIAGNOSTIC STRIP TEST SCH ×2 (06:30→11:15)
[2019-08-26] MEDS: INSULIN LISPRO (LOW DOSE) 100 UNITS/ML SUBCUT SCH ×2 (07:00→13:00)
[2019-08-26] MEDS: LEVOTHYROXINE SODIUM 25MCG TABLET PO SCH (07:59)
[2019-08-26 08:00] VITALS: BP 163/82
[2019-08-26] MEDS: GUAIFENESIN 600MG ER TABLET PO SCH (08:56)
[2019-08-26] MEDS: BACLOFEN 10MG TABLET PO SCH (08:56)
[2019-08-26] MEDS: FOLIC ACID 1MG TABLET PO SCH (08:57)
[2019-08-26] MEDS: AMLODIPINE 2.5MG TABLET PO SCH (08:57)
[2019-08-26] MEDS: ASPIRIN 81MG EC TABLET PO SCH (08:57)
[2019-08-26] MEDS: MORPHINE SULFATE 15MG TABLET SR PO SCH (08:58)
[2019-08-26] MEDS: ENOXAPARIN 40MG/0.4ML SYR SUBCUT SCH (08:58)
[2019-08-26] MEDS: LIDOCAINE 5% PATCH TOP SCH (08:58)
[2019-08-26] MEDS: SODIUM CHLORIDE 45ML SPRAY NS SCH ×2 (09:00→13:00)
[2019-08-26] MEDS: ALBUTEROL (0.083%) 2.5MG/3ML NEB HHN SCH (09:00)
[2019-08-26] MEDS: FLUTICASONE/VILANTEROL 200-25 BLST.W.DEV ORI SCH (09:01)
[2019-08-26] MEDS: OXYCODONE HCL/ACETAMINOPHEN 5/325MG TABLET PO PRN (10:33)
[2019-08-26 11:31] VITALS: BP 139/70
== END 2019-08-26 13:50 | disposition home health service (06) | DRG 58 ==
PROVIDERS: ADMIT Physical Medicine & Rehabilitation Spinal Cord Injury Medicine; ATTEND Internal Medicine Nephrology
PROC: 3E0U33Z Introduction of Anti-inflammatory into Joints, Percutaneous Approach (ICD-10-PCS; principal; 2019-08-18)
DX: G35 Multiple sclerosis (principal); G82.50 Quadriplegia, unspecified; E87.2 Acidosis; I16.9 Hypertensive crisis, unspecified; E03.9 Hypothyroidism, unspecified; E78.00 Pure hypercholesterolemia, unspecified; E11.42 Type 2 diabetes mellitus with diabetic polyneuropathy; E78.5 Hyperlipidemia, unspecified; E78.1 Pure hyperglyceridemia; F32.9 Major depressive disorder, single episode, unspecified; G89.4 Chronic pain syndrome; I10 Essential (primary) hypertension; J42 Unspecified chronic bronchitis; M79.7 Fibromyalgia; R13.10 Dysphagia, unspecified; E55.9 Vitamin D deficiency, unspecified; E66.9 Obesity, unspecified; I27.20 Pulmonary hypertension, unspecified; J44.9 Chronic obstructive pulmonary disease, unspecified; K22.4 Dyskinesia of esophagus; K76.0 Fatty (change of) liver, not elsewhere classified; M48.061 Spinal stenosis, lumbar region without neurogenic claudication; F41.9 Anxiety disorder, unspecified; K57.90 Diverticulosis of intestine, part unspecified, without perforation or abscess without bleeding; R41.3 Other amnesia; R53.81 Other malaise; E87.6 Hypokalemia; R63.4 Abnormal weight loss; M75.100 Unspecified rotator cuff tear or rupture of unspecified shoulder, not specified as traumatic; Z79.51 Long term (current) use of inhaled steroids; Z79.82 Long term (current) use of aspirin; Z79.890 Hormone replacement therapy; Z79.4 Long term (current) use of insulin; Z80.0 Family history of malignant neoplasm of digestive organs; Z80.1 Family history of malignant neoplasm of trachea, bronchus and lung; Z80.42 Family history of malignant neoplasm of prostate; Z82.49 Family history of ischemic heart disease and other diseases of the circulatory system; Z83.3 Family history of diabetes mellitus; Z79.899 Other long term (current) drug therapy; Z68.28 Body mass index [BMI] 28.0-28.9, adult
CPT/HCPCS: 36415; 71045; 73030; 73221; 80048; 80053; 81003; 82306; 82607; 82746; 82962; 83036; 84134; 84443; 85025; 87070; 92523; 93970; 94640; 97110; 97112; 97116; 97129; 97130; 97162; 97167; 97530; 97535; 97542; J0696; J1170; J1650; J1815; J2060; J2405; J3301; J3490

== ENCOUNTER 2019-09-25 15:43 | Inpatient (IN) | payer MEDICARE, MEDICAID ==
[~2019-09-25] VITALS: Ht 172.7 cm; Wt 94.3 kg
[2019-09-25] MEDS ORDERED: MORPHINE SULFATE 4 MG/ML CPJ (NOT FOR IM USE) IV STA (17:08)
[2019-09-25 17:25] LABS: BASOPHILS % 0.4 % (0.0-2.0); EOSINOPHILS % 1.9 % (0.0-5.0); HEMATOCRIT. 39.9 % (36.0-48.0); HEMOGLOBIN. 13.5 g/dL (12.0-16.0); LYMPHOCYTES % 14.6 % (20.0-50.0); MEAN CORPUSCULAR VOLUME 91.4 fL (81.0-99.0); MEAN PLATELET VOLUME 7.1 fl (7.4-10.4); MONOCYTES % 4.2 % (2.0-8.0); NEUTROPHILS % 78.9 % (40.0-76.0); PLATELET 360 x1000/uL (130-400); RED BLOOD CELL COUNT 4.36 mill/uL (4.2-5.4); RED CELL DISTRIBUTION WIDTH 13.7 % (11.6-14.6)
[2019-09-25 17:30] LABS: CHLORIDE 107 mEq/L (98-107)
[2019-09-25 17:34] LABS: ETHANOL BLOOD < 10 mg/dL
[2019-09-25 17:51] LABS: CLARITY URINE CLEAR (CLEAR); COLOR URINE YELLOW (YELLOW); KETONES URINE NEGATIVE (NEGATIVE); LEUKOCYTE ESTERASE URINE NEGATIVE (NEGATIVE); NITRITE URINE NEGATIVE (NEGATIVE); OCCULT BLOOD URINE NEGATIVE (NEGATIVE); PH URINE 6.5 (4.5-8.0); PROTEIN URINE NEGATIVE (NEGATIVE); SPECIFIC GRAVITY URINE 1.009 (1.005-1.030)
[2019-09-25 18:02] LABS: *AMPHETAMINES SCREEN URINE NEGATIVE (NEGATIVE); *BARBITURATES SCREEN URINE NEGATIVE (NEGATIVE); *BENZODIAZEPINES SCREEN URINE NEGATIVE (NEGATIVE); *COCAINE SCREEN URINE NEGATIVE (NEGATIVE)
[2019-09-25 18:03] LABS: CANNABINOID URINE SCREEN NEGATIVE (NEGATIVE); METHADONE URINE SCREEN NEGATIVE (NEGATIVE); OPIATES URINE SCREEN NEGATIVE (NEGATIVE); PHENCYCLIDINE URINE SCREEN NEGATIVE (NEGATIVE)
[2019-09-25] MEDS ORDERED: METHYLPREDNISOLONE 125MG 250 MG in DEXT 5% WATER 100 ML IV NR (19:00)
[2019-09-25] MEDS ORDERED: MAGNESIUM/ALUMINUM HYDROXIDE/SIMETHICONE 30ML UDC PO PRN (19:45)
[2019-09-25] MEDS ORDERED: CLONIDINE 0.1MG TABLET PO PRN (19:45)
[2019-09-25] MEDS ORDERED: NA PHOS,M-B/NA PHOS,DI-BA ENEMA 118ML PR PRN (19:45)
[2019-09-25] MEDS ORDERED: ACETAMINOPHEN 325MG TABLET PO PRN ×2 (19:45)
[2019-09-25] MEDS ORDERED: DEXTROSE 50% WATER 50ML SYRINGE IV PRN (21:00)
[2019-09-25 21:25] VITALS: BP 146/79
[2019-09-25] MEDS: INSULIN LISPRO 100 UNITS/ML SUBCUT SCH (21:25)
[2019-09-25] MEDS: BLOOD SUGAR DIAGNOSTIC STRIP TEST SCH (21:25)
[2019-09-25] MEDS ORDERED: FENT-70 TD (22:47)
[2019-09-25] MEDS: ENOXAPARIN 40MG/0.4ML SYR SUBCUT SCH (22:54)
[2019-09-26] VITALS: BP 138/84
[2019-09-26 04:00] VITALS: BP 116/89
[2019-09-26] MEDS: INSULIN LISPRO 100 UNITS/ML SUBCUT SCH ×4 (06:07→21:00)
[2019-09-26] MEDS: BLOOD SUGAR DIAGNOSTIC STRIP TEST SCH ×4 (06:07→21:00)
[2019-09-26] MEDS ORDERED: OXYCODONE HCL/ACETAMINOPHEN 5/325MG TABLET PO PRN (06:45)
[2019-09-26 07:10] LABS: BASOPHILS % 0.2 % (0.0-2.0); HEMATOCRIT. 37.5 % (36.0-48.0); LYMPHOCYTES % 13.2 % (20.0-50.0); MEAN CORPUSCULAR HEMOGLOBIN 31.4 pg (28.0-32.0); MEAN CORPUSCULAR VOLUME 90.6 fL (81.0-99.0); MEAN PLATELET VOLUME 7.3 fl (7.4-10.4); MONOCYTES % 3.4 % (2.0-8.0); NEUTROPHILS % 83.2 % (40.0-76.0); PLATELET 350 x1000/uL (130-400); RED BLOOD CELL COUNT 4.14 mill/uL (4.2-5.4); RED CELL DISTRIBUTION WIDTH 13.7 % (11.6-14.6)
[2019-09-26 07:31] LABS: CHLORIDE 108 mEq/L (98-107)
[2019-09-26 07:54] LABS: LDL CHOLESTEROL 244 mg/dL (5-100)
[2019-09-26 07:57] LABS: T4 FREE 0.72 ng/dL (0.76-1.46)
[2019-09-26 07:59] LABS: HDL CHOLESTEROL 65 mg/dL (40-59)
[2019-09-26 08:00] VITALS: BP 156/91
[2019-09-26] MEDS ORDERED: ALBUTEROL 6.7GM HFA INHALER INH PRN (08:45)
[2019-09-26] MEDS ORDERED: ALBUTEROL (0.083%) 2.5MG/3ML NEB HHN PRN (08:45)
[2019-09-26] MEDS ORDERED: BACLOFEN 20MG TABLET PO SCH (09:00)
[2019-09-26] MEDS ORDERED: HYDROMORPHONE HCL/PF 2MG/ML CPJ IV PRN (09:15)
[2019-09-26] MEDS: LEVOTHYROXINE SODIUM 25MCG TABLET PO SCH (09:40)
[2019-09-26] MEDS: CARBAMAZEPINE 200MG TABLET PO SCH ×3 (09:40→21:54)
[2019-09-26] MEDS: GABAPENTIN 400MG CAPSULE PO SCH ×3 (09:40→17:00)
[2019-09-26] MEDS: BACLOFEN 10MG TABLET PO SCH ×2 (09:45→17:39)
[2019-09-26 12:00] VITALS: BP 141/83
[2019-09-26] MEDS ORDERED: NALOXONE HCL 0.4 MG/ML 1ML VIAL IV PRN (12:15)
[2019-09-26] MEDS: HYDROMORPHONE HCL/PF 2MG/ML CPJ IV PRN ×2 (15:36→21:54)
[2019-09-26 16:00] VITALS: BP 114/71
[2019-09-26 20:00] VITALS: BP_SYST 113; BP_SYST 90; BP_DIAS 65; BP_DIAS 71
[2019-09-26] MEDS: OXYCODONE HCL/ACETAMINOPHEN 5/325MG TABLET PO PRN (20:30)
[2019-09-26] MEDS: AMITRIPTYLINE 25MG TABLET PO SCH (20:31)
[2019-09-26] MEDS: DONEPEZIL HCL 10MG TABLET PO SCH (20:39)
[2019-09-26] MEDS: ENOXAPARIN 40MG/0.4ML SYR SUBCUT SCH (20:43)
[2019-09-26] MEDS ORDERED: DONEPEZIL HCL 10MG TABLET PO SCH (21:00)
[2019-09-26 21:11] LABS: CREATINE KINASE 44 IU/L (26-192)
[2019-09-27] VITALS (7 sets, daily range): BP systolic 100–128; BP diastolic 64–79
[2019-09-27] MEDS: HYDROMORPHONE HCL/PF 2MG/ML CPJ IV PRN ×4 (01:18→20:44)
[2019-09-27] MEDS: LEVOTHYROXINE SODIUM 25MCG TABLET PO SCH (07:00)
[2019-09-27] MEDS: OXYCODONE HCL/ACETAMINOPHEN 5/325MG TABLET PO PRN ×2 (07:00→17:51)
[2019-09-27] MEDS: BLOOD SUGAR DIAGNOSTIC STRIP TEST SCH ×4 (07:10→21:22)
[2019-09-27] MEDS: CARBAMAZEPINE 200MG TABLET PO SCH ×3 (07:30→21:23)
[2019-09-27] MEDS: INSULIN LISPRO 100 UNITS/ML SUBCUT SCH ×5 (07:33→21:53)
[2019-09-27] MEDS: DONEPEZIL HCL 10MG TABLET PO SCH ×2 (08:40→20:42)
[2019-09-27] MEDS: GABAPENTIN 400MG CAPSULE PO SCH ×3 (08:40→17:50)
[2019-09-27] MEDS: BACLOFEN 10MG TABLET PO SCH ×2 (08:40→17:51)
[2019-09-27] MEDS: ONDANSETRON HCL 4MG/2ML INJ IV PRN (08:51)
[2019-09-27] MEDS ORDERED: LORAZEPAM 1MG TABLET PO SCH (10:00)
[2019-09-27] MEDS: ENOXAPARIN 40MG/0.4ML SYR SUBCUT SCH (20:42)
[2019-09-27] MEDS: ATORVASTATIN CALCIUM 40MG TABLET PO SCH (20:43)
[2019-09-27] MEDS: AMITRIPTYLINE 25MG TABLET PO SCH (20:43)
[2019-09-28] VITALS: BP 122/75
[2019-09-28] MEDS: HYDROMORPHONE HCL/PF 2MG/ML CPJ IV PRN ×4 (01:01→16:34)
[2019-09-28 04:00] VITALS: BP 127/72
[2019-09-28] MEDS: CARBAMAZEPINE 200MG TABLET PO SCH ×3 (05:26→21:02)
[2019-09-28 06:05] LABS: BASOPHILS % 0.6 % (0.0-2.0); EOSINOPHILS % 3.1 % (0.0-5.0); HEMATOCRIT. 36.5 % (36.0-48.0); HEMOGLOBIN. 12.5 g/dL (12.0-16.0); LYMPHOCYTES % 22.3 % (20.0-50.0); MEAN CORPUSCULAR HEMOGLOBIN 31.3 pg (28.0-32.0); MEAN CORPUSCULAR VOLUME 91.8 fL (81.0-99.0); MEAN PLATELET VOLUME 7.3 fl (7.4-10.4); MONOCYTES % 7.2 % (2.0-8.0); NEUTROPHILS % 66.8 % (40.0-76.0); PLATELET 277 x1000/uL (130-400); RED BLOOD CELL COUNT 3.98 mill/uL (4.2-5.4); RED CELL DISTRIBUTION WIDTH 13.4 % (11.6-14.6)
[2019-09-28 06:46] LABS: CHLORIDE 105 mEq/L (98-107)
[2019-09-28] MEDS: INSULIN LISPRO 100 UNITS/ML SUBCUT SCH ×4 (06:56→21:00)
[2019-09-28] MEDS: BLOOD SUGAR DIAGNOSTIC STRIP TEST SCH ×4 (06:56→20:29)
[2019-09-28] MEDS: LEVOTHYROXINE SODIUM 25MCG TABLET PO SCH (07:17)
[2019-09-28 08:00] VITALS: BP 148/82
[2019-09-28] MEDS: DONEPEZIL HCL 10MG TABLET PO SCH ×2 (08:36→20:28)
[2019-09-28] MEDS: GABAPENTIN 400MG CAPSULE PO SCH ×3 (08:36→16:30)
[2019-09-28] MEDS: BACLOFEN 10MG TABLET PO SCH ×2 (08:36→16:30)
[2019-09-28] MEDS: OXYCODONE HCL/ACETAMINOPHEN 5/325MG TABLET PO PRN ×2 (08:47→20:30)
[2019-09-28] MEDS: ASPIRIN 81MG EC TABLET PO SCH (10:36)
[2019-09-28 12:00] VITALS: BP 125/70
[2019-09-28] MEDS ORDERED: HYDROMORPHONE HCL/PF 2MG/ML CPJ IV PRN (12:45)
[2019-09-28 16:00] VITALS: BP 110/77
[2019-09-28 20:00] VITALS: BP 112/67
[2019-09-28] MEDS: ATORVASTATIN CALCIUM 40MG TABLET PO SCH (20:28)
[2019-09-28] MEDS: ENOXAPARIN 40MG/0.4ML SYR SUBCUT SCH (20:28)
[2019-09-28] MEDS: AMITRIPTYLINE 25MG TABLET PO SCH (20:28)
[2019-09-28] MEDS: ONDANSETRON HCL 4MG/2ML INJ IV PRN (20:29)
[2019-09-29] VITALS: BP_SYST 105; BP_SYST 113; BP_DIAS 55; BP_DIAS 82
[2019-09-29] MEDS: HYDROMORPHONE HCL/PF 2MG/ML CPJ IV PRN ×3 (00:47→17:03)
[2019-09-29] MEDS: OXYCODONE HCL/ACETAMINOPHEN 5/325MG TABLET PO PRN ×2 (02:56→12:50)
[2019-09-29 03:50] VITALS: BP 115/68
[2019-09-29] MEDS: LEVOTHYROXINE SODIUM 25MCG TABLET PO SCH (06:37)
[2019-09-29] MEDS: BLOOD SUGAR DIAGNOSTIC STRIP TEST SCH ×4 (06:37→21:13)
[2019-09-29] MEDS: CARBAMAZEPINE 200MG TABLET PO SCH ×3 (06:37→21:18)
[2019-09-29] MEDS: INSULIN LISPRO 100 UNITS/ML SUBCUT SCH ×4 (06:43→21:00)
[2019-09-29 06:54] LABS: BASOPHILS % 0.6 % (0.0-2.0); EOSINOPHILS % 4.6 % (0.0-5.0); HEMATOCRIT. 33.2 % (36.0-48.0); HEMOGLOBIN. 11.6 g/dL (12.0-16.0); MEAN CORPUSCULAR HEMOGLOBIN 31.5 pg (28.0-32.0); MEAN CORPUSCULAR VOLUME 90.3 fL (81.0-99.0); MEAN PLATELET VOLUME 7.4 fl (7.4-10.4); NEUTROPHILS % 62.8 % (40.0-76.0); PLATELET 263 x1000/uL (130-400); RED BLOOD CELL COUNT 3.67 mill/uL (4.2-5.4); RED CELL DISTRIBUTION WIDTH 13.2 % (11.6-14.6)
[2019-09-29 07:04] LABS: CHLORIDE 104 mEq/L (98-107)
[2019-09-29 08:00] VITALS: BP 127/73
[2019-09-29] MEDS: ASPIRIN 81MG EC TABLET PO SCH (08:53)
[2019-09-29] MEDS: BACLOFEN 10MG TABLET PO SCH ×2 (08:53→17:03)
[2019-09-29] MEDS: DONEPEZIL HCL 10MG TABLET PO SCH ×2 (08:53→21:18)
[2019-09-29] MEDS: GABAPENTIN 400MG CAPSULE PO SCH ×3 (08:53→17:02)
[2019-09-29 12:00] VITALS: BP 110/60
[2019-09-29] MEDS ORDERED: BISACODYL 10MG SUPP PR PRN (15:00)
[2019-09-29 16:00] VITALS: BP 121/73
[2019-09-29 20:00] VITALS: BP 122/77
[2019-09-29] MEDS: AMITRIPTYLINE 25MG TABLET PO SCH (21:17)
[2019-09-29] MEDS: ENOXAPARIN 40MG/0.4ML SYR SUBCUT SCH (21:18)
[2019-09-29] MEDS: ATORVASTATIN CALCIUM 40MG TABLET PO SCH (21:18)
[2019-09-30] VITALS (7 sets, daily range): BP systolic 107–135; BP diastolic 60–77
[2019-09-30] MEDS: HYDROMORPHONE HCL/PF 2MG/ML CPJ IV PRN ×3 (01:09→17:32)
[2019-09-30] MEDS: ONDANSETRON HCL 4MG/2ML INJ IV PRN (01:50)
[2019-09-30] MEDS: CARBAMAZEPINE 200MG TABLET PO SCH ×2 (05:12→13:20)
[2019-09-30] MEDS: OXYCODONE HCL/ACETAMINOPHEN 5/325MG TABLET PO PRN ×2 (05:12→13:20)
[2019-09-30] MEDS: LEVOTHYROXINE SODIUM 25MCG TABLET PO SCH (06:13)
[2019-09-30] MEDS: BLOOD SUGAR DIAGNOSTIC STRIP TEST SCH ×3 (06:21→16:29)
[2019-09-30] MEDS: INSULIN LISPRO 100 UNITS/ML SUBCUT SCH ×3 (06:21→17:28)
[2019-09-30] MEDS: BACLOFEN 10MG TABLET PO SCH ×2 (09:29→16:29)
[2019-09-30] MEDS: DONEPEZIL HCL 10MG TABLET PO SCH (09:29)
[2019-09-30] MEDS: GABAPENTIN 400MG CAPSULE PO SCH ×3 (09:29→16:29)
[2019-09-30] MEDS: ASPIRIN 81MG EC TABLET PO SCH (09:29)
[2019-09-30] MEDS ORDERED: LORA-250 MT (15:27)
[2019-09-30] MEDS ORDERED: AMIT150T MT (15:28)
[2019-09-30] MEDS ORDERED: AMIT150T PO (15:29)
[2019-09-30] MEDS ORDERED: ENOXAPARIN 30MG/0.3ML SYR SUBCUT SCH (21:00)
== END 2019-09-30 17:47 | disposition home or self-care (01) | DRG 59 ==
LOC: ER 16:03 → EDBEDREQ 17:12 → EDBEDREQTM 18:56 → EDBEDREQ 18:56 → EDBEDREQTM 19:03 → EDBEDREQ 19:40 → ENRESERV 20:29 → 8WST 21:24
PROVIDERS: ADMIT Internal Medicine Nephrology; ATTEND Internal Medicine Nephrology
DX: G35 Multiple sclerosis (principal); J98.11 Atelectasis; K59.2 Neurogenic bowel, not elsewhere classified; M79.7 Fibromyalgia; G89.4 Chronic pain syndrome; E11.42 Type 2 diabetes mellitus with diabetic polyneuropathy; I10 Essential (primary) hypertension; J44.9 Chronic obstructive pulmonary disease, unspecified; E78.00 Pure hypercholesterolemia, unspecified; M48.02 Spinal stenosis, cervical region; E78.5 Hyperlipidemia, unspecified; F32.9 Major depressive disorder, single episode, unspecified; M47.816 Spondylosis without myelopathy or radiculopathy, lumbar region; N31.9 Neuromuscular dysfunction of bladder, unspecified; E03.9 Hypothyroidism, unspecified; Z66 Do not resuscitate; M19.90 Unspecified osteoarthritis, unspecified site; R26.2 Difficulty in walking, not elsewhere classified; R90.82 White matter disease, unspecified; R03.0 Elevated blood-pressure reading, without diagnosis of hypertension; F41.9 Anxiety disorder, unspecified; M47.812 Spondylosis without myelopathy or radiculopathy, cervical region; M48.07 Spinal stenosis, lumbosacral region; W18.30XA Fall on same level, unspecified, initial encounter; Z79.890 Hormone replacement therapy; Z79.891 Long term (current) use of opiate analgesic; Z79.899 Other long term (current) drug therapy; Z98.891 History of uterine scar from previous surgery; Z91.19 Patient's noncompliance with other medical treatment and regimen; Z79.4 Long term (current) use of insulin; Y93.89 Activity, other specified; Y92.89 Other specified places as the place of occurrence of the external cause; Y99.8 Other external cause status; Z82.3 Family history of stroke; Z82.49 Family history of ischemic heart disease and other diseases of the circulatory system
CPT/HCPCS: 36415; 70551; 71045; 72141; 72148; 73552; 80048; 80053; 80061; 80305; 80320; 81003; 82550; 82962; 83036; 84439; 84443; 84484; 85025; 85651; 92610; 93005; 93306; 96365; 97162; 97166; 97530; 97535; 99291; J1170; J1650; J1815; J2270; J2405; J2930; J7060; G0480